=== PATIENT | male | born 1975 | race Caucasian/White ===

== ENCOUNTER 2022-02-12 08:12 | Outpatient (CLI) | payer MEDICARE, SELFPAY ==
--- NOTE | 2022-02-12 08:21 | ECG_ITS ---
Measurements Intervals [place] Rate: 87 P: 67 WI: 130 QRS: 70 QRSD: 88 T: 29 QT: 334 QTc: 402 Interpretive Statements SINUS RHYTHM NORMAL ECG NO PREVIOUS ECG AVAILABLE FOR COMPARISON Electronically Signed On 02-12-2022 10:32:45 CDT by Mac Wilson M.D.
[2022-02-12 08:49] LABS: Anion Gap 9 mmol/L (8-16); Blood Urea Nitrogen 11 mg/dL (9-20); Calcium 9.3 mg/dL (8.4-10.2); Carbon Dioxide 27 mmol/L (22-30); Chloride 106 mmol/L (98-107); Estimated Glomerular Filt Rate > 60; Glucose 136 mg/dL (65-110); Potassium 4.3 mmol/L (3.4-5.0); Sodium 142 mmol/L (137-145)
== END 2022-02-12 08:13 | disposition home or self-care (01) ==
LOC: ANHSURGERY 08:17
PROVIDERS: Anesthesiology; PCP Internal Medicine; Visit Provider Surgery
DX: E11.9 Type 2 diabetes mellitus without complications (principal); Z01.818 Encounter for other preprocedural examination; I10 Essential (primary) hypertension
CPT/HCPCS: 36415; 80048; 86850; 86900; 86901; 93005

== ENCOUNTER 2022-02-18 00:46 | Day surgery (SDC) | payer MEDICARE, SELFPAY ==
[2022-02-07 13:13] VITALS: BMI 32.5
--- NOTE | 2022-02-07 13:14 | PC.NURSE ---
Report to the Outpatient Waiting Room, entrance under the green pavilion located off [facility], at time _1200_ on date _02/18/22_. OR Time: _1400. - You and your visitor will be asked a series of questions to screen for COVID 19 for your protection. - Only one visitor is allowed at this time. - The patient visitor is requested to leave or wait in car when not with patient. - A mask is required within the hospital. Patients may have clear liquids (water, carbonated beverages, clear teas, apple juice) until 3 hours prior to surgery with a maximum of 20 ounces. - No food from midnight until time of surgery - Infants may have breast milk until 4 hours before surgery, infant formula 6 hours prior to surgery. - Children will be allowed to drink immediately following surgery. If applicable, please bring a bottle or sippy cup to assist with drinking. Juice, water, soda, and popsicles are readily available. For infants on formula, please bring formula the day of surgery. Pacifiers are allowed. Take the following medications with a SIP of water the morning of surgery: bupropion, loratadine, montelukast, propranolol__ Medications to discontinue per physician _multi vitamin 3 days prior (02/15/22)____ Date to take last dose Please no make-up, nail citizen of [place], hairspray, perfume, deodorant, or body powder the day of surgery. No jewelry (including any body piercings) or valuables the day of surgery, leave them at home. Please take a shower or bath the night before, or the morning of, surgery with an antibacterial soap. Wear comfortable, loose fitting clothing. Children are encouraged to wear pajamas. - Jewelry must be removed prior to entering the operating room. Rings and piercings that are not removed may be cut off. - The hospital will not accept responsibility for valuables. - Please leave all valuables, including medications, at home the day of surgery. If you are going home after surgery, a licensed medical van driver must drive you home. - NO public transportation without another adult. - We recommend that an adult stay with you for 24 hours following discharge. - We also recommend that you do not drive, make important decision, drink alcoholic beverages, or take any drugs that were not prescribed by your health care provider for at least 24 hours after your discharge time. For Pediatric surgeries, we recommend two adults accompany the child home (only one inside the building at this time). Follow any additional instructions given to you from your surgeon. If you or anyone in your household have experienced Covid symptoms in the past week, please notify your surgeon or the nurse liaison at the phone number below for possible testing. Telephone instructions given to patient_and asked if any additional questions and then verbalized understanding. Patient advised to call surgeon office or pre surgery nurse liaison [phone] if any additional questions.
--- NOTE | 2022-02-17 12:54 | WPDANESEPPF ---
Anes - Initial Pre Proc Eval Procedure: Operation Date: 02/18/22 14:00 Proposed Procedures p Laparoscopic Right Inguinal Hernia Repair with Mesh, Davinci Assisted - Rubio Cortez DO Date/Time: 02/17/22 12:54 Surgeon: Rubio Cortez DO Pre Op Diagnosis: Rt Ing Hernia Patient Data Age: 47 Gender: M Height: 1.63 m Weight: 86.18 kg Allergies Allergy/AdvReac Type Severity Reaction Status Date / Time No Known Allergies Allergy Verified 02/07/22 13:00 Home Medications Medication Instructions Recorded Confirmed Type bupropion HCl 100 mg tablet 100 mg PO BID 01/06/22 02/07/22 History doxepin 25 mg capsule 25 mg PO DAILY 01/06/22 02/07/22 History fenofibrate nanocrystallized 145 145 mg PO DAILY 01/06/22 02/07/22 History mg tablet loratadine 10 mg tablet (Allergy 10 mg PO DAILY 01/06/22 02/07/22 History Relief (loratadine)) metformin 500 mg tablet 500 mg PO DAILY 01/06/22 02/07/22 History montelukast 10 mg tablet 10 mg PO DAILY 01/06/22 02/07/22 History omeprazole 20 mg capsule,delayed 20 mg PO DAILY 01/06/22 02/07/22 History release propranolol 10 mg tablet 10 mg PO Q12H 01/06/22 02/07/22 History quinapril 20 mg tablet 20 mg PO DAILY 01/06/22 02/07/22 History rosuvastatin 40 mg tablet 40 mg PO DAILY 01/06/22 02/07/22 History Patient hx anesthesia problems: none Family hx anesthesia problems: none Results Review: All pre-operative results and documents have been reviewed as part of the pre-operative evaluation. [facility] Past Medical History Medical History (Updated 02/17/22 @ 12:55 by Phil Handy DO) Anxiety Bipolar disorder Depression Diabetes High cholesterol HTN (hypertension) IVORY (obstructive sleep apnea) Surgical History Surgical History History of appendectomy As a child. History of eye surgery Right eye 2013 History of umbilical hernia repair Above umbilical hernia. Unsure about mesh placement. Was done as a child. History of umbilical hernia repair Below umbilical hernia. Unsure about mesh placement. Was done as a child. Family History Family History Other Cerebrovascular accident Diabetes mellitus Heart disease Hypertension Social History Social History Smoking packs per day: 1 Smoking cigarettes per day: 20.0 Years smoked: 30 Smoking pack-years: 30.00 Smoking status: Current every day smoker Tobacco type: cigarettes Alcohol intake: current Alcohol use details: Rarely Substance use: former Substance use type: marijuana Last use: 01/07/22 Living arrangements: with family Additional occupation/education comments: Disabled. Spiritual care concerns: No Anes - Eval Final PreProcedure Day of Procedure 02/17/22 12:54 Patient weight: obese Heart: regular rate and rhythm Lungs: clear to auscultation Airway: Mallampati scale class II Neurological: alert and oriented Last oral intake: >/= 8 hours ASA classification: III Emergent: no Anesthetic plan: proceed Anesthesia type and monitoring: general ETT and standard monitoring Results Review: All pre-operative results and documents have been reviewed as part of the pre-operative evaluation. Informed Consent: The patient's anesthetic plan and its attendant risks and benefits were discussed with the patient/family/POA. Questions were solicited and answers provided to the satisfaction of the patient/family/POA.
[2022-02-18] VITALS (7 sets, daily range): BP systolic 108–130; BP diastolic 59–75; PULSE 87–101; RESP 14–23; TEMP 37.3–37.6; O2SAT 91–99; BMI 31.7
[2022-02-18 12:15] LABS: Glucose Point of Care 81 mg/dl (65-105)
[2022-02-18] MEDS: ACETAMINOPHEN 500 MG TABLET 1000 MG PO (12:30)
[2022-02-18] MEDS: KETOROLAC 15 MG/ML VIAL (*BKC) IV PUSH (12:30)
[2022-02-18] MEDS: LACTATED RINGERS 1,000 ML 30 ML IV CONT ×2 (12:43→16:18)
--- NOTE | 2022-02-18 14:01 | WPDHPUPDATE1 ---
History and Physical Update Update Date/Time: 02/18/22 14:01 History and Physical has been reviewed, including an updated exam of the patient. There are NO changes in the patient's condition. Risks, benefits, and alternatives have been discussed and questions answered. Patient agrees to proceed with procedure.
--- NOTE | 2022-02-18 14:01 | PM.IMHP ---
H&P: HPI History of Present Illness Date/Time: 02/18/22 14:01 Chief Complaint: Right inguinal hernia Narrative: This is a 47-year-old man who presents for right inguinal hernia repair. He denies any changes since last being seen in the office. Review of Systems Review of Systems: All systems reviewed & are unremarkable except as noted in HPI and below Constitutional: Constitutional: Denies chills, Denies fever(s), Denies headache(s) and Denies weight loss Eyes: Eyes: Denies change in vision ENT: Denies dizziness, Denies headache(s), Denies neck mass and Denies throat swelling Cardiovascular: Cardiovascular: Denies chest pain, Denies lightheadedness and Denies dyspnea Respiratory: Respiratory: Denies cough, Denies dyspnea and Denies wheezing Gastrointestinal: Gastrointestinal: Denies abdominal pain, Denies change in bowel habits, Denies nausea and Denies vomiting Genitourinary: Genitourinary: Denies hematuria and Denies dysuria Musculoskeletal: Musculoskeletal: Reports as per HPI Integumentary/Breasts: Skin/Breast: Reports as per HPI Neurologic: Denies dizziness and Denies headache(s) Allergic/Immunologic: Allergic/Immunologic: Denies throat swelling and Denies wheezing COUNT INCLUDES THE [facility] Past Medical History Medical History (Updated 02/17/22 @ 12:55 by Phil Handy DO) Anxiety Bipolar disorder Depression Diabetes High cholesterol HTN (hypertension) IVORY (obstructive sleep apnea) Surgical History Surgical History History of appendectomy As a child. History of eye surgery Right eye 2013 History of umbilical hernia repair Above umbilical hernia. Unsure about mesh placement. Was done as a child. History of umbilical hernia repair Below umbilical hernia. Unsure about mesh placement. Was done as a child. Family History Family History Other Cerebrovascular accident Diabetes mellitus Heart disease Hypertension Social History Social History Smoking packs per day: 1 Smoking cigarettes per day: 20.0 Years smoked: 30 Smoking pack-years: 30.00 Smoking status: Current every day smoker Tobacco type: cigarettes Alcohol intake: current Alcohol use details: Rarely Substance use: former Substance use type: marijuana Last use: 01/07/22 Living arrangements: with family Additional occupation/education comments: Disabled. Spiritual care concerns: No Meds Home Medications and Allergies Home Medications Medication Instructions Recorded Confirmed Type bupropion HCl 100 mg tablet 100 mg PO BID 01/06/22 02/07/22 History doxepin 25 mg capsule 25 mg PO DAILY 01/06/22 02/07/22 History fenofibrate nanocrystallized 145 145 mg PO DAILY 01/06/22 02/07/22 History mg tablet loratadine 10 mg tablet (Allergy 10 mg PO DAILY 01/06/22 02/07/22 History Relief (loratadine)) metformin 500 mg tablet 500 mg PO DAILY 01/06/22 02/07/22 History montelukast 10 mg tablet 10 mg PO DAILY 01/06/22 02/07/22 History omeprazole 20 mg capsule,delayed 20 mg PO DAILY 01/06/22 02/07/22 History release propranolol 10 mg tablet 10 mg PO Q12H 01/06/22 02/07/22 History quinapril 20 mg tablet 20 mg PO DAILY 01/06/22 02/07/22 History rosuvastatin 40 mg tablet 40 mg PO DAILY 01/06/22 02/07/22 History Allergies Allergy/AdvReac Type Severity Reaction Status Date / Time No Known Allergies Allergy Verified 02/07/22 13:00 Vital Signs Vital Signs - 24 hr 02/18/22 12:38 Temperature 37.3 C Pulse Rate 87 Respiratory Rate 14 Blood Pressure 130/75 Pulse Oximetry 99 Oxygen Delivery Room Air Exam Const: General: no acute distress and alert Orientation/consciousness: patient oriented x3 HENMT: Head: normocephalic and atraumatic Ears: hearing grossly normal bilaterally General nose exam: Normal nares present Mouth: Yes
[2022-02-18] MEDS: ceFAZolin 2 GM/D5W 50 ML 2 GM/50 ML BAG IVPB (14:34)
[2022-02-18] MEDS: LIDO 1%/EPINEPHRINE/PF 1:200,000 30 ML VIAL XX (14:57)
--- NOTE | 2022-02-18 15:57 | W.PM.PROC2 ---
Procedure Note - Detailed Date of Procedure 02/18/22 Pre-op Diagnosis Rt Ing Hernia Post-op Diagnosis Same (Direct [facility]) Procedure Performed Laparoscopic [] inguinal hernia repair with mesh, da Ct assisted Surgeon Rubio Cortez DO Anesthesia General and Local (0.5% bupivacaine with epinephrine) Indications This is a 47-year-old who presented with right groin pain for the past couple months. He had gone to the emergency department at [facility] for abdominal pain and blood in his stool. A CT at that time showed evidence of a right inguinal hernia. Discussions were made with the patient about treatment options and decision was made to proceed with robotic assisted laparoscopic right inguinal hernia repair with mesh. Findings Laparoscopic right inguinal hernia repair was performed. The patient had several omental adhesions from his prior surgeries. These adhesions had to be taken down to identify the right groin region where a small direct inguinal hernia was identified. A robotic transabdominal preperitoneal plane was utilized for repair. Once a wide enough preperitoneal pocket was created, I then placed a large right Bard 3DMax mid mesh overlying the entire right myopectineal orifice. No specimens were obtained for pathology. Description of Procedure Procedure as well as risks, benefits, and alternatives were discussed with the patient. Written consent was obtained and placed in chart prior to procedure. Patient was brought back to surgical suite. He was placed supine on operating table. Time-out was done to confirm patient and procedure. He was then intubated by Anesthesia Department. His abdomen was prepped and draped in sterile fashion using chlorhexidine prep. 0.5% bupivacaine with epinephrine was infiltrated at each location for incision. An 8 mm incision was made in the left lateral abdomen, and a 5 mm Optiview trocar was advanced through the abdominal layers under direct visualization. Once inside the abdominal cavity, carbon dioxide insufflation was used to create a pneumoperitoneum. A camera was inserted and the abdominal cavity was inspected. The patient was placed in slight Trendelenburg position. An 8 millimeter incision was made on the right lateral abdomen and an 8 millimeter trocar was inserted under direct visualization. Another 8 millimeter incision was made just superior to the umbilicus and an 8 millimeter trocar was inserted under direct visualization. The 5 mm port was then removed and this was replaced with another 8 mm robotic port. The robotic arms were brought up to the patient's bedside and secured to the ports. The camera and instruments were inserted. I then moved over to the robotic console and took control of the camera and instruments. After careful inspection of the abdominal cavity, I began scoring the peritoneum along the right lower quadrant using scissors with electrocautery. The preperitoneal plane was entered and this was carefully dissected caudally along the inferior epigastric vessels. Careful dissection with scissors with electrocautery and blunt dissection was used to continue this dissection. I dissected far enough laterally to allow for mesh placement, and also dissected medially to identify the pubic arch and Jorge's ligament. The hernia sac was identified and carefully dissected posteriorly. The cord contents were also identified and the peritoneum was carefully dissected far enough posteriorly to allow for mesh placement. Once an adequate pocket was created, I then placed the mesh within the preperitoneal pocket and carefully unfolded it. The mesh was centered on the hernia defect with adequate overlap circumferentially. The inferior edge of the mesh was inspected to ensure that it was far enough away from the peritoneal edge. The mesh appeared in proper position overlying the entire myopectineal orifice. The mesh was secured using 3-0 Vicryl simple interrupted suture
[2022-02-18 16:25] LABS: Glucose Point of Care 112 mg/dl (65-105)
[2022-02-18] MEDS: fentaNYL CITRATE INJ (*CRX) 100 MCG/2 ML VIAL 25 MCG IV PUSH ×2 (16:34→16:39)
[2022-02-18] MEDS: oxyCODONE HCL (*CRX) 5 MG TAB IR PO (17:14)
== END 2022-02-18 18:06 | disposition home or self-care (01) ==
PROVIDERS: PCP Internal Medicine; Visit Provider Surgery
PROC: 8E0Y4CZ Robotic Assisted Procedure of Lower Extremity, Percutaneous Endoscopic Approach (ICD-10-PCS; CPT 49650; principal; 2022-02-18 14:00)
DX: K40.90 Unilateral inguinal hernia, without obstruction or gangrene, not specified as recurrent (principal); I10 Essential (primary) hypertension; E78.00 Pure hypercholesterolemia, unspecified; E11.9 Type 2 diabetes mellitus without complications; G47.33 Obstructive sleep apnea (adult) (pediatric); F31.9 Bipolar disorder, unspecified; F41.9 Anxiety disorder, unspecified; Z79.84 Long term (current) use of oral hypoglycemic drugs; F17.210 Nicotine dependence, cigarettes, uncomplicated; F12.90 Cannabis use, unspecified, uncomplicated; E66.9 Obesity, unspecified; Z68.31 Body mass index [BMI] 31.0-31.9, adult
CPT/HCPCS: 49650; S2900; 36415; 80048; 82948; 86850; 86900; 86901; 93005; A9270; C1781; J0690; J1100; J1885; J2250; J2405; J2704; J2710; J3010; J7120

== ENCOUNTER 2023-08-17 08:33 | Emergency (ER) | payer MEDICARE, MEDICAID, SELFPAY ==
[2023-08-17] VITALS (10 sets, daily range): BP systolic 130–148; BP diastolic 74–96; PULSE 79–104; RESP 14–31; TEMP 37.2; O2SAT 95–100
--- NOTE | ~2023-08-17 | CT_ITS ---
EXAMINATION: CT abdomen pelvis w con INDICATION: Periumbilical pain, nausea and vomiting TECHNIQUE: Computed tomographic images of the abdomen and pelvis were obtained after the administrati on of 100 cc of Omnipaque 350 intravenous contrast. The dose-length product (DLP) was 867.37 mGy-cm. Automated exposure control and iterative reconstruction technique were employed. COMPARISON: None available FINDINGS: Minimal dependent atelectasis is present in the lung bases. The heart size is normal. A mica cified nodule of the right lower lobe is consistent with old granulomatous disease. The liver is diff usely low in attenuation when compared with the spleen, consistent with hepatic steatosis. There are areas of focal fatty sparing near the gallbladder fossa. Calcification in the right hepatic lobe may reflect old granulomatous disease. The spleen, pancreas, gallbladder, and adrenal glands are normal. The kidneys are unremarkable. No pathologically enlarged abdominal or pelvic lymph nodes are identifi ed. No free intraperitoneal gas or evidence of bowel obstruction. There is a left inguinal hernia con taining fat. There is a chronic appearing compression fracture of T12. IMPRESSION: 1. No CT correlate for the patient's symptoms. 2. Diffuse hepatic steatosis. Reviewed, dictated and finalized at location B. [facility] [employer]
[2023-08-17] MEDS: SODIUM CHLORIDE 0.9% IV 1,000 ML 999 ML IV CONT ×2 (09:33→11:31)
[2023-08-17] MEDS: ONDANSETRON INJ 4 MG/2 ML VIAL IV PUSH (09:33)
--- NOTE | 2023-08-17 09:33 | ED.NAVMDI ---
HPI - Nausea/Vomiting/Diarrhea General Chief complaint: Nausea/Vomiting/Diarrhea Stated complaint: abd pain Time Seen by Provider: 08/17/23 08:56 Source: patient Mode of arrival: ambulatory Limitations: no limitations History of Present Illness HPI Narrative: Patient is a 48-year-old male, with PMH of bipolar disorder, several abdominal hernia surgeries, who presents report of abdominal pain. Patient reports having ongoing pain since 08/12. Reports pain to his periumbilical region. Also reports nausea, vomiting, sweats/chills, constipation. Reports his last bowel movement was several days ago and a very small amount. Patient feels very dehydrated. Denies known fever. Denies dysuria or hematuria. Denies cough or cold sx's aside from his chronic smoker's cough. Related Data Home Medications Medication Instructions Recorded Confirmed bupropion HCl 100 mg tablet 100 mg PO BID 01/06/22 03/17/22 doxepin 25 mg capsule 25 mg PO DAILY 01/06/22 03/17/22 fenofibrate nanocrystallized 145 145 mg PO DAILY 01/06/22 03/17/22 mg tablet loratadine 10 mg tablet (Allergy 10 mg PO DAILY 01/06/22 03/17/22 Relief (loratadine)) metformin 500 mg tablet 500 mg PO DAILY 01/06/22 03/17/22 montelukast 10 mg tablet 10 mg PO DAILY 01/06/22 03/17/22 omeprazole 20 mg capsule,delayed 20 mg PO DAILY 01/06/22 03/17/22 release propranolol 10 mg tablet 10 mg PO Q12H 01/06/22 03/17/22 quinapril 20 mg tablet 20 mg PO DAILY 01/06/22 03/17/22 rosuvastatin 40 mg tablet 40 mg PO DAILY 01/06/22 03/17/22 Allergies Allergy/AdvReac Type Severity Reaction Status Date / Time No Known Allergies Allergy Verified 08/17/23 08:42 Review of Systems Review of Systems: CONSTITUTIONAL: See HPI. CARDIOVASCULAR: Denies chest pain, palpitations, or edema. RESPIRATORY: See HPI. GASTROINTESTINAL: See HPI. GENITOURINARY: Denies dysuria or hematuria. NEUROLOGIC: Denies headache, dizziness, numbness, or weakness. All systems reviewed & are unremarkable except as noted in HPI and below PMFSH Past Medical History Medical History Anxiety Bipolar disorder Depression Diabetes High cholesterol HTN (hypertension) IVORY (obstructive sleep apnea) Surgical History Surgical History History of appendectomy As a child. History of eye surgery Right eye 2014 History of inguinal hernia repair 02/18/22 Laparoscopic right inguinal hernia repair with mesh, da Ct assisted History of umbilical hernia repair Above umbilical hernia. Unsure about mesh placement. Was done as a child. History of umbilical hernia repair Below umbilical hernia. Unsure about mesh placement. Was done as a child. Family History Family History Other Cerebrovascular accident Diabetes mellitus Heart disease Hypertension Social History Social History Smoking packs per day: 1 Smoking cigarettes per day: 20.0 Years smoked: 30 Smoking pack-years: 30.00 Smoking status: Current every day smoker Tobacco type: cigarettes Alcohol intake: current Alcohol use details: rarely- one every couple months Substance use: former Substance use type: marijuana Last use: 01/07/22 Living arrangements: with family Additional occupation/education comments: Disabled. Spiritual care concerns: No Exam Narrative: GENERAL: Well appearing, obese with BMI of 33.4, non-toxic, in no acute distress. HEAD: Normocephalic, atraumatic. RESPIRATORY: Airway patent, respirations nonlabored. Clear to auscultation bilaterally, no rales, rhonchi, wheezing. CARDIOVASCULAR: Regular rate and rhythm without murmurs, rubs, or gallops. ABDOMINAL: Abdomen feels slightly firm and distended, tenderness throughout periumbilical region. No significant palpable h
[2023-08-17 09:47] LABS: Basophils Absolute Auto 0.1 K/mm3 (0.0-0.1); Basophils Percent Auto 0.5 % (0.2-1.2); Eosinophils Absolute Auto 0.1 K/mm3 (0-0.3); Eosinophils Percent Auto 0.9 % (0-4.4); Hemoglobin 16.2 g/dL (14.0-18.0); Immature Granulocyte Absolute 0.03 K/mm3 (0.00-0.031); Immature Granulocyte Percent A 0.3 % (0-0.5); Lymphocytes Absolute Auto 3.12 K/mm3 (0.9-3.2); Lymphocytes Percent Auto 33.8 % (18.3-44.2); Mean Corpuscular HGB Conc 33.1 g/dl (32-36); Mean Corpuscular Volume 87.8 fl (80-100); Mean Platelet Volume 10.7 fl (7.4-10.4); Monocytes Absolute Auto 1.3 K/mm3 (0.1-0.6); Monocytes Percent Auto 13.9 % (2.6-8.5); Neutrophils Absolute Auto 4.7 K/mm3 (1.3-6.7); Neutrophils Percent Auto 50.6 % (45.5-73.1); Platelet Count Result 463 k/mm3 (150-375); Red Blood Count 5.58 M/mm3 (4.6-6.20); Red Cell Distribution Width 12.6 % (11.5-14.5); White Blood Count 9.2 K/mm3 (4.5-10.0)
[2023-08-17 09:54] LABS: Appearance Urine Clear (Clear); Bacteria Urine None Seen /hpf; Bilirubin Urine 1+ (Negative); Blood Urine Negative (Negative); Color Urine Dark Yellow (Yellow); Glucose Urine UA Negative (Negative); Ketones Urine Trace mg/dL (Negative); Leukocyte Esterase Ur Negative LEU/UL (Negative); Nitrate Urine Negative (Negative); Protein Urine 1+ mg/dL (Negative); RBC Urine 0-2 /hpf (0-2); Squamous Epithelial Cell Urine None seen /hpf (Few); WBC Urine 0-5 /hpf; pH Urine 5.5 (5.0-9.0)
[2023-08-17 09:57] LABS: Add Urine Microscopic? YES; Specific Grav Ur 1.039 (1.001-1.035)
[2023-08-17 10:04] LABS: Alanine Aminotransferase 33 U/L (6-50); Albumin Level 5.1 g/dL (3.5-5.1); Alkaline Phosphatase 59 U/L (38-126); Anion Gap 14 mmol/L (8-16); Aspartate Amino Transferase 29 U/L (17-59); Blood Urea Nitrogen 20 mg/dL (9-20); Calcium 9.5 mg/dL (8.4-10.2); Carbon Dioxide 27 mmol/L (22-30); Chloride 94 mmol/L (98-107); Estimated CRCL calculation 75 ml/min; Estimated Glomerular Filt Rate > 60; Glucose 131 mg/dL (65-110); Lipase 69 U/L (23-300); Potassium 3.3 mmol/L (3.4-5.0); Sodium 135 mmol/L (137-145)
[2023-08-17 10:30] LABS: Influenza A QL RT-PCR Negative (Negative); Influenza B QL RT-PCR Negative (Negative); RSV RNA, RT-PCR Negative (Negative); SARS-CoV-2 RNA PCR Negative (Negative)
[2023-08-17] MEDS: POTASSIUM CHLORIDE 20 MEQ ER TABLET 40 MEQ PO (11:32)
[2023-08-17] MEDS: DICYCLOMINE HCL 10 MG CAPSULE 20 MG PO (12:07)
== END 2023-08-17 12:34 | disposition home or self-care (01) ==
PROVIDERS: Emergency Provider Physician Assistant; PCP Internal Medicine
DX: R11.2 Nausea with vomiting, unspecified (principal); R10.33 Periumbilical pain; Z20.822 Contact with and (suspected) exposure to COVID-19; F17.210 Nicotine dependence, cigarettes, uncomplicated; F41.9 Anxiety disorder, unspecified; F32.A Depression, unspecified; E11.9 Type 2 diabetes mellitus without complications; I10 Essential (primary) hypertension; G47.30 Sleep apnea, unspecified; Z79.84 Long term (current) use of oral hypoglycemic drugs
CPT/HCPCS: 36415; 74177; 80053; 81001; 83690; 85025; 87637; 96361; 96374; 99284; A9270; J2405; J7030; Q9967

== ENCOUNTER 2023-10-27 12:52 | Outpatient (CLI) | payer MEDICARE, MEDICAID, SELFPAY ==
--- NOTE | 2023-10-27 14:00 | NEURO_ITS ---
Impression: # Complains of left 4th and 5th finger numbness. Mild diabetic on Metformin. # No Carpal Tunnel Syndrome. # Left ulnar neuropathy across the elbow. # Normal needle/EMG exam. Nerve Conduction Studies Anti Sensory Summary Table Stim Site NR Peak (ms) P-T Amp (?V) Site1 Site2 Delta-P (ms) Dist (cm) Ede (m/s) Left Median Anti Sensory (2-3nd Digit) Wrist 2.8 43.4 Wrist 2-3nd Digit 2.8 14.0 50 Wrist 3.0 40.7 Wrist 2-3nd Digit 2.8 14.0 50 Left Radial Anti Sensory (Base 1st Digit) Wrist 1.6 40.4 Wrist Base 1st Digit 1.6 0.0 Left Ulnar Anti Sensory (5th Digit) Wrist 2.4 75.9 Wrist 5th Digit 2.4 14.0 58 Motor Summary Table Stim Site NR Onset (ms) O-P Amp (mV) Site1 Site2 Delta-0 (ms) Dist (cm) Dee (m/s) Left Median Motor (Abd Poll Brev) Wrist 2.9 1.8 Elbow Wrist 5.0 30.0 60 Elbow 7.9 2.1 Left Ulnar Motor (Abd Dig Minimi) Wrist 2.3 7.2 A Elbow Wrist 6.2 31.0 50 A Elbow 8.5 4.4 B Elbow Wrist 2.9 20.0 69 B Elbow 5.2 5.2 F Wave Studies NR F-Lat (ms) L-R F-Lat (ms) Left Median (Mrkrs) (Abd Poll Brev) 26.33 Left Ulnar (Mrkrs) (Abd Dig Min) 27.82 EMG Side Muscle Nerve Root Ins Act Fibs Amp Dur Recrt Comment Left 1stDorInt Ulnar C8-T1 Nml Nml Nml Nml Nml Left Ext Indicis Radial (Post Int) C7-8 Nml Nml Nml Nml Nml Left Ext Digitorum Radial (Post Int) C7-8 Nml Nml Nml Nml Nml Left BrachioRad Radial C5-6 Nml Nml Nml Nml Nml Left PronatorTeres Median C6-7 Nml Nml Nml Nml Nml Left Abd Poll Brev Median C8-T1 Nml Nml Nml Nml Nml Left ABD Dig Min Ulnar C8-T1 Nml Nml Nml Nml Nml MTDD
== END 2023-10-27 12:53 | disposition home or self-care (01) ==
LOC: ANHNEURO 12:53
PROVIDERS: PCP Internal Medicine; Visit Provider Orthopaedic Surgery
DX: M79.642 Pain in left hand (principal); G56.22 Lesion of ulnar nerve, left upper limb
CPT/HCPCS: 95886; 95909

== ENCOUNTER 2024-07-08 11:13 | Emergency (ER) | payer MEDICARE, MEDICAID, SELFPAY ==
--- NOTE | ~2024-07-08 | XR_ITS ---
Clinical Indication: Shortness of breath PA and lateral views of the chest: Comparison: None Findings: The lungs are clear, without evidence of focal consolidation or pleural effusion. Cardiome diastinal silhouette is within normal limits. Bones and soft tissues are unremarkable. Impression: Normal chest. Reviewed, dictated and finalized at [facility]. 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
[2024-07-08 11:19] VITALS: BP 129/83; PULSE 98; RESP 20; TEMP 36.6; O2SAT 96
--- NOTE | 2024-07-08 11:39 | ECG_ITS ---
Test Date: 2024-07-08 11:50:58 Measurements Intervals [place] Rate: 83 P: 40 DC: 130 QRS: 72 QRSD: 90 T: 54 QT: 355 QTc: 418 Interpretive Statements SINUS RHYTHM NORMAL ECG No previous ECG available for comparison Electronically Signed On 07-08-2024 11:55:57 SUPERVISOR DRAWING by Haile Desouza D.O.
[2024-07-08 11:45] VITALS: BP 125/79; PULSE 88; RESP 16; RESP 18; TEMP 36.8; O2SAT 96; O2SAT 97
[2024-07-08 11:47] VITALS: PULSE 90
[2024-07-08 12:00] VITALS: BP 126/79; PULSE 86; RESP 18; O2SAT 97
[2024-07-08 12:05] LABS: Basophils Absolute Auto 0.1 K/mm3 (0.0-0.1); Basophils Percent Auto 0.6 % (0.2-1.2); Eosinophils Absolute Auto 0.3 K/mm3 (0-0.3); Eosinophils Percent Auto 3.8 % (0-4.4); Hematocrit 45.6 % (42.0-52.0); Hemoglobin 15.5 g/dL (14.0-18.0); Immature Granulocyte Absolute 0.02 K/mm3 (0.00-0.031); Immature Granulocyte Percent A 0.3 % (0-0.5); Lymphocytes Percent Auto 35.7 % (18.3-44.2); Mean Corpuscular Hemoglobin 30.4 pg (26-34); Mean Corpuscular Volume 89.4 fl (80-100); Mean Platelet Volume 10.4 fl (7.4-10.4); Monocytes Absolute Auto 0.9 K/mm3 (0.1-0.6); Monocytes Percent Auto 11.4 % (2.6-8.5); Neutrophils Absolute Auto 3.8 K/mm3 (1.3-6.7); Neutrophils Percent Auto 48.2 % (45.5-73.1); Platelet Count Result 287 k/mm3 (150-375); Red Cell Distribution Width 12.5 % (11.5-14.5); White Blood Count 7.8 K/mm3 (4.5-10.0)
[2024-07-08 12:07] VITALS: BP 132/84; PULSE 87; RESP 19; O2SAT 96
[2024-07-08 12:10] LABS: Alanine Aminotransferase 23 U/L (6-50); Albumin Level 4.5 g/dL (3.5-5.1); Alkaline Phosphatase 58 U/L (38-126); Anion Gap 10 mmol/L (4-12); Aspartate Amino Transferase 25 U/L (17-59); Bilirubin,Total 0.4 mg/dL (0.2-1.3); Blood Urea Nitrogen 11 mg/dL (9-20); Carbon Dioxide 27 mmol/L (22-30); Chloride 102 mmol/L (98-107); Estimated CRCL calculation 108 ml/min; Estimated Glomerular Filt Rate > 60; Glucose 109 mg/dL (65-110); Potassium 3.9 mmol/L (3.4-5.0); Sodium 139 mmol/L (137-145)
--- NOTE | 2024-07-08 12:38 | ED.GENADULT ---
HPI - General Adult General Chief complaint: Unspecified Stated complaint: lung problems Time Seen by Provider: 07/08/24 12:10 Source: patient Mode of arrival: ambulatory History of Present Illness HPI narrative: Patient here for ?lung pain?. He has been having this for over week. No injury. History of asbestos exposure in his was pacing by pulmonology next week. 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 No cough. No sputum production. No constitutional symptoms. Related Data Home Medications Medication Instructions Recorded Confirmed bupropion HCl 100 mg tablet 100 mg PO BID 01/06/22 03/17/22 doxepin 25 mg capsule 25 mg PO DAILY 01/06/22 03/17/22 fenofibrate nanocrystallized 145 145 mg PO DAILY 01/06/22 03/17/22 mg tablet loratadine 10 mg tablet (Allergy 10 mg PO DAILY 01/06/22 03/17/22 Relief (loratadine)) metformin 500 mg tablet 500 mg PO DAILY 01/06/22 03/17/22 montelukast 10 mg tablet 10 mg PO DAILY 01/06/22 03/17/22 omeprazole 20 mg capsule,delayed 20 mg PO DAILY 01/06/22 03/17/22 release propranolol 10 mg tablet 10 mg PO Q12H 01/06/22 03/17/22 quinapril 20 mg tablet 20 mg PO DAILY 01/06/22 03/17/22 rosuvastatin 40 mg tablet 40 mg PO DAILY 01/06/22 03/17/22 Allergies Allergy/AdvReac Type Severity Reaction Status Date / Time No Known Allergies Allergy Verified 08/17/23 08:42 Review of Systems Review of Systems: All systems reviewed & are unremarkable except as noted in HPI and below PMFSH Past Medical History Medical History Anxiety Bipolar disorder Depression Diabetes High cholesterol HTN (hypertension) IVORY (obstructive sleep apnea) Surgical History Surgical History History of appendectomy As a child. History of eye surgery Right eye 2013 History of inguinal hernia repair 02/18/22 Laparoscopic right inguinal hernia repair with mesh, da Ct assisted History of umbilical hernia repair Above umbilical hernia. Unsure about mesh placement. Was done as a child. History of umbilical hernia repair Below umbilical hernia. Unsure about mesh placement. Was done as a child. Family History Family History Other Cerebrovascular accident Diabetes mellitus Heart disease Hypertension Social History Social History Smoking packs per day: 1 Smoking cigarettes per day: 20.0 Years smoked: 30 Smoking pack-years: 30.00 Smoking status: Current every day smoker Tobacco type: cigarettes Alcohol intake: current Alcohol use details: rarely- one every couple months Substance use: former Substance use type: marijuana Last use: 01/07/22 Living arrangements: with family Additional occupation/education comments: Disabled. Spiritual care concerns: No Exam Narrative: Constitutional: Generally well appearing, no acute distress Head: Atraumatic, no deformities. Eyes: Pupils equal, round, and reactive to light. Neck: Supple, no tracheal deviation, no JVD. ENMT: Mucous membranes moist Cardiovascular: S1, S2 auscultated. No murmurs, rubs, or gallops. No S3/S4. Normal Distal pulses. No peripheral edema. Respiratory: Lung sounds equal. No wheezes, rales, or rhonchi. Gastrointestinal: Abdomen was soft and non-tender. Non-distended. No rebound or guarding. Genitourinary: Deferred Musculoskeletal: Normal muscle tone and bulk. No obvious deformities or tenderness over extremities. Skin: No rashes. Neurological: Strength 5/5 in extremities. Cranial nerves I-XII grossly intact. Distal sensation intact. Mental Status: Awake, alert and oriented x3. Follows commands Course Vital Signs Vital signs: Vital Signs Temperature 36.6 C 07/08/24 11:19 Pulse Rate 98 07/08/24 11:19 Respiratory Rate 20 07/08/24 11:19 Blood Pressure 129/83 07/08/24 11:19 Pulse Oximetry 96 07/08/24 11:19 Oxygen Delivery Room Air 07/08/24 11:19 Temperature 36.8 C 07/08/24 11:45 Pulse Rate 78 07/08/24 13:16 Respiratory Rate 15 07/08/24 13:16 Blood Pressure 123/72 07/08/24 13:16 Pulse Oximetry 96 07/08/24 13:16 Oxygen Delivery Room Air 07/08/24 11:19 Medical Decision Making MDM Narrative Medical decision making narrative: Well-appearing 49-year-old currently being treated for patient inactive TB, history of asbestos exposure as well right upper ?lung pain? on the right side for 2 weeks. Exam is nonfocal, normal vitals, normal cardiorespiratory exam. Suspect likely pleuritic chest pain. Perc negative to rule out PE. Obtaining cardiac workup. Workup unremarkable showing no obvious source of his symptoms. Heart score is indicating very low risk for any acute coronary pathology. 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 Pt feeling improved and would like to go home at this point. Return precautions were given to the patient include any new or worsening symptoms or development of and not limited to any chest pain, shortness of breath, lightheadedness, abdominal pain, fevers, chills. Patient understands and agrees. They are to follow-up with her PCP. All questions were answered. I reviewed the patient's vital signs, history, allergies, and labs and imaging workup. Vital Signs Vital Signs: Vital Signs Temperature 36.6 C 07/08/24 11:19 Pulse Rate 98 07/08/24 11:19 Respiratory Rate 20 07/08/24 11:19 Blood Pressure 129/83 07/08/24 11:19 Pulse Oximetry 96 07/08/24 11:19 Oxygen Delivery Room Air 07/08/24 11:19 Temperature 36.8 C 07/08/24 11:45 Pulse Rate 78 07/08/24 13:16 Respiratory Rate 15 07/08/24 13:16 Blood Pressure 123/72 07/08/24 13:16 Pulse Oximetry 96 07/08/24 13:16 Oxygen Delivery Room Air 07/08/24 11:19 Lab Data 07/08/24 11:48 07/08/24 11:48 Labs: Lab Results 07/08/24 Range/Units 11:48 WBC 7.8 (4.5-10.0) K/mm3 RBC 5.10 (4.6-6.20) M/mm3 Hgb 15.5 (14.0-18.0) g/dL Hct 45.6 (42.0-52.0) % MCV 89.4 (80-100) fl MCH 30.4 (26-34) pg MCHC 34.0 (32-36) g/dl RDW 12.5 (11.5-14.5) % Plt Count 287 (150-375) k/mm3 MPV 10.4 (7.4-10.4) fl Immature Gran % (Auto) 0.3 (0-0.5) % Neut % (Auto) 48.2 (45.5-73.1) % Lymph % (Auto) 35.7 (18.3-44.2) % [place] % (Auto) 11.4 H (2.6-8.5) % Eos % (Auto) 3.8 (0-4.4) % Baso % (Auto) 0.6 (0.2-1.2) % Lymph # (Auto) 2.80 (0.9-3.2) K/mm3 [place] # (Auto) 0.9 H (0.1-0.6) K/mm3 Eos # (Auto) 0.3 (0-0.3) K/mm3 Baso # (Auto) 0.1 (0.0-0.1) K/mm3 Abs Immat Gran (auto) 0.02 (0.00-0.031) K/mm3 Absolute Neuts (auto) 3.8 (1.3-6.7) K/mm3 Absolute Nucleated RBC 0.000 (0.0-0.012) K/mm3 Nucleated RBC % 0.0 (0.0-0.2) % Sodium 139 (137-145) mmol/L Potassium 3.9 (3.4-5.0) mmol/L Chloride 102 (98-107) mmol/L Carbon Dioxide 27 (22-30) mmol/L Anion Gap 10 (4-12) mmol/L BUN 11 D (9-20) mg/dL Creatinine 0.60 L (0.7-1.3) mg/dL Estim Creat Clear Calc 108 ml/min Estimated GFR > 60 (59 - ) Glucose 109 (65-110) mg/dL Calcium 9.0 (8.4-10.2) mg/dL Total Bilirubin 0.4 (0.2-1.3) mg/dL AST 25 (17-59) U/L ALT 23 (6-50) U/L Alkaline Phosphatase 58 (38-126) U/L Troponin I < 0.012 (0.000-0.034) ng/mL Total Protein 8.0 (6.3-8.2) g/dL Albumin 4.5 (3.5-5.1) g/dL Discharge Plan Discharge Clinical Impression: Chest pain in adult Patient Disposition: Home, Self-Care Condition: Stable Instructions: Antibiotic Form, Chest Pain (ED) Prescriptions: No Action montelukast 10 mg tablet 10 mg PO DAILY metformin 500 mg tablet 500 mg PO DAILY loratadine [Allergy Relief (loratadine)] 10 mg tablet 10 mg PO DAILY fenofibrate nanocrystallized 145 mg tablet 145 mg PO DAILY rosuvastatin 40 mg tablet 40 mg PO DAILY omeprazole 20 mg capsule,delayed release(DR/EC) 20 mg PO DAILY quinapril 20 mg tablet 20 mg PO DAILY propranolol 10 mg tablet 10 mg PO Q12H doxepin 25 mg capsule 25 mg PO DAILY bupropion HCl 100 mg tablet 100 mg PO BID dicyclomine 20 mg tablet 20 mg PO TID Qty: 15 0RF ondansetron 4 mg tablet,disintegrating 4 mg PO Q8H PRN (Reason: nausea and vomiting) Qty: 15 0RF Follow-up/Referrals: Reta,MD Ling [Primary Care Provider] - Time of Disposition: 13:27
[2024-07-08 13:16] VITALS: BP 123/72; PULSE 78; RESP 15; O2SAT 96
[2024-07-08 13:16] LABS: Troponin I < 0.012 ng/mL (0.000-0.034)
== END 2024-07-08 13:44 | disposition home or self-care (01) ==
LOC: ANHED 13:33
PROVIDERS: Emergency Medicine; Emergency Provider Emergency Medicine; PCP Internal Medicine
DX: R07.9 Chest pain, unspecified (principal); F41.8 Other specified anxiety disorders; E11.9 Type 2 diabetes mellitus without complications; I10 Essential (primary) hypertension; G47.33 Obstructive sleep apnea (adult) (pediatric); F17.210 Nicotine dependence, cigarettes, uncomplicated
CPT/HCPCS: 36415; 71046; 80053; 84484; 85025; 93005; 99284

== ENCOUNTER 2024-07-19 10:30 | Outpatient (CLI) | payer MEDICARE, MEDICAID, SELFPAY ==
--- NOTE | ~2024-07-19 | PE_ITS ---
EXAMINATION: PET skull to mid thigh DATE: 07/19/2024 12:50 INDICATION: Solitary pulmonary nodule TECHNIQUE: Blood glucose level was 93 mg/dL. 10.364 mCi of 18-fluorodeoxyglucose (18-FDG) was adminis tered i.v. Low dose computed tomography (CT) images were acquired from the base of the brain to the p roximal thighs for attenuation correction and anatomic localization. Positron emission tomography (PE T) images were acquired in the same distribution beginning 55 minutes after injection. Images includi ng fused PET/CT images were reconstructed in axial, coronal, and sagittal planes. Automated exposure control technique was employed. The dose-length product was 689.32mGy-cm. COMPARISON: None FINDINGS: Head/neck: There is symmetric increased activity in the oral cavity, palatine and lingual tonsils and ocular mus cles without CT correlate, likely physiologic. Additional asymmetric but likely physiologic increased uptake at the right masseter muscles without radiologic correlate. No pathologically enlarged cervic al lymphadenopathy or suspicious foci of increased FDG uptake in the visualized head or neck. Chest: Mild emphysema. Calcified right lower lobe nodule along with calcified mediastinal lymph nodes withou t FDG uptake consistent with old granulomatous disease. Mild dependent atelectasis in both lower lobe s. No other suspicious pulmonary nodules, pneumonia or pleural effusion. Heart size is normal. No per icardial effusion. Thoracic aorta is normal in caliber. No pathologically enlarged or FDG avid thorac ic lymphadenopathy. Likely degenerative mild uptake associated with mild osteoarthritis at the left a cromioclavicular joint. Abdomen/pelvis/proximal thighs: Physiologic renal accumulation and excretion of FDG activity in the kidneys, bladder and along portio ns of ureters. Normal degree and heterogenous pattern of increased uptake throughout the liver withou t radiologic correlate or dominant FDG avid lesion. The gallbladder, pancreas, spleen and bilateral a drenal glands are normal. Mild uptake scattered throughout the bowels without radiologic correlate, a lso likely physiologic. 1.3 cm intramural lipoma in the ascending colon. No other abnormal foci of in creased FDG uptake or pathologically enlarged lymphadenopathy in the abdomen, pelvis or proximal thig hs. Musculoskeletal: Chronic mild T12 compression fracture. No suspicious lytic, blastic or abnormally FDG avid bone lesio ns. IMPRESSION: 1. Calcified right lower lobe nodule and calcified mediastinal lymph nodes consistent with old granul omatous disease. No FDG avid lesions suspicious for malignancy or metastatic disease. Reviewed, dictated and finalized at location [facility]. 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 Calcified right lower lobe nodule and calcified mediastinal lymph nodes cons istent with old granulomatous disease. No FDG avid lesions suspicious for malig varun or metastatic disease.
[2024-07-19 11:03] LABS: Glucose Point of Care 93 mg/dl (65-105)
== END 2024-07-19 10:31 | disposition home or self-care (01) ==
PROVIDERS: PCP Internal Medicine; Visit Provider Internal Medicine Pulmonary Disease
DX: R91.1 Solitary pulmonary nodule (principal)
CPT/HCPCS: 78815; A9552

== ENCOUNTER 2024-07-25 07:35 | Outpatient (CLI) | payer MEDICARE, MEDICAID, SELFPAY ==
--- NOTE | 2024-07-25 12:36 | WPDPFTINT ---
PFT Procedure Performed PFT Procedure Performed Spirometry with Pre/Post Bronchodilator Plethysmography (Lung Vol) Diffusing Cap (DLCO) Flow Vol Loop PFT Interpretation This is a pulmonary function test with pre and post-bronchodilator spirometry, plethysmography and diffusing capacity. The test was performed and results interpreted in accordance with the 2019 and 2005 ATS/ERS Task Force guidelines respectively using the Global Lung Function Initiative-2012 reference equations. Patient demonstrated good effort and cooperation. Reproducibility criteria were met. The quality of the pre bronchodilator spirometry maneuver was Grade A and post bronchodilator spirometry maneuver was Grade A. Findings: Spirometry: The contour the inspiratory and expiratory flow tracing are normal. The pre bronchodilator FVC is 4.15 L, 101% predicted. the pre bronchodilator FEV1 is 2.95 L, 89% predicted. The pre bronchodilator FEV1: FVC ratio is 71%. The post bronchodilator FVC is 4.17 L, representing a 1% increase. The post bronchodilator FEV1 is 3.04 L, representing a 3% increase. The post bronchodilator FEV1: FVC ratio 73%. Plethysmography: The total lung capacity is 5.56 L, 96% predicted. The functional residual capacity is 2.37 L, 84% predicted. The residual volume is 1.41 L, 85% predicted. Diffusing capacity: The diffusing capacity unadjusted for hemoglobin and carboxyhemoglobin is 23.5, 81% predicted. The diffusing capacity adjusted for alveolar volume is 4.48, 90% predicted. Impression: The spirometry is normal without evidence of an obstructive abnormality. There is no significant improvement after inhaling a single dose of albuterol. The lung volumes are normal. The diffusing capacity is normal. There are no prior studies for comparison
== END 2024-07-25 07:36 | disposition home or self-care (01) ==
LOC: ANHPFT 07:35
PROVIDERS: PCP Internal Medicine; Visit Provider Orthopaedic Surgery
DX: R05.3 Chronic cough (principal); R06.00 Dyspnea, unspecified; T78.40XA Allergy, unspecified, initial encounter; D89.9 Disorder involving the immune mechanism, unspecified
CPT/HCPCS: 94060; 94726; 94729

== ENCOUNTER 2024-08-30 12:30 | Outpatient (CLI) | payer MEDICARE, MEDICAID, SELFPAY ==
--- NOTE | 2024-08-30 12:47 | ECG_ITS ---
Test Date: 2024-08-30 13:05:37 Measurements Intervals [place] Rate: 76 P: 57 [place]: 135 QRS: 80 QRSD: 96 T: 67 QT: 371 QTc: 419 Interpretive Statements SINUS RHYTHM INCOMPLETE RIGHT BUNDLE BRANCH BLOCK [90+ ms QRS DURATION, TERMINAL R IN V1/V2, 40+ ms S IN I/aVL/V4/V5/V6] Compared to ECG 07/08/2024 11:50:58 Incomplete right bundle-branch block now present Electronically Signed On 08-30-2024 22:42:13 EXPLOSIVE ORDNANCE HANDLER by Dorita Walters M.D.
== END 2024-08-30 12:31 | disposition home or self-care (01) ==
PROVIDERS: PCP Internal Medicine; Visit Provider Nurse Anesthetist, Certified Registered
DX: Z01.818 Encounter for other preprocedural examination (principal); I45.10 Unspecified right bundle-branch block; E11.9 Type 2 diabetes mellitus without complications; I10 Essential (primary) hypertension
CPT/HCPCS: 93005

== ENCOUNTER 2024-11-20 06:15 | Emergency (ER) | payer MEDICARE, MEDICAID, SELFPAY ==
--- NOTE | ~2024-11-20 | CT_ITS ---
CLINICAL INDICATION: Abdominal pain COMPARISON: 08/17/2023. TECHNIQUE: Multiple contiguous axial images of the abdomen and pelvis were performed following the ad ministration of with 100 mL Omnipaque-350 intravenous contrast The dose-length product (DLP) was 381.74 mGy-cm. Automated exposure control and iterative reconstruction technique were employed. FINDINGS/OBSERVATIONS: Visualized lower thorax: Redemonstration of a calcified nodule within the right lung base, consistent with prior granulomatous disease. The remainder of the bilateral lung bases are clear. The heart is of normal size, without pericardial effusion. Large hiatal hernia (containing both the proximal stomach as well as fat) is present. Liver: Bulky calcification within segment 5 of the liver, a nonspecific finding, unchanged from 2022 and likely benign. Diffuse fatty infiltration of the liver is also noted, also unchanged. The remainder of the liver demonstrates otherwise homogeneous enhancement and is not enlarged measuri ng 16 cm in longitudinal dimension. Gallbladder and biliary system: The gallbladder is only minimally distended, and otherwise unremarkable. Pancreas: The pancreas enhances homogeneously without ductal dilatation. Spleen: The spleen enhances homogeneously and is not enlarged measuring 8 cm in longitudinal dimension. Kidneys: The bilateral kidneys enhance symmetrically without hydronephrosis or renal calculi. Adrenal glands: Unremarkable. Gastrointestinal tract: Fecal stasis within the colon. Appendix: The appendix is not definitively visualized. However, no pericecal inflammatory change is identified suggest the presence of acute appendicitis. Vasculature: Incidental notation is made of a retroaortic left renal vein. Lymph nodes: No pathologically enlarged or morphologically suspicious lymph nodes within the retroperitoneum or at the root of the mesentery. Pelvic structures: The bladder is only minimally distended, and otherwise unremarkable. The prostate gland is not significantly enlarged. Body wall and musculoskeletal: Small fat-containing left inguinal hernia. Degenerative disease is identified at the level of L5/S1 with retrolisthesis (grade 1) of L5 onto S1 with vacuum phenomena. Remainder of the lower thoracic and lumbosacral spines are unremarkable. IMPRESSION: No acute pathology is identified within the lower chest, abdomen or pelvis, as detailed above. Reviewed, dictated and finalized at location A.
[2024-11-20 06:28] VITALS: BP 156/85; PULSE 77; RESP 20; TEMP 36.6; O2SAT 100
[2024-11-20 06:50] LABS: Basophils Absolute Auto 0.1 K/mm3 (0.0-0.1); Basophils Percent Auto 0.6 % (0.2-1.2); Eosinophils Absolute Auto 0.3 K/mm3 (0-0.3); Hematocrit 45.3 % (42.0-52.0); Immature Granulocyte Absolute 0.05 K/mm3 (0.00-0.031); Immature Granulocyte Percent A 0.4 % (0-0.5); Lymphocytes Absolute Auto 1.91 K/mm3 (0.9-3.2); Mean Corpuscular HGB Conc 33.1 g/dl (32-36); Mean Corpuscular Hemoglobin 30.2 pg (26-34); Mean Corpuscular Volume 91.1 fl (80-100); Mean Platelet Volume 10.5 fl (7.4-10.4); Monocytes Absolute Auto 0.8 K/mm3 (0.1-0.6); Monocytes Percent Auto 6.3 % (2.6-8.5); Neutrophils Absolute Auto 9.6 K/mm3 (1.3-6.7); Neutrophils Percent Auto 75.7 % (45.5-73.1); Platelet Count Result 321 k/mm3 (150-375); Red Blood Count 4.97 M/mm3 (4.6-6.20); Red Cell Distribution Width 12.1 % (11.5-14.5); White Blood Count 12.7 K/mm3 (4.5-10.0)
[2024-11-20 07:00] LABS: Alanine Aminotransferase 22 U/L (6-50); Albumin Level 4.8 g/dL (3.5-5.1); Alkaline Phosphatase 88 U/L (38-126); Anion Gap 12 mmol/L (4-12); Aspartate Amino Transferase 22 U/L (17-59); Bilirubin,Total 0.6 mg/dL (0.2-1.3); Blood Urea Nitrogen 10 mg/dL (9-20); Calcium 9.6 mg/dL (8.4-10.2); Carbon Dioxide 26 mmol/L (22-30); Chloride 102 mmol/L (98-107); Estimated CRCL calculation 94 ml/min; Estimated Glomerular Filt Rate > 60; Glucose 152 mg/dL (65-110); Lipase 49 U/L (23-300); Potassium 4.1 mmol/L (3.4-5.0); Sodium 140 mmol/L (137-145)
--- NOTE | 2024-11-20 07:10 | ED_ITS ---
HPI - Abdominal Pain General Chief Complaint: Abdominal Pain Stated Complaint: Abd Pain Time Seen by Provider: 11/20/24 07:09 Source: patient Mode of arrival: ambulatory History of Present Illness HPI narrative: 49 years old white male came to the ED by ambulance from home with worsening abdominal pain which start 2 weeks ago, mid abdomen, aching, denying any fever, chills, nausea, constipation, urinary symptoms, aggravating or relieving factors. History of hypertension, diabetes, hyperlipidemia, abdominal hernia repair, appendectomy, tobacco use, marijuana use, intermittent use of alcohol. Patient reports having GI workup next week for possible spot on the liver patient reports 1 loose stool this morning and couple episode of vomiting prior to arrival Related Data Home Medications ?Medication ?Instructions ?Recorded ?Confirmed ?Last Taken ?Type bupropion HCl 100 mg tablet 100 mg PO BID 01/06/22 11/16/24 02/07/22 History loratadine 10 mg tablet (Allergy 10 mg PO DAILY 01/06/22 11/16/24 02/07/22 History Relief (loratadine)) metformin 500 mg tablet 500 mg PO DAILY 01/06/22 11/16/24 02/07/22 History montelukast 10 mg tablet 10 mg PO DAILY 01/06/22 11/16/24 02/07/22 History omeprazole 20 mg capsule,delayed 20 mg PO DAILY 01/06/22 11/16/24 02/07/22 History release propranolol 10 mg tablet 10 mg PO Q12H 01/06/22 11/16/24 02/07/22 History rosuvastatin 40 mg tablet 40 mg PO DAILY 01/06/22 11/16/24 02/07/22 History losartan 50 mg tablet 50 mg PO DAILY 11/16/24 11/16/24 Unknown History sertraline 100 mg tablet 100 mg PO DAILY 11/16/24 11/16/24 Unknown History trazodone 100 mg tablet 100 mg PO DAILY 11/16/24 11/16/24 Unknown History Allergies Allergy/AdvReac Type Severity Reaction Status Date / Time No Known Allergies Allergy Verified 11/16/24 14:40 Review of Systems 2 Review of Systems: All systems reviewed & are unremarkable except as noted in HPI and below PMFSH Past Medical History Medical History Depression Anxiety Bipolar disorder IVORY (obstructive sleep apnea) High cholesterol HTN (hypertension) Diabetes Surgical History Surgical History History of inguinal hernia repair 02/18/22 Laparoscopic right inguinal hernia repair with mesh, da Ct assisted History of eye surgery Right eye 2014 History of appendectomy As a child. History of umbilical hernia repair Below umbilical hernia. Unsure about mesh placement. Was done as a child. History of umbilical hernia repair Above umbilical hernia. Unsure about mesh placement. Was done as a child. Family History Family History Other Cerebrovascular accident Diabetes mellitus Heart disease Hypertension Social History Social History Smoking packs per day: 1 Smoking cigarettes per day: 20.0 Years smoked: 32 Smoking pack-years: 32.00 Smoking status: Current every day smoker Tobacco type: cigarettes Alcohol intake: current Alcohol use details: once every few months Substance use: current Substance use type: marijuana Other substance usage details: smokes marijuana daily Last use: 01/07/22 Living arrangements: with family Additional occupation/education comments: Disabled. Spiritual care concerns: No Exam 2 Narrative: General appearance: Well-developed, well-nourished, restless, in pain, holding vomiting bag in hands Skin: Normal color Head: Normocephalic, nontraumatic Eyes: Clear conjunctiva ENT: Oropharynx normal, ears normal, nose normal Neck: Supple, nontender Chest and respiratory: Airway patent, no respiratory distress, no accessory muscle use Heart: Regular rate/rhythm Abdomen: Soft, diffuse abdominal tenderness, slight guarding, no rebound, no organomegaly, quiet bowel sounds Vascular: Normal peripheral pulses, normal capillary refill. 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 is normal as tested, no gross motor deficit Course Vital Signs Vital signs: Vital Signs Temperature 36.6 C 11/20/24 06:28 Pulse Rate 77 11/20/24 06:28 Respiratory Rate 20 11/20/24 06:28 Blood Pressure 156/85 H 11/20/24 06:28 Pulse Oximetry 100 11/20/24 06:28 Oxygen Delivery Room Air 11/20/24 06:28 Temperature 36.6 C 11/20/24 06:28 Pulse Rate 77 11/20/24 06:28 Respiratory Rate 20 11/20/24 06:28 Blood Pressure 156/85 H 11/20/24 06:28 Pulse Oximetry 100 11/20/24 06:28 Oxygen Delivery Room Air 11/20/24 06:28 MDM - Abdominal Pain MDM Narrative Medical decision making narrative: Patient came to the ED with abdominal pain for the last 2 weeks worse over the last 24 hours Vital signs stable Physical examination showed patient in pain, diffuse tenderness of the abdomen Differential diagnosis include cholecystitis, diverticulitis, colitis, bowel obstruction, stress related symptoms Blood workup today includes CBC, CMP, lactic acid, lipase showed 12.7, otherwise insignificant Urinalysis showed no acute abnormalities CT abdomen and pelvis with IV contrast showed no acute abnormalities Respiratory panel negative for COVID, flu and RSV. Abdominal pain of unknown etiology The pt was discharged to home.the pt,s condition upon discharge was fair,education was provided to the pt in reference to the final impression,discharge study results,treatment,prognosis and need for follow up . Lab Data 11/20/24 06:36 11/20/24 06:36 Labs: Lab Results 11/20/24 11/20/24 11/20/24 Range/Units 06:36 07:48 07:55 WBC 12.7 H (4.5-10.0) K/mm3 RBC 4.97 (4.6-6.20) M/mm3 Hgb 15.0 (14.0-18.0) g/dL Hct 45.3 (42.0-52.0) % MCV 91.1 (80-100) fl MCH 30.2 (26-34) pg MCHC 33.1 (32-36) g/dl RDW 12.1 (11.5-14.5) % Plt Count 321 (150-375) k/mm3 MPV 10.5 H (7.4-10.4) fl Immature Gran % (Auto) 0.4 (0-0.5) % Neut % (Auto) 75.7 H (45.5-73.1) % Lymph % (Auto) 15.0 L (18.3-44.2) % [place] % (Auto) 6.3 (2.6-8.5) % Eos % (Auto) 2.0 (0-4.4) % Baso % (Auto) 0.6 (0.2-1.2) % Lymph # (Auto) 1.91 (0.9-3.2) K/mm3 [place] # (Auto) 0.8 H (0.1-0.6) K/mm3 Eos # (Auto) 0.3 (0-0.3) K/mm3 Baso # (Auto) 0.1 (0.0-0.1) K/mm3 Abs Immat Gran (auto) 0.05 H (0.00-0.031) K/mm3 Absolute Neuts (auto) 9.6 H (1.3-6.7) K/mm3 Absolute Nucleated RBC 0.000 (0.0-0.012) K/mm3 Nucleated RBC % 0.0 (0.0-0.2) % Sodium 140 (137-145) mmol/L Potassium 4.1 (3.4-5.0) mmol/L Chloride 102 (98-107) mmol/L Carbon Dioxide 26 (22-30) mmol/L Anion Gap 12 (4-12) mmol/L BUN 10 (9-20) mg/dL Creatinine 0.70 (0.7-1.3) mg/dL Estim Creat Clear Calc 94 ml/min Estimated GFR > 60 (59 - ) Glucose 152 H (65-110) mg/dL Calcium 9.6 (8.4-10.2) mg/dL Total Bilirubin 0.6 (0.2-1.3) mg/dL AST 22 (17-59) U/L ALT 22 (6-50) U/L Alkaline Phosphatase 88 (38-126) U/L Total Protein 8.0 (6.3-8.2) g/dL Albumin 4.8 (3.5-5.1) g/dL Lipase 49 (23-300) U/L Urine Color Yellow (Yellow) Urine Appearance Clear (Clear) Urine pH >=9.0 H (5.0-9.0) Ur Specific [place] > 1.045 H (1.001-1.035) Urine Protein Trace (Negative) mg/dL Urine Glucose (UA) Negative (Negative) mg/dL Urine Ketones 1+ H (Negative) mg/dL Ur Blood (Man) Negative (Negative) Urine Nitrate Negative (Negative) Urine Bilirubin Negative (Negative) Urine Urobilinogen 1.0 (<2.0) mg/dL Leukocyte Esterase Rfl Negative (Negative) JAY/UL Urine RBC 0-2 (0-2) /hpf Urine WBC 0-5 (0-3) /hpf Ur Squamous Epith Cells None seen (Few) /hpf Urine Bacteria None seen /hpf Urine Casts 0-2 Influenza A (RT-PCR) Pending Influenza B (RT-PCR) Pending RSV (RT-PCR) Pending SARS-CoV-2 RNA (RT-PCR) Pending Imaging Data Radiologist's impression: ITS Impressions Abdomen/Pelvis CT 11/20/24 07:46 IMPRESSION: No acute pathology is identified within the lower chest, abdomen or pelvis, as detailed above. Discharge Plan Discharge Clinical Impression: Abdominal pain Patient Disposition: Home, Self-Care Condition: Improved Instructions: Antibiotic Form Additional Instructions: Return if symptoms are worsening , call your family physician for appointment, take Tylenol as as needed for aches and pain, continue home medications. Patient Language: Singaporean Prescriptions: New dicyclomine 20 mg tablet 20 mg PO QID PRN (Reason: abdominal pain) Qty: 20 0RF ondansetron 4 mg tablet,disintegrating 4 mg PO Q4H 0 Days Qty: 10 0RF Rx Instructions: 1st dose 1-2 hr before radiation No Action montelukast 10 mg tablet 10 mg PO DAILY metformin 500 mg tablet 500 mg PO DAILY loratadine [Allergy Relief (loratadine)] 10 mg tablet 10 mg PO DAILY rosuvastatin 40 mg tablet 40 mg PO DAILY omeprazole 20 mg capsule,delayed release(DR/EC) 20 mg PO DAILY propranolol 10 mg tablet 10 mg PO Q12H bupropion HCl 100 mg tablet 100 mg PO BID losartan 50 mg tablet 50 mg PO DAILY sertraline 100 mg tablet 100 mg PO DAILY trazodone 100 mg tablet 100 mg PO DAILY Follow-up/Referrals: Reta,MD Ling [Primary Care Provider] -
[2024-11-20] MEDS: MORPHINE SULFATE (*CRX) 4 MG/ML INJ IV PUSH (07:18)
[2024-11-20] MEDS: SODIUM CHLORIDE 0.9% IV 1,000 ML 999 ML IV CONT (07:18)
[2024-11-20] MEDS: ONDANSETRON INJ 4 MG/2 ML VIAL IV PUSH (07:18)
--- OUTSIDE RECORDS SUMMARY | 2024-11-20 07:56 | XMS_ITS | CONTINUITY OF CARE DOCUMENT ---
Author Name alfonso josephangel Address Unknown Organization [facility] Address [address] [place] [address] Phone [phone] Care Team Providers Care Neonatal Specialist Name Role Phone Sean Burris MD Unavailable ANA LAURA MANZANARES MD Unavailable ANA LAURA MANZANARES MD Unavailable [phone] PROBLEMS Condition Status Date Provider Notes Cardiology examination active Sean Burris MD Anxiety active Sean Burris MD (History of) Depression active Sean Burris MD Hyperlipidemia active Sean Burris MD Hypertension active Sean Burris MD Bipolar disorder active Sean Burris MD IVORY - on CPAP active Sean Burris MD Preoperative cardiovascular examination active Sean Burris MD Tobacco abuse active Sean Burris MD ENCOUNTERS Date Type Provider Location Encounter Diag nosis 11/05 - 11/05 In-person encounter Office Visit Sean Burris MD [facility] Cardiology examinationAnxietyDepressionHyperlipidemiaHypertensi onBipolar disorderOSA - on CPAPPreoperative cardiovascular examinationTobacco abuse VITAL SIGNS Date Observation Value Provider Body Mass Index (Ratio) 33.98 kg/m2 Trudy Burris MD blood pressure, diastolic 75 mm[Hg] Li nkLogic blood pressure, systolic 131 mm[Hg] Krista kLogic blood pressure, cuff size regular Ja blood pressure, diastolic 75 mm[Hg] Guillaume flor blood pressure, systolic 131 mm[Hg] Brennon steele pulse rate 69 /min Prateek y height E&M 64 [in_i] Prateek y respiratory rate E&M 16 /min Prateek oxygen saturation, oximetry 94 % Prateek weight E&M 198 [lb_av] Prateek ALLERGIES No Known Drug Allergies HISTORY OF MEDICATION USE Medication Status Instructions Dates Provider Indications Com ments sertraline 50 mg tablet active Sean Burris MD propranolol 10 mg tablet active Sean Burris MD montelukast 10 mg tablet active TAKE 1 TABLET BY MOUTH EVERY DAY Sean Burris MD omeprazole 20 mg capsule,delayed release(DR/EC) active Sean Burris MD quetiapine 100 mg tablet active Sean Burris MD sildenafil 100 mg tablet active TAKE 1 TABLET BY MOUTH 2 TIMES A WEEK NEEDED Sean Burris MD losartan 50 mg tablet active TAKE 1 TABLET BY MOUTH EVERY DAY Sean Burris MD metformin 500 mg tablet active TAKE 1 TABLET BY MOUTH TWICE DAILY Sean Burris MD Vraylar 1.5 mg capsule active Sean Burris MD bupropion HCl 150 mg tablet extended release 24 hr active Sean Burris MD rosuvastatin 40 mg tablet active Sean Burris MD SOCIAL HISTORY Date Observation Value Provider drug use no Sean Burris MD personal history of marijuana use yes Sean Burris MD smoking history, total pack/day 1/2 Prateek cigarette use yes Prateek susan enrique smoking status Current every day smoker J [employer] INSURANCE PROVIDERS Payer name Policy type / Coverage type [place] [employer] libertarian [employer] [facility] Medicaid 1 [id number] [facility] [id number] Other [id number] ADVANCE DIRECTIVES Name Date DISCUSSED - NO DECISION MADE TREATMENT PLAN Date Name Performer Cardiology: H is updated medication list for this problem includes: Propranolol 10 Mg Tablet (Propranolol) Losartan 50 Mg Tablet (Losartan) ..... Take 1 tablet by mouth every day BP today: 131/75 Sean Burris MD Cardiology:The patie nt is using CPAP on a regular basis. The patient has been benefiting from therapy and should continue use. Sean Burris MD Cardiology: H is updated medication list for this problem includes: Rosuvastatin 40 Mg Tablet (Rosuvastatin) Sean Burris MD Cardiology:In the ab sence of Sx and normal ECG he is clear at low risk for ulnar nerve surgery H e should continue statin throughout the perioperative period Sean Burris MD HISTORY OF PROCEDURES Procedure Date Procedure Name Provider Procedure Notes S tatus EKG Sean Burris MD completed
--- OUTSIDE RECORDS SUMMARY | 2024-11-20 07:56 | XMS_ITS | Referral Summary ---
Author Organization [facility] [address] [place] [id number] Care Team Providers Care Armor Reconnaissance Vehicle Crewman Name Role Phone tSephanie Mcduffie MD Primary Care Provide r Allergies No known active allergies Medications quinapril (ACCUPRIL) 20 mg tablet TK 1 T PO QD 2 01/11/20 19 Active fenofibrate nanocrystallized (TRICOR,TRIGLIDE) 48 mg tablet TK 1 T PO QD UTD 2 01/01/20 19 Active omeprazole (PriLOSEC) 20 mg capsule TK 1 C PO QD UTD 3 02/04/20 19 Active buPROPion SR (WELLBUTRIN SR) 150 mg 12 hr tablet bupropion HCl SR 150 mg tablet,12 hr sustained-relea se TK 1 T PO BID Active propranolol (INDERAL) 10 mg tablet propranolol 10 mg tablet TK 1 T PO BID PRN Active montelukast (SINGULAIR) 10 mg tablet TK 1 T PO QD PRN 1 12/24/19 19 Active doxepin (SINEquan) 25 mg capsule TK 1 C PO QHS PRN 2 02/15/20 19 Active ARIPiprazole (ABILIFY) 10 mg tablet TK 1 T PO QD 2 02/11/20 19 Active Active Problems Problem Noted Date Diagnosed Date Numbness and tingling in both hands Social History Tobacco Use Types Packs/Day Years Used Date Smoking Tobacco: Every Day Cigarettes Smokeless Tobacco: Current Alcohol Use Standard Drinks/Week Comments Yes 0 (1 standard drink = 0.6 oz pur e alcohol) AUDIT-C Answer Date Recorded Frequency of Alcohol Consumption Monthly or less 03/09/2019 Average Number of Drinks Not on file 019 Frequency of Binge Drinking Not on file 02/28 Personal Safety Answer Date Recorded Getting School Help Needed Not on file 05/16 Sex and Gender Information Value Date Recorded Sex Assigned at Not on file Legal Sex Male 8:50 AM CDT Gender Identity Not on file Sexual Orientation Not on file Last Filed Vital Signs Vital Sign Reading Time Taken Comments Blood Pressure 132/70 03/09/2019 1:05 PM CDT Pulse 96 03/09/2019 1:05 PM CDT Temperature 36.6 C (97.8 F) 06/02/2024 2:28 PM CDT Respiratory Rate 18 03/09/2019 1:05 PM CDT Oxygen Saturation - - Inhaled Oxygen Concentration - - Weight 74.1 kg (163 lb 6.4 oz) 06/02/2024 2:28 P M CDT Height 162.6 cm (5' 4 ) 06/02/2024 2:28 PM CDT Body Mass Index 28.05 06/02/2024 2:28 PM CDT Plan of Treatment Not on file Insurance [facility] [employer] [facility] MEDICARE ADVANTAGE [facility] Address: [address] [address] [place] [address] IDPA IDPA Care Teams Armor Reconnaissance Vehicle Crewman Relationship Specialty Start Date End Date Stephanie Mcduffie MD PCP - General Internal Medicine 02/14/19
--- OUTSIDE RECORDS SUMMARY | 2024-11-20 07:56 | XMS_ITS | Clinical Summary ---
Author Organization [facility] [address] [place] [id number] Care Team Providers Care Highway Worker Name Role Phone Stephanie Mcduffie MD Primary Care Provide r Allergies [...] Date Numbness and tingling in both hands Medical History Medical History Date Comments Anxiety Depression Hypertension High cholesterol Family History Medical History Relation Name Comments Diabetes Father Hypertension Father Cancer Mother Hypertension Mother Migraines Mother Cancer Sister Diabetes Sister Hypertension Sister Relation Name Status Comments Father Mother Sister Social History Tobacco Use Types Packs/Day Years [...] on file Sexual Orientation Not on file Obstetrics History Last Filed Vital Signs Vital Sign Reading [...] 06/02/2024 2:28 PM CDT Plan of Treatment Health Maintenance Due Date Last Done Comments Colon Cancer Screening-Colonoscopy 1977 Depression Screening 1977 Hepatitis C Screening 1977 Hepatitis B Screening 1995 Regular Well Visit/Exam 18-64 1995 Pneumococcal vaccine <65 (1 of 2 - PCV) 01/16/1996 Covid-19 Vaccine ( - 2023-2 5 season) 2024 05/19/2023, 07/21/2022, 10/29/2021, Additional history exists Influenza Vaccine (#1) 2024 , 07/21/2022, 06/25/2021, Additional history exists DTaP/Tdap/Td Vaccine (2 - Td or Tdap) 06/17/2029 06/17/2019 Insurance [facility] ADVANTAGE [facility] IDPA UHC MEDICARE ADVANTAGE IDPA IDPA Care Teams Highway Worker Relationship Specialty Start Date End Date Stephanie Mcduffie MD PCP - General Internal Medicine 02/14/19
--- OUTSIDE RECORDS SUMMARY | 2024-11-20 07:56 | XMS_ITS | Continuity of Care Document ---
Author Organization [facility] Address [address] [place] [address] [address] [place] [address] Phone Care Team Providers Care Assistant Surveyor Name Role Phone Stefanie Betancur Unavailable Unavailable Procedures Procedure Date Post-op Follow-up Visit Post-op Follow-up Visit Revise Two Eye Muscles Eye Suture During Surgery Office Consultation Advance Directives Directive Yes / No Effective Date File Name No Information Encounters Encounter Description Practice Location Reason(s) For Visit Diagnoses Date Provider Providers Copied on Encounter [facility], [address] [place] [address] [address], [place], [place], [id number], [place] tel:[phone] SEC Formerly named [facility] No Information Dec-3 1-200 9 Gypsy Bendern. [address] , [address], [place], [address], [place]. tel:[phone] [facility], [address] [place] [address] [address], [place], [place], [id number], [place] tel:[phone] SEC [facility] No Information Dec-1 0-200 9 Gypsy Watts. [address] [facility] [address] , [address], [place], [address], [place]. tel:[phone] [facility], [address] [place] [address] [address], [place], [place], [id number], [place] tel:[phone] [facility] No Information Dec-0 7-200 9 Gypsy Bendern. [address] , [address], [place], [address], [place]. tel:[phone] Office Consultation [facility], [address], [place], [place], [id number], [place] tel:[phone] SEC [facility] No Information 5-200 9 Betnacur Stefanie. [address], [place], [address], [place]. tel:[phone] Referring Provider: Juanito Lama OD D, [address] [facility] [address], [place], [address]. tel:[phone] Family History Family Member Type Diagnosis Age At Onset No Information Payers Payer name Insurance type Covered alliance party ID Authoriza tion(s) Medicare [facility] [id number] Medicaid [facility] [id number] Social History Type Description Quantity Date Captured Comments Sex Male Smoking Status No Information Chief Complaint And Reason For Visit No Information Reason For Referral Reason For Referral No Information History Of Present Illness Encounter Date Complaint History Of Prese nt Illness No Information Functional Status Date Functional Assessmen t No Information Instructions Date Instruction Additional Infor mation No Information Assessments Type Assessment Date No Information Patient Care Teams Name Effective Dates (start - stop) Status Members No Information
--- OUTSIDE RECORDS SUMMARY | 2024-11-20 07:56 | XMS_ITS ---
Author Organization [facility] Address [address] [facility] [address] [place] [address] Care Team Providers Care Junior Web Developer Name Role Phone Ling Mcduffie Primary Care Provider Luke Arriaga Unavailable [phone] Keon Rivers Unavailable Unavailable REASON FOR VISIT Lumbar Encounters Encounter Location Date Provider Diagnosis [facility] [address] [facility] [address] [place] [address] 04/08/2024 Luke Lees PLAN OF TREATMENT No Information
--- OUTSIDE RECORDS SUMMARY | 2024-11-20 07:56 | XMS_ITS | Data Portability ---
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 He has a history of cubital tunnel that we have been treating conservatively and he wanted to get surgery for work. However, he recently had some medical issues with his lungs and was being worked up for lung cancer. He states that that has cleared up and he is not getting treatment for that, it is actually not cancer. He wants to proceed with his elbow surgery now. He reports no changes, still taking meloxicam, rated 2/10 pain. Full elbow range of motion. Numbness tingling on the pinky and ring fingers. Positive Tinel's at the elbow, positive elbow compression. Negative ulnar nerve subluxation. We will proceed with surgery as planned. Risks, benefits, and alternatives to surgery were discussed with the patient. Risks include but are not limited to pain, stiffness, infection, bleeding, blood clot, injury to other structures including nerves or blood vessels, need for future surgery, and anesthesia risks. We discussed the goal of surgery is to improve symptoms but there is no guarantee of improvement and it is possible the patient's condition is worse after surgery. Patient agreed and would like to proceed. Not available 08/03/2024 13:55:31 08/18/2024 08/18/2024 05/21/2023: Hepatitis panel Neg GGT: Neg 08/06/2023: A1C 6.3H TG 197 ALT 55H 11/05/2023: A1C 5.8 03/29/2024: A1C 5.6 08/08/2024: A1C 6.0 Not available 08/18/2024 12:23:25 09/16/2024 09/16/2024 49-year-old patient presents today for 1st postop follow-up after left cubital tunnel release on 09/06/[address] Rivers. States he is doing well overall, 2/10 pain. He is not taking any medications for pain. States that his numbness and tingling has significantly improved since the surgery but is still slightly there. slightly there. Physical exam: Incision is clean dry and intact without signs and symptoms of infection. Sutures were trimmed and Steri-Strips were placed. Some tenderness with palpitation around incision site. No issues with elbow range of motion. Sensation intact throughout. We discussed incisional care and when to call the office if there are changes. We discussed that his numbness and tingling should continue to improve over time. We will see him back in 4 weeks for incision recheck. He may call before then if any issues arise. [email or web address] Not available 09/16/2024 15:07:15 10/19/2024 10/19/2024 49-year-old male presents for a new problem with his right elbow. He has a history of left cubital tunnel release done at the end of last year and has been doing well. She now has similar symptoms in his right elbow. Currently rates his pain as 3/10. He has shooting pain all way up and down his arm. He has been taking ibuprofen without improvement. He has positive Tinel's at the elbow. Numbness and tingling in the ulnar nerve distribution. No ulnar nerve subluxation. Full elbow range of motion he has had improvement for his his left cubital tunnel release and now has developed similar symptoms on his contralateral side. We will send him for an EMG to confirm the diagnosis all his right side. We will see him back after the study. We can discuss a cubital tunnel release on that side if it is indicated that time. Not available 10/24/2024 11:27:13 10/25/2024 10/25/2024 Assessment: Nicotine smoke: 2 ppd 1996-present = 54 pack years Rhinitis with postnasal drip TB exposure on Rifampin 05/2024-10/2024 14.9 mm RLL nodule, not FDG avid Cough, improved Very severe OSAHS, AHI = 54 RLS Iron deficiency Plan: The following were reviewed and explained to the patient: [facility] split sleep study on 07/23/16, AHI = 54, ResMed small AirFit F10 full face mask, autoCPAP 10-20 cmH2O PFT 07/13/24 nl FEV1/FVC, FEV1 2.97 L (96%), BD 150 mL = 5%, TLC 6.14 L (108%), DLCO 82% PFT 07/25/24 nl FEV1/FVC, FEV1 4.17 L (101%), BD 20 mL = 1%, TLC 5.56 L (96%), DLCO 81% Chest CT 05/13/23 RLL posterior calcified granuloma, bilateral posterior pleural thickening Chest CT 05/23/24 14.9 mm RLL nodule, no pleural thickening PET/CT scan 07/19/24 calcified RLL nodule and mediastinal LNs, no FDG avid lesions Lab data 05/09/24 (+) Quantiferon TB Gold Dr. Omari Bishop consult 06/02/24 Rifampin from 05/2024-10/2024 Ferritin 11/24/23 50 ng/mL Ferritin 03/11/24 55 ng/mL Ferritin 07/14/24 102 ng/mL Ferritin 10/21/24 92 ng/mL Continue Atrovent nasal spray 0.06% 1 spray to each nostril up to 4 times a day for postnasal drip. Nicotine cessation counseling provided. [place] for quitting nicotine include getting ready, getting support and encouragement, learning new skills and behaviors and being prepared to handle slips. Tips for dealing with cravings provided. Prevention of subsequent illnesses from nicotine addiction discussed. Comorbidities include but are not limited to hypertension, cerebrovascular disease, coronary heart disease, congestive heart failure, hyperlipidemia, COPD/asthma, peptic ulcer disease, esophagitis/gastri tis, and osteoporosis. Therapy options offered include: Quitting by total abstinence Receiving nicotine replacement therapy Undergoing hypnosis Filling a bupropion or varenicline prescription Enrolling in Quit For Life program Registering at [email or web address].Last 2 Left Making a call to 1-608-QHGF-NOW ( ). A strong, clear, personalized message was given to the patient to quit smoking. The patient was urged to set a quit date. We discussed patient's barriers to quitting and I will be of assistance when patient is ready to quit. I encouraged patient to inform friends and family of plans to quit with a request for support. I encouraged the patient to remove all cigarettes from the environment. We reviewed any previous quit attempts and lessons learned from them. I encouraged total abstinence from smoking and advised the patient that drinking alcohol and/or associating with other smokers are associated with failure or relapse. Patient can enroll in [facility]'s smoking cessation class through Kath Mckeon RN at . Enrollment is free and classes are held every thursday of the month from 1:30 pm to 2:30 pm at the conference room next to the cafeteria on the ground floor. Patient's cough could be contributed by losartan, propranolol, nicotine use, rhinitis and NAUN. Different approaches to diagnose and treat cough are explained. We resent methacholine challenge request as [employer] did a repeat PFT study instead. Adherence to therapy is advocated. Nonadherence may lead to treatment failure, further progression of the condition, and other complications. Hospitals admissions are often the result of individuals not taking prescription medications accurately. Alternatively, greater adherence to medication regimens have shown to lower rates of hospitalization and decrease total medical costs in patients with chronic medical conditions. RLS may be contributed by sertraline. Non-pharmacologic therapy options for RLS include avoidance of aggravating drugs and substances, mental alerting activities, short daily hemodialysis for patients in renal failure, exercise, leg massage, stretching calf muscles, use of a weighted blanket and applied heat. Patient will cut down on nicotine use and caffeine intake. BUN, Creatinine, Vitamin E, Vitamin B12, RBC folate, Iron, TIBC, ESR, Magnesium, Hgb and Hct levels are within normal limits. Patient will continue FeSO4 325 mg + Vit C 500 mg every other day to keep the ferritin > 75 ng/ml. Check ferritin one week before return. We will hold off on dopaminergic therapy for now. PAP compliance downloaded and interpreted x 20 minutes. Data reviewed and explained to the patient. Average apnea/hypopnea index (AHI) is 0.9. Patient used PAP > 4 hours 100% of the time. PAP is set at 15-17 cmH2O. PAP will remain at 15-17 cmH2O. Keep EPR +3 real time analyst. Keep ramp off. Keep humidifier off. Keep tube temperature setting off. Oxygen supplementation: none Patient is benefiting from PAP therapy. Encouraged patient to maintain PAP use more than 70% of the time. Statement of PAP use and benefits will be sent to the home care store. Educated the patient on problems and solutions associated with positive airway pressure (PAP) use. Difficulty tolerating pressure, mask leaks, intolerance of interface, nasal congestion, claustrophobic response, dry mouth, and unintentional mask removal during sleep were covered. Patient's mask leaks air. We will ensure the mask is situated properly. Patient can wear protective eye covering during sleep, and the mask can be resized. Patient experiences nasal congestion. Patient will use nasal saline spray before starting PAP, use heated PAP humidifier, clean/air dry humidifier reservoir daily, use nasal steroid spray, use ipratropium bromide nasal spray if rhinitis/rhinorrhe a is present or obtain an oronasal/oral interface. Dry mouth is a normal occurrence for people who just start out on PAP therapy because they are not used to air blowing in to the throat to hold open. Dry mouth is exacerbated for people who wear nasal PAP mask and whose jaw drops open during sleep. Not only does this create a much less efficient therapy because of leakage, it also causes dry mouth. There are a couple solutions to help prevent this type of problem. A simple solution would be to wear a chinstrap which essentially holds the jaw in place. A second solution would be a switch to a full face mask which covers both the nose and mouth. Although this is another easy solution, using a full face mask for some could seem claustrophobic or confining. There is no silver bullet solution as no single mask is right for everybody. Sometimes it takes a bit of experimentation to find a PAP mask which best meets the patient's needs as well as fits comfortably. Another tactic is to use a humidifier on your PAP machine. Most new PAP machines have integrated humidifiers. Humidification is rios when dealing with symptoms of dry mouth because the humidifier can supply both warm and room temperate air. Even a small amount of humidity in the airflow will help nasal passages to stay hydrated. If a person is using both a full face mask and a PAP machine with a heated humidifier and is still experiencing dry mouth, an ill-fitted PAP mask might be causing the problem. Leakage can be caused by a mask that is to large or small, the wrong style mask, the cushion is degraded or simply because the mask's straps aren't adjusted correctly. If leakage occurs, dry air from the room can leak in while humidification escapes. The result is reduced humidification within the circuit and resulting in dry throat and mouth. Finally, beyond factors involving the PAP machine and mask, dry mouth can also be caused or worsened by dehydration. The general recommendation to during eight 8 oz. glasses of water a day might be too little for many people. When people drink large amounts of coffee or other caffeine beverages, or sweat a lot during the day, making sure to rehydrate is an important part of PAP therapy. Provided the patient with a list of local home care stores where positive airway pressure (PAP) units, accoutrement, and services are available. Home care store selection is based on patient's insurance carrier. Patient will setup an appointment with [facility] Patient for supplies and pressure adjustments. A major predictor of success with use of PAP is follow-up with both the respiratory supplier and the treating physician. The respiratory supplier optimally will follow-up within two weeks after starting use while the treating physician optimally will follow-up within 90 days after starting therapy to assess adherence and effectiveness of treatment. The download results can show the treating physician information about adherence to treatment, residual AHI while on treatment and presence of large mask leakage. This information is especially helpful if the patient has residual sleepiness despite treatment. General information on sleep disordered breathing, evaluation of sleep disordered breathing, treatment with PAP therapy, and living with PAP therapy were covered. We discussed with the patient the impact of weight on: Sleep disordered breathing Hypertension Hyperlipidemia DM NAUN Hepatic steatosis Left inguinal hernia Thoracic DDD T12 fracture We discussed with the patient the benefit of PAP therapy on: Sleep disordered breathing Depression Rhinitis Hypertension DM NAUN ED Educated the patient on sleep hygiene measures. Relaxing rituals to rest easy, understanding foods with positive and negative impact on sleep, creating a peaceful sleep environment, timing of exercise, using herbal sleep aids, and practicing sleep-friendly meditation were covered. To determine how much sleep is needed, the patient will assess where he falls on the spectrum, examine what lifestyle factor such as stress is affecting the quality and quantity of sleep. In general, adults need 7-9 hours of sleep. Educated the patient regarding foods that promote sleep. These include but are not limited to cherries, bananas, toast, oatmeal, and warm milk. Educated the patient regarding foods and drinks to avoid before bedtime. These include but are not limited to aged cheese, chocolate, spicy foods, tomato-based sauces, soy, ginseng tea and processed meat. Advocated influenza vaccination annually and pneumonia vaccination JOHN. Advocated weight loss through diet and exercise. Patient's ideal body weight according to height and gender is up to 140 lbs. Encouraged patient to adjust caloric intake to maintain/achieve ideal body weight, emphasizing on fruits, vegetables, whole grains, and fat-free or low-fat products. These include lean meats, poultry, fish, beans, eggs, and nuts and foods that are low in saturated fats, trans-fats, cholesterol, salt (sodium), and glycemic index. Stressed the importance of regular exercise up to the patient's capacity limits. In this case, we recommend 20 min daily walking, 2 days a week of resistance training. Patient to monitor BP daily and bring records to PCP for further management. Follow-up: 3 months, December 2024 or 1 week after methacholine challenge testing [facility] Not available 10/25/2024 08:57:00 Plan of Treatment Reminders Order Date Submit Date Provider Last Modified By Organization Details Last Modified Time Details Appointments Any 15 2024 09:30A Sara sanders MD Not available Not available Not available Follow Up 2024 07:45A Sara Power MD Not available Not available Not available Lab ferritin, serum or plasma [address] - Outpatient Lab, [address] [place], [address], 10/25/2024 08:49:54 CMP, serum or plasma 2023 024 [email or web address] la2 [facility], [address], [place], [address], 08/18/2024 12:52:55 CBC w/ auto diff 2023 024 [email or web address] la2 [facility], [address], [place], [address], 08/18/2024 12:52:55 T4, free, serum 2023 024 [email or web address] la2 [facility], [address], [place], [address], 08/18/2024 12:52:55 TSH, serum or plasma 2023 024 [email or web address] la2 [facility], [address], [place], [address], 08/18/2024 12:52:55 lipid panel, serum 2023 024 [email or web address] la2 [facility], [address], [place], [address], 08/18/2024 12:52:55 HbA1c (hemoglob in A1c), blood 2023 024 [email or web address] [email or web address] [facility], [address], [place], [address], 08/18/2024 12:52:55 microalbu min, urine 2023 024 [email or web address] [email or web address] [facility], [address], [place], [address], 08/18/2024 12:52:55 Referral gastroent erologist referral - Please call patient to schedule. 2023 024 [email or web address] Puneet Jacobson MD, [address] [facility], [address], [place], [address], 10/31/2024 08:46:37 pulmonolo gist referral 2023 024 [email or web address] Kurtis Power MD, [address] [place], [address], 08/29/2024 09:20:08 cardiolog ist referral 2023 024 [place], [address] [facility], [address], [place], [address], 08/29/2024 09:20:08 podiatris t referral - Please call patient to schedule. 2023 024 [email or web address] Blake Suarez DPM, [address] [facility], [address], [place], [address], 10/31/2024 08:46:36 Procedures upper endoscopy procedure (EGD) (PROC) - Please call patient to schedule. 2023 024 [email or web address] [facility], [address], [address], [place], [address], 11/03/2024 09:58:43 Surgeries None recorded. Imaging electromy ogram + nerve conductio n study - Please contact pt to schedule apt. Thank you! 2024 025 [email or web address] [facility], [address], [place], [address], 10/24/2024 10:26:41 XR, shoulder 2024 025 [facility] [place], [facility] [address], [place], [address], 10/24/2024 12:50:16 Medication Orders ferrous sulfate 325 mg (65 mg iron) tablet 2024 025 [id number], [address] [place], [place], [id number], 10/25/2024 08:50:29 Vitamin C 500 mg tablet 2024 025 [id number], [address] [place], [id number], 10/25/2024 08:49:58 ipratropi um bromide 42 mcg (0.06 %) nasal spray 2024 025 [id number], [address] [place], [place], [id number], 10/25/2024 08:49:59 Patient TargetsNo targets recorded. Patient Instructions Encounter Date Encounter Id Patient Instructions Last Modified By Organization Details Last Modified Time 08/18/2024 [id number] diabetic eye exam* [email or web address] Not available 08/18/2024 13:00:55 10/25/2024 [id number] methacholine challenge* [email or web address] Not available 10/25/2024 08:55:06 Reason for Referral Vice President Payment Referral for Type 2 diabetes mellitus without complication Please call patient to schedule. Referring Physician: Ling Mcduffie, Internal Medicine, Encounter Date: 08/18/2024 Hand Cementer Referral for Steatosis of liver Please call patient to schedule. Referring Physician: Ling Mcduffie Internal Medicine, Encounter Date: 08/18/2024 Stroke Program Coordinator Referral for C hronic cough Referring Physician: Ling Mcduffie Internal Medicine, Encounter Date: 08/18/2024 Agricultural Aircraft Pilot Referral for Es sential hypertension Referring Physician: Ling Mcduffie Internal Medicine, Encounter Date: 08/18/2024 Results Created Date Observation Date Name Description Value Unit Range Abnormal Flag Note LastModifiedBy Organization Detail LastModifiedTime 10/21/1910/22/2024 CJ TIN ferritin 92 NG/mL 38-380 normal Not Available [facility] [address] [place], [address], 10/22/2024 07:53:46 07/08/20 24 07/08/2024 imagi ng/di agnos tic resul t No observ ation record ed. [facility] [address] [facility] [address], [place], [address], 07/08/2024 16:55:12 07/13/20 24 07/13/2024 compl ete PFT w/ post [facility] hodil ator earnestine metry * No observ ation record ed. BARCODE Not Available 2023 19:15:10 07/20/20 24 07/19/2024 PET-C T, skull base to mid-t high scan No observ ation record ed. [address], [place], [address], 07/21/2024 10:18:21 07/25/20 24 07/25/2024 compl ete PFT w/ post [facility] hodil ator earnestine metry * No observ ation record ed. [address] [facility] [address], [place], [address], 07/26/2024 14:03:41 08/04/20 24 07/25/2024 compl ete PFT w/ post [facility] hodil ator earnestine metry * No observ ation record ed. BARCODE Not Available 2023 16:50:39 10/19/19 25 XR, shoul efrem No observ ation record ed. [email or web address] [facility] [address] [facility] [address], [place], [address], 10/19/2024 09:01:17 Result Notes None recorded. Problems Name Problem SNOMED Code Status Onset Date Resolution Date Notes Provider Name and Address Organization Details Recorded Time Restless legs 16607480 Active Not Available [facility] 3 18:04:04 Anxiety 44359894 Active 2019 Not Available [facility] 3 18:04:05 Obstructiv e sleep apnea syndrome 96147103 Active Not Available [facility] 3 18:04:05 Gastroesop hageal reflux disease without esophagiti s 198219083 Active 2022 Ling horta MD [address], [address], [place], [address] , [facility] 3 10:33:14 Hyperlipid emia 52295263 Active 2022 Ling horta MD [address], [address], [place], [address] , [facility] 3 10:33:18 Moderate recurrent major depression 28846311 Active 2022 Ling horta MD [address], [address], [place], [address] , [facility] 3 10:33:24 Essential hypertensi on 42924952 Active 2022 Ling horta MD [address], [address], [place], [address] , [facility] 3 10:33:28 Erectile dysfunctio n 412294419 Active 2022 Ling horta MD [address], [address], [place], [address] , [facility] 3 10:33:45 Smoker 13951735 Active 2022 Ling horta MD [address], [address], [place], [address] , [facility] 3 10:37:23 Carpal tunnel syndrome of right wrist 1653694099620 08 Active 2022 NISHA Ingram [address], [address], [place], [address] , [facility] 3 09:44:54 Steatosis of liver 736517894 Active 2022 Ling horta MD [address], [address], [place], [address] , [facility] 3 10:17:13 Ulnar nerve entrapment at elbow 435288291 Active 2023 Keon Rivers MD [address], [address], [place], [address] , [facility] 4 09:26:06 Cervical radiculopa thy 57224792 Active 2023 Ashlie Liao null, [facility] 4 09:35:05 Iron deficiency 30684818 Active 2023 Kurtis Power MD [address], [address], [place], [address] , [facility] 4 09:09:31 Allergic rhinitis 35463607 Active 2023 Ama Cabrera [facility] null, [facility] 4 10:46:51 Type 2 diabetes mellitus without complicati on 926387141 Active 2023 Ling horta MD [address], [address], [place], [address] , [facility] 4 14:25:44 Contact dermatitis caused by urushiol from poison [place] 35822635 Active 2023 Maxine Vanegas MA null, [facility] 4 16:34:26 Posterior rhinorrhea 08002218 Active 2023 Kurtis Power MD [address] [address], [place], [address] , [facility] 4 11:13:22 Multiple nodules of lung [id number] Active 2023 Kurtis Power MD [address], [address], [place], [address] , [facility] 4 11:50:27 Solitary nodule of lung 491293673 Active 2023 Kurtis Power MD [address], [address], [place], [address] , [facility] 4 11:50:41 Dyspnea on exertion 67757605 Active 2024 Kurtis Power MD [address] [facility], [facility] [address], [place], [address] , [employer] [facility] 5 08:42:41 Chronic cough 40392854 Active 2024 Kurtis Power MD [address] 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 R>L tinnitus Rhinitis with postnasal drip Eosinophils 240/uL IgE 28 IU/mL AAT PiMM 160 mg% (+) Quantiferon TB Gold, incarcerated [id number], on Rifampin RLL nodule Granulomatous disease (chest, liver) Obesity with very severe OSAHS, AHI = 54, on autoCPAP c/o [facility] Hypertension Hyperlipidemia T2DM NAUN Hepatic steatosis Left inguinal hernia ED Iron deficiency RLS Cervical radiculopathy T11-T12 DDD T12 fracture Left ulnar neuropathy Right elbow OA Right CTS Procedure History: Appendectomy 1986 Umbilical herniorrhaphy 1988 Right esotropia correction 2013 Right inguinal herniorrhaphy 2019 Left cubital tunnel release 2024 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 Procedures Surgical History Date Name Laterality Status Provider Name and Address Organization Details Recorded Time 5 procedure on elbow completed Verenice Kwan MA [employer] 10/25/2024 08:19:59 4 Medicare Wellness CPT Code, Initial completed Dandy Elizabeth LPN [employer] 03/28/2024 10:34:05 Hernia Surgery completed REGINALD Shaw am [employer] 05/07/2023 10:13:32 Eye Surgery completed REGINALD Kerr [employer] 05/07/2023 10:13:37 Hernia Repair completed Ama herrera Mychal [employer] 05/07/2023 10:13:54 Imaging Results Imaging Date Name Status LastModified by Organization Details LastModified Time 07/08/2024 imaging/diagnostic result active [facility] [address] [place] [address] [address], [place], [address], 07/08/2024 16:55:12 07/13/2024 complete PFT w/ post bronchodilator spirometry* completed [employer] Information not available 07/13/2024 19:15:10 07/19/2024 PET-CT, skull base to mid-thigh scan completed [address] [facility] [address], [place], [address], 07/21/2024 10:18:21 07/25/2024 complete PFT w/ post bronchodilator spirometry* active [address] [facility] [address], [place], [address], 07/26/2024 14:03:41 07/25/2024 complete PFT w/ post bronchodilator spirometry* completed [employer] Information not available 08/04/2024 16:50:39 10/19/2024 XR, shoulder completed [email or web address] [place] [address] [facility] [address], [place], [address], 10/19/2024 09:01:17 Procedure Notes None recorded. Medical Equipment None Reported. Allergies No known drug allergies Medications Name Sig Start Date Stop Date Status Note LastModified by Organization Details LastModified Time losartan 50 mg tablet TAKE 1 TABLET BY MOUTH EVERY DAY 2024 active Not Available Not Available Not Avai lable celecoxib 200 mg capsule TAKE 1 CAPSULE BY MOUTH EVERY DAY 03/14 completed Not Available Not Available Not Available cyclobenzap rine 10 mg tablet TK 1 T PO Q 8 H 01/31 completed Not Available Not Available Not Available metformin 500 mg tablet TAKE 1 TABLET BY MOUTH TWICE DAILY active Not Available Not Available No t Available bupropion HCl SR 150 mg tablet,12 hr sustained-r elease TK 1 T PO BID 05/07 completed Not Available Not Available Not Available BD Alcohol Swabs USE DIRECTED TO CHECK BLOOD SUGAR ONCE DAILY DX E11.9 05/20 completed Not Available Not Available Not Available Vitamin C 500 mg tablet Take 1 tablet every other day by oral route. 2024 active Not Available Not Available Not Avai lable trazodone 50 mg tablet TAKE 1 TABLET BY MOUTH AT BEDTIME NEEDED FOR SLEEP 03/14 completed Not Available Not Available Not Available sildenafil 50 mg tablet TAKE 1 TABLET BY MOUTH 30 MINS BEFORE SEX. USE ONCE WEEKLY. GO TO ER IF ERECTION LASTS LONGER THAN 4 HOURS 05/07 completed Not Available Not Available Not Available azithromyci n 250 mg tablet Take 1 dose pk by oral route as directed. 05/04 completed Not Available Not Available Not Available ibuprofen 800 mg tablet TK 1 T PO Q 8 H PRN P 01/31 completed Not Available Not Available Not Available doxepin 25 mg capsule TAKE 1 CAPSULE BY MOUTH EVERY DAY AT BEDTIME 08/06 completed Not Available Not Available Not Available hydrocodone 5 mg-acetamin ophen 325 mg tablet TAKE 1 TABLET BY MOUTH EVERY 4 TO 6 HOURS NEEDED 10/25 completed Not Available Not Available Not Available meloxicam 15 mg tablet TAKE 1 TABLET BY MOUTH ONCE DAILY NEEDED 10/13 completed Not Available Not Available Not Available FreeStyle Lancets 28 gauge 05/20 completed Not Available Not Available Not Available bupivacaine HCl 0.5 % (5 mg/mL) injection solution Take 20 mg by injection route. 03/06 completed Not Available Not Available Not Available clonazepam 0.5 mg tablet TK 1 T PO QD PRN MAY FILL ON OR AFTER 09-08-15 active Not Available Not Available No t Available sertraline 100 mg tablet TAKE 1 TABLET BY MOUTH TWICE DAILY AFTER MEALS FOR 30 DAYS active Not Available Not Available No t Available Accu-Chek Softclix Lancets 05/20 completed Not Available Not Available Not Available tramadol 50 mg tablet TK 1 T PO Q 12 H PRN 01/31 completed Not Available Not Available Not Available quetiapine 100 mg tablet TAKE 1 TABLET BY MOUTH EVERY DAY AT BEDTIME FOR MOOD OR ANXIETY OR SLEEP 03/29 completed Not Available Not Available Not Available sildenafil 100 mg tablet TAKE 1 TABLET BY MOUTH 2 TIMES A WEEK NEEDED 2024 active Not Available Not Available Not Avai lable bupropion HCl SR 100 mg tablet,12 hr sustained-r elease TAKE 1 TABLET BY MOUTH TWICE DAILY 08/06 completed Not Available Not Available Not Available simvastatin 40 mg tablet TK 1 T PO QD IN THE RAHUL 01/31 completed Not Available Not Available Not Available meloxicam 7.5 mg tablet TK 1 T PO QD active Not Available Not Available No t Available rifampin 300 mg capsule one tablet twice daily 10/25 completed Not Available Not Available Not Available propranolol 10 mg tablet TAKE 1 TABLET BY MOUTH TWICE DAILY FOR ANXIETY active Not Available Not Available No t Available trazodone 100 mg tablet TAKE 1 TABLET BY MOUTH EVERY DAY AT BEDTIME FOR INSOMNIA active Not Available Not Available No t Available ropinirole 0.25 mg tablet Take 1 tablet 2-3 hrs before bedtime x14 days, then take 2 tablets 2-3 hrs before bedtime for x28 days 09/07 completed Not Available Not Available Not Available dicyclomine 20 mg tablet TAKE 1 TABLET BY MOUTH THREE TIMES DAILY 11/04 completed Not Available Not Available Not Available Kenalog 10 mg/mL suspension for injection Take 20 mg by injection route. 03/06 completed [facility] [phone] Not Available Not Available Not Available baclofen 10 mg tablet TK 1 T PO TID PRN 01/31 completed Not Available Not Available Not Available simvastatin 20 mg tablet TK 1 T PO QPM 03/09 completed Not Available Not Available Not Available ferrous sulfate 325 mg (65 mg iron) tablet Take 1 tablet every other day by oral route. 2024 active Not Available Not Available Not Avai lable omeprazole 20 mg capsule,del ayed release TAKE 1 CAPSULE BY MOUTH TWICE DAILY active Not Available Not Available No t Available montelukast 10 mg tablet TAKE 1 TABLET BY MOUTH EVERY DAY active Not Available Not Available No t Available quinapril 20 mg tablet TAKE 1 TABLET BY MOUTH EVERY DAY 05/07 completed Not Available Not Available Not Available methylpredn isolone 4 mg tablets in a dose pack take as instructe d on Dose pack 05/04 completed Not Available Not Available Not Available ipratropium bromide 42 mcg (0.06 %) nasal spray Jenkins 1 spray 4 times a day by intranasa l route as needed. 2024 active Not Available Not Available Not Avai lable ondansetron 4 mg disintegrat ing tablet DISSOLVE 1 TABLET ON THE TONGUE EVERY 8 HOURS NEEDED FOR NAUSEA OR VOMITING 11/04 completed Not Available Not Available Not Available fluticasone propionate 50 mcg/actuati on nasal spray,suspe nsion SHAKE LIQUID AND USE 1 SPRAY IN EACH NOSTRIL TWICE DAILY NEEDED 08/03 completed Not Available Not Available Not Available sertraline 50 mg tablet TAKE 1 TABLET BY MOUTH EVERY DAY IN THE MORNING 03/06 completed Not Available Not Available Not Available loratadine 10 mg tablet TAKE 1 TABLET BY MOUTH EVERY DAY NEEDED 05/20 completed Not Available Not Available Not Available hydroxyzine pamoate 25 mg capsule TK 1 TO 2 CS PO D PRN 09/07 completed Not Available Not Available Not Available Q-Dryl 12.5 mg/5 mL oral liquid TK 5 ML PO Q 6-8 H PRN 03/09 completed Not Available Not Available Not Available aripiprazol e 10 mg tablet TK 1 T PO QD 05/07 completed Not Available Not Available Not Available aripiprazol e 15 mg tablet TK 1 T PO QD 01/31 completed Not Available Not Available Not Available aripiprazol e 5 mg tablet TK 1 T PO QD IN THE MORNING 05/07 completed Not Available Not Available Not Available rosuvastati n 20 mg tablet TK 1 T PO QD active Not Available Not Available No t Available rosuvastati n 40 mg tablet TAKE 1 TABLET BY MOUTH EVERY DAY active Not Available Not Available No t Available bupropion HCl XL 150 mg 24 hr tablet, extended release TAKE 1 TABLET BY MOUTH IN THE MORNING FOR 30 DAYS. DISCONTIN UE ALL OTHER BUPROPION XL SCRIPTS active Not Available Not Available No t Available Boostrix Tdap 2.5 Lf unit-8 mcg-5 Lf/0.5 mL intramuscul ar syringe ADM 0.5ML IM UTD 05/07 completed Not Available Not Available Not Available quetiapine 50 mg tablet TAKE 1 TABLET BY MOUTH EVERY DAY AT BEDTIME 08/06 completed Not Available Not Available Not Available fenofibrate nanocrystal lized 48 mg tablet TAKE 1 TABLET BY MOUTH EVERY DAY DIRECTED 01/31 completed Not Available Not Available Not Available fenofibrate nanocrystal lized 145 mg tablet TAKE 1 TABLET BY MOUTH EVERY DAY AFTER MEALS 11/04 completed Not Available Not Available Not Available FreeStyle Lite Meter kit 05/20 completed Not Available Not Available Not Available Accu-Chek Annette Plus test strips USE DIRECTED TO CHECK BLOOD SUGAR ONCE DAILY DX E11.9 05/20 completed Not Available Not Available Not Available Accu-Chek Annette Plus Meter 05/20 completed Not Available Not Available Not Available EpiPen 2-John 0.3 mg/0.3 mL injection, auto-inject or ONLY TO USE IN EVENT OF SEVERE ALLERGIC REACTION 05/07 completed Not Available Not Available Not Available Vraylar 1.5 mg capsule TAKE 1 CAPSULE BY MOUTH EVERY DAY IN THE MORNING 11/04 completed Not Available Not Available Not Available Fluvirin 4890-8683 45 mcg (15 mcg x 3)/0.5 mL intramuscul ar suspension ADM 0.5ML IM UTD 09/07 completed Not Available Not Available Not Available Fluarix Quad (PF) 60 mcg (15 mcg x 4)/0.5 mL IM syringe ADM 0.5ML IM UTD 05/07 completed Not Available Not Available Not Available Fluzone Quad (PF) 60 mcg (15 mcg x 4)/0.5 mL IM syringe ADM 0.5ML IM UTD 05/07 completed Not Available Not Available Not Available sertraline 200 mg capsule Take 1 capsule every day by oral route. 04/28 completed Not Available Not Available Not Available Vitals Date Recorded Body height Body mass index (BMI) Body weight Pain severity - 0-10 verbal numeric rating [Score] - Reported Provider Name and Address Organization Details Last Updated DateTime 08/03/2024 162.56 cm 27.8 kg/m2 53588.96 g 2 REGINALD Augustine [place] [facility] [place] [employer] [facility] 08/03/2024 10:33:29 Date Recorded Body height Body mass index (BMI) Body weight Body temperature Heart rate Respiratory rate Oxygen saturation Oxygen saturation in Arterial blood by Pulse oximetry Pain severity - 0-10 verbal numeric rating [Score] - Reported Systolic blood pressure Diastolic blood pressure Provider Name and Address Organization Details Last Updated DateTime 162.56 cm 29 kg/m2 27828.1 1 g 98.4 [degF] 84 /min 16 /min 96 % 96 % 0 108 mm[Hg] 62 mm[Hg] Dandy Elizabeth LPN [facility] [employer] [facility] 4 12:08:58 Date Recorded Body height Body mass index (BMI) Body weight Pain severity - 0-10 verbal numeric rating [Score] - Reported Provider Name and Address Organization Details Last Updated DateTime 09/16/2024 162.56 cm 28 kg/m2 22516.56 g 2 Radhamychal Vallecillo [facility] [employer] [facility] 09/16/2024 09:21:14 Date Recorded Body height Body mass index (BMI) Body weight Provider Name and Address Organization Details Last Updated DateTime 10/19/2024 162.56 cm 28 kg/m2 33091.56 g Martina Up CNA [facility] [employer] [facility] 10/19/2024 08:59:23 Date Recorded Body height Body mass index (BMI) Body weight Body temperature Heart rate Oxygen saturation Oxygen saturation in Arterial blood by Pulse oximetry Systolic blood pressure Diastolic blood pressure Provider Name and Address Organization Details Last Updated DateTime 5 162.56 cm 29.6 kg/m2 13749.3 2 g 98.2 [degF] 68 /min 98 % 98 % 100 mm[Hg] 60 mm[Hg] Verenice Kwan MA [facility] [employer] [facility] 5 08:16:27 Date Recorded Heart rate Respiratory rate Provider N rokc and Address Organization Details Last Updated DateTime 10/25/2024 68 /min 15 /min Kurtis Power MD [address], [address], [facility] [employer] [facility] 10/25/2024 08:57:30 Social History Question Answer Notes LastModified by Organization Details LastModified Time Tobacco Smoking Status Current Every Day Smoker REGINALD Kerr null, [facility] [employer] [facility] 05/07/2023 10:11:27 Do You Have An Advance Directive? No Information not available 05/07/2023 What Is Your Level Of Alcohol Consumption? Occasional Information not available 05/07/2023 How Many Years Have You Consumed Alcohol? 30 [email or web address] Information not available 03/29/2024 What Is Your Level Of Caffeine Consumption? Moderate [email or web address] Information not available 05/15/2023 In The 14 Days Before Symptom Onset, Have You Had Close Contact With A Laboratory-confi rmed COVID-19 While That Case Was Ill? No Information not available 05/07/2023 In The 14 Days Before Symptom Onset, Have You Had Close Contact With A Person Who Is Under Investigation For COVID-19 While That Person Was Ill? No Information not available 05/07/2023 Are You Currently Employed? No Information not available 05/07/2023 What Type Of Diet Are You Following? REGULAR Information not available 05/07/2023 Which Illicit Or Recreational Drugs Have You Used? Marijuana Flower Form [email or web address] Information not available 05/15/2023 Do You Or Have You Ever Used E-cigarettes Or Vape? Never Used Electronic Cigarettes Tried It In The Past But Never Really Liked It [email or web address] Information not available 03/29/2024 What Is The Highest Grade Or Level Of School You Have Completed Or The Highest Degree You Have Received? [id number] Information not available 05/07/2023 Do You Have An Electrostatic Air Filter? No Information not available 11/24/2023 Have You Been Exposed To Chemicals Or Toxins? Yes Lived On A Farm Information not available 10/25/2024 Have There Been Any Changes To Your Family Or Social Situation? Yes Last May. He Moved In With His Mom And Brother [email or web address] Information not available 03/29/2024 What Is The Fluoride Status Of Your Home? Unknown Information not available 05/07/2023 Are There Any Guns Present In Your Home? No Information not available 05/07/2023 Do You Have A Humidifier? No Information not available 11/24/2023 How Many Years Have You Used Illicit Or Recreational Drugs? 31 [email or web address] Information not available 03/29/2024 Where Do You Live? SingleLevelHouse Information not available 05/07/2023 Do You Have A Medical Power Of Commercial Plumber? No Information not available 05/07/2023 Do You Have Moisture Problems In Your Home? No Information not available 11/24/2023 What Was The Date Of Your Most Recent Tobacco Screening? 10/25/2024 Information not available 10/25/2024 What Is Your Current Pack Years? [email or web address] Information not available 05/15/2023 Have You Ever Been Counseled For Unhealthy Alcohol Use? No [email or web address] Information not available 03/29/2024 Do You Have Any Pets? Yes 2 Cats [email or web address] Information not available 03/29/2024 What Is Your Relationship Status? Information not available 08/06/2023 Do You Use Your Seat Belt Or Car Seat Routinely? Yes Information not available 05/07/2023 Do You Have Smoke And Carbon Monoxide Detectors In Your Home? Yes Information not available 05/07/2023 At What Age Did You Start Smoking Tobacco? 17 Information not available 05/07/2023 Are You Passively Exposed To Smoke? Yes Information not available 05/07/2023 Do You Or Have You Ever Used Smokeless Tobacco? Former Smokeless Tobacco User Information not available 05/07/2023 Are There Any Smokers In Your House? Yes Information not available 05/07/2023 How Much Tobacco Do You Smoke? 1 PPD [email or web address] Information not available 03/29/2024 Do You Feel Stressed (tense, Restless, Nervous, Or Anxious, Or Unable To Sleep At Night)? [id number] Information not available 03/29/2024 Do You Use Any Illicit Or Recreational Drugs? Yes Information not available 05/07/2023 Do You Use Sunscreen Routinely? No Information not available 11/24/2023 Has Tobacco Cessation Counseling Been Provided? Yes Information not available 03/29/2024 On What Date Was Tobacco Cessation Counseling Provided? 10/25/2024 Information not available 10/25/2024 How Many Years Have You Smoked Tobacco? 30 Information not available 05/15/2023 Have You Recently Traveled Abroad? No Information not available 05/07/2023 Have You Used IV Drugs? No [email or web address] Information not available 05/15/2023 Do You Or Have You Ever Used Any Other Forms Of Tobacco Or Nicotine? Yes Information not available 05/07/2023 How Many Days In The Past Year Have You Consumed 5 Or More Drinks? 0 [email or web address] Information not available 03/29/2024 Sex: Male Functional Status Question Answer Note LastModified by Organizat ion Details LastModified Time What is your exercise level? Occasional Information not available 05/07/2023 Mental Status None recorded. Family History Relationship Description Onset Age of this Age Resolved Age Notes LastModified by Organization Details LastModified Time Paternal Grandfather Cerebrovascu lar accident Not available 02/2023 10:08:50 Father Renal failure syndrome Not available 2022 10:08:25 Father Diabetes mellitus Not available 2022 10:08:31 Father Myocardial infarction Not available 05/07 10:08:58 Father Obstructive sleep apnea syndrome [email or web address] Not available 2023 09:37:01 Paternal Grandmother Malignant tumor of breast Not available 2022 10:09:08 Mother Hypertensive disorder Not available 2022 10:09:26 Mother Degeneration of intervertebr al disc Not available 2022 10:09:36 Mother Disorder of thyroid gland Not available 2022 10:09:45 Maternal Uncle Deep venous thrombosis Not available 05/07 10:10:01 Maternal Uncle Malignant tumor of lung Not available 2022 10:10:08 Sister Chronic kidney disease [email or web address] Not available 2023 09:37:49 Sister Diabetes mellitus [email or web address] Not available 2023 09:37:54 Medical History Condition Response BLINDNESS N NERVE DISEASE N RHEUMATIC FEVER N BLADDER PROBLEMS N KIDNEY STONES N MRSA N OTHER # 1 N POLIO N LUNG DISEASE/DISORDER N HISTORY OF DRUG ABUSE N RADIATION / CHEMOTHERAPY N COPD N Other # 2 N BLOOD DISEASES N EAR OR HEARING PROBLEMS N MUMPS N SHINGLES N DEPRESSION (INCLUDING POST ) Y BOWEL PROBLEMS N FAILED BACK SYNDROME N STROKE/TIA N ULCERS N BENIGN PROSTATIC HYPERPLASIA N MEASLES N HYPOTENSION N MYOCARDIAL INFARCTION N OBESITY N GERD/NAUSEA N ANEURYSM N URINARY/BLADDER/KIDNEY PROBLEMS N CORONARY ARTERY DISEASE (CAD) N Do you have Advance directive? N ADDICTION CONCERNS N Impotence N ENDOMETRIOSIS N USE OF BLOOD THINNERS N SKIN PROBLEMS N GASTROINTESTINAL DISORDER N PERIPHERAL VASCULAR DISEASE N MUSCLE,JOINT OR BONE PROBLEMS N GASTROINTESTINAL BLEEDING N BLOOD CLOTS N ASTHMA N CATARACTS N Abdominal Pain N ERECTILE DYSFUNCTION N ARTERIAL INSUFFICIENCY N VARICOSITIES N GI PROBLEMS N Low Testosterone N INFERTILITY N AIDS/HIV N CHEMOTHERAPY / RADIATION N LIVER DISEASE N MALE HYPOGONADISM N HYPERTENSION Y Deficiency N TOURETTE'S N ANXIETY DISORDER Y BLOOD TRANSFUSION N ANEMIA/BLOOD DISORDER N CHRONIC EAR INFECTIONS N TUBERCULOSIS N GLAUCOMA N FOOT PROBLEM N DIVERTICULITIS N SLEEP APNEA Y CHICKENPOX N BACK INJECTIONS N ALLERGIES/HAYFEVER N INFECTIOUS DISEASE N PROSTATE N HEART ARRHYTHMIA N ESRD N INSOMNIA N HIGH CHOLESTEROL / HYPERLIPIDEMIA Y EYE PROBLEMS N HYPERTHYROIDISM N PVD N EDEMA N CHRONIC PAIN SYNDROME N HYPOTHYROIDISM N CONSTIPATION N CAROTID BLOCKAGE N BACK / NECK PROBLEMS N ATHEROSCLEROSIS N BREAST PROBLEMS N DIALYSIS N POLYCYSTIC OVARIES N ECZEMA N OSTEOPOROSIS N ARTHRITIS N APPENDICITIS N DIABETES, TYPE Y BAD TEETH N VON WILLIBRAND'S DISEASE N ENT N HEARTBURN / REFLUX Y GI N AUTISM SPECTRUM DISORDER (ASD) N POST LAMINECTOMY SYNDROME N HEPATITIS / LIVER DISEASE N GOUT N SLEEP DISORDER N ALZHEIMER'S DISEASE N Brain Problems N DEMENTIA N HERPES N SEIZURES/EPILEPSY N HEADACHES/MIGRAINES N VASCULAR DISEASE N PACEMAKER N DIZZINESS N HEART DISEASE/HEART PROBLEMS N KIDNEY DISEASE N MULTIPLE SCLEROSIS N NEUROPSYCHOLOGICAL N CANCER: SPECIFY N CARDIAC ARRHYTHMIA N ATRIAL FIBRILLATION N Gall Stones N PULMONARY EMBOLISM N AUTOIMMUNE DISEASE N Immunizations Vaccine Type Date Status Note Provider Nam e and Address Organization Details Recorded Time Influenza, split virus, quadrivalent, preservative 9 completed BORA Cabral, [facility] [employer] [facility] 03/24/2024 14:43:42 Tdap 9 completed BORA Cabral, [facility] [employer] [facility] 03/24/2024 14:43:42 influenza, unspecified formulation 6 completed BORA Cabral, [facility] [employer] [facility] 03/24/2024 14:43:42 COVID-19, mRNA, LNP-S, PF, 30 mcg/0.3 mL dose 2 completed BORA Cabral [facility] [employer] [facility] 03/24/2024 14:43:42 COVID-19, mRNA, LNP-S, PF, 30 mcg/0.3 mL dose 1 completed Dandy Elizabeth LPN null, [facility] 03/24/2024 14:43:42 COVID-19, mRNA, LNP-S, PF, 30 mcg/0.3 mL dose 1 completed [facility] 14:43:42 COVID-19, mRNA, LNP-S, bivalent, PF, 30 mcg/0.3 mL dose 2 [facility]24 14:43:42 Influenza, split virus, trivalent, PF 6 completed [facility] 03/24/2024 14:43:42 Influenza, split virus, quadrivalent, PF 0 completed [facility] 03/24/2024 14:43:42 Influenza, split virus, quadrivalent, PF 9 completed [facility] 03/24/2024 14:43:42 Influenza, split virus, quadrivalent, PF 1 completed [facility] 03/24/2024 14:43:42 Influenza, split virus, quadrivalent, PF 2 completed [facility] 03/24/2024 14:43:43 Influenza, MDCK, quadrivalent, PF 3 completed REGINALD Kerr null, [facility] 08/17/2024 14:55:25 COVID-19, mRNA, LNP-S, PF, mali-sucrose, 30 mcg/0.3 mL 3 completed [facility]17[facility]24 14:55:25 Past Encounters Encounter ID Performer Location Encounter Start Date Encounter Closed Date Diagnosis/Indication Diagnosis SNOMED-CT Code Diagnosis ICD10 Code Diagnosis Note [id number] Ling horta MD [facility] Internal Med [facility] [address] [facility] [address] [place] [address] 05/07/2023 09:41:21 05/07/2023 10:55:55 Screening - NAD 699118885 Z13.9 C-scope: Get this Get yearly flu shot, get Tdap if not doneGet COVID 19 vaccine and its boosters [place] AAA at age 67 years RTC in 3 months, do labs, ER if woe Screening for malignant neoplasm of colon 857686836 Z12.11 Gastroesop hageal reflux disease without esophagitis 292184783 K21.9 EGD 12/29/2018 : Dr Larsen PPI PRN Hyperlipidemia 50371195 E78.5 On rosuvastat in 40mg dailyOn fenofibrat e 145mg dailyGet labs Moderate r ecurrent major depression 70609174 F33.1 On bupropion SR 100mg bidOn doxepin 25mg at bedtimeOn propranolo l 10mg bidOn vraylar 1.5mg dailySees Dr Farris suicidal or homicidal Essential hypertension 69579998 I10 On losartan 50mg dailyDoes well Smoker 21636007 F17.200 Advised to quit smoking! 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 540355952 E11.9 On metformin 500mg bidGet labs Obstructiv e sleep apnea syndrome 92238663 G47.33 On CPAPSees Sydnie Yu [facility] 05/15/2023 Chronic cough 78337953 R 05.3 He smokes, has noted a chronic dry cough, mild SOB, does see Sydnie also Pain of ri ght elbow joint 0588194019 1851269 M25.521 Get a referral to ortho [id number] Sydnie Yu, [employer] [place] [address] [place] [address] 05/15/2023 15:15:26 05/15/2023 16:19:14 Obstructive sleep apnea syndrome 89036693 G47.33 No data from machine after 2019He has good use and clinical benefitBas ed on his report of symptoms, will order APAP today - discussed with Mr oJe, he agreesOSA was well correctedE ncouraged 100% compliance with all sleepFollo w with PCM for labsAdvise d good sleep habits and patterns:- Set a goal for at least 7 to 8 hours of sleep time per day.-Use the bed mainly for sleep and to go to bed only when tired. If unable to fall asleep after 30 minutes, patient should get out of bed but should not engage in any activity that requires sustained mental alertness. -Maintain a regular bedtime and wake-up time even on weekends-A void excessive naps during the daytime. If a nap is necessary, limit it to no more than 30 minutes.-M inimize environmen raheem noise, bright lights, and extremes in bedroom temperatur e.-Avoid alcohol, caffeinate d beverages, and nicotine products for at least 6 hours prior to bedtime.-A void strenuous exercise and large meals for at least 4 hours prior to bedtime.Di scussed reportable signs and symptomsFo llow up per compliance guidelines [id number] NISHA Ingram [facility] [place] [address] [facility] [address] [place] [address] 05/20/2023 08:27:53 05/20/2023 09:30:11 Pain of right elbow joint 1630767059 6411963 M25.521 patient has had 3-4 months of right elbow pain localized to the posterior elbow without known injury. He has been taking Tylenol for symptom relief with minimal improvemen t. We discussed possible treatment options including oral anti-infla mmatories such as meloxicam, activity modificati on, and physical therapy. Patient is agreeable to this plan and was provided with a referral to physical therapy. he is also provided with a prescripti on for meloxicam. He will follow up in 6 weeks for re-evaluat ion. 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 we discussed possible treatment options including activity modificati on, bracing, oral and topical anti-infla mmatories, and physical therapy. Patient is agreeable to this plan was provided with and fitted for a right carpal tunnel wrist brace. He was provided with a prescripti on for meloxicam. He will follow up in 6 weeks for re-evaluat ion [id number] Sydnie Yu, [employer] [facility] Pulmonolo [facility] [place] [address] [place] [address] 07/21/2023 15:17:58 07/21/2023 16:10:31 Obstructive sleep apnea syndrome 06846900 G47.33 New machine set upHe has 100% use greater than 4 hours and well controlled AHI.He has good use and clinical benefitOSA is well correctedE ncouraged 100% compliance with all sleepFollo w with PCM for labsAdvise d good sleep habits and patterns:- Set a goal for at least 7 to 8 hours of sleep time per day.-Use the bed mainly for sleep and to go to bed only when tired. If unable to fall asleep after 30 minutes, patient should get out of bed but should not engage in any activity that requires sustained mental alertness. -Maintain a regular bedtime and wake-up time even on weekends-A void excessive naps during the daytime. If a nap is necessary, limit it to no more than 30 minutes.-M inimize environmen raheem noise, bright lights, and extremes in bedroom temperatur e.-Avoid alcohol, caffeinate d beverages, and nicotine products for at least 6 hours prior to bedtime.-A void strenuous exercise and large meals for at least 4 hours prior to bedtime.Di scussed reportable signs and symptomsHe should follow up in 3-6 months [id number] Ling horta MD [facility] Internal Med [place] [address] [facility], [place] [address] [place] [address] 08/06/2023 09:39:45 08/06/2023 10:30:18 Screening - NAD 854245381 Z13.9 C-scope: Get this Get yearly flu shot, get Tdap if not doneGet COVID 19 vaccine and its boosters [place] AAA at age 67 years RTC in 3 months, do labs, ER if worse, he did verbalize his understand ing of the above Screening for malignant neoplasm of colon 761325137 Z12.11 Gastroesop hageal reflux disease without esophagitis 245094435 K21.9 EGD 12/29/2018 : Dr Larsen PPI PRN Hyperlipidemia 42727961 E78.5 On rosuvastat in 40mg dailyOn fenofibrat e 145mg dailyGet labs Moderate r ecurrent major depression 30739406 F33.1 On bupropion SR 100mg bidOn doxepin 25mg at bedtimeOn propranolo l 10mg bidOn vraylar 1.5mg dailySees Dr Farris suicidal or homicidalT violet 08/06/2023 , teary eyed as he has recently lost his Zi Essential hypertension 92118119 I10 On losartan 50mg dailyDoes well Smoker 43818821 F17.200 Advised to quit smoking! 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 [place] [address] 08/12/2023 09:26:50 08/12/2023 10:04:08 Pain of left hand 1571800063 02615 M79.083 [id number] Keon Rivers MD [facility] [place] 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 294632435 G56.22 [id number] Ling horta MD [facility] Internal Med [facility] [address] [place] [address] [place] [address] 11/05/2023 09:17:41 11/05/2023 09:58:01 Screening - NAD 685480870 Z13.9 C-scope: 02/07/2023 : Next in 2 years Get yearly flu shot, get Tdap if not doneGet COVID 19 vaccine and its boosters [place] AAA at age 67 years RTC in 3 months, do labs, ER if worse, he did verbalize his understand ing of the above Gastroesop hageal reflux disease without esophagitis 164103871 K21.9 EGD 12/29/2018 : Dr Larsen PPI PRN Hyperlipidemia 90254007 E78.5 On rosuvastat in 40mg dailyOn fenofibrat e 145mg dailyGet labs Moderate r ecurrent major depression 46702634 F33.1 On bupropion XL 150mg dailyNot on doxepin 25mg at bedtimeOn propranolo l 10mg bidNot on vraylar 1.5mg dailyOn quetiapine 100mg daily Sees Dr Farris suicidal or homicidal Essential hypertension 62354855 I10 On losartan 50mg dailyDoes well Smoker 89702626 F17.200 Advised to quit smoking! 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 [place] [address] 12/01/2023 09:01:50 12/01/2023 09:26:06 Pain of left shoulder joint 2134681011 9207747 M25.334 [id number] [facility] [address] [address] 12/14/2023 08:33:55 12/15/2023 08:35:00 Obstructive sleep apnea syndrome 11333927 G47.33 Iron deficiency 34722705 E61.1 [id number] NISHA Reina [facility] [place] [address] [place] [address] 12/17/2023 08:49:45 12/17/2023 09:16:39 Pain of left shoulder joint 5678367173 0302547 M25.452 [id number] Kurtis Power MD [facility] [place] [address] 03/14/2024 08:11:40 03/15/2024 08:21:43 Obstructive sleep apnea syndrome 96544617 G47.33 Iron deficiency 04047209 E61.1 [id number] eKon Rivers MD [facility] [place] [address] [place] [address] 03/16/2024 08:59:34 03/16/2024 10:19:33 Bilateral elbow joint pain 0929071106 6948393 M25.521 M25.634 [id number] Ling horta MD [facility] Internal Med [facility] [address] [address] 03/29/2024 09:21:55 03/29/2024 10:00:34 Screening - NAD 965084663 Z13.9 C-scope: 02/07/2023 : Next in 2 years Get yearly flu shot, get Tdap if not doneGet COVID 19 vaccine and its boosters [place] AAA at age 67 years RTC in 3 months, do labs, ER if worse, he did verbalize his understand ing of the above Gastroesop hageal reflux disease without esophagitis 445756237 K21.9 EGD 12/29/2018 : Dr Larsen PPI PRN Hyperlipidemia 73053334 E78.5 On rosuvastat in 40mg dailyOn fenofibrat e 145mg dailyGet labs Moderate r ecurrent major depression 96811705 F33.1 Not on doxepin 25mg at bedtimeNot on vraylar 1.5mg dailyNot on quetiapine 100mg daily On bupropion XL 150mg dailyOn propranolo l 10mg bidOn sertraline 200mg dailyOn trazodone 100mg daily Sees Dr Farris suicidal or homicidal Essential hypertension 02274078 I10 On losartan 50mg dailyDoes wellDr [place] last OV 11/06/2023 Smoker 73926068 F17.200 Advised to quit smoking! 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 352327643 E11.9 On metformin 500mg bidGet labs Obstructiv e sleep apnea syndrome 64994426 G47.33 On CPAPSees Sydnie Yu [facility] 05/15/2023 Chronic cough 51796468 R 05.3 He smokes, has noted a chronic dry cough, mild SOB Pain of ri ght elbow joint 8128446946 8855779 M25.521 Dr Rivers 11/03/2023 Steatosis of liver [address] chest 05/13/2023 Hepatitis/ GGT: 05/21/2023 : NegUS liver 06/04/2023 : Liver enlargemen tNeeds to see GI Adult heal th examination 685844319 Z00.00 Screening for disorder 971267597 Z13.9 [id number] Ling horta MD [facility] Internal Med [facility] [address] [facility], [place] [address] [place] [address] 04/28/2024 13:55:05 04/28/2024 14:23:02 Screening - NAD 281070399 Z13.9 C-scope: 02/07/2023 : Next in 2 years Get yearly flu shot, get Tdap if not doneGet COVID 19 vaccine and its boosters [place] AAA at age 67 years RTC in 3 months, do labs, ER if worse, he did verbalize his understand ing of the above Gastroesop hageal reflux disease without esophagitis 306728336 K21.9 EGD 12/29/2018 : Dr Larsen PPI PRN Hyperlipidemia 76107591 E78.5 On rosuvastat in 40mg dailyNot on fenofibrat e 145mg dailyGet labs Moderate r ecurrent major depression 44965400 F33.1 Not on doxepin 25mg at bedtimeNot on vraylar 1.5mg dailyNot on quetiapine 100mg daily On bupropion XL 150mg dailyOn propranolo l 10mg bidOn sertraline 200mg dailyOn trazodone 100mg daily Sees Dr Farris suicidal or homicidal Essential hypertension 70408030 I10 On losartan 50mg dailyDoes wellDr Dayton last OV 11/06/2023 Smoker 32667617 F17.200 Advised to quit smoking! 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 171353088 E11.9 On metformin 500mg bidGet labs Obstructiv e sleep apnea syndrome 70266976 G47.33 On CPAPSees Sydnie Yu [facility] 05/15/2023 Next apt 09/12/2024 Chronic cough 36534598 R 05.3 He smokes, has noted a chronic dry cough, no fevers or chillsDoes not want to get tested for COVID 19 or strep or fluGet on Z-packDoes need to see Dr Power Pain of [facility] elbow joint 1607849392 6304270 M25.521 Dr Rivers 11/03/2023 Dr Rivers 03/16/2024 , referred to [facility] for his c-spine Steatosis of liver [address] chest 05/13/2023 Hepatitis/ GGT: 05/21/2023 : NegUS liver 06/04/2023 : Liver enlargemen tNeeds to see GI [id number] MD REN [facility] [place] [address] 05/05/2024 09:16:10 05/06/2024 10:46:39 Obstructive sleep apnea syndrome 16173825 G47.33 Iron deficiency 64589291 E61.1 Chronic cough 68588001 R 05.3 R06.00 T78.40XA D89.9 Smoker 84311797 F17.218 F17.219 Z87.609 [id number] MD REN [facility] [address] [address] 05/16/2024 10:09:47 05/16/2024 14:13:53 Obstructive sleep apnea syndrome 88696384 G47.33 Iron deficiency 99126223 E61.1 Chronic cough 01332870 R 05.3 R06.00 T78.40XA D89.9 Smoker 18213464 F17.218 F17.219 Z87.891 Thickening of pleura 737 33557 J92.9 Z20.1 Posterior rhinorrhea 758 35866 R09.82 [id number] MD REN [facility] [place] [address] [place] [address] 05/25/2024 08:43:49 05/25/2024 09:26:25 Ulnar nerve entrapment at elbow 708984931 G56.22 [id number] Kurtis Power MD [facility] [address] [place] [address] 07/13/2024 10:36:50 08/29/2024 10:45:42 Obstructive sleep apnea syndrome 79987272 G47.33 Iron deficiency 90465952 E61.1 Chronic cough 10302904 R 05.3 R06.00 T78.40XA D89.9 Smoker 06332427 F17.218 F17.219 Z87.891 Posterior rhinorrhea 758 21799 R09.82 Solitary n odule of lung 314199640 R91.1 [id number] Kurtis Power MD [facility] [address] [place] [address] 07/26/2024 08:33:11 08/29/2024 11:27:56 Obstructive sleep apnea syndrome 78713465 G47.33 Iron deficiency 71513300 E61.1 Smoker 89763811 F17.218 F17.219 Z87.891 Posterior rhinorrhea 758 77769 R09.82 Solitary n odule of lung 012771763 R91.1 Dyspnea on exertion 6084 5006 R06.09 R05.9 [id number] Keon Rivers MD [facility] [place] [address] [place] [address] 08/03/2024 10:19:23 08/03/2024 10:58:25 Ulnar nerve entrapment at elbow 326084973 G56.22 [id number] Ling horta MD [facility] Internal Med [facility] [address] [address] 08/18/2024 11:08:13 08/18/2024 12:54:07 Screening - NAD 920644451 Z13.9 C-scope: 02/07/2023 : Next in 2 years Get yearly flu shot, get Tdap if not doneGet COVID 19 vaccine and its boosters [place] AAA at age 67 years RTC in 3 months, do labs, ER if worse, he did verbalize his understand ing of the above Gastroesop hageal reflux disease without esophagitis 597301965 K21.9 EGD 12/29/2018 : Dr Lindsay 08/18/2024 :On omeprazole 20mg daily, can do bid PRNGet another referral to GI, will need EGD again, impressed upon patient to obtain this JOHN Hyperlipidemia 42253278 E78.5 On rosuvastat in 40mg dailyNot on fenofibrat e 145mg dailyGet labs Moderate r ecurrent major depression 62791378 F33.1 Not on doxepin 25mg at bedtimeNot on vraylar 1.5mg dailyNot on quetiapine 100mg daily On bupropion XL 150mg dailyOn propranolo l 10mg bidOn sertraline 200mg dailyOn trazodone 100mg daily Sees Dr Farris suicidal or homicidal Essential hypertension 02340162 I10 On losartan 50mg dailyDoes wellDr Dayton last OV 11/06/2023 Smoker 73237789 F17.200 Advised to quit smoking! 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 588884204 E11.9 On metformin 500mg bidGet labs Obstructiv e sleep apnea syndrome 95905313 G47.33 On CPAPSees Sydnie Yu [facility] 05/15/2023 Next apt 09/12/2024 Chronic cough 48138452 R 05.3 He smokes, has noted a chronic dry cough, no fevers or chillsDoes not want to get tested for COVID 19 or strep or fluGet on Z-packDoes need to see Dr Jannet Ibarra of [facility] elbow joint 8090433795 7384959 M25.521 Dr Rivers 11/03/2023 Dr Rivers 03/16/2024 , referred to [facility] for his c-spine Dr Gann 06/08/2024 , f/u PRNDr Tita 08/03/2024 , to get elbow surgery Steatosis of liver [address] chest 05/13/2023 Hepatitis/ GGT: 05/21/2023 : NegUS liver 06/04/2023 : Liver enlargemen tNeeds to see GI [id number] Adriana Day NP [facility] [place] [address] [place] [address] 09/16/2024 09:17:46 09/16/2024 09:36:29 Ulnar nerve entrapment at elbow 965902545 G56.22 [id number] Keon Rivers MD [facility] [place] [address] [place] [address] 10/19/2024 08:57:02 10/19/2024 09:35:59 Pain of right shoulder joint 4620882784 3976258 M25.511 Pain of ri ght elbow joint 6771099020 1337578 M25.756 [id number] Kurtis Power MD [facility] Pulmonolo gy [address] [address] 10/25/2024 08:10:01 10/25/2024 09:06:28 Obstructive sleep apnea syndrome 29593247 G47.33 Iron deficiency 99140812 E61.1 Smoker 88702916 F17.218 F17.219 Z87.891 Posterior rhinorrhea 758 02208 R09.82 Solitary n odule of lung 673784798 R91.1 Dyspnea on exertion 6084 5006 R06.09 R05.9 Health Concerns Section Related Observation LastModified by Organization Detai ls LastModified Time None Recorded Concern Status LastModified by Organization Details LastModified Time None Recorded Advance Directives Directive N: Payers Encounter Date Sequence Insurance Name Policy Number Policy Fishman Covered Member ID Fishman Member ID Guarantor Name 08/03/2024 1 [facility] (MEDICARE REPLACEMENT/A DVANTAGE - PPO) [id number] Mj Diaz [id number] Mj Diaz 08/03/2024 2 [place] [facility]ID Mj Diaz [id number] Mj Diaz 08/18/2024 1 [facility] (MEDICARE REPLACEMENT/A DVANTAGE - PPO) [id number] Mj Diaz [id number] Mj Diaz 08/18/2024 2 [place] [facility] [place] Mj Diaz [id number] Mj Diaz 09/16/2024 1 [facility] (MEDICARE REPLACEMENT/A DVANTAGE - PPO) [id number] Mj Barnettalman [id number] Mj Diaz 09/16/2024 2 [place] [facility] [place] AID Mj Diaz [id number] Mj Diaz 10/19/2024 1 [facility] (MEDICARE REPLACEMENT/A DVANTAGE - PPO) [id number] Mj Barnettalsharon [id number] Mj Diaz 10/19/2024 2 [place] [facility] AID Mj Diaz [id number] Mj Diaz 10/25/2024 1 [facility] (MEDICARE REPLACEMENT/A DVANTAGE - PPO) [id number] Mj Barnettalsharon [id number] Mj Diaz 10/25/2024 2 [place] [facility] Mj Diaz [id number] Mj Diaz Notes Date Note Type Note Provider Name and Address Organization Details Recorded Time 08/18/2024 text/html OV 05/07/2023:He re to establish care Past Hx:Anxiety/DepressionH TNDMIIGERDEDHLD Reviewed social family and surgical history Here to discuss above and also get labs, he does c/o R elbow pain, no acute injury, he is RHD, he denies any N/T or weakness of the gripHe is here with his Zi OV 08/05/2023: Here for his f/u apt, he is doing well today, does have some numbness in the L hand particularly the 4th and the 5th fingers, 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, no acute or remote trauma noted OV 11/05/2023: Here for his f/u apt, he feels well today OV 03/29/2024: Here for his routine apt, he is doing well and is here for his MWV also, no new labs, he now lives with his mother , he was recently admitted to the hospital for overdosing on the seroquel, he feels much better now, he is not taking the seroquel and he does see his psychiatry Dr Christina and is on increased doses of sertralineHe also now will see a back specialist in [facility], does not know the name, he was referred by Dr Rivers his elbow orthopedic surgeon OV 04/28/2024: Here for his f/u apt, he states that he is doing well today, he did see Dr Rivers and has an apt with the back surgeon tomorrowHe has a cough, 'tickle in the throat' no fevers or chills, no chest pain or SOB OV 08/18/2024: Here for his f/u apt, he feels well today, has done labs, has noted some 'stomach pain', no N/V or diarrhea, no blood in urine or stool, normal appetite, no change in weight Ling Mcduffie MD [address] [place] [address], [address], [address], [place] [facility] 08/20/2024 12:44:52 10/25/2024 text/html Primary care/Ref erring provider: Ling Mcduffie MD Patient is here to go over his cough evaluation and management. Initial development of cough: uration of cough: 3 yearsNature of cough: non-productiveConditio n of cough: noneTiming of cough: mornings and lying in bedFrequency: every 2 hoursLimits activities: yesAggravating factors: walking briskly, doing yard work, summer heatAlleviating factors: resting Treatment history: Z-John 04/28/24methylpredniso lone 04/27/24 Other symptoms:Drooling: noDysarthria: noNeck pain: noOdynophagia: noDysphagia: noWeak mastication: noFacial weakness: noNasal speech: noProtruding tongue: noWheezing: noChest tightness: yesOrthopnea: noFrequent throat clearing or swallowing: noPalpitations: noHeartburn: noEdema: no Modified [employer] [place] (mMRC) Dyspnea Scale - Grade 2Grade 0 I only get breathless with strenuous exercise .Grade 1 I get short of breath when hurrying on the level or walking up a slight hill .Grade 2 I walk slower than people of the same age on the level because of breathlessness or have to stop for breath when walking at my own pace on the level .Grade 3 I stop for breath after walking about 100 yards or after a few minutes on the level .Grade 4 I am too breathless to leave the house or I am breathless when dressing . Environmental exposures:Nicotine smoke: 2 ppd 1996-present = 54 pack yearsPaint: noDye: noDust mites: yesMold: noDamp basement: noWood burning stove: noAnimal dander: noCockroaches: noPollen: yesArsenic: noAsbestos: noBeryllium: noCadmium: noChromium: noCoal smoke: noDiesel fumes: noNickel: noSilica: noSoot: no During the [facility] split sleep study on 07/23/16, AHI = 54, a ResMed small AirFit F10 full face mask was applied and patient was placed on autoCPAP. At home since 07/26/24, the patient uses a ResMed AirSense 11 unit with heated humidification. The patient does not need the ramp to start low and go up slowly on the pressure anymore. There is some xerostomia in a.m. There is no hose/mask condensation with water.The patient wears a full face mask without chin strap. There is no claustrophobia, no nostril/nose bridge irritation, no facial rash, no facial numbness, no nosebleeding. The patient feels more refreshed upon waking and daytime alertness is improved. Energy levels are sustained until early afternoon, around 1 pm. At home, the patient sleeps from 8:30 pm to 4 am and wakes up without an alarm. Snoring: heavy, since .Snorting: noChoking: yesCoughing: yesGasping: noGagging: yesSighing: noWitnessed apnea: yesTwitching or jerking of leg(s), arm(s), body, head: noTeeth grinding: n/aTeeth clenching: n/aSleeptalking: noSleepwalking: noSleep crying: noBedwetting: noTongue/lip/gum/cheek biting: noSleeping with open mouth: yesSleep paralysis: noHypnagogic hallucinations: noHypnopompic hallucinations: noVivid dreams: noDifficulty with sleep onset: yesDifficulty with sleep maintenance: yesSleep interruptions: for no known reasonsPatient wakes up with: fatigue, xerostomia, disorientation, cognitive impairment, dexterity impairmentDaytime cataplexy: noMorning hypersomnolence: noAfternoon hypersomnolence: yesCaffeine sources in diet: coffee 2 cups per day, tea 3.5 glasses per day, chocolate 1 candy bar per day Associated medical and psychiatric conditions:Congestive heart failure: noCoronary artery disease: noMyocardial infarction: noHypertension: yesStroke: noBronchial asthma: noChronic obstructive pulmonary disease: noDepression: yesBipolar disorder: noAnxiety: noPanic disorder: noPosttraumatic stress disorder: noAttention deficit and hyperactivity disorder: noObsessive Compulsive disorder: noSchizophrenia: noSchizoaffective disorder: noPersonality disorder: noChronic analgesic use: noChronic sedative/hypnotic use: no EPWORTH SLEEPINESS SCALE (ESS) CHANCE OF DOZING SCORE0 = would never doze1 = slight chance of dozing2 = moderate chance of dozing3 = high chance of dozing SITUATION AND CHANCE OF DOZINGSitting and reading - 0Watching television - 1Sitting inactive in a public place (e.g. a theater or meeting) - 0As a passenger in a car for an hour without a break - 1Lying down to rest in the afternoon when circumstances permit - 1Sitting and talking to someone - 0Sitting quietly after lunch without alcohol - 0In a car, while stopped for a few minutes in the traffic - 0TOTAL SCORE 3Subjectively, patient has a slight chance of dozing. Kurtis Power MD [address] [place] [address], [place] [address], [place], [address], [place] - [facility] Programmr 10/25/2024 08:57:33
--- OUTSIDE RECORDS SUMMARY | 2024-11-20 07:57 | XMS_ITS | Patient Health Record ---
Author Organization [facility] , Address [address] [place] [address] Care Team Providers Care Amphibious Operations Officer Name Role Phone JeffcucoBaron hortarosettepavithra Primary Care Provider Luke Arriaga Unavailable [phone] Keon Rivers Unavailable Unavailable ALLERGIES No Known Allergies RESULTS Component Value Reference Range Notes X ray : Cervical Spine 7 vie ws, AP, Lateral, Swimmers, Obliques, Flexion and Extension Reviewed date:04/29/2024 10:37:02 AM Interpretation:1005 Performing Lab: Notes/Report: 1005 X ray : Lumbar spine 5 views , AP, Lateral, Spot, Flexion and Extension Reviewed date:04/29/2024 10:37:08 AM Interpretation:945 Performing Lab: Notes/Report: 945 REASON FOR REFERRAL No Information MEDICATIONS Medication SIG (Take, Route, Fr equency, Duration) Notes Start Date End Date Status Ferrous Sulfate Acti ve Rosuvastatin Calcium Active Propranolol HCl Acti ve Azithromycin Active metFORMIN HCl Active Montelukast Sodium A ctive Omeprazole Active methylPREDNISolone A ctive Sertraline HCl Activ e traZODone HCl Active buPROPion HCl Active Losartan Potassium A ctive PROBLEMS Problem Type ICD Code Onset Dates Problem Status W/U Status Risk SNOMED Code Notes Problem DDD (degenerative disc disease), cervical (M50.30) Active confirmed Cervical disc disorder (507486831) Problem Facet arthritis, degenerative, 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) Active confirmed Cervical spondylosis without myelopathy (715951000) Problem Carpal tunnel syndrome, left (G56.02) Active confirmed Carpal tunnel syndrome (10065219) Problem Cubital tunnel syndrome, left (G56.22) Active confirmed 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) VITAL SIGNS Height 64 in 04/29/2024 Weight 164 lbs 04/29/2024 BMI 28.15 kg/m2 04/29/2024 Encounters Encounter Location Date Provider Diagnosis [facility] [address] [place] [address] 04/08/2024 Luke Lees [facility] [address] [place] [address] 04/29/2024 Luke Lees Cervical pain M54.2 ; Other low back pain M54.59 ; DDD (degenerative disc disease), cervical M50.30 ; Facet arthritis, degenerative, cervical spine M47.812 ; Carpal tunnel syndrome, left G56.02 and Cubital tunnel syndrome, left G56.22 ASSESSMENTS Encounter Date Diagnosis Assessment Notes Treatment Notes Treatment Clinical Notes 04/29/2024 Cervical pain (ICD-10 - M54.2) 04/29/2024 Other low back pain (ICD-10 - M54.59) 04/29/2024 DDD (degenerative disc disease), cervical (ICD-10 - M50.30) 04/29/2024 Facet arthritis, degenerative, cervical spine (ICD-10 - M47.812) 04/29/2024 Carpal tunnel syndrome, left (ICD-10 - G56.02) 04/29/2024 Cubital tunnel syndrome, left (ICD-10 - G56.22) PLAN OF TREATMENT No Information Insurance Providers Payer Name Payer Address Payer Phone Subscriber Number Group Number Insured Name Patient Relationship to Insured Coverage Start Date Coverage End Date [facility] Medicare Advantage PPO [address] [address] [place] [address] [phone] [id number] Mj Diaz Self - patient is the insured MEDICAL (GENERAL) HISTORY Medical History History ICD Code Hypertension Diabetes Neck pain Back pain Numbness in hands Depression Anxiety Bipolar disorder Admits to being hospitalized for psychia tric condition Admits to h/o drug/chemical dependency Surgical History Surgery Date(Month/Year) Appendectomy Hernia Eye
[2024-11-20 08:06] LABS: Add Urine Microscopic? YES; Appearance Urine Clear (Clear); Bacteria Urine None Seen /hpf; Bilirubin Urine Negative (Negative); Blood Urine Negative (Negative); Color Urine Yellow (Yellow); Glucose Urine UA Negative (Negative); Ketones Urine 1+ mg/dL (Negative); Leukocyte Esterase Ur Negative LEU/UL (Negative); Nitrate Urine Negative (Negative); Non Pathogenic Casts 0-2; Protein Urine Trace mg/dL (Negative); RBC Urine 0-2 /hpf (0-2); Specific Grav Ur > 1.045 (1.001-1.035); Squamous Epithelial Cell Urine None Seen /hpf (Few); WBC Urine 0-5 /hpf (0-3); pH Urine >=9.0 (5.0-9.0)
[2024-11-20 08:31] LABS: Influenza A QL RT-PCR Negative (Negative); Influenza B QL RT-PCR Negative (Negative); RSV RNA, RT-PCR Negative (Negative); SARS-CoV-2 RNA PCR Negative (Negative)
[2024-11-20 08:36] VITALS: BP 145/70; PULSE 85; RESP 20; O2SAT 98
== END 2024-11-20 08:38 | disposition home or self-care (01) ==
PROVIDERS: Emergency Medicine; Emergency Provider Emergency Medicine; PCP Internal Medicine
DX: R10.9 Unspecified abdominal pain (principal); I10 Essential (primary) hypertension; E11.9 Type 2 diabetes mellitus without complications; E78.5 Hyperlipidemia, unspecified; F41.8 Other specified anxiety disorders; G47.33 Obstructive sleep apnea (adult) (pediatric); F31.9 Bipolar disorder, unspecified; Z20.822 Contact with and (suspected) exposure to COVID-19; F17.210 Nicotine dependence, cigarettes, uncomplicated
CPT/HCPCS: 36415; 74177; 80053; 81001; 83690; 85025; 87637; 96361; 96374; 96375; 99284; J2270; J2405; J7030; Q9967

== ENCOUNTER 2024-11-28 01:54 | Day surgery (SDC) | payer MEDICARE, MEDICAID, SELFPAY ==
[2024-11-16 14:49] VITALS: BMI 29.7
--- OUTSIDE RECORDS SUMMARY | 2024-11-28 01:58 | XMS_ITS ---
Author Organization [facility], Address [address] [facility] [address] [place] [address] Care Team Providers Care Electrical Appliance Servicer Name Role Phone Ling Mcduffie Primary Care Provider Luke Arriaga Unavailable [phone] Keon Rivers Unavailable Unavailable REASON FOR VISIT Lumbar Encounters Encounter Location Date Provider Diagnosis [facility] [address] [facility] [address] [place] [address] 04/08/2024 Luke Lees PLAN OF TREATMENT No Information
--- OUTSIDE RECORDS SUMMARY | 2024-11-28 01:58 | XMS_ITS | Continuity of Care Document ---
Author Organization [facility] Address [address] [place] [address] [address] [place] [address] Phone Care Team Providers Care Milk Driver Name Role Phone Stefanie Betancur Unavailable Unavailable Procedures Procedure Date Post-op Follow-up Visit Post-op Follow-up Visit Revise Two Eye Muscles Eye Suture During Surgery Office Consultation Advance Directives Directive Yes / No Effective Date File Name No Information Encounters Encounter Description Practice Location Reason(s) For Visit Diagnoses Date Provider Providers Copied on Encounter Formerly [facility], [address] [place] [address] [address], [place], [place], [id number], [place] tel:[phone] [facility] No Information Dec-3 1-200 9 Gypsy Bendern. [address] , [address], [place], [address], [place]. tel:[phone] Formerly [facility], [address] [place] [address] [address], [place], [place], [id number], [place] tel:[phone] [facility] No Information Dec-1 0-200 9 Gypsy Watts. [address] [facility] [address] , [address], [place], [address], [place]. tel:[phone] Formerly [facility], [address] [place] [address] [address], [place], [place], [id number], [place] tel:[phone] [facility] No Information Dec-0 7-200 9 Gypsy Bendern. [address] , [address], [place], [address], [place]. tel:[phone] Office Consultation [facility], [address], [place], [place], [id number], [place] tel:[phone] [facility] No Information 5-200 9 Betancur Stefanie. [address], [place], [address], [place]. tel:[phone] Referring Provider: Juanito Lama OD D, [address] [facility] [address], [place], [address]. tel:[phone] Family History Family Member Type Diagnosis Age At Onset No Information Payers Payer name Insurance type Covered republican ID Authoriza tion(s) Medicare [facility] [id number] Medicaid [facility] [id number] Social History Type Description Quantity Date Captured [...]
--- OUTSIDE RECORDS SUMMARY | 2024-11-28 01:58 | XMS_ITS | Data Portability ---
Author Organization [place] - S [employer], Main Office Address [address] [place] [address] Care Team Providers Care Employment Consultant Name Role Phone LING MCDUFFIE Primary Care Provider [phone] LING MCDUFFIE Referring Provider [phone] AYDEN DAYTON Specimen Processor VALERIANO GANN Orthopedic Surgeon [phone] ADRIANA DAY Orthopedic Surgeon [phone] KURTIS POWER [place] Assessment Encounter Date Assessment Date Assessment LastModified [...] were reviewed and explained to the patient: [facility] split sleep study on 07/23/16, AHI [...] for postnasal drip. Nicotine cessation counseling provided. [place] for quitting nicotine include getting ready, getting [...] in Quit For Life program Registering at [email or web address] Making a call to 9-576-PAVO-NOW ( ). A strong, clear, personalized message [...] failure or relapse. Patient can enroll in [facility]'s smoking cessation class through Kath Mckeon [...] remain at 15-17 cmH2O. Keep EPR +3 multimedia services manager. Keep ramp off. Keep humidifier off. Keep [...] carrier. Patient will setup an appointment with [facility] Patient for supplies and pressure adjustments. [...] or 1 week after methacholine challenge testing [facility] Not available 10/25/2024 08:57:00 Plan of Treatment Reminders Order Date Submit Date Provider Last Modified By Organization Details Last Modified Time Details Appointments Any 15 2024 09:00A Sara sanders MD Not available Not available Not available Follow Up 30 2024 07:45A Sara Power MD Not available Not available Not available Lab ferritin, serum or plasma [address] - Outpatient Lab, [address] [place], [address], 10/25/2024 08:49:54 CMP, serum or plasma 2023 024 S[facility], [address], [place], [address], 11/21/2024 03:49:08 CBC w/ auto diff 2023 024 [facility] [place] [place] [facility], [address], [place], [address], 08/18/2024 12:52:55 T4, free, serum 2023 024 [facility] [place] [employer] [facility], [address], [place], [address], 08/18/2024 12:52:55 TSH, serum or plasma 2023 024 [facility] [facility] [place] [place] [facility], [address], [place], [address], 08/18/2024 12:52:55 lipid panel, serum 2023 024 [facility] [place], [address], [place], [address], 08/18/2024 12:52:55 HbA1c (hemoglob in A1c), blood 2023 024 [facility], [address], [place], [address], 08/18/2024 12:52:55 microalbu min, urine 2023 024 [facility], [address], [place], [address], 08/18/2024 12:52:55 Referral gastroent erologist referral - Please call patient to schedule. 2023 024 alejandro Jacobson MD, [address] [facility], [address], [place], [address], 10/31/2024 08:46:37 pulmonolo gist referral 2023 024 [email or web address] Kurtis Power MD, [address] [place], [address], 08/29/2024 09:20:08 cardiolog ist referral 2023 024 [email or web address] [place], [address] [facility], [address], [place], [address], 08/29/2024 09:20:08 podiatris t referral - Please call patient to schedule. 2023 024 [email or web address] Blake Suarez DPM, [address] [facility], [address], [place], [address], 10/31/2024 08:46:36 Procedures upper endoscopy procedure (EGD) (PROC) - Please call patient to schedule. 2023 [email or web address] [facility], [address], [address], [place], [address], 11/03/2024 09:58:43 Surgeries None recorded. Imaging electromy ogram + nerve conductio n study - Please contact pt to schedule apt. Thank you! 2024 025 [email or web address] [facility], [address], [place], [address], 10/24/2024 10:26:41 XR, shoulder 2024 025 [facility] [place], [facility] [address], [place], [address], 10/24/2024 12:50:16 Medication Orders ferrous sulfate 325 mg (65 mg iron) tablet 2024 025 [id number], [address] [place], [place], [id number], 10/25/2024 08:50:29 Vitamin C 500 mg tablet 2024 025 [id number], [address] [place], [id number], 10/25/2024 08:49:58 ipratropi um bromide 42 mcg (0.06 %) nasal spray 2024 025 [id number], [address] [place], [place], [id number], 10/25/2024 08:49:59 Patient TargetsNo targets recorded. 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 Referring Physician: Ling Mcduffie, Internal Medicine, Encounter Date: 08/18/2024 Senior Research Scientist Referral for Steatosis of liver Please call patient to schedule. Referring Physician: Ling Mcduffie Internal Medicine, Encounter Date: 08/18/2024 [place] Referral for C hronic cough Referring Physician: Ling Mcduffie Internal Medicine, Encounter Date: 08/18/2024 Specimen Processor Referral for Es sential hypertension Referring Physician: Ling Mcduffie Internal Medicine, Encounter Date: 08/18/2024 Results Created Date Observation Date Name Description Value Unit Range Abnormal Flag Note LastModifiedBy Organization Detail LastModifiedTime 10/21/1910/22/2024 CJ TIN ferritin 92 NG/mL 38-380 normal Not Available [employer] [facility] [address], [place], [address], 10/22/2024 07:53:46 07/08/20 24 07/08/2024 imagi ng/di agnos tic resul t No observ ation record ed. [facility] [address] [facility] [address], [place], [address], 07/08/2024 16:55:12 07/13/20 24 07/13/2024 compl ete PFT w/ post [facility] hodil ator earnestine metry * No observ ation record ed. [facility] Not Available 2023 19:15:10 07/20/20 24 07/19/2024 PET-C T, skull base to mid-t high scan No observ ation record ed. [address], [place], [address], 07/21/2024 10:18:21 07/25/20 24 07/25/2024 compl ete PFT w/ post [facility] hodil ator earnestine metry * No observ ation record ed. [address] [facility] [address], [place], [address], 07/26/2024 14:03:41 08/04/20 24 07/25/2024 compl ete PFT w/ post [facility] hodil ator earnestine metry * No observ ation record ed. [facility] Not Available 2023 16:50:39 10/19/19 XR, shoul efrem No observ ation record ed. [email or web address] [facility] [place] [address] [facility] [address], [place], [address], 10/19/2024 09:01:17 11/21/19 25 11/20/2024 imagi ng/di agnos tic resul t No observ ation record ed. [place] [address] [facility] [address], [place], [address], 11/20/2024 09:04:09 Result Notes None recorded. Problems Name Problem SNOMED Code Status Onset Date Resolution Date Notes Provider Name and Address Organization Details Recorded Time Restless legs 62086734 Active Not Available [facility] 3 18:04:04 Anxiety 35190854 Active 2019 Not Available [facility] 3 18:04:05 Obstructiv e sleep apnea syndrome 52772085 Active Not Available [facility] 3 18:04:05 Gastroesop hageal reflux disease without esophagiti s 334419317 Active 2022 Ling horta MD [address], [address], [place], [address] , [employer] [facility] 3 10:33:14 Hyperlipid emia 81239466 Active 2022 Ling horta MD [address], [address], [place], [address] , [employer] [facility] 3 10:33:18 Moderate recurrent major depression 36667230 Active 2022 Ling horta MD [address], [address], [place], [address] , [employer] [facility] 3 10:33:24 Essential hypertensi on 04080103 Active 2022 Ling horta MD [address], [address], [place], [address] , [employer] [facility] 3 10:33:28 Erectile dysfunctio n 809670757 Active 2022 Ling horta MD [address], [address], [place], [address] , [employer] [facility] 3 10:33:45 Smoker 62856094 Active 2022 Ling horta MD [address], [address], [place], [address] , [employer] [facility] 3 10:37:23 Carpal tunnel syndrome of right wrist 6577326418304 08 Active 2022 NISHA Ingram [address], [address], [place], [address] , [employer] [facility] [employer] [facility] 3 09:44:54 Steatosis of liver 346492568 Active 2022 Ling horta MD [address], [address], [place], [address] , [facility] 3 10:17:13 Ulnar nerve entrapment at elbow 075049967 Active 2023 Keon Rivers MD [address], [address], [place], [address] , [facility] 4 09:26:06 Cervical radiculopa thy 09031723 Active 2023 Ashlie Liao null, [facility] 4 09:35:05 Iron deficiency 31204035 Active 2023 Kurtis Power MD [address], [address], [place], [address] , [facility] 4 09:09:31 Allergic rhinitis 88072161 Active 2023 Ama Cabrera [facility] null, [facility] 4 10:46:51 Type 2 diabetes mellitus without complicati on 418591998 Active 2023 Ling horta MD [address], [address], [place], [address] , [facility] 4 14:25:44 Contact dermatitis caused by urushiol from [place] 16493536 Active 2023 Maxine Vanegas MA null, [facility] 4 16:34:26 Posterior rhinorrhea 09243710 Active 2023 Kurtis Power MD [address], [address], [place], [address] , [facility] 4 11:13:22 Multiple nodules of lung 184505266 Active 2023 Kurtis Power MD [address], [address], [place], [address] , [facility] 4 11:50:27 Solitary nodule of lung 761198466 Active 2023 Kurtis Power MD [address] [facility], [address] [address], [place], [address] , [place] 4 11:50:41 Dyspnea on exertion 66309566 Active 2024 Kurtis Power MD [address] [facility], [address], [place], [address] , [employer] 5 08:42:41 Chronic cough 20998346 Active 2024 Kurtis Power MD [address] [facility], [address], [place], [address] , [place] 5 08:48:33 Notes:Medical History: Nicot ine use Depression 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 R>L tinnitus Rhinitis with postnasal drip Eosinophils 240/uL IgE 28 IU/mL AAT PiMM 160 mg% (+) Quantiferon TB Gold, incarcerated 4561-[address]35, on Rifampin RLL nodule Granulomatous disease (chest, liver) Obesity with very severe OSAHS, AHI = 54, on autoCPAP c/o [facility] Patient Hypertension Hyperlipidemia T2DM NAUN Hepatic [...] procedure on elbow completed Verenice Kwan MA [place] 10/25/2024 08:19:59 4 Medicare Wellness CPT Code, Initial completed Dandy Elizabeth LPN [place] 03/28/2024 10:34:05 Hernia Surgery completed REGINALD Shaw am [employer] 05/07/2023 10:13:32 Eye Surgery completed REGINALD Kerr [employer] 05/07/2023 10:13:37 Hernia Repair completed REGINALD Chacon [place] - [facility] 05/07/2023 10:13:54 Imaging Results Imaging Date Name Status LastModified by Organization Details LastModified Time 07/08/2024 imaging/diagnostic result active [place] [address] [facility] [address], [place], [address], 07/08/2024 16:55:12 07/13/2024 complete PFT w/ post bronchodilator spirometry* completed [facility] Information not available 07/13/2024 19:15:10 07/19/2024 PET-CT, skull base to mid-thigh scan completed [address], [place], [address], 07/21/2024 10:18:21 07/25/2024 complete PFT w/ post bronchodilator spirometry* active [address], [place], [address], 07/26/2024 14:03:41 07/25/2024 complete PFT w/ post bronchodilator spirometry* completed [facility] Information not available 08/04/2024 16:50:39 10/19/2024 XR, shoulder completed [email or web address] [place] [address] [facility] [address], [place], [address], 10/19/2024 09:01:17 11/20/2024 imaging/diagnostic result active [address], [address], 11/20/2024 09:04:09 Procedure Notes None recorded. Medical Equipment None [...] bromide 42 mcg (0.06 %) nasal spray [place] 1 spray 4 times a day by intranasa l route as needed. 2024 active Not Available Not Available Not Avai lable ondansetron 4 mg disintegrat ing tablet Place 2 tablets twice a day by transling ual route. 2024 active Not Available Not Available Not Avai lable fluticasone propionate 50 mcg/actuati on nasal spray,suspe [...] Not Available Not Available Not Available Fluvirin 7176-9649 45 mcg (15 mcg x 3)/0.5 mL [...] Updated DateTime 08/03/2024 162.56 cm 27.8 kg/m2 15049.96 g 2 REGINALD Augustine [place] - [facility] [employer] 08/03/2024 10:33:29 Date Recorded Body height Body mass index (BMI) Body weight Body temperature Heart rate Respiratory rate Oxygen saturation Oxygen saturation in Arterial blood by Pulse oximetry Pain severity - 0-10 verbal numeric rating [Score] - Reported Systolic blood pressure Diastolic blood pressure Provider Name and Address Organization Details Last Updated DateTime 4 162.56 cm 29 kg/m2 19699.1 1 g 98.4 [degF] 84 /min 16 /min 96 % 96 % 0 108 mm[Hg] 62 mm[Hg] Dandy Elizabeth LPN [facility] [employer] [facility] 4 12:08:58 Date Recorded Body height Body mass index (BMI) Body weight Pain severity - 0-10 verbal numeric rating [Score] - Reported Provider Name and Address Organization Details Last Updated DateTime 09/16/2024 162.56 cm 28 kg/m2 32635.56 g 2 REGINALD Augustine [facility] [employer] 09/16/2024 09:21:14 Date Recorded Body height Body mass index (BMI) Body weight Provider Name and Address Organization Details Last Updated DateTime 10/19/2024 162.56 cm 28 kg/m2 89477.56 g Martina Up CNA [facility] [employer] [facility] 10/19/2024 08:59:23 Date Recorded Body height Body mass index (BMI) Body weight Body temperature Heart rate Oxygen saturation Oxygen saturation in Arterial blood by Pulse oximetry Systolic blood pressure Diastolic blood pressure Provider Name and Address Organization Details Last Updated DateTime 5 162.56 cm 29.6 kg/m2 38953.3 2 g 98.2 [degF] 68 /min 98 % 98 % 100 mm[Hg] 60 mm[Hg] Verenice Kwan MA [facility] [employer] [facility] 08:16:27 Date Recorded Heart rate Respiratory rate Provider N rock and Address Organization Details Last Updated DateTime 10/25/2024 68 /min 15 /min Kurtis Power MD [address] [place] [address], [place], [address], [facility] [employer] [facility] 10/25/2024 08:57:30 Social History Question Answer Notes LastModified by Organization Details LastModified Time Tobacco Smoking Status Current Every Day Smoker Ama Cabrera, REGINALD lutz, [place] - [facility] 05/07/2023 10:11:27 Do You Have An Advance Directive? No Information not available 05/07/2023 What Is Your Level Of Alcohol Consumption? Occasional Information not available 05/07/2023 How Many Years Have You Consumed Alcohol? 30 [email or web address] Information not available 03/29/2024 What Is Your Level Of Caffeine Consumption? Moderate [email or web address] Information not available 05/15/2023 In The 14 [...] Drugs Have You Used? Marijuana Flower Form [email or web address] Information not available 05/15/2023 Do You Or Have You Ever Used E-cigarettes Or Vape? Never Used Electronic Cigarettes Tried It In The Past But Never Really Liked It [email or web address] Information not available 03/29/2024 What Is The Highest Grade Or Level Of School You Have Completed Or The Highest Degree You Have Received? [id number] Information not available 05/07/2023 Do You Have An Electrostatic Air Filter? No Information not available 11/24/2023 Have You Been Exposed To Chemicals Or Toxins? Yes Lived On A Farm Information not available 10/25/2024 Have There Been Any Changes To Your Family Or Social Situation? Yes Last May. He Moved In With His Mom And Brother [email or web address] Information not available 03/29/2024 What Is The Fluoride Status Of Your Home? Unknown Information not available 05/07/2023 Are There Any Guns Present In Your Home? No Information not available 05/07/2023 Do You Have A Humidifier? No Information not available 11/24/2023 How Many Years Have You Used Illicit Or Recreational Drugs? 31 [email or web address] Information not available 03/29/2024 Where Do You Live? SingleLevelHouse Information not available 05/07/2023 Do You Have A Medical Power Of Die Hardener? No Information not available 05/07/2023 Do You Have Moisture Problems In Your Home? No Information not available 11/24/2023 What Was The Date Of Your Most Recent Tobacco Screening? 10/25/2024 Information not available 10/25/2024 What Is Your Current Pack Years? [email or web address] Information not available 05/15/2023 Have You Ever Been Counseled For Unhealthy Alcohol Use? No [email or web address] Information not available 03/29/2024 Do You Have Any Pets? Yes 2 Cats [email or web address] Information not available 03/29/2024 What Is Your [...] Much Tobacco Do You Smoke? 1 PPD [email or web address] Information not available 03/29/2024 Do You Feel Stressed (tense, Restless, Nervous, Or Anxious, Or Unable To Sleep At Night)? [id number] [email or web address] Information not available 03/29/2024 Do You Use Any Illicit Or Recreational Drugs? Yes Information not available 05/07/2023 Do You Use Sunscreen Routinely? No Information not available 11/24/2023 Has Tobacco Cessation Counseling Been Provided? Yes [email or web address] Information not available 03/29/2024 On What Date Was Tobacco Cessation Counseling Provided? 10/25/2024 Information not available 10/25/2024 How Many Years Have You Smoked Tobacco? 30 [email or web address] Information not available 05/15/2023 Have You Recently Traveled Abroad? No Information not available 05/07/2023 Have You Used IV Drugs? No [email or web address] Information not available 05/15/2023 Do You Or Have You Ever Used Any Other Forms Of Tobacco Or Nicotine? Yes Information not available 05/07/2023 How Many Days In The Past Year Have You Consumed 5 Or More Drinks? 0 Information not available 03/29/2024 Sex: Male Functional [...] available 2023 09:37:54 Medical History Condition Response NERVE DISEASE N BLINDNESS N RHEUMATIC FEVER N KIDNEY STONES N BLADDER PROBLEMS N MRSA N OTHER # 1 N POLIO N LUNG DISEASE/DISORDER N HISTORY OF DRUG ABUSE N COPD N RADIATION / CHEMOTHERAPY N Other # 2 N BLOOD DISEASES [...] DIVERTICULITIS N SLEEP APNEA Y CHICKENPOX N ALLERGIES/HAYFEVER N BACK INJECTIONS N INFECTIOUS DISEASE N PROSTATE N HEART ARRHYTHMIA N ESRD N INSOMNIA N HIGH CHOLESTEROL / HYPERLIPIDEMIA Y EYE PROBLEMS N HYPERTHYROIDISM N PVD N EDEMA N CHRONIC PAIN SYNDROME N HYPOTHYROIDISM N CAROTID BLOCKAGE N CONSTIPATION N BACK / NECK PROBLEMS N ATHEROSCLEROSIS [...] virus, quadrivalent, preservative 9 completed BORA Cabral, [place] - [facility] [employer] 03/24/2024 14:43:42 Tdap 9 completed BORA Cabral, [facility] 03/24/2024 14:43:42 influenza, unspecified formulation 6 completed Dandy Elizabeth LPN null, [facility] 03/24/2024 14:43:42 COVID-19, mRNA, LNP-S, PF, 30 mcg/0.3 mL dose 2 completed [facility] 03/24/2024 14:43:42 COVID-19, mRNA, LNP-S, PF, 30 mcg/0.3 mL dose 1 completed Dandy Elizabeth LPN null, [facility] 03/24/2024 14:43:42 COVID-19, mRNA, LNP-S, PF, 30 mcg/0.3 mL dose 1 completed [facility] 03/24/2024 14:43:42 COVID-19, mRNA, LNP-S, bivalent, PF, 30 mcg/0.3 mL dose 2 completed [facility]andy [facility] 03/24/2024 14:43:42 Influenza, split virus, trivalent, PF 6 completed Dandy Elizabeth LPN null, [facility] 03/24/2024 14:43:42 Influenza, split virus, quadrivalent, PF 0 completed Dandy Elizabeth LPN null, [facility] 03/24/2024 14:43:42 Influenza, split virus, quadrivalent, PF 9 completed Dandy Elizabeth LPN null, [facility] 03/24/2024 14:43:42 Influenza, split virus, quadrivalent, PF 1 completed Dandy Elizabeth LPN null, [facility] 03/24/2024 14:43:42 Influenza, split virus, quadrivalent, PF 2 completed Dandy Elizabeth LPN null, [facility] 03/24/2024 14:43:43 Influenza, MDCK, quadrivalent, PF 3 completed REGINALD Kerr, [facility] [employer] [facility] 08/17/2024 14:55:25 COVID-19, mRNA, LNP-S, PF, mali-sucrose, 30 mcg/0.3 mL 3 completed REGINALD Kerr, [facility] [employer] [facility] 08/17/2024 14:55:25 Past Encounters Encounter ID Performer Location Encounter Start Date Encounter Closed Date Diagnosis/Indication Diagnosis SNOMED-CT Code Diagnosis ICD10 Code Diagnosis Note [id number] Ling horta MD [facility] Internal Med [address] [facility] [place] [address] 05/07/2023 09:41:21 05/07/2023 10:55:55 Screening - NAD 921027506 Z13.9 C-scope: Get this Get yearly flu shot, get Tdap if not doneGet COVID 19 vaccine and its boosters AAA at age 67 years RTC in 3 months, do labs, ER if woe Screening for malignant neoplasm of colon 077251861 Z12.11 Gastroesop hageal reflux disease without esophagitis 803781582 K21.9 EGD 12/29/2018 : Dr Larsen PPI PRN Hyperlipidemia 30917699 E78.5 On rosuvastat in 40mg dailyOn fenofibrat e 145mg dailyGet labs Moderate r ecurrent major depression 06435439 F33.1 On bupropion SR 100mg bidOn doxepin 25mg at bedtimeOn propranolo l 10mg bidOn vraylar 1.5mg dailySees Dr Farris suicidal or homicidal Essential hypertension 12602306 I10 On losartan 50mg dailyDoes well Smoker 64815465 F17.200 Advised to quit smoking! Erectile dysfunction 860 298630 F52.21 On sildenafil , does well Liver enzy mes level above reference range 351523610 R74.01 Noted in the past, get labs Numbness of hand 0148924 04 R20.0 Does well now Type 2 bridgett betes mellitus without complication 467989296 E11.9 On metformin 500mg bidGet labs Obstructiv e sleep apnea syndrome 96648909 G47.33 On CPAPSees Sydnie Saenzrell RN EMERGENCY ROOM 05/15/2023 Chronic cough 54571631 R 05.3 He smokes, has noted a chronic dry cough, mild SOB, does see Sydnie also Pain of ri ght elbow joint 8082324965 1774138 M25.521 Get a referral to ortho [id number] Sydnie Yu, PIANO MECHANIC APPRENTICE-BC S[facility]G [facility] [place] [address] [place] [address] 05/15/2023 15:15:26 05/15/2023 16:19:14 Obstructive sleep apnea syndrome 41266131 G47.33 No data from machine after 2019He has good use and clinical benefitBas ed on his report of symptoms, will order APAP today - discussed with Mr Diaz, he agreesOSA was well correctedE ncouraged 100% [...] and symptomsFo llow up per compliance guidelines [id number] NISHA Ingram [facility] [place] [address] [place] [address] 05/20/2023 08:27:53 05/20/2023 09:30:11 Pain of right elbow joint [id number] 5205254 M25.521 patient has had 3-4 months of [...] 6 weeks for re-evaluat ion. Carpal shine justina syndrome of right wrist [id number] 99099 G56.01 Patient has been experienci ng numbness [...] up in 6 weeks for re-evaluat ion [id number] Sydnie Yu, [facility] Pulmon[place] [address] [place] [address] 07/21/2023 15:17:58 07/21/2023 16:10:31 Obstructive sleep apnea syndrome 34282795 G47.33 New machine set upHe has 100% [...] symptomsHe should follow up in 3-6 months [id number] Ling horta MD [facility] Internal Med [address] [facility], [address] [place] [address] 08/06/2023 09:39:45 08/06/2023 10:30:18 Screening - NAD 840998716 Z13.9 C-scope: Get this Get yearly flu shot, get Tdap if not doneGet COVID 19 vaccine and its boosters [place] [employer] at age 67 years RTC in 3 months, do labs, ER if worse, he did verbalize his understand ing of the above Screening for malignant neoplasm of colon 590281223 Z12.11 Gastroesop hageal reflux disease without esophagitis 985506979 K21.9 EGD 12/29/2018 : Dr Larsen PPI PRN Hyperlipidemia 52481662 E78.5 On rosuvastat in 40mg dailyOn fenofibrat e 145mg dailyGet labs Moderate r ecurrent major depression 08050330 F33.1 On bupropion SR 100mg bidOn doxepin 25mg at bedtimeOn propranolo l 10mg bidOn vraylar 1.5mg dailySees Dr Farris suicidal or homicidalT violet 08/06/2023 , teary eyed as he has recently lost his Zi Essential hypertension 81385408 I10 On losartan 50mg dailyDoes well Smoker 43098119 F17.200 Advised to quit smoking! Erectile dysfunction 860 500067 F52.21 On sildenafil , does well Numbness of hand 9686986 04 R20.0 Does well now Type 2 bridgett betes mellitus without complication 675254064 E11.9 On metformin 500mg bidGet labs Obstructiv e sleep apnea syndrome 68420536 G47.33 On CPAPSees Sydnie Yu RN EMERGENCY ROOM 05/15/2023 Chronic cough 42557733 R 05.3 He smokes, has noted a chronic dry cough, mild SOB, does see Sydnie also Pain of ri ght elbow joint 2008802060 8314428 M25.521 Get a referral to ortho Steatosis of liver [address]76[address] chest 05/13/2023 Hepatitis/ GGT: 05/21/2023 : NegUS liver 06/04/2023 : Liver enlargemen tNeeds to see GI [id number] Keon Rivers MD [facility] [place] [address] [place] [address] 08/12/2023 09:26:50 08/12/2023 10:04:08 Pain of left hand 0447876954 94789 M79.192 [id number] Keon Rivers MD [facility] [place] [address] [place] [address] 09/30/2023 08:46:17 09/30/2023 10:03:19 Pain of left hand 7472225481 83549 M79.642 Ulnar nerv e entrapment at elbow 332072503 G56.22 [id number] Ling horta MD [facility] Internal Med [address] [facility], [address] [place] [address] 11/05/2023 09:17:41 11/05/2023 09:58:01 Screening - NAD 213621075 Z13.9 C-scope: 02/07/2023 : Next in 2 years Get yearly flu shot, get Tdap if not doneGet COVID 19 vaccine and its boosters [place] [employer] at age 67 years RTC in 3 months, do labs, ER if worse, he did verbalize his understand ing of the above Gastroesop hageal reflux disease without esophagitis 889614654 K21.9 EGD 12/29/2018 : Dr Larsen PPI PRN Hyperlipidemia 79569233 E78.5 On rosuvastat in 40mg dailyOn fenofibrat e 145mg dailyGet labs Moderate r ecurrent major depression 77307332 F33.1 On bupropion XL 150mg dailyNot on doxepin 25mg at bedtimeOn propranolo l 10mg bidNot on vraylar 1.5mg dailyOn quetiapine 100mg daily Sees Dr Farris suicidal or homicidal Essential hypertension 96758628 I10 On losartan 50mg dailyDoes well Smoker 74417649 F17.200 Advised to quit smoking! 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 [place] [address] 12/01/2023 09:01:50 12/01/2023 09:26:06 Pain of left shoulder joint 4922064691 9291479 M25.314 [id number] [facility] Pulmonolo [address] [address] 12/14/2023 08:33:55 12/15/2023 08:35:00 Obstructive sleep apnea syndrome 45007987 G47.33 Iron deficiency 53256227 E61.1 [id number] NISHA Reina [facility] [place] [address] [place] [address] 12/17/2023 08:49:45 12/17/2023 09:16:39 Pain of left shoulder joint 2976653135 8053021 M25.723 [id number] Kurtis Power MD [facility] Pulmonolo gy [address] [address] 03/14/2024 08:11:40 03/15/2024 08:21:43 Obstructive sleep apnea syndrome 01439847 G47.33 Iron deficiency 67529202 E61.1 [id number] Keon Rivers MD [facility] [place] [address] [place] [address] 03/16/2024 08:59:34 03/16/2024 10:19:33 Bilateral elbow joint pain 3124693249 5476829 M25.521 M25.840 [id number] Ling horta MD [facility] Internal Med [address] [address] 03/29/2024 09:21:55 03/29/2024 10:00:34 Screening - NAD 168986914 Z13.9 C-scope: 02/07/2023 : Next in 2 years Get yearly flu shot, get Tdap if not doneGet COVID 19 vaccine and its boosters [place] [employer] at age 67 years RTC in 3 months, do labs, ER if worse, he did verbalize his understand ing of the above Gastroesop hageal reflux disease without esophagitis 603803028 K21.9 EGD 12/29/2018 : Dr Larsen PPI PRN Hyperlipidemia 13938607 E78.5 On rosuvastat in 40mg dailyOn fenofibrat e 145mg dailyGet labs Moderate r ecurrent major depression 35780927 F33.1 Not on doxepin 25mg at bedtimeNot on vraylar 1.5mg dailyNot on quetiapine 100mg daily On bupropion XL 150mg dailyOn propranolo l 10mg bidOn sertraline 200mg dailyOn trazodone 100mg daily Sees Dr Farris suicidal or homicidal Essential hypertension 76125090 I10 On losartan 50mg dailyDoes wellDr [place] last OV 11/06/2023 Smoker 80177081 F17.200 Advised to quit smoking! 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 796576817 E11.9 On metformin 500mg bidGet labs Obstructiv e sleep apnea syndrome 38309286 G47.33 On CPAPSees Sydnie Aimee RN EMERGENCY ROOM 05/15/2023 Chronic cough 19178442 R 05.3 He smokes, has noted a chronic dry cough, mild SOB Pain of ri ght elbow joint 9550442901 5935907 M25.521 Dr Rivers 11/03/2023 Steatosis of liver [address] chest 05/13/2023 Hepatitis/ GGT: 05/21/2023 : NegUS liver 06/04/2023 : Liver enlargemen tNeeds to see GI Adult heal th examination 744256551 Z00.00 Screening for disorder 808377032 Z13.9 [id number] Ling horta MD [facility] Internal Med [address] [facility], [address] [place] [address] 04/28/2024 13:55:05 04/28/2024 14:23:02 Screening - NAD 986366408 Z13.9 C-scope: 02/07/2023 : Next in 2 years Get yearly flu shot, get Tdap if not doneGet COVID 19 vaccine and its boosters [place] [employer] at age 67 years RTC in 3 months, do labs, ER if worse, he did verbalize his understand ing of the above Gastroesop hageal reflux disease without esophagitis 519796217 K21.9 EGD 12/29/2018 : Dr Larsen PPI PRN Hyperlipidemia 17569946 E78.5 On rosuvastat in 40mg dailyNot on fenofibrat e 145mg dailyGet labs Moderate r ecurrent major depression 34723067 F33.1 Not on doxepin 25mg at bedtimeNot on vraylar 1.5mg dailyNot on quetiapine 100mg daily On bupropion XL 150mg dailyOn propranolo l 10mg bidOn sertraline 200mg dailyOn trazodone 100mg daily Sees Dr Farris suicidal or homicidal Essential hypertension 14838858 I10 On losartan 50mg dailyDoes wellDr [place] last OV 11/06/2023 Smoker 38103531 F17.200 Advised to quit smoking! 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 045857301 E11.9 On metformin 500mg bidGet labs Obstructiv e sleep apnea syndrome 95839623 G47.33 On CPAPSees Sydnie Yu RN EMERGENCY ROOM 05/15/2023 Next apt 09/12/2024 Chronic cough 39632574 R 05.3 He smokes, has noted a chronic dry cough, no fevers or chillsDoes not want to get tested for COVID 19 or strep or fluGet on Z-packDoes need to see Dr Power [facility] elbow joint 3347526348 2303268 M25.521 Dr Rivers 11/03/2023 Dr Rivers 03/16/2024 , referred to NS for his c-spine Steatosis of liver [address] chest 05/13/2023 Hepatitis/ GGT: 05/21/2023 : NegUS liver 06/04/2023 : Liver enlargemen tNeeds to see GI [id number] Kurtis Power MD [facility] [address] [address] 05/05/2024 09:16:10 05/06/2024 10:46:39 Obstructive sleep apnea syndrome 30133520 G47.33 Iron deficiency 05845589 E61.1 Chronic cough 10217957 R 05.3 R06.00 T78.40XA D89.9 Smoker 60803160 F17.218 F17.219 Z87.611 [id number] MD REN [facility] [address] [address] 05/16/2024 10:09:47 05/16/2024 14:13:53 Obstructive sleep apnea syndrome 45168916 G47.33 Iron deficiency 35078912 E61.1 Chronic cough 50111750 R 05.3 R06.00 T78.40XA D89.9 Smoker 53965661 F17.218 F17.219 Z87.891 Thickening of pleura 737 70973 J92.9 Z20.1 Posterior rhinorrhea 758 61156 R09.82 [id number] Keon Rivers MD [facility] [place] [address] [place] [address] 05/25/2024 08:43:49 05/25/2024 09:26:25 Ulnar nerve entrapment at elbow 383479587 G56.22 [id number] Kurtis Power MD [place] [address] 07/13/2024 10:36:50 08/29/2024 10:45:42 Obstructive sleep apnea syndrome 00442835 G47.33 Iron deficiency 49620843 E61.1 Chronic cough 95456615 R 05.3 R06.00 T78.40XA D89.9 Smoker 64948242 F17.218 F17.219 Z87.891 Posterior rhinorrhea 758 51023 R09.82 Solitary n odule of lung 459408493 R91.1 [id number] Kurtis Power MD [place] [address] 07/26/2024 08:33:11 08/29/2024 11:27:56 Obstructive sleep apnea syndrome 78205000 G47.33 Iron deficiency 74715524 E61.1 Smoker 14238859 F17.218 F17.219 Z87.891 Posterior rhinorrhea 758 81440 R09.82 Solitary n odule of lung 931180250 R91.1 Dyspnea on exertion 6084 5006 R06.09 R05.9 [id number] Keon Rivers MD [facility] Orth[place] [address] [place] [address] 08/03/2024 10:19:23 08/03/2024 10:58:25 Ulnar nerve entrapment at elbow 928371343 G56.22 [id number] Ling horta MD [facility] Internal Med [address] [facility], [address] [place] [address] 08/18/2024 11:08:13 08/18/2024 12:54:07 Screening - NAD 333697403 Z13.9 C-scope: 02/07/2023 : Next in 2 years Get yearly flu shot, get Tdap if not doneGet COVID 19 vaccine and its boosters [place] [employer] at age 67 years RTC in 3 months, do labs, ER if worse, he did verbalize his understand ing of the above Gastroesop hageal reflux disease without esophagitis 580299960 K21.9 EGD 12/29/2018 : Dr Lindsay 08/18/2024 :On omeprazole 20mg daily, can do bid PRNGet another referral to GI, will need EGD again, impressed upon patient to obtain this JOHN Hyperlipidemia 99009277 E78.5 On rosuvastat in 40mg dailyNot on fenofibrat e 145mg dailyGet labs Moderate r ecurrent major depression 57899302 F33.1 Not on doxepin 25mg at bedtimeNot on vraylar 1.5mg dailyNot on quetiapine 100mg daily On bupropion XL 150mg dailyOn propranolo l 10mg bidOn sertraline 200mg dailyOn trazodone 100mg daily Sees Dr Farris suicidal or homicidal Essential hypertension 73702880 I10 On losartan 50mg dailyDoes wellDr [place] last OV 11/06/2023 Smoker 80497765 F17.200 Advised to quit smoking! 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 902157547 E11.9 On metformin 500mg bidGet labs Obstructiv e sleep apnea syndrome 56208957 G47.33 On CPAPSees Sydnie Yu RN EMERGENCY ROOM 05/15/2023 Next apt 09/12/2024 Chronic cough 41548414 R 05.3 He smokes, has noted a chronic dry cough, no fevers or chillsDoes not want to get tested for COVID 19 or strep or fluGet on Z-packDoes need to see Dr Power Pain of ri ght elbow joint 5531251529 3804233 M25.521 Dr Rivers 11/03/2023 Dr Rivers 03/16/2024 , referred to NS for his c-spine Dr Gann 06/08/2024 , f/u PRNDr Tita 08/03/2024 , to get elbow surgery Steatosis of liver [address] chest 05/13/2023 Hepatitis/ GGT: 05/21/2023 : NegUS liver 06/04/2023 : Liver enlargemen tNeeds to see GI [id number] Adriana Day NP [facility] [place] [address] [place] [address] 09/16/2024 09:17:46 09/16/2024 09:36:29 Ulnar nerve entrapment at elbow 325675227 G56.22 [id number] Keon Rivers MD [facility] [place] [address] [place] [address] 10/19/2024 08:57:02 10/19/2024 09:35:59 Pain of right shoulder joint 8189040401 6548079 M25.511 Pain of ri ght elbow joint 3263683397 4896642 M25.089 [id number] Kurtis Power MD [facility] Pulmonolo gy [address] [address] 10/25/2024 08:10:01 10/25/2024 09:06:28 Obstructive sleep apnea syndrome 39786100 G47.33 Iron deficiency 94563520 E61.1 Smoker 16317079 F17.218 F17.219 Z87.891 Posterior rhinorrhea 758 65240 R09.82 Solitary n odule of lung 031964582 R91.1 Dyspnea on exertion 6084 5006 R06.09 R05.9 Health Concerns Section Related Observation LastModified by Organization Detai ls LastModified Time None Recorded Concern Status LastModified by Organization Details LastModified Time None Recorded Advance Directives Directive N: Payers Encounter Date Sequence Insurance Name Policy Number Policy Fishman Covered Member ID Fishman Member ID Guarantor Name 08/03/2024 1 [facility] (MEDICARE REPLACEMENT/A DVANTAGE - PPO) [id number] Mj Barnettalman [id number] Mj Razaman 08/03/2024 2 [place] Mj Diaz [id number] Mj L Ryman 08/18/2024 1 [facility] (MEDICARE REPLACEMENT/A DVANTAGE - PPO) [id number] Mj Barnettalman [id number] Mj Barnettalman 08/18/2024 2 [place] [facility] [place] Mj Diaz [id number] Mj Alethea Barnettalman 09/16/2024 1 [facility] (MEDICARE REPLACEMENT/A DVANTAGE - PPO) [id number] Mj Barnettalman [id number] Mj Barnettalman 09/16/2024 2 [place] [facility] [place] Mj Diaz [id number] Mj Diaz 10/19/2024 1 [facility] (MEDICARE REPLACEMENT/A DVANTAGE - PPO) [id number] Mj Barnettalman [id number] Mj Barnettalman 10/19/2024 2 [place] [facility] [employer] [place] Mj Barnettalsharon [id number] Mj Barnettalman 10/25/2024 1 [facility] (MEDICARE REPLACEMENT/A DVANTAGE - PPO) [id number] Mj Barnettalman [id number] Mj Alethea Spealman 10/25/2024 2 [place] [employer] [place] Mj Diaz [id number] Mj Diaz Notes Date Note Type Note [...] the 4th and the 5th fingers, 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 08/20/2024 12:44:52 10/25/2024 text/html Primary care/Ref erring [...] noPalpitations: noHeartburn: noEdema: no Modified [employer] [place] (mMRC) Dyspnea Scale - Grade 2Grade 0 [...] fumes: noNickel: noSilica: noSoot: no During the [facility] split sleep study on 07/23/16, AHI [...] up without an alarm. Snoring: heavy, since 1980s.Snorting: noChoking: yesCoughing: yesGasping: noGagging: yesSighing: noWitnessed apnea: [...] slight chance of dozing. Kurtis Power MD [address] [facility], [place], [address], [place] [facility] [place] [facility] 10/25/2024 08:57:33
--- OUTSIDE RECORDS SUMMARY | 2024-11-28 01:58 | XMS_ITS | Clinical Summary ---
Author Organization [facility] Physician Office Building [address] [place] [address] Care Team Providers Care Sales Operations Coordinator Name Role Phone Stephanie Mcduffie MD Primary [...] - Td or Tdap) 06/17/2029 06/17/2019 Insurance [facility] ADVANTAGE [facility] IDPA UHC MEDICARE ADVANTAGE IDPA IDPA Care Teams Sales Operations Coordinator Relationship Specialty Start Date End Date Stephanie Mcduffie MD PCP - General Internal Medicine 02/14/19
--- OUTSIDE RECORDS SUMMARY | 2024-11-28 01:58 | XMS_ITS | CONTINUITY OF CARE DOCUMENT ---
Author Name alfonso josephangel Address Unknown Organization [facility] Address [address] [facility] [facility] [address] [place] [address] Phone [phone] Care Team Providers Care Phlebotomy Technologist Name Role Phone Sean Burris MD Unavailable ANA LAURA MANZANARES MD Unavailable ANA LAURA MANZANARES MD Unavailable PROBLEMS Condition Status Date Provider Notes Cardiology [...] In-person encounter Office Visit Sean Burris MD [place] Cardiology examinationAnxietyDepressionHyperlipidemiaHypertensi onBipolar disorderOSA - on [...] smoking status Current every day smoker [facility] INSURANCE PROVIDERS Payer name Policy type / Coverage type [employer] red libertarian [employer] [facility] Medicaid [id number] [facility] [id number] Other [id number] ADVANCE DIRECTIVES Name Date DISCUSSED - NO [...]
--- OUTSIDE RECORDS SUMMARY | 2024-11-28 01:58 | XMS_ITS ---
Author Organization [facility] , Address [address] [facility] [address] [place] [address] Care Team Providers Care Elder Assistant Name Role Phone Ling Mcduffie Primary Care Provider Luke Arriaga Unavailable [phone] Keon Rivers Unavailable Unavailable ALLERGIES No Known Allergies RESULTS Component Value Reference Range Notes X ray : Cervical Spine 7 vie ws, AP, Lateral, Swimmers, Obliques, Flexion and Extension Reviewed date:04/29/2024 10:37:02 AM Interpretation:1005 Performing Lab: Notes/Report: 1005 X ray : Lumbar spine 5 views , AP, Lateral, Spot, Flexion and Extension Reviewed date:04/29/2024 10:37:08 AM Interpretation:945 Performing Lab: Notes/Report: 945 REASON FOR VISIT Lumbar MEDICATIONS Medication SIG (Take, Route, Fr equency, Duration) Notes Start Date End Date Status Azithromycin Active metFORMIN HCl Active Montelukast Sodium A ctive Omeprazole Active methylPREDNISolone A ctive Ferrous Sulfate Acti ve Sertraline HCl Activ e traZODone HCl Active buPROPion HCl Active Losartan Potassium A ctive Rosuvastatin Calcium Active Propranolol HCl Acti ve PROBLEMS Problem Type ICD Code Onset Dates Problem Status W/U Status Risk SNOMED Code Notes Problem DDD (degenerative disc disease), cervical (M50.30) Active confirmed Cervical disc disorder (540663561) Problem Facet arthritis, degenerative, 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) Active confirmed Cervical spondylosis without myelopathy (782337186) Problem Carpal tunnel syndrome, left (G56.02) Active confirmed Carpal tunnel syndrome (21752532) Problem Cubital tunnel syndrome, left (G56.22) Active confirmed Lesion of ulna r nerve (074767503) VITAL SIGNS BMI 28.15 kg/m2 04/29/2024 Height 64 in 04/29/2024 Weight 164 lbs 04/29/2024 Encounters Encounter Location Date Provider Diagnosis [facility] [place] [address] [place] [address] 04/29/2024 Luke Lees Cervical pain M54.2 ; [...] - G56.22) PLAN OF TREATMENT No Information Progress Notes * Examination Category Sub-Category Detail Notes General Examination GENERAL: Patient is a n alert and cooperative male who moves about the room in a slow and cautious fashion. He does not walk with a list or limp NECK: Exam reveals no tend erness to palpation. No spasm. Near full ROM of the cervical spine. Spurling's test negative HEART: Regular rate and rhy thm LUNGS: Clear to auscultatio n in all leyva ABDOMEN: No tenderness to pal pation, bowel sounds present all four quadrants NEUROLOGIC: Upper extremity neur ologic examination reveals symmetric DTR's, intact sensation, 5+/5+ motor strength. Positive Tinel's sign involving the bilateral wrists. Positive Tinel's sign involving the bilateral ulnar nerves at the cubital tunnel. Mary Jane's sign negative. Lower extremity neurologic examination reveals symmetric DTR's, intact sensation, 5+/5+ motor strength. SLR testing negative. No clonus, negative Babinski's sign involving the lower extremities SKIN: No evidence of skin rashes or dermal lesions MUSCULOSKELETAL: Thoracic exam reveal s no tenderness to palpation. No spasm. Lumbar exam reveals tension involving the bilateral paraspinal musculature. ROM of the lumbar spine reveals forward flexion to 100 degrees, extension to 35 degrees, side-bending to 45 degrees. He can heel and toe walk. Lumbosacral exam reveals no tenderness to palpation involving the SI region PSYCHIATRIC: Mood and affect appe ar normal HEENT: No masses, PERRLA, E OM intact, no nasal drainage, no lymphadenopathy JOINTS: Hip log roll testing negative. Hip ROM full. FABERE test negative HEMATOLOGIC: No evidence of exces sive bruising or bleeding Plain X-ray Imaging Studies CERVICAL SPINE X-RAY S: Seven view x-rays through the cervical spine reveal evidence of mild spondylosis, loss of cervical lordosis. Mild facet degeneration. Left C4-5, C5-6 neural foraminal narrowing is noted on oblique images. No fracture LUMBAR SPINE X-RAYS: Five view x-rays th rough the lumbar spine reveal evidence of facet degeneration L3 to S1. Well-preserved disc space height. No fracture. No evidence of spondylolysis or spondylolisthesis. Diminished disc space height at L5-S1 with vacuum disc phenomenon
--- OUTSIDE RECORDS SUMMARY | 2024-11-28 01:59 | XMS_ITS | Referral Summary ---
Author Organization [facility] Physician Office Building [address] [place] [address] Care Team Providers Care Sugar Mixer Name Role Phone Stephanie Mcduffie MD Primary [...] Plan of Treatment Not on file Insurance [facility] MEDICARE ADVANTAGE IDPA IDPA Care Teams Sugar Mixer Relationship Specialty Start Date End Date Stephanie Mcduffie MD PCP - General Internal Medicine 02/14/19
--- OUTSIDE RECORDS SUMMARY | 2024-11-28 01:59 | XMS_ITS | Patient Health Record ---
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) Active confirmed Cervical spondylosis without myelopathy (088410179) Problem Carpal tunnel syndrome, left (G56.02) Active confirmed Carpal tunnel syndrome (71374400) Problem Cubital tunnel syndrome, left (G56.22) Active confirmed Lesion of ulna r nerve (301665032) VITAL SIGNS Height 64 in 04/29/2024 Weight 164 lbs 04/29/2024 BMI 28.15 kg/m2 04/29/2024 Encounters Encounter Location Date Provider Diagnosis [facility] [address] [place] [address] 04/08/2024 Luke Lees [facility] [address] [place] [address] 04/29/2024 Luke Lees Cervical pain M54.2 ; [...] Insured Coverage Start Date Coverage End Date [facility] Medicare Advantage PPO [address] [address] [place] [address] [phone] [id number] Mj Diaz Self - patient is the insured MEDICAL (GENERAL) HISTORY Medical History History ICD Code Hypertension Diabetes Neck pain Back pain Numbness in hands Depression Anxiety Bipolar disorder Admits to being hospitalized for psychia tric condition Admits to h/o drug/chemical dependency Surgical History Surgery Date(Month/Year) Appendectomy Hernia Eye
[2024-11-28 09:30] VITALS: BP 132/85; PULSE 67; RESP 20; TEMP 36.6; O2SAT 97; BMI 29.0
[2024-11-28] MEDS: LACTATED RINGERS 1,000 ML 150 ML IV CONT (09:40)
[2024-11-28 09:42] LABS: Glucose Point of Care 91 mg/dl (65-105)
--- NOTE | 2024-11-28 10:03 | PM.HPGS ---
History of Present Illness History of Present Illness Consent: Risks, benefits, and alternatives have been discussed and questions answered. Patient agrees to proceed with procedure. Chief complaint: GERD Narrative: Mj Diaz is a 49 year old male here for egd, intermittent nausea and abdominal pain, recent ER visit, CT scan no major findings. Review of Systems Review of Systems: All systems reviewed & are unremarkable except as noted in HPI and below PMFSH Past Medical History Medical History (Updated 11/28/24 @ 10:05 by Larry Flores MD) Nausea Depression Anxiety Bipolar disorder IVORY (obstructive sleep apnea) High cholesterol HTN (hypertension) Diabetes Surgical History Surgical History History of inguinal hernia repair 02/18/22 Laparoscopic right inguinal hernia repair with mesh, da Ct assisted History of eye surgery Right eye 2013 History of appendectomy As a child. History of umbilical hernia repair Below umbilical hernia. Unsure about mesh placement. Was done as a child. History of umbilical hernia repair Above umbilical hernia. Unsure about mesh placement. Was done as a child. Family History Family History Other Cerebrovascular accident Diabetes mellitus Heart disease Hypertension Social History Social History Smoking packs per day: 1 Smoking cigarettes per day: 20.0 Years smoked: 30 Smoking pack-years: 30.00 Smoking status: Current every day smoker Tobacco type: cigarettes Alcohol intake: current Alcohol use details: Rarely Substance use: current Substance use type: marijuana Other substance usage details: smokes marijuana daily Last use: 01/07/22 Living arrangements: with family Additional occupation/education comments: Disabled. Spiritual care concerns: No Meds Home Medications and Allergies Home Medications ?Medication ?Instructions ?Recorded ?Confirmed ?Type bupropion HCl 100 mg tablet 100 mg PO BID 01/06/22 11/28/24 History loratadine 10 mg tablet (Allergy 10 mg PO DAILY 01/06/22 11/28/24 History Relief (loratadine)) metformin 500 mg tablet 500 mg PO DAILY 01/06/22 11/28/24 History montelukast 10 mg tablet 10 mg PO DAILY 01/06/22 11/28/24 History omeprazole 20 mg capsule,delayed 20 mg PO DAILY 01/06/22 11/28/24 History release propranolol 10 mg tablet 10 mg PO Q12H 01/06/22 11/28/24 History rosuvastatin 40 mg tablet 40 mg PO DAILY 01/06/22 11/28/24 History losartan 50 mg tablet 50 mg PO DAILY 11/16/24 11/28/24 History sertraline 100 mg tablet 100 mg PO DAILY 11/16/24 11/28/24 History trazodone 100 mg tablet 100 mg PO DAILY 11/16/24 11/28/24 History dicyclomine 20 mg tablet 20 mg PO QID PRN abdominal pain 11/20/24 11/28/24 Rx #20 tabs ondansetron 4 mg disintegrating 4 mg PO Q4H 3 doses #10 tabs 11/20/24 11/28/24 Rx tablet Allergies Allergy/AdvReac Type Severity Reaction Status Date / Time No Known Allergies Allergy Verified 11/28/24 09:25 Vital Signs Vital Signs - 24 hr 11/28/24 09:30 Temperature 98 F Pulse Rate 67 Respiratory Rate 20 Blood Pressure 132/85 Pulse Oximetry 97 Oxygen Delivery Room Air Exam Const: General: comfortable and no acute distress HENMT: Face/Nose/Sinus: Normal nares present Eyes: General: appearance normal, both eyes and all related structures Neck: Neck: no JVD Resp: Auscultation: clear to auscultation bilaterally Cardio: Rate: regular rate Rhythm: regular rhythm GI: Inspection: non-distended GI Palp: Yes Soft to palpation Skin: General skin exam: normal color Neuro: Speech: normal speech Extrem: General: normal to inspection Psych: Mental Status: mental status grossly normal Assessment and Plan Assessment and plan (1) Abdominal pain: Code(s): R10.9 - Unspecified abdominal pain Status: Inactive Assessment and Plan: egd with bx (2) Nausea: Code(s): R11.0 - Nausea Status: Acute
--- NOTE | 2024-11-28 10:09 | P.PNAN_ITS ---
Anes - Initial Pre Proc Eval Procedure: Operation Date: 11/28/24 10:30 Proposed Procedures p Esophagogastroduodenoscopy - Larry Flores MD Date/Time: 11/28/24 10:09 Surgeon: Larry Flores MD Pre Op Diagnosis: GERD Patient Data Age: 49 Gender: M Height: 1.57 m Weight: 72.1 kg Last Vital Signs Temp 98 F 11/28/24 09:30 Pulse 67 11/28/24 09:30 Resp 20 11/28/24 09:30 BP 132/85 11/28/24 09:30 Pulse Ox 97 11/28/24 09:30 O2 Del Method Room Air 11/28/24 09:30 Allergies Allergy/AdvReac Type Severity Reaction Status Date / Time No Known Allergies Allergy Verified 11/28/24 09:25 Home Medications ?Medication ?Instructions ?Recorded ?Confirmed ?Type bupropion HCl 100 mg tablet 100 mg PO BID 01/06/22 11/28/24 History loratadine 10 mg tablet (Allergy 10 mg PO DAILY 01/06/22 11/28/24 History Relief (loratadine)) metformin 500 mg tablet 500 mg PO DAILY 01/06/22 11/28/24 History montelukast 10 mg tablet 10 mg PO DAILY 01/06/22 11/28/24 History omeprazole 20 mg capsule,delayed 20 mg PO DAILY 01/06/22 11/28/24 History release propranolol 10 mg tablet 10 mg PO Q12H 01/06/22 11/28/24 History rosuvastatin 40 mg tablet 40 mg PO DAILY 01/06/22 11/28/24 History losartan 50 mg tablet 50 mg PO DAILY 11/16/24 11/28/24 History sertraline 100 mg tablet 100 mg PO DAILY 11/16/24 11/28/24 History trazodone 100 mg tablet 100 mg PO DAILY 11/16/24 11/28/24 History dicyclomine 20 mg tablet 20 mg PO QID PRN abdominal pain 11/20/24 11/28/24 Rx #20 tabs ondansetron 4 mg disintegrating 4 mg PO Q4H 3 doses #10 tabs 11/20/24 11/28/24 Rx tablet Laboratory Tests 11/28/24 09:39 POC Capillary Glucose 91 mg/dl (65-105) Patient hx anesthesia problems: none Family hx anesthesia problems: none Results Review: All pre-operative results and documents have been reviewed as part of the pre- operative evaluation. [facility] Past Medical History Medical History Nausea Depression Anxiety Bipolar disorder IVORY (obstructive sleep apnea) High cholesterol HTN (hypertension) Diabetes Surgical History Surgical History History of inguinal hernia repair 02/18/22 Laparoscopic right inguinal hernia repair with mesh, da Ct assisted History of eye surgery Right eye 2013 History of appendectomy As a child. History of umbilical hernia repair Below umbilical hernia. Unsure about mesh placement. Was done as a child. History of umbilical hernia repair Above umbilical hernia. Unsure about mesh placement. Was done as a child. Family History Family History Other Cerebrovascular accident Diabetes mellitus Heart disease Hypertension Social History Social History Smoking packs per day: 1 Smoking cigarettes per day: 20.0 Years smoked: 30 Smoking pack-years: 30.00 Smoking status: Current every day smoker Tobacco type: cigarettes Alcohol intake: current Alcohol use details: Rarely Substance use: current Substance use type: marijuana Other substance usage details: smokes marijuana daily Last use: 01/07/22 Living arrangements: with family Additional occupation/education comments: Disabled. Spiritual care concerns: No Anes - Eval Final PreProcedure Day of Procedure 11/28/24 10:09 Patient weight: overweight Lungs: normal air movement Airway: Mallampati scale class II Neurological: alert and oriented Last oral intake: >/= 8 hours ASA classification: III Emergent: no Anesthetic plan: proceed Anesthesia type and monitoring: general GIVS and standard monitoring Results Review: All pre-operative results and documents have been reviewed as part of the pre- operative evaluation. HTN, hyperlipidemia, IVORY on CPAP, smoker 1 ppd smoked at 1 am, bipolar disorder, now w stomach problems . Informed Consent: The patient's anesthetic plan and its attendant risks and benefits were discussed with the patient/family/POA. Questions were solicited and answers provided to the satisfaction of the patient/family/POA.
[2024-11-28 10:22] VITALS: BP 108/70; PULSE 72; RESP 20; O2SAT 98
[2024-11-28 10:32] VITALS: BP 109/70; PULSE 61; RESP 20; O2SAT 98
[2024-11-28 10:42] VITALS: BP 120/79; PULSE 62; RESP 20; O2SAT 98
== END 2024-11-28 10:55 | disposition home or self-care (01) ==
PROVIDERS: PCP Internal Medicine; Referring Provider Internal Medicine; Visit Provider Internal Medicine Gastroenterology
PROC: 0DJ08ZZ Inspection of Upper Intestinal Tract, Via Natural or Artificial Opening Endoscopic (ICD-10-PCS; CPT 43239; principal; 2024-11-28 10:30)
DX: K21.9 Gastro-esophageal reflux disease without esophagitis (principal); I10 Essential (primary) hypertension; E11.9 Type 2 diabetes mellitus without complications; G47.33 Obstructive sleep apnea (adult) (pediatric); E78.00 Pure hypercholesterolemia, unspecified; F41.9 Anxiety disorder, unspecified; F31.9 Bipolar disorder, unspecified; F17.210 Nicotine dependence, cigarettes, uncomplicated; F12.90 Cannabis use, unspecified, uncomplicated; Z79.84 Long term (current) use of oral hypoglycemic drugs; Z98.890 Other specified postprocedural states; Z82.49 Family history of ischemic heart disease and other diseases of the circulatory system
CPT/HCPCS: 43239; 82948; 88305; J2003; J2704; J7120

== ENCOUNTER 2024-12-07 08:54 | Outpatient (CLI) | payer MEDICARE, MEDICAID, SELFPAY ==
--- OUTSIDE RECORDS SUMMARY | 2024-12-07 09:37 | XMS_ITS ---
Author Organization [facility], Address [address] [facility] [address] [place] [address] Care Team Providers Care Paper Mill Manager Name Role Phone Ling Mcduffie Primary Care Provider Luke Arriaga Unavailable [phone] Keon Rivers Unavailable Unavailable REASON FOR VISIT Lumbar Encounters Encounter Location Date Provider Diagnosis [facility] [address] [facility] [address] [place] [address] 04/08/2024 Luke Lees PLAN OF TREATMENT No Information
--- OUTSIDE RECORDS SUMMARY | 2024-12-07 09:37 | XMS_ITS ---
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
--- OUTSIDE RECORDS SUMMARY | 2024-12-07 09:37 | XMS_ITS | Patient Health Record ---
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) Active confirmed Cervical spondylosis without myelopathy (557097659) Problem Carpal tunnel syndrome, left (G56.02) Active confirmed Carpal tunnel syndrome (60621762) Problem Cubital tunnel syndrome, left (G56.22) Active confirmed Lesion of ulna r nerve (807859585) VITAL SIGNS Height 64 in 04/29/2024 Weight 164 lbs 04/29/2024 BMI 28.15 kg/m2 04/29/2024 Encounters Encounter Location Date Provider Diagnosis [facility] [address] [place] [address] 04/08/2024 Luke Lees [facility] [address] [place] [address] 04/29/2024 Luke Lees Cervical pain M54.2 ; [...] Insured Coverage Start Date Coverage End Date [facility] Medicare Advantage PPO [address] [address] [place] [address] [phone] [id number] Mj Diaz Self - patient is the insured MEDICAL (GENERAL) HISTORY Medical History History ICD Code Hypertension Diabetes Neck pain Back pain Numbness in hands Depression Anxiety Bipolar disorder Admits to being hospitalized for psychia tric condition Admits to h/o drug/chemical dependency Surgical History Surgery Date(Month/Year) Appendectomy Hernia Eye
--- OUTSIDE RECORDS SUMMARY | 2024-12-07 09:37 | XMS_ITS | CONTINUITY OF CARE DOCUMENT ---
Author Name alfonso josephangel Address Unknown Organization [facility] Address [address] [facility] [address] [place] [address] Phone [phone] Care Team Providers Care Web Engineer Name Role Phone Sean Burris MD Unavailable ANA LAURA MANZANARES MD Unavailable ANA LAURA MANZANARES MD Unavailable PROBLEMS Condition Status Date Provider Notes Cardiology examination active Sean Burris MD Tobacco abuse active Sean Burris MD Preoperative cardiovascular examination active Sean Burris MD IVORY - on CPAP active Sean Burris MD Bipolar disorder active Sean Burirs MD Hypertension active Sean Burris MD Hyperlipidemia active Sean Burris MD Depression active Sean Burris MD Anxiety active Sean Burris MD (History of) ENCOUNTERS Date Type Provider Location Encounter Diag nosis 11/05 - 11/05 In-person encounter Office Visit Sean Burris MD [facility] Cardiology examinationAnxietyDepressionHyperlipidemiaHypertensi onBipolar disorderOSA - on [...] smoking status Current every day smoker [facility] INSURANCE PROVIDERS Payer name Policy type / Coverage type [place] [employer] party [employer] [facility] Medicaid 1 [id number] [facility] [id number] Other [id number] ADVANCE DIRECTIVES Name Date DISCUSSED - NO [...]
--- OUTSIDE RECORDS SUMMARY | 2024-12-07 09:37 | XMS_ITS | Clinical Summary ---
Author Organization [facility] Address [address] [place] [address] Care Team Providers Care Flight Surgeon Name Role Phone Ling Mcduffie MD Primary Care Provider Source Comments [facility],non-owned Affiliates and Associated Physician Practices is amultiple site organization consisting of ambulatory clinics and hospital sitesin [place], [place], [place] and [place]. This disclosure is being madepursuant to the Care Everywhere program and may not contain all information available regarding this patient. Last updated 18.[facility] Social History Tobacco Use Types Packs/Day Years Used Date Smoking Tobacco: Never Assessed Sex and Gender Information Value Date Recorded Sex Assigned at Not on file Gender Identity Not on file Sexual Orientation Not on file Plan of Treatment Health Maintenance Due Date Last Done Comments COLOGUARD (AGES 45-75) - COLON CA SCREENING 1977 COLON MONITORING 1977 COLONOSCOPY - COLON CA SCREENING 1977 CT COLONOGRAPHY - COLON CA SCREENING 1977 Colorectal Cancer Screening 1977 FIT - COLON CA SCREENING 1977 FLEX SIG - COLON CA SCREENING 1977 LIPID TESTING 1977 HIV SCREENING 01/16/1992 HEPATITIS C SCREENING 01/11/1995 DTAP/TDAP/TD VACCINES (1 - Tdap) 01/16/1996 HEPATITIS B VACCINE (1 of 3 - 19+ 3-dose series) 01/16/1996 COVID-19 VACCINE ( season) 2024 07/21/2022, 10/29/2021, 01/03/2021, Additional history exists DEPRESSION SCREENING 08/31/2024 MEDICARE AWV CALENDAR YEAR 2024 INFLUENZA VACCINE (Season Ended) 2025 07/21/2022, 06/25/2021, 05/20/2020, Additional history exists ZOSTER VACCINE (1 of 2) 2027 HIB VACCINE Aged Out No longer eligi ble based on patient's age to complete this topic HPV VACCINE Aged Out No longer eligi ble based on patient's age to complete this topic MENINGOCOCCAL (Group B) VACCINE SHARED DECISION-MAKING Aged Out No longer eligible based on patient's age to complete this topic MENINGOCOCCAL GROUPS A/C/Y/W VACCINE Aged Out No longer eligible based on patient's age to complete this topic PNEUMOCOCCAL VACCINE Aged Out No long er eligible based on patient's age to complete this topic Care Teams Flight Surgeon Relationship Specialty Start Date End Date Ling Mcduffie MD [address] [facility] [address] [place] [address] PCP - General 04/10/20
--- OUTSIDE RECORDS SUMMARY | 2024-12-07 09:37 | XMS_ITS | Data Portability ---
Author Organization [place] - [place] [email or web address], Main Office Address [address] [place] [address] Care Team Providers Care Senior Oracle Soa Developer Name Role Phone LING MCDUFFIE Primary Care Provider LING MCDUFFIE Referring Provider AYDEN DAYTON Coffee Brewer VALERIANO GANN Orthopedic Surgeon ADRIANA DAY Orthopedic Surgeon KURTIS POWER Head Silverman Assessment Encounter Date Assessment Date Assessment LastModified [...] were reviewed and explained to the patient: [facility] split sleep study on 07/23/16, AHI [...] for postnasal drip. Nicotine cessation counseling provided. [place] for quitting nicotine include getting ready, getting [...] in Quit For Life program Registering at [email or web address] Making a call to 4-303-AJLF-NOW ( ). A strong, clear, personalized message [...] failure or relapse. Patient can enroll in [facility]'s smoking cessation class through Kath Mckeon [...] remain at 15-17 cmH2O. Keep EPR +[address] reporter. Keep ramp off. Keep humidifier off. Keep [...] carrier. Patient will setup an appointment with [facility] Patient for supplies and pressure adjustments. A [...] or 1 week after methacholine challenge testing [facility] Not available 10/25/2024 08:57:00 Plan of Treatment Reminders Order Date Submit Date Provider Last Modified By Organization Details Last Modified Time Details Appointments Any 15 2024 09:00A Javier sanders MD Not available Not available Not available Follow Up 30 2024 07:45A Javier Power MD Not available Not available Not available Lab ferritin, serum or plasma [address] - Outpatient Lab, [address] [place], [address], 10/25/2024 08:49:54 CMP, serum or plasma 2023 024 [employer] [facility], [address], [place], [address], 11/21/2024 03:49:08 CBC w/ auto diff 2023 024 [facility], [address], [place], [address], 08/18/2024 12:52:55 T4, free, serum 2023 024 [facility], [address], [place], [address], 08/18/2024 12:52:55 TSH, serum or plasma 2023 024 [facility], [address], [place], [address], 08/18/2024 12:52:55 lipid panel, serum 2023 024 [facility], [address], [place], [address], 08/18/2024 12:52:55 HbA1c (hemoglob in A1c), blood 2023 024 [facility], [address], [place], [address], 08/18/2024 12:52:55 microalbu min, urine 2023 024 [facility], [address], [place], [address], 08/18/2024 12:52:55 Referral gastroent erologist referral - Please call patient to schedule. 2023 024 alejandro Jacobson MD, [address] [facility], [address], [place], [address], 10/31/2024 08:46:37 pulmonolo gist referral 2023 024 [email or web address] Kurtis Power MD, [address] [place], [address], 08/29/2024 09:20:08 cardiolog ist referral 2023 024 [email or web address] [place], [address] [facility], [address], [place], [address], 08/29/2024 09:20:08 podiatris t referral - Please call patient to schedule. 2023 024 [email or web address] Blake Suarez DPM, [address] [facility], [address], [place], [address], 10/31/2024 08:46:36 Procedures upper endoscopy procedure (EGD) (PROC) - Please call patient to schedule. [email or web address] [place] [address] Gastroenterol ogy, [address], [address], [place], [address], 11/03/2024 09:58:43 Surgeries None recorded. Imaging electromy ogram + nerve conductio n study - Please contact pt to schedule apt. Thank you! 2024 025 [facility], [address], [place], [address], 12/02/2024 14:30:49 XR, shoulder 2024 025 [facility], [facility] [address], [place], [address], 10/24/2024 12:50:16 Medication Orders ferrous sulfate 325 mg (65 mg iron) tablet 2024 025 [place] [id number], [address], [place], [id number], 10/25/2024 08:50:29 Vitamin C 500 mg tablet 2024 025 [facility]709, [address] [place], [id number], 10/25/2024 08:49:58 ipratropi um bromide 42 mcg (0.06 %) nasal spray 2024 [facility]77083, [address] [place], [place], [id number], 10/25/2024 08:49:59 Patient TargetsNo targets recorded. Patient Instructions Encounter Date Encounter Id Patient Instructions Last Modified By Organization Details Last Modified Time 08/18/2024 [id number] diabetic eye exam* ATHENAFAX Not available 08/18/2024 13:00:55 10/25/2024 [id number] methacholine challenge* [email or web address] Not available 11/30/2024 17:10:47 Reason for Referral Loading Unit Operator Seating Referral for Type 2 diabetes mellitus without complication Please call patient to schedule. Referring Physician: Ling Mcduffie, Internal Medicine, Encounter Date: 08/18/2024 Human Resources Operations Coordinator Referral for Steatosis of liver Please call patient to schedule. Referring Physician: Ling Mcduffie Internal Medicine, Encounter Date: 08/18/2024 Head Silverman Referral for C hronic cough Referring Physician: Ling Mcduffie Internal Medicine, Encounter Date: 08/18/2024 Coffee Brewer Referral for Es sential hypertension Referring Physician: Ling Mcduffie Internal Medicine, Encounter Date: 08/18/2024 Results Created Date Observation Date Name Description Value Unit Range Abnormal Flag Note LastModifiedBy Organization Detail LastModifiedTime 10/21/1910/22/2024 CJ TIN ferritin 92 NG/mL 38-380 normal Not Available oneforty [facility] [address], [place], [address], 10/22/2024 07:53:46 07/08/20 24 07/08/2024 imagi ng/di agnos tic resul t No observ ation record ed. [place] [id number] [facility] [address], [place], [address], 07/08/2024 16:55:12 07/13/20 24 07/13/2024 compl ete PFT w/ post cox monett hodil ator earnestine metry * No observ ation record ed. BARCODE Not Available 2023 19:15:10 07/20/20 24 07/19/2024 PET-C T, skull base to mid-t high scan No observ ation record ed. [place] [address], [place], [address], 07/21/2024 10:18:21 07/25/2007/25/2024 compl ete PFT w/ post cox monett hodil ator earnestine metry * No observ ation record ed. [place] [id number] [facility] [address], [place], [address], 07/26/2024 14:03:41 08/04/2007/25/2024 compl ete PFT w/ post cox monett hodil ator earnestine metry * No observ ation record ed. BARCODE Not Available 2023 16:50:39 10/19/19 XR, shoul efrem No observ ation record ed. [email or web address] [facility] [address] [facility] [address], [place], [address], 10/19/2024 09:01:17 11/21/1911/20/2024 CT, abdom en + pelvi s, w/ contr ast No observ ation record ed. [email or web address], [place], [address], 11/30/2024 17:10:04 12/03/1907/25/2024 imagi ng/di agnos tic resul t No observ ation record ed. [place] [id number] [facility] [address], [place], [address], 12/02/2024 18:58:09 Result Notes None recorded. Problems Name Problem SNOMED Code Status Onset Date Resolution Date Notes Provider Name and Address Organization Details Recorded Time Restless legs 24410789 Active Not Available [facility] 3 18:04:04 Anxiety 63457574 Active 2019 Not Available [facility] 3 18:04:05 Obstructiv e sleep apnea syndrome 67615605 Active Not Available [facility] 3 18:04:05 Gastroesop hageal reflux disease without esophagiti s 668423821 Active 2022 Ling horta MD [address], [place], [address] , [facility] 3 10:33:14 Hyperlipid emia 38843645 Active 2022 Ling horta MD [address], [place], [address] , [facility] 3 10:33:18 Moderate recurrent major depression 71839067 Active 2022 Ling horta MD [address], [place], [address] , [facility] 3 10:33:24 Essential hypertensi on 13548945 Active 2022 Ling horta MD [address], [place], [address] , [employer] [facility] 3 10:33:28 Erectile dysfunctio n 480172597 Active 2022 Ling horta MD [address], [place], [address] , [employer] [facility] 3 10:33:45 Smoker 09443764 Active 2022 Ling horta MD [address], [place], [address] , [employer] [facility] 3 10:37:23 Carpal tunnel syndrome of right wrist 7864001714837 08 Active 2022 NISHA Ingram [address], [address], [place], [address] , [facility] 3 09:44:54 Steatosis of liver 434335663 Active 2022 Ling horta MD [address], [address], [place], [address] , [facility] 3 10:17:13 Ulnar nerve entrapment at elbow 681586420 Active 2023 Keon Rivers MD [address], [address], [place], [address] , [facility] 4 09:26:06 Cervical radiculopa thy 43388680 Active 2023 Ashlie Liao null, [facility] 4 09:35:05 Iron deficiency 73855519 Active 2023 Kurtis Power MD [address], [address], [place], [address] , [facility] 4 09:09:31 Allergic rhinitis 07923293 Active 2023 Ama Cabrera [facility] null, [facility] 4 10:46:51 Type 2 diabetes mellitus without complicati on 411300820 Active 2023 Ling horta MD [address], [address], [place], [address] , [facility] 4 14:25:44 Contact dermatitis caused by urushiol from [place] 10769968 Active 2023 Maxine Vanegas MA null, [facility] 4 16:34:26 Posterior rhinorrhea 39169612 Active 2023 Kurtis Power MD [address], [address], [place], [address] , [facility] 4 11:13:22 Multiple nodules of lung 242510551 Active 2023 Kurtis Power MD [address] [facility], [address], [address] , [facility] 4 11:50:27 Solitary nodule of lung 032091460 Active 2023 Kurtis Power MD [address] [facility], [address], [address] , [facility] 4 11:50:41 Dyspnea on exertion 54710766 Active 2024 Kurtis Power MD [address] [facility], [place] [address], [place], [address] , [facility] 5 08:42:41 Chronic cough 66899077 Active 2024 Kurtis Power MD [address] [facility], [address] [address], [place], [address] , [facility] 5 08:48:33 Notes:Medical History: Nicot ine use Depression 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 R>L tinnitus Rhinitis with postnasal drip Eosinophils 240/uL IgE 28 IU/mL AAT PiMM 160 mg% (+) Quantiferon TB Gold, incarcerated 1964-9823, on Rifampin RLL nodule Granulomatous disease (chest, liver) Obesity with very severe OSAHS, AHI = 54, on autoCPAP c/o [facility] Home Patient Hypertension Hyperlipidemia T2DM NAUN Hepatic [...] procedure on elbow completed Verenice Kwan MA [employer] 10/25/2024 08:19:59 4 Medicare Wellness CPT Code, Initial completed Dandy Elizabeth LPN [employer] 03/28/2024 10:34:05 Hernia Surgery completed Ama Lucien lopez, Jamil [place] [facility] 05/07/2023 10:13:32 Eye Surgery completed Ama Deborah [facility] [place] [facility] 05/07/2023 10:13:37 Hernia Repair completed Ama Rosado javier [facility] 05/07/2023 10:13:54 Imaging Results Imaging Date Name Status LastModified by Organization Details LastModified Time 07/08/2024 imaging/diagnostic result active [address] [facility], [place], [address], 07/08/2024 16:55:12 07/13/2024 complete PFT w/ post bronchodilator spirometry* completed [facility] Information not available 07/13/2024 19:15:10 07/19/2024 PET-CT, skull base to mid-thigh scan completed [address] [facility], [place], [address], 07/21/2024 10:18:21 07/25/2024 complete PFT w/ post bronchodilator spirometry* active [address], [place], [address], 07/26/2024 14:03:41 07/25/2024 complete PFT w/ post bronchodilator spirometry* completed [facility] Information not available 08/04/2024 16:50:39 10/19/2024 XR, shoulder completed [email or web address] [place] [address] [facility] [address], [place], [address], 10/19/2024 09:01:17 11/20/2024 CT, abdomen + pelvis, w/ contrast active [address], [place], [address], 11/30/2024 17:10:04 07/25/2024 imaging/diagnostic result active [address], [place], [address], 12/02/2024 18:58:09 Procedure Notes None recorded. Medical Equipment None Reported. Allergies No known drug allergies Medications Name Sig Start Date Stop Date Status Note LastModified by Organization Details LastModified Time losartan 50 mg tablet TAKE 1 TABLET BY MOUTH EVERY DAY active Not Available Not Available No t Available celecoxib 200 mg capsule TAKE 1 CAPSULE [...] BY MOUTH 2 TIMES A WEEK NEEDED active Not Available Not Available No t Available bupropion HCl SR 100 mg tablet,12 hr [...] mg tablet TAKE 1 TABLET BY MOUTH FOUR TIMES DAILY NEEDED FOR ABDOMINAL PAIN active Not Available Not Available No t Available Kenalog 10 mg/mL suspension for injection Take 20 mg by injection route. 03/06 completed [facility]: 0003- 0494- 20 Not Available Not Available [...] bromide 42 mcg (0.06 %) nasal spray [place] 1 spray 4 times a day by intranasa l route as needed. 2024 active Not Available Not Available Not Avai lable ondansetron 4 mg disintegrat ing tablet DISSOLVE 2 TABLETS ON THE TONGUE TWICE DAILY active Not Available Not Available No t Available fluticasone propionate 50 mcg/actuati on nasal [...] Not Available Not Available Not Available Fluvirin 8442-7913 45 mcg (15 mcg x 3)/0.5 mL [...] Updated DateTime 08/03/2024 162.56 cm 27.8 kg/m2 25481.96 g 2 Radha Vallecillo Jamil [employer] [facility] [email or web address] 08/03/2024 10:33:29 Date Recorded Body height Body mass index (BMI) Body weight Body temperature Heart rate Respiratory rate Oxygen saturation Oxygen saturation in Arterial blood by Pulse oximetry Pain severity - 0-10 verbal numeric rating [Score] - Reported Systolic blood pressure Diastolic blood pressure Provider Name and Address Organization Details Last Updated DateTime 162.56 cm 29 kg/m2 48804.1 1 g 98.4 [degF] 84 /min 16 /min 96 % 96 % 0 108 mm[Hg] 62 mm[Hg] Dandy Elizabeth LPN MT [employer] [facility] [email or web address] 12:08:58 Date Recorded Body height Body mass index (BMI) Body weight Pain severity - 0-10 verbal numeric rating [Score] - Reported Provider Name and Address Organization Details Last Updated DateTime 09/16/2024 162.56 cm 28 kg/m2 07910.56 g 2 REGINALD Augustine MT [employer] [facility] [email or web address] 09/16/2024 09:21:14 Date Recorded Body height Body mass index (BMI) Body weight Provider Name and Address Organization Details Last Updated DateTime 10/19/2024 162.56 cm 28 kg/m2 14306.56 g Martina Up CNA [employer] [facility] [email or web address] 10/19/2024 08:59:23 Date Recorded Body height Body mass index (BMI) Body weight Body temperature Heart rate Oxygen saturation Oxygen saturation in Arterial blood by Pulse oximetry Systolic blood pressure Diastolic blood pressure Provider Name and Address Organization Details Last Updated DateTime 162.56 cm 29.6 kg/m2 30722.3 2 g 98.2 [degF] 68 /min 98 % 98 % 100 mm[Hg] 60 mm[Hg] Verenice Kwan MA [employer] [facility] [facility] 08:16:27 Date Recorded Heart rate Respiratory rate Provider Radha wilkerson and Address Organization Details Last Updated DateTime 10/25/2024 68 /min 15 /min Kurtis Power MD [address], [facility] [address], [place], [address], [facility] [employer] [facility] 10/25/2024 08:57:30 Social History Question Answer Notes LastModified by Organization Details LastModified Time Tobacco Smoking Status Current Every Day Smoker Ama Deborah, RMA null, [facility] [employer] [facility] 05/07/2023 10:11:27 Do You Have An Advance Directive? No Information not available 05/07/2023 What Is Your Level Of Alcohol Consumption? Occasional Information not available 05/07/2023 How Many Years Have You Consumed Alcohol? 30 [email or web address] Information not available 03/29/2024 What Is Your Level Of Caffeine Consumption? Moderate [email or web address] Information not available 05/15/2023 In The 14 [...] Drugs Have You Used? Marijuana Flower Form [email or web address] Information not available 05/15/2023 Do You Or Have You Ever Used E-cigarettes Or Vape? Never Used Electronic Cigarettes Tried It In The Past But Never Really Liked It Information not available 03/29/2024 What Is The Highest Grade Or Level Of School You Have Completed Or The Highest Degree You Have Received? [id number] Information not available 05/07/2023 Do You Have An Electrostatic Air Filter? No Information not available 11/24/2023 Have You Been Exposed To Chemicals Or Toxins? Yes Lived On A Farm Information not available 10/25/2024 Have There Been Any Changes To Your Family Or Social Situation? Yes Last May. He Moved In With His Mom And Brother [email or web address] Information not available 03/29/2024 What Is The Fluoride Status Of Your Home? Unknown Information not available 05/07/2023 Are There Any Guns Present In Your Home? No Information not available 05/07/2023 Do You Have A Humidifier? No Information not available 11/24/2023 How Many Years Have You Used Illicit Or Recreational Drugs? 31 [email or web address] Information not available 03/29/2024 Where Do You Live? SingleLevelHouse Information not available 05/07/2023 Do You Have A Medical Power Of Iv Rn? No Information not available 05/07/2023 Do You Have Moisture Problems In Your Home? No Information not available 11/24/2023 What Was The Date Of Your Most Recent Tobacco Screening? 10/25/2024 Information not available 10/25/2024 What Is Your Current Pack Years? 30ormorepackyears [email or web address] Information not available 05/15/2023 Have You Ever Been Counseled For Unhealthy Alcohol Use? No [email or web address] Information not available 03/29/2024 Do You Have Any Pets? Yes 2 Cats [email or web address] Information not available 03/29/2024 What Is Your [...] Much Tobacco Do You Smoke? 1 PPD [email or web address] Information not available 03/29/2024 Do You Feel Stressed (tense, Restless, Nervous, Or Anxious, Or Unable To Sleep At Night)? [id number] [email or web address] Information not available 03/29/2024 Do You Use Any Illicit Or Recreational Drugs? Yes Information not available 05/07/2023 Do You Use Sunscreen Routinely? No Information not available 11/24/2023 Has Tobacco Cessation Counseling Been Provided? Yes Information not available 03/29/2024 On What Date Was Tobacco Cessation Counseling Provided? 10/25/2024 Information not available 10/25/2024 How Many Years Have You Smoked Tobacco? 30 [email or web address] Information not available 05/15/2023 Have You Recently Traveled Abroad? No Information not available 05/07/2023 Have You Used IV Drugs? No [email or web address] Information not available 05/15/2023 Do You Or Have You Ever Used Any Other Forms Of Tobacco Or Nicotine? Yes Information not available 05/07/2023 How Many Days In The Past Year Have You Consumed 5 Or More Drinks? 0 [email or web address] Information not available 03/29/2024 Sex: Male Functional [...] HEARING PROBLEMS N MUMPS N SHINGLES N BOWEL PROBLEMS N DEPRESSION (INCLUDING POST ) Y FAILED BACK SYNDROME N STROKE/TIA N ULCERS [...] Influenza, split virus, quadrivalent, preservative 9 completed Dandy Elizabeth LPN null, [facility] 03/24/2024 14:43:42 Tdap 9 completed Dandy Elizabeth LPN null, [facility] 03/24/2024 14:43:42 influenza, unspecified formulation 6 completed [facility] 03/24/2024 14:43:42 COVID-19, mRNA, LNP-S, PF, 30 mcg/0.3 mL dose 2 completed [facility]andy Elizabeth [facility] 03/24/2024 14:43:42 COVID-19, mRNA, LNP-S, PF, 30 mcg/0.3 mL dose 1 completed Dandy Elizabeth [facility] 03/24/2024 14:43:42 COVID-19, mRNA, LNP-S, PF, 30 mcg/0.3 mL dose 1 completed Dandy Elizabeth LPN null, [facility] 03/24/2024 14:43:42 COVID-19, mRNA, LNP-S, bivalent, PF, 30 mcg/0.3 mL dose 2 completed Dandy Elizabeth [facility] 03/24/2024 14:43:42 Influenza, split virus, trivalent, PF 6 completed Dandy Elizabeth [facility] 03/24/2024 14:43:42 Influenza, split virus, quadrivalent, PF 0 completed Dandy Elizabeth [facility] 03/24/2024 14:43:42 Influenza, split virus, quadrivalent, PF 9 completed Dandy Elizabeth LPN null, [facility] 03/24/2024 14:43:42 Influenza, split virus, quadrivalent, PF 1 completed Dandy Elizabeth LPN null, [facility] 03/24/2024 14:43:42 Influenza, split virus, quadrivalent, PF 2 completed Dandy Elizabeth LPN null, [facility] 03/24/2024 14:43:43 Influenza, MDCK, quadrivalent, PF 3 completed Ama Cabrera RMA null, [facility] 08/17/2024 14:55:25 COVID-19, mRNA, LNP-S, PF, mali-sucrose, 30 mcg/0.3 mL 3 completed Ama Cabrera RMA null, [facility] 08/17/2024 14:55:25 Past Encounters Encounter ID Performer Location Encounter Start Date Encounter Closed Date Diagnosis/Indication Diagnosis SNOMED-CT Code Diagnosis ICD10 Code Diagnosis Note [id number] Ling horta MD [facility] [address] [facility], [facility] [address] [place] [address] 05/07/2023 09:41:21 05/07/2023 10:55:55 Screening - NAD 815757858 Z13.9 C-scope: Get this Get yearly flu shot, get Tdap if not doneGet COVID 19 vaccine and its boosters [place] AAA at age 67 years RTC in 3 months, do labs, ER if woe Screening for malignant neoplasm of colon 945879413 Z12.11 Gastroesop hageal reflux disease without esophagitis 299055888 K21.9 EGD 12/29/2018 : Dr Larsen PPI PRN Hyperlipidemia 98942063 E78.5 On rosuvastat in 40mg dailyOn fenofibrat e 145mg dailyGet labs Moderate r ecurrent major depression 56145547 F33.1 On bupropion SR 100mg bidOn doxepin 25mg at bedtimeOn propranolo l 10mg bidOn vraylar 1.5mg dailySees Dr PatilNot suicidal or homicidal Essential hypertension 83420174 I10 On losartan 50mg dailyDoes well Smoker 90405496 F17.200 Advised to quit smoking! 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 [facility] [address] [place] [address] 05/20/2023 08:27:53 05/20/2023 09:30:11 Pain of right elbow joint 4045734512 2545355 M25.521 patient has had 3-4 months of [...] Carpal shine justina syndrome of right wrist 7691996144 51479 G56.01 Patient has been experienci ng numbness [...] up in 6 weeks for re-evaluat ion [id number] Sydnie Yu, OPERATIONS RESEARCH MANAGER-BC [facility] Pulmonolo gy [place] [address] [place] [address] 07/21/2023 15:17:58 07/21/2023 16:10:31 Obstructive sleep apnea syndrome 19639449 G47.33 New machine set upHe has 100% [...] symptomsHe should follow up in 3-6 months [id number] Ling horta MD [facility] Internal Med [facility] [address] [facility], [place] [address] 08/06/2023 09:39:45 08/06/2023 10:30:18 Screening - NAD 078275468 Z13.9 C-scope: Get this Get yearly flu shot, get Tdap if not doneGet COVID 19 vaccine and its boosters [place] [employer] at age 67 years RTC in 3 months, do labs, ER if worse, he did verbalize his understand ing of the above Screening for malignant neoplasm of colon 995481395 Z12.11 Gastroesop hageal reflux disease without esophagitis 025253144 K21.9 EGD 12/29/2018 : Dr Larsen PPI PRN Hyperlipidemia 92335322 E78.5 On rosuvastat in 40mg dailyOn fenofibrat e 145mg dailyGet labs Moderate r ecurrent major depression 57370217 F33.1 On bupropion SR 100mg bidOn doxepin 25mg at bedtimeOn propranolo l 10mg bidOn vraylar 1.5mg dailySees Dr Farris suicidal or homicidalT violet 08/06/2023 , teary eyed as he has recently lost his Zi Essential hypertension 76380746 I10 On losartan 50mg dailyDoes well Smoker 83455934 F17.200 Advised to quit smoking! 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 [place] [address] 08/12/2023 09:26:50 08/12/2023 10:04:08 Pain of left hand 9756327180 77951 M79.222 [id number] Keon Rivers MD [facility] [place] [address] [place] [address] 09/30/2023 08:46:17 09/30/2023 10:03:19 Pain of left hand 6726428258 38480 M79.642 Ulnar nerv e entrapment at elbow 053841105 G56.22 [id number] Ling horta MD [facility] Internal Med [facility] [address] [facility], [address] [place] [address] 11/05/2023 09:17:41 11/05/2023 09:58:01 Screening - NAD 960965280 Z13.9 C-scope: 02/07/2023 : Next in 2 years Get yearly flu shot, get Tdap if not doneGet COVID 19 vaccine and its boosters [place] [employer] at age 67 years RTC in 3 months, do labs, ER if worse, he did verbalize his understand ing of the above Gastroesop hageal reflux disease without esophagitis 311073483 K21.9 EGD 12/29/2018 : Dr Larsen PPI PRN Hyperlipidemia 08240674 E78.5 On rosuvastat in 40mg dailyOn fenofibrat e 145mg dailyGet labs Moderate r ecurrent major depression 60339929 F33.1 On bupropion XL 150mg dailyNot on doxepin 25mg at bedtimeOn propranolo l 10mg bidNot on vraylar 1.5mg dailyOn quetiapine 100mg daily Sees Dr Farris suicidal or homicidal Essential hypertension 36442213 I10 On losartan 50mg dailyDoes well Smoker 14828149 F17.200 Advised to quit smoking! 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 [place] [address] 12/01/2023 09:01:50 12/01/2023 09:26:06 Pain of left shoulder joint 4210859152 4400796 M25.[id number] [address] 12/14/2023 08:33:55 12/15/2023 08:35:00 Obstructive sleep apnea syndrome 55719870 G47.33 Iron deficiency 74042642 E61.1 [id number] NISHA Reina [facility] [place] [address] [place] [address] 12/17/2023 08:49:45 12/17/2023 09:16:39 Pain of left shoulder joint 5191515712 8018636 M25.537 [id number] Kurtis Power MD [facility]_[address] [address] 03/14/2024 08:11:40 03/15/2024 08:21:43 Obstructive sleep apnea syndrome 90955771 G47.33 Iron deficiency 68380826 E61.1 [id number] Keon Rivers MD [facility] [place] [address] [place] [address] 03/16/2024 08:59:34 03/16/2024 10:19:33 Bilateral elbow joint pain 9590244537 4057527 M25.521 M25.919 [id number] Ling horta MD S_[facility] Internal Med [facility] [address] [address] 03/29/2024 09:21:55 03/29/2024 10:00:34 Screening - NAD 336273070 Z13.9 C-scope: 02/07/2023 : Next in 2 years Get yearly flu shot, get Tdap if not doneGet COVID 19 vaccine and its boosters [place] at age 67 years RTC in 3 months, do labs, ER if worse, he did verbalize his understand ing of the above Gastroesop hageal reflux disease without esophagitis 582975426 K21.9 EGD 12/29/2018 : Dr Larsen PPI PRN Hyperlipidemia 87716417 E78.5 On rosuvastat in 40mg dailyOn fenofibrat e 145mg dailyGet labs Moderate r ecurrent major depression 78384590 F33.1 Not on doxepin 25mg at bedtimeNot on vraylar 1.5mg dailyNot on quetiapine 100mg daily On bupropion XL 150mg dailyOn propranolo l 10mg bidOn sertraline 200mg dailyOn trazodone 100mg daily Sees Dr Farris suicidal or homicidal Essential hypertension 68154174 I10 On losartan 50mg dailyDoes wellDr [place] last OV 11/06/2023 Smoker 76733964 F17.200 Advised to quit smoking! 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 Chronic cough 95866223 R 05.3 He smokes, has noted a chronic dry cough, mild SOB Pain of ri ght elbow joint 7119104727 6907986 M25.521 Dr Rivers 11/03/2023 Steatosis of liver [address] chest 05/13/2023 Hepatitis/ GGT: 05/21/2023 : NegUS liver 06/04/2023 : Liver enlargemen tNeeds to see GI Adult heal th examination 650076560 Z00.00 Screening for disorder 951174817 Z13.9 [id number] Ling horta MD [facility] Internal Med [place] [address] [facility], [address] [place] [address] 04/28/2024 13:55:05 04/28/2024 14:23:02 Screening - NAD 638125269 Z13.9 C-scope: 02/07/2023 : Next in 2 years Get yearly flu shot, get Tdap if not doneGet COVID 19 vaccine and its boosters [place] [employer] at age 67 years RTC in 3 months, do labs, ER if worse, he did verbalize his understand ing of the above Gastroesop hageal reflux disease without esophagitis 369892686 K21.9 EGD 12/29/2018 : Dr Larsen PPI PRN Hyperlipidemia 50392989 E78.5 On rosuvastat in 40mg dailyNot on fenofibrat e 145mg dailyGet labs Moderate r ecurrent major depression 62984513 F33.1 Not on doxepin 25mg at bedtimeNot on vraylar 1.5mg dailyNot on quetiapine 100mg daily On bupropion XL 150mg dailyOn propranolo l 10mg bidOn sertraline 200mg dailyOn trazodone 100mg daily Sees Dr Farris suicidal or homicidal Essential hypertension 99476791 I10 On losartan 50mg dailyDoes wellDr [place] last OV 11/06/2023 Smoker 56811736 F17.200 Advised to quit smoking! 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 Next apt 09/12/2024 Chronic cough 77849943 R 05.3 He smokes, has noted a chronic dry cough, no fevers or chillsDoes not want to get tested for COVID 19 or strep or fluGet on Z-packDoes need to see Dr Power [facility] elbow joint 4150807474 5600794 M25.521 Dr Rivers 11/03/2023 Dr Rivers 03/16/2024 , referred to [facility] for his c-spine Steatosis of liver [address] chest 05/13/2023 Hepatitis/ GGT: 05/21/2023 : NegUS liver 06/04/2023 : Liver enlargemen tNeeds to see GI [id number] Kurtis Power MD S_G Pulmonolo gy [address] [address] 05/05/2024 09:16:10 05/06/2024 10:46:39 Obstructive sleep apnea syndrome 15812710 G47.33 Iron deficiency 12022609 E61.1 Chronic cough 46244885 R 05.3 R06.00 T78.40XA D89.9 Smoker 48150946 F17.218 F17.219 Z87.765 [id number] Kurtis Power MD [facility]_[address] [address] 05/16/2024 10:09:47 05/16/2024 14:13:53 Obstructive sleep apnea syndrome 66793623 G47.33 Iron deficiency 54567483 E61.1 Chronic cough 12311352 R 05.3 R06.00 T78.40XA D89.9 Smoker 87410808 F17.218 F17.219 Z87.891 Thickening of pleura 737 27838 J92.9 Z20.1 Posterior rhinorrhea 758 60747 R09.82 [id number] Keon Rivers MD [facility] Orth[facility] [place] [address] [place] [address] 05/25/2024 08:43:49 05/25/2024 09:26:25 Ulnar nerve entrapment at elbow 284288398 G56.22 [id number] Kurtis Power MD [address] [address] 07/13/2024 10:36:50 08/29/2024 10:45:42 Obstructive sleep apnea syndrome 40953016 G47.33 Iron deficiency 62647842 E61.1 Chronic cough 49142917 R 05.3 R06.00 T78.40XA D89.9 Smoker 47282281 F17.218 F17.219 Z87.891 Posterior rhinorrhea 758 31129 R09.82 Solitary n odule of lung 235513803 R91.1 [id number] Kurtis Power MD [address] [address] 07/26/2024 08:33:11 08/29/2024 11:27:56 Obstructive sleep apnea syndrome 14088341 G47.33 Iron deficiency 86940329 E61.1 Smoker 88489951 F17.218 F17.219 Z87.891 Posterior rhinorrhea 758 18904 R09.82 Solitary n odule of lung 082344124 R91.1 Dyspnea on exertion 6084 5006 R06.09 R05.9 [id number] Keon Rivers MD [facility] [place] [address] [place] [address] 08/03/2024 10:19:23 08/03/2024 10:58:25 Ulnar nerve entrapment at elbow 142328998 G56.22 [id number] Ling horta MD [facility] Internal Med [place] [address] [facility], [address] [place] [address] 08/18/2024 11:08:13 08/18/2024 12:54:07 Screening - NAD 251178489 Z13.9 C-scope: 02/07/2023 : Next in 2 years Get yearly flu shot, get Tdap if not doneGet COVID 19 vaccine and its boosters [place] at age 67 years RTC in 3 months, do labs, ER if worse, he did verbalize his understand ing of the above Gastroesop hageal reflux disease without esophagitis 090408076 K21.9 EGD 12/29/2018 : Dr Lindsay 08/18/2024 :On omeprazole 20mg daily, can do bid PRNGet another referral to GI, will need EGD again, impressed upon patient to obtain this JOHN Hyperlipidemia 79719599 E78.5 On rosuvastat in 40mg dailyNot on fenofibrat e 145mg dailyGet labs Moderate r ecurrent major depression 63020715 F33.1 Not on doxepin 25mg at bedtimeNot on vraylar 1.5mg dailyNot on quetiapine 100mg daily On bupropion XL 150mg dailyOn propranolo l 10mg bidOn sertraline 200mg dailyOn trazodone 100mg daily Sees Dr Farris suicidal or homicidal Essential hypertension 94835753 I10 On losartan 50mg dailyDoes wellDr [place] last OV 11/06/2023 Smoker 42364310 F17.200 Advised to quit smoking! 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 Next apt 09/12/2024 Chronic cough 15115784 R 05.3 He smokes, has noted a chronic dry cough, no fevers or chillsDoes not want to get tested for COVID 19 or strep or fluGet on Z-packDoes need to see Dr Power Pain of ri ght elbow joint 0781092667 7781293 M25.521 Dr Rivers 11/03/2023 Dr Rivers 03/16/2024 , referred to [facility] for his c-spine Dr Gann 06/08/2024 , f/u PRNDr Tita 08/03/2024 , to get elbow surgery Steatosis of liver [address] chest 05/13/2023 Hepatitis/ GGT: 05/21/2023 : NegUS liver 06/04/2023 : Liver enlargemen tNeeds to see GI [id number] Adriana Day NP S_[facility] [place] [address] [place] [address] 09/16/2024 09:17:46 09/16/2024 09:36:29 Ulnar nerve entrapment at elbow 086272949 G56.22 [id number] Keon Rivers MD [facility] [place] 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 848139808 G56.21 [id number] Kurtis Power MD S_[facility] Pulmonolo gy [place] [address] [facility] [address] [place] [address] 10/25/2024 08:10:01 10/25/2024 09:06:28 Obstructive sleep apnea syndrome 79015119 G47.33 Iron deficiency 33148827 E61.1 Smoker 20032316 F17.218 F17.219 Z87.891 Posterior rhinorrhea 758 72621 R09.82 Solitary n odule of lung 512165771 R91.1 Dyspnea on exertion 6084 5006 R06.09 R05.9 Health Concerns Section Related Observation LastModified by Organization Detai ls LastModified Time None Recorded Concern Status LastModified by Organization Details LastModified Time None Recorded Advance Directives Directive N: Payers Encounter Date Sequence Insurance Name Policy Number Policy Fishman Covered Member ID Fishman Member ID Guarantor Name 08/03/2024 1 [facility] (MEDICARE REPLACEMENT/A DVANTAGE - PPO) [id number] Mj Barnettalman [id number] Mj Daiz 08/03/2024 2 [place] [facility] AID Mj Diaz [id number] Mj Diaz 08/18/2024 1 [facility] (MEDICARE REPLACEMENT/A DVANTAGE - PPO) [id number] Mj Barnettalman [id number] Mj Barnettalman 08/18/2024 2 [place] [facility] [place] Mj Diaz [id number] Mj Diaz 09/16/2024 1 [facility] (MEDICARE REPLACEMENT/A DVANTAGE - PPO) [id number] Mj Barnettalman [id number] Mj Claire Spealman 09/16/2024 2 [place] [facility] [place] Mj Diaz [id number] Mj Barnettalsharon 10/19/2024 1 [facility] (MEDICARE REPLACEMENT/A DVANTAGE - PPO) [id number] Mj Barnettalman [id number] Mj L Spealman 10/19/2024 2 [place] [facility] [place] Mj Diaz [id number] Mj Barnettalman 10/25/2024 1 [facility] (MEDICARE REPLACEMENT/A DVANTAGE - PPO) [id number] Mj Barenttalman [id number] Mj L Spealman 10/25/2024 2 [place] [facility] [place] Mj Diaz [id number] Mj Diaz Notes Date Note Type Note [...] the 4th and the 5th fingers, normal reliner, no acute or remote trauma noted OV [...] now will see a back specialist in [facility], does not know the name, he was [...] no change in weight Ling Mcduffie MD [address] [facility], [facility] [address], [place], [address], [facility] [employer] 08/20/2024 12:44:52 10/25/2024 text/html Primary care/Ref erring [...] noPalpitations: noHeartburn: noEdema: no Modified [employer] [place] (mMRC) Dyspnea Scale - Grade 2Grade 0 [...] fumes: noNickel: noSilica: noSoot: no During the [facility] split sleep study on 07/23/16, AHI [...] chance of dozing. Kurtis Power MD [address] [address], [place], [address], [place] [facility] [employer] 10/25/2024 08:57:33
--- OUTSIDE RECORDS SUMMARY | 2024-12-07 09:37 | XMS_ITS | Referral Summary ---
Author Organization [facility] [address] [place] [address] Care Team Providers Care Rn Lpn Cna Name Role Phone Stephanie Mcduffie MD Primary [...] Plan of Treatment Not on file Insurance [facility] IDMD [facility] MEDICARE ADVANTAGE IDPA IDPA Care Teams Rn Lpn Cna Relationship Specialty Start Date End Date Stephanie Mcduffie MD PCP - General Internal Medicine 02/14/19
--- OUTSIDE RECORDS SUMMARY | 2024-12-07 09:37 | XMS_ITS | Clinical Summary ---
Author Organization [facility] Phys[facility] [address] [place] [address] Care Team Providers Care Medication Aide Name Role Phone Stephanie Mcduffie MD Primary [...] - Td or Tdap) 06/17/2029 06/17/2019 Insurance [facility] ADVANTAGE [facility] IDPA UHC MEDICARE ADVANTAGE IDPA IDPA Care Teams Medication Aide Relationship Specialty Start Date End Date Stephanie Mcduffie MD PCP - General Internal Medicine 02/14/19
--- OUTSIDE RECORDS SUMMARY | 2024-12-07 09:37 | XMS_ITS | Continuity of Care Document ---
Author Organization [facility] Address [address] [place] [address] [address] [place] [address] Phone Care Team Providers Care Division Traffic Superintendent Name Role Phone Stefanie Betancur Unavailable Unavailable Procedures Procedure Date Post-op Follow-up Visit Post-op Follow-up Visit Revise Two Eye Muscles Eye Suture During Surgery Office Consultation Advance Directives Directive Yes / No Effective Date File Name No Information Encounters Encounter Description Practice Location Reason(s) For Visit Diagnoses Date Provider Providers Copied on Encounter [facility], [address] [place] [address] [address], [place], [place], [id number], [place] tel:[phone] SEC [facility] No Information Dec-3 1-200 9 Gypsy Watts. [address] [facility] , [address], [place], [address], [place]. tel:[phone] [facility], [address] [place] [address] [address], [place], [place], [address], [place] tel:[phone] [facility] [place] No Information Dec-1 0-200 9 Gypsy Watts. [address] [facility] , [address], [place], [address], [place]. tel:[phone] [facility], [address] [place] [address] [address], [place], [place], [id number], [place] tel:[phone] [facility] No Information Dec-0 7-200 9 Gypsy Bendern. [address] , [address], [place], [address], [place]. tel:[phone] Office Consultation [facility], [address], [place], [place], [id number], [place] tel:[phone] [facility] No Information 5-200 9 Betancur Stefanie. [address] [facility] [address], [place], [address], [place]. tel:[phone] Referring Provider: Juanito Lama OD D, [address] [facility] [address], [place], [address]. tel:[phone] Family History Family Member Type Diagnosis Age At Onset No Information Payers Payer name Insurance type Covered republican ID Authoriza tion(s) Medicare [facility] [id number] Medicaid [facility] [id number] Social History Type Description Quantity Date Captured [...]
--- NOTE | 2024-12-07 11:15 | NEURO_ITS ---
Impression: # Complains of right elbow pain. ? # No Carpal Tunnel Syndrome. ? # Right ulnar neuropathy across the elbow. ? # Needle/EMG exam mildly neurogenic in right ADM and 1st DI. Nerve Conduction Studies Anti Sensory Summary Table ?Stim Site NR Peak (ms) P-T Amp (?V) Site1 Site2 Delta-P (ms) Dist (cm) Ede (m/s) Right Median Anti Sensory (2-3nd Digit) Wrist ? 3.1 23.0 Wrist 2-3nd Digit 3.1 14.0 45 Wrist ? 3.4 30.4 Wrist 2-3nd Digit 3.1 14.0 45 Right Radial Anti Sensory (Base 1st Digit) Wrist ? 2.1 28.9 Wrist Base 1st Digit 2.1 0.0 Right Ulnar Anti Sensory (5th Digit) Wrist ? 3.1 29.6 Wrist 5th Digit 3.1 14.0 45 Motor Summary Table ?Stim Site NR Onset (ms) O-P Amp (mV) Site1 Site2 Delta-0 (ms) Dist (cm) Ede (m/s) Right Median Motor (Abd Poll Brev) Wrist ? 3.5 4.6 Elbow Wrist 4.8 28.0 58 Elbow ? 8.3 6.7 Right Ulnar Motor Run #2 (Abd Dig Minimi) Wrist ? 2.6 4.8 A Elbow Wrist 5.4 28.0 52 A Elbow ? 8.0 4.0 B Elbow Wrist 3.4 17.0 50 B Elbow ? 6.0 5.0 F Wave Studies ?NR F-Lat (ms) L-R F-Lat (ms) Right Median (Mrkrs) (Abd Poll Brev) ? 27.31 Right Ulnar (Mrkrs) (Abd Dig Min) ? 26.92 EMG ?Side Muscle Nerve Root Ins Act Fibs Amp Dur Recrt Comment Right 1stDorInt Ulnar C8-T1 Nml Nml Nml >12ms Nml Right Ext Indicis Radial (Post Int) C7-8 Nml Nml Nml Nml Nml Right Ext Digitorum Radial (Post Int) C7-8 Nml Nml Nml Nml Nml Right BrachioRad Radial C5-6 Nml Nml Nml Nml Nml Right PronatorTeres Median C6-7 Nml Nml Nml Nml Nml Right Abd Poll Brev Median C8-T1 Nml Nml Nml Nml Nml Right ABD Dig Min Ulnar C8-T1 Nml Nml Nml >12ms Nml Right FlexPolLong Median (Ant Int) C7-8 Nml Nml Nml Nml Nml Right Abd Poll Long Radial (Post Int) C7-8 Nml Nml Nml Nml Nml MTDD
== END 2024-12-07 08:55 | disposition home or self-care (01) ==
LOC: ANHNEURO 08:55
PROVIDERS: PCP Internal Medicine; Visit Provider Orthopaedic Surgery
DX: G56.21 Lesion of ulnar nerve, right upper limb (principal)
CPT/HCPCS: 95886; 95909

== ENCOUNTER 2024-12-23 07:03 | Outpatient (CLI) | payer MEDICARE, MEDICAID, SELFPAY ==
--- OUTSIDE RECORDS SUMMARY | 2024-12-23 07:11 | XMS_ITS | Continuity of Care Document ---
Author Organization [place] - [facility], [facility] Internal Med [address] [facility] [address] [place] [address] Care Team Providers Care Resident Care Spec Name Role Phone LING MCDUFFIE Primary Care Provider LING MCDUFFIE Referring Provider [facility] Business Management Specialist VALERIANO GANN Orthopedic Surgeon [phone] ADRIANA DAY Orthopedic Surgeon KURTIS POWER Hardboard Supervisor Assessment Encounter Date Assessment Date Assessment LastModified by Organization Details LastModified Time 12/22/2024 12/22/2024 05/21/2023: Hepatitis panel Neg GGT: Neg 08/06/2023: A1C 6.3H TG 197 ALT 55H 11/05/2023: A1C 5.8 03/29/2024: A1C 5.6 08/08/2024: A1C 6.0 11/20/2024: WBC 12.7 Gluc 152 Not available 12/21/2024 14:11:53 Plan of Treatment Reminders Order Date Submit Date Provider Last Modified By Organization Details Last Modified Time Details Appointments Surgery 2024 08:00A Sara Rivers MD Not available Not available Not available Post-Op 10 2024 02:20P M Becky Garrett PA-C Not available Not available Not available Follow Up 30 2024 07:45A M Kurtis Power MD Not available Not available Not available Any 15 2024 11:00A M Ling sanders MD Not available Not available Not available Lab CMP, serum or plasma 2024 025 NEIL [facility], [address], [place], [address], 12/22/2024 10:05:56 CBC w/ auto diff 2024 025 NEIL [facility], [address], [place], [address], 12/22/2024 10:06:56 T4, free, serum 2024 025 NEIL [facility], [address], [place], [address], 12/22/2024 10:05:56 TSH, serum or plasma 2024 025 NEIL [facility], [address], [place], [address], 12/22/2024 10:05:54 lipid panel, serum 2024 025 NEIL [facility], [address], [place], [address], 12/22/2024 10:05:55 CBC w/ auto diff [email or web address] [place] [address] - Outpatient Lab, [address] [place] [address], [address], 12/22/2024 10:16:44 HbA1c (hemoglob in A1c), blood 2024 025 NEIL [facility], [address], [place], [address], 12/22/2024 10:05:53 microalbu min, urine 2024 025 NEIL [facility], [address], [place], [address], 12/22/2024 10:05:55 Referral gastroent erologist referral - Please call patient to schedule. 2024 025 [email or web address] Puneet Jacobson MD, [address] [facility], [address], [place], [address], 12/22/2024 10:24:48 pulmonolo gist referral 2024 025 [email or web address] Kurtis Power MD, [address] [facility], [place], [address], 12/22/2024 10:24:48 cardiolog ist referral 2024 025 [place], [address], [address], [place], [address], 12/22/2024 10:24:48 podiatris t referral - Please call patient to schedule an appointme nt. Thank you. 2024 025 NEIL Suarez DPM, [address] [facility], [address], [place], [address], 12/22/2024 10:34:38 Procedures colonosco py screening (PROC) 2024 025 [email or web address] Larry faria MD, [address], [address], [place], [address], 12/22/2024 10:23:56 Surgeries None recorded. Imaging None recorded. Medication Orders None recorded. Patient TargetsNo targets recorded. Patient Instructions Encounter Date Encounter Id Patient Instructions Last Modified By Organization Details Last Modified Time 12/22/2024 [id number] diabetic eye exam* [email or web address] Not available 12/22/2024 10:16:45 Reason for Referral Setter Automatic Spinning Lathe Referral for Type 2 diabetes mellitus without complication Please call patient to schedule an appointment. Thank you. Referring Physician: Ling Mcduffie, Internal Medicine, Encounter Date: 12/22/2024 Burling And Joining Supervisor Referral for Steatosis of liver Please call patient to schedule. Referring Physician: Ling Mcduffie, Internal Medicine, Encounter Date: 12/22/2024 Hardboard Supervisor Referral for C hronic cough Referring Physician: Ling Mcduffie, Internal Medicine, Encounter Date: 12/22/2024 Business Management Specialist Referral for Es sential hypertension Referring Physician: Ling Mcduffie, Internal Medicine, Encounter Date: 12/22/2024 Results Created Date Observation Date Name Description Value Unit Range Abnormal Flag Note LastModifiedBy Organization Detail LastModifiedTime 12/03/1907/25/2024 imagi ng/di agnos tic resul t No observ ation record ed. [facility] [address], [place], [address], 12/02/2024 18:58:09 12/08/1912/07/2024 elect romyo gram + nerve condu ction study No observ ation record ed. [address], [place], [address], 12/08/2024 11:14:06 Result Notes None recorded. Problems Name Problem SNOMED Code Status Onset Date Resolution Date Notes Provider Name and Address Organization Details Recorded Time Restless legs 80230960 Active Not Available [facility] 3 18:04:04 Anxiety 78375779 Active 2019 Not Available [facility] 3 18:04:05 Obstructiv e sleep apnea syndrome 69943562 Active Not Available [facility] 3 18:04:05 Gastroesop hageal reflux disease without esophagiti s 552824531 Active 2022 Ling horta MD [address], [address], [place], [address] , [employer] 3 10:33:14 Hyperlipid emia 79730948 Active 2022 Ling horta MD [address], [address], [place], [address] , [place] [employer] [facility] [employer] 3 10:33:18 Moderate recurrent major depression 07205715 Active 2022 Ling horta MD [address], [address], [place], [address] , [facility] [employer] [facility] 3 10:33:24 Essential hypertensi on 61364899 Active 2022 Ling horta MD [address], [address], [place], [address] , [facility] 3 10:33:28 Erectile dysfunctio n 786528240 Active 2022 Ling horta MD [address], [address], [place], [address] , [facility] 3 10:33:45 Smoker 63918747 Active 2022 Ling horta MD [address], [address], [place], [address] , [facility] 3 10:37:23 Carpal tunnel syndrome of right wrist 2294163670937 08 Active 2022 NISHA Ingram [address], [address], [place], [address] , [facility] [employer] [facility] 3 09:44:54 Steatosis of liver 545230592 Active 2022 Ling horta MD [address], [address], [place], [address] , [facility] 3 10:17:13 Ulnar nerve entrapment at elbow 415225462 Active 2023 Keon Rivers MD [address], [address], [place], [address] , [facility] 4 09:26:06 Cervical radiculopa thy 28982112 Active 2023 [facility] 4 09:35:05 Iron deficiency 02507468 Active 2023 Kurtis Power MD [address], [address], [place], [address] , [facility] 4 09:09:31 Allergic rhinitis 92242083 Active 2023 Ama Cabrera [facility] null, [facility] 4 10:46:51 Type 2 diabetes mellitus without complicati on 544696452 Active 2023 Ling horta MD [address], [address], [place], [address] , [facility] 4 14:25:44 Contact dermatitis caused by urushiol from poison sumac 61599419 Active 2023 Maxine Vanegas MA null, [facility] 4 16:34:26 Posterior rhinorrhea 49797444 Active 2023 Kurtis Power MD [address], [address], [place], [address] , [facility] 4 11:13:22 Multiple nodules of lung 354796891 Active 2023 Kurtis Power MD [address], [address], [place], [address] , [facility] 4 11:50:27 Solitary nodule of lung 556904325 Active 2023 Kurtis Power MD [address], [address], [place], [address] , [facility] 4 11:50:41 Dyspnea on exertion 66747568 Active 2024 Kurtis Power MD [address], [address], [place], [address] , [facility] 5 08:42:41 Chronic cough 86300374 Active 2024 Kurtis Power MD [address], [address], [place], [address] , [facility] 5 08:48:33 Ulnar nerve entrapment at elbow 582082383 Active 2024 REGINALD Augustine, [employer] 5 09:03:32 Numbness of hand 046769222 Active 2024 Ling horta MD [address] [facility], [place] [address], [place], [address] , [employer] 5 14:04:14 Pain of right elbow joint 4849571092405 9109 Active 2024 Ling horta MD [address] [facility], [address], [place], [address] , [employer] 5 14:04:14 Leukocytos is 723385916 Active 2024 Ling horta MD [address] [facility], [address] [address], [place], [address] , [employer] 5 14:12:00 Notes:Medical History: Nicot ine use Depression 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 R>L tinnitus Rhinitis with postnasal drip Eosinophils 240/uL IgE 28 IU/mL AAT PiMM 160 mg% (+) Quantiferon TB Gold, incarcerated 4865-2221, on Rifampin RLL nodule Granulomatous disease (chest, liver) Obesity with very severe OSAHS, AHI = 54, on autoCPAP c/o [facility] Hypertension Hyperlipidemia T2DM NAUN Hepatic [...] Recorded Time 5 procedure on elbow completed REGINALD Augustine [employer] 12/08/2024 09:05:30 4 Medicare Wellness CPT Code, Initial completed Dandy Elizabeth LPN [employer] 03/28/2024 10:34:05 Hernia Surgery completed REGINALD Shaw am Brisa [facility] 05/07/2023 10:13:32 Eye Surgery completed REGINALD Kerr [facility] 05/07/2023 10:13:37 Hernia Repair completed REGINALD Chacon [facility] 05/07/2023 10:13:54 Imaging Results None recorded. Procedure Notes None recorded. Medical Equipment None [...] FOUR TIMES DAILY NEEDED FOR ABDOMINAL PAIN 12/22 completed Not Available Not Available Not Available Kenalog 10 mg/mL suspension for injection Take 20 mg by injection route. 03/06 completed [facility]: 0003- 0494- 20 Not Available Not [...] Not Available Not Available Not Avai lable buspirone 10 mg tablet TAKE 1 TABLET BY MOUTH TWICE DAILY active Not Available Not Available No t Available omeprazole 20 mg capsule,del ayed release TAKE 1 CAPSULE BY MOUTH EVERY DAY active Not Available [...] bromide 42 mcg (0.06 %) nasal spray [place] 1 spray 4 times a day by intranasa l route as needed. 2024 active Not Available Not Available Not Avai lable ondansetron 4 mg disintegrat ing tablet DISSOLVE 2 TABLETS ON THE TONGUE TWICE DAILY 12/22 completed Not Available Not Available Not Available [...] Not Available Not Available Not Available Fluvirin 1821-7316 45 mcg (15 mcg x 3)/0.5 mL [...] (BMI) Body weight Body temperature Heart rate Systolic blood pressure Diastolic blood pressure Provider Name and Address Organization Details Last Updated DateTime 162.56 cm 28.5 kg/m2 15430.3 3 g 97.5 [degF] 66 /min 104 mm[Hg] 60 mm[Hg] REGINALD Kerr [employer] 09:53:51 Social History Question Answer Notes LastModified by Organization Details LastModified Time Tobacco Smoking Status Current Every Day Smoker REGINALD Kerr [employer] 05/07/2023 10:11:27 Do You Have An Advance Directive? No Information not available 05/07/2023 What Is Your Level Of Alcohol Consumption? Occasional Information not available 05/07/2023 How Many Years Have You Consumed Alcohol? 30 Information not available 03/29/2024 What Is Your Level Of Caffeine Consumption? Moderate [email or web address] Information not available 05/15/2023 In The 14 [...] Drugs Have You Used? Marijuana Flower Form [email or web address] Information not available 05/15/2023 Do You Or Have You Ever Used E-cigarettes Or Vape? Never Used Electronic Cigarettes Tried It In The Past But Never Really Liked It Information not available 03/29/2024 What Is The Highest Grade Or Level Of School You Have Completed Or The Highest Degree You Have Received? [id number] Information not available 05/07/2023 Do You Have An Electrostatic Air Filter? No Information not available 11/24/2023 Have You Been Exposed To Chemicals Or Toxins? Yes Lived On A Farm Information not available 10/25/2024 Have There Been Any Changes To Your Family Or Social Situation? Yes Last May. He Moved In With His Mom And Brother [email or web address] Information not available 03/29/2024 What Is The Fluoride Status Of Your Home? Unknown Information not available 05/07/2023 Are There Any Guns Present In Your Home? No Information not available 05/07/2023 Do You Have A Humidifier? No Information not available 11/24/2023 How Many Years Have You Used Illicit Or Recreational Drugs? 31 [email or web address] Information not available 03/29/2024 Where Do You Live? SingleLevelHouse Information not available 05/07/2023 Do You Have A Medical Power Of Hairspring Inspector? No Information not available 05/07/2023 Do You Have Moisture Problems In Your Home? No Information not available 11/24/2023 What Was The Date Of Your Most Recent Tobacco Screening? 12/22/2024 Information not available 12/22/2024 What Is Your Current Pack Years? 30ormorepackyears [email or web address] Information not available 05/15/2023 Have You Ever Been Counseled For Unhealthy Alcohol Use? No [email or web address] Information not available 03/29/2024 Do You Have Any Pets? Yes 2 Cats [email or web address] Information not available 03/29/2024 What Is Your [...] Much Tobacco Do You Smoke? 1 PPD Information not available 03/29/2024 Do You Feel Stressed (tense, Restless, Nervous, Or Anxious, Or Unable To Sleep At Night)? [id number] Information not available 03/29/2024 Do You Use Any Illicit Or Recreational Drugs? Yes Information not available 05/07/2023 Do You Use Sunscreen Routinely? No Information not available 11/24/2023 Has Tobacco Cessation Counseling Been Provided? Yes [email or web address] Information not available 03/29/2024 On What Date Was Tobacco Cessation Counseling Provided? 10/25/2024 Information not available 10/25/2024 How Many Years Have You Smoked Tobacco? 30 [email or web address] Information not available 05/15/2023 Have You Recently Traveled Abroad? No Information not available 05/07/2023 Have You Used IV Drugs? No [email or web address] Information not available 05/15/2023 Do You Or [...] preservative 9 completed Dandy Elizabeth LPN null, [facility] 03/24/2024 14:43:42 Tdap 9 completed Dandy Elizabeth LPN null, [facility] 03/24/2024 14:43:42 influenza, unspecified formulation 6 completed Dandy Elizabeth LPN null, [facility] 03/24/2024 14:43:42 COVID-19, mRNA, LNP-S, PF, 30 mcg/0.3 mL dose 2 completed Dandy Elizabeth LPN null, [facility] 03/24/2024 14:43:42 COVID-19, mRNA, LNP-S, PF, 30 mcg/0.3 mL dose 1 completed Dandy Elizabeth LPN null, [facility] 03/24/2024 14:43:42 COVID-19, mRNA, LNP-S, PF, 30 mcg/0.3 mL dose 1 completed Dandy Elizabeth LPN null, [facility] 03/24/2024 14:43:42 COVID-19, mRNA, LNP-S, bivalent, PF, 30 mcg/0.3 mL dose 2 completed Dandy Elizabeth LPN null, [facility] 03/24/2024 14:43:42 Influenza, split virus, trivalent, PF 6 completed Dandy Elizabeth LPN null, [facility] 03/24/2024 14:43:42 Influenza, split virus, quadrivalent, PF 0 completed Dandy Elizabeth LPN null, [facility] 03/24/2024 14:43:42 Influenza, split virus, quadrivalent, PF 9 completed Dandy Elizabeth LPN null, [facility] 03/24/2024 14:43:42 Influenza, split virus, quadrivalent, PF 1 completed Dandy Elizabeth LPN null, [facility] 03/24/2024 14:43:42 Influenza, split virus, quadrivalent, PF 2 completed Dandy Elizabeth LPN boliv[place], [facility] 03/24/2024 14:43:43 Influenza, MDCK, quadrivalent, PF 3 completed Ama Cabrera RMA [place], [facility] 08/17/2024 14:55:25 COVID-19, mRNA, LNP-S, PF, mali-sucrose, 30 mcg/0.3 mL 3 completed Ama Cabrera RMA null, [facility] 08/17/2024 14:55:25 Past Encounters Encounter ID Performer Location Encounter Start Date Encounter Closed Date Diagnosis/Indication Diagnosis SNOMED-CT Code Diagnosis ICD10 Code Diagnosis Note [id number] Keon Rivers MD [facility] [address] [place] [address] 12/14/2024 09:00:15 12/14/2024 09:26:47 Ulnar nerve entrapment at elbow 743850456 G56.22 [id number] Ling horta MD [facility] [address] [facility], [facility] [address] [place] [address] 12/22/2024 09:46:01 12/22/2024 10:24:47 Screening - NAD 452055890 Z13.9 C-scope: 02/07/2023 : Next in 2 yearsEGD: 11/28/2024 : Dr Guadarrama Get yearly flu shot, get Tdap if not doneGet COVID 19 vaccine and its boosters US AAA at age 67 years RTC in 3 months, do labs, ER if worse, he did verbalize his understand ing of the above Gastroesop hageal reflux disease without esophagitis 415919635 K21.9 EGD 12/29/2018 : Dr Lindsay 08/18/2024 :On omeprazole 20mg daily, can do bid PRNGet another referral to GI, will need EGD again, impressed upon patient to obtain this JOHN OV 12/22/2024 :EGD 11/28/2024 : Dr Alan Hyperlipidemia 56861567 E78.5 On rosuvastat in 40mg dailyNot on fenofibrat e 145mg dailyGet labs Moderate r ecurrent major depression 03931356 F33.1 Not on doxepin 25mg at bedtimeNot on vraylar 1.5mg dailyNot on quetiapine 100mg daily On bupropion XL 150mg dailyOn propranolo l 10mg bidOn sertraline 200mg dailyOn trazodone 100mg daily Sees Dr Farris suicidal or homicidal Essential hypertension 67675351 I10 On losartan 50mg dailyDoes wellDr Dayton last OV 11/06/2023 Smoker 36756107 F17.200 Advised to quit smoking! Erectile dysfunction 860 931300 F52.21 On sildenafil , does well Numbness of hand 3558884 04 R20.0 Does well now Type 2 bridgett betes mellitus without complication 950906855 E11.9 On metformin 500mg bidGet labs Obstructiv e sleep apnea syndrome 14676231 G47.33 On CPAPSees Sydnie Yu INFRASTRUCTURE ANALYST 05/15/2023 Next apt 09/12/2024 Chronic cough 97683727 R 05.3 He smokes, has noted a chronic dry cough, no fevers or chillsDoes not want to get tested for COVID 19 or strep or fluGet on Z-packDoes need to see Dr Power [facility] 0954836225 4382627 M25.521 Dr Rivers 11/03/2023 Dr Rivers 03/16/2024 , referred to [facility] for his c-spine Dr Gann 06/08/2024 , f/u PRNDr Tita 08/03/2024 , to get elbow surgery Dr Rivers 12/14/2024 , to get surgery on 01/03/2025 Steatosis of liver [address] chest 05/13/2023 Hepatitis/ GGT: 05/21/2023 : NegUS liver 06/04/2023 : Liver enlargemen tNeeds to see GI Leukocytosis 156303589 D 72.829 Repeat the CBC Screening for malignant neoplasm of colon 584379589 Z12.11 Health Concerns Section Related Observation LastModified by Organization Detai ls LastModified Time None Recorded Concern Status LastModified by Organization Details LastModified Time None Recorded Payers Encounter Date Sequence Insurance Name Policy Number Policy Fishman Covered Member ID Fishman Member ID Guarantor Name 12/22/2024 1 [employer] (MEDICARE REPLACEMENT/A DVANTAGE - PPO) [id number] Mj Diaz [id number] Mj Diaz 12/22/2024 2 [place] DEPARTMENT OF PUBLIC AID Mj Diaz [id number] Mj Diaz Notes Date Note Type Note Provider Name and Address Organization Details Recorded Time 12/22/2024 text/html OV 05/07/2023:He re to establish care Past Hx:Anxiety/Depress ionHTNDMIIGERDEDHL D Reviewed social family and surgical history Here [...] the 4th and the 5th fingers, normal accelerator operator, no acute or remote trauma noted [...] now will see a back specialist in [facility], does not know the name, he [...] change in weight Ling Mcduffie MD [address] [facility], [facility] [address], [place], [address], [place] [facility] 12/22/2024 10:18:45
--- OUTSIDE RECORDS SUMMARY | 2024-12-23 07:11 | XMS_ITS | Clinical Summary ---
Author Organization [facility] [address] [place] [address] Care Team Providers Care Veterinary Poultry Inspector Name Role Phone Stephanie Mcduffie MD Primary [...] - Td or Tdap) 06/17/2029 06/17/2019 Insurance [facility] IDPA UHC MEDICARE ADVANTAGE IDPA IDPA Care Teams Veterinary Poultry Inspector Relationship Specialty Start Date End Date Stephanie Mcduffie MD PCP - General Internal Medicine 02/14/19
--- OUTSIDE RECORDS SUMMARY | 2024-12-23 07:11 | XMS_ITS | Clinical Summary ---
Author Organization [facility] Address [address] [facility] [place] [address] Care Team Providers Care Wheelman Name Role Phone Ling Mcduffie MD Primary Care Provider Source Comments [facility],non-owned Affiliates and Associated Physician Practices is amultiple site organization consisting of ambulatory clinics and hospital sitesin [place], [place], [place] and [place]. This disclosure is being madepursuant to the Care Everywhere program and may not contain all information available regarding this patient. 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 MANAGED MEDICARE [place]V [place] [facility] [place] [address] SELF PAY NO INSURANCE Member Subscriber Plan / Payer (Ef fective for All Dates) Name:Monalisa Pavon Member ID:Not on file Relation to Subscriber:Not on file Name:MONALISA PAVON Subscriber ID:Not on file (Home) Address: [address] [place] [id number] Payer ID:Not on file Group ID:Not on file Type:Self Pay Address: [place], [place] Care Teams Wheelman Relationship Specialty Start Date End Date Ling Mcduffie MD [address] [address] PCP - General 04/10/20
--- OUTSIDE RECORDS SUMMARY | 2024-12-23 07:11 | XMS_ITS | Continuity of Care Document ---
Author Organization [facility] Address [address] [place] [address] [address] [place] [address] Phone Care Team Providers Care Hearing Aid Fitter Name Role Phone Stefanie Betancur Unavailable Unavailable Procedures Procedure Date Post-op Follow-up Visit Post-op Follow-up Visit Revise Two Eye Muscles Eye Suture During Surgery Office Consultation Advance Directives Directive Yes / No Effective Date File Name No Information Encounters Encounter Description Practice Location Reason(s) For Visit Diagnoses Date Provider Providers Copied on Encounter [facility], [address] [place] [address] [address], [place], [place], [id number], [place] tel:[phone] [facility] [place] No Information Dec-3 1-200 9 Gypsy Bendern. [address] [facility] [facility] [facility] , [address], [place], [address], [place]. tel:[phone] [facility], [address] [place] [address] [address], [place], [place], [id number], [place] tel:[phone] [facility] No Information Dec-1 0-200 9 Gypsy Watts. [address] [facility] , [address], [place], [address], [place]. tel:[phone] [facility], [address] [place] [address] [address], [place], [place], [id number], [place] tel:[phone] [facility] No Information Dec-0 7-200 9 Gypsy Bendern. [address] , [address], [place], [address], [place]. tel:[phone] Office Consultation [facility], [address], [place], [place], [id number], [place] tel:[phone] [facility] No Information 5-200 9 Betancur Stefanie. [address], [place], [address], [place]. tel:[phone] Referring Provider: Juanito Lama OD D, [address] [facility] [address], [place], [address]. tel:[phone] Family History Family Member Type Diagnosis Age At Onset No Information Payers Payer name Insurance type Covered green party ID Authoriza tion(s) Medicare [facility] [id number] Medicaid [facility] [id number] Social History Type Description Quantity Date Captured [...]
--- OUTSIDE RECORDS SUMMARY | 2024-12-23 07:11 | XMS_ITS | Data Portability ---
Author Organization [facility], Main Office Address [address] [place] [address] Care Team Providers Care Lease Broker Name Role Phone LING MCDUFFIE Primary Care Provider LING MCDUFFIE Referring Provider AYDEN BURRIS Telecommunications Support VALERIANO GANN Orthopedic Surgeon ADRAINA DAY Orthopedic Surgeon [phone] KURTIS POWER Development Eng Assessment Encounter Date Assessment Date Assessment LastModified by Organization Details LastModified Time 09/16/2024 09/16/2024 49-year-old patient presents today for [...] were reviewed and explained to the patient: [facility] split sleep study on 07/23/16, AHI = [...] for postnasal drip. Nicotine cessation counseling provided. [place] for quitting nicotine include getting ready, getting [...] in Quit For Life program Registering at [email or web address] Making a call to 5-695-BXUL-NOW ( ). A strong, clear, personalized message [...] failure or relapse. Patient can enroll in [facility]'s smoking cessation class through Kath Mckeon RN [...] remain at 15-17 cmH2O. Keep EPR +3 timekeeper. Keep ramp off. Keep humidifier off. Keep [...] carrier. Patient will setup an appointment with [facility] Patient for supplies and pressure [...] or 1 week after methacholine challenge testing [email or web address] Not available 10/25/2024 08:57:00 12/14/2024 12/14/2024 49-year-old male presents for follow-up of his right elbow. He has a history of bilateral cubital tunnel and had a left cubital tunnel release back in August which he is doing well from. His right side cubital tunnel symptoms still bother him. He got an EMG. He reports he is feeling worse, currently rates his pain as 3/10. He still smokes 1 pack a day, he is getting new blood work for his diabetes this Thursday He has positive Tinel's at the elbow. There is a proximally 3 mm diameter bump over his medial elbow distally, which he reports maybe a pebble that is imbedded in his skin. EMG demonstrates cubital tunnel We will proceed with surgery for his right elbow. This would be the same procedure as he had previously on his left side. We discussed the risks and benefits specifically his increased risk of smoking causing complications such as wound problems and infection, and that he reduced nicotine as much as possible. We also discussed the risk of diabetes. Risks, benefits, and alternatives to surgery were [...] and would like to proceed. Not available 12/14/2024 09:51:52 12/22/2024 12/22/2024 05/21/2023: Hepatitis panel Neg GGT: [...] available Not available Post-Op 10 2024 02:20P Sara Garrett PA-C Not available Not available Not available Follow Up 2024 07:45A Sara Power MD Not available Not available Not available Any 15 2024 11:00A Sara sanders MD Not available Not available Not available Lab CMP, serum or plasma 2024 025 [facility]IL [facility], [address], [place], [address], 12/22/2024 10:05:56 CBC w/ auto diff 2024 025 NEIL [facility], [address], [place], [address], 12/22/2024 10:06:56 T4, free, serum 2024 025 NEIL [facility], [address], [place], [address], 12/22/2024 10:05:56 TSH, serum or plasma 2024 025 NEIL [facility], [address], [place], [address], 12/22/2024 10:05:54 lipid panel, serum 2024 025 NEIL [facility], [address], [place], [address], 12/22/2024 10:05:55 CBC w/ auto diff [email or web address] [place] [address] - Outpatient Lab, [address] [place] [address], [address], 12/22/2024 10:16:44 HbA1c (hemoglob in A1c), blood 2024 025 NEIL [facility], [address], [place], [address], 12/22/2024 10:05:53 microalbu min, urine 2024 025 NEIL [facility], [address], [place], [address], 12/22/2024 10:05:55 ferritin, serum or plasma 2024 025 [facility] - Outpatient Lab, [address] [place], [address], 12/23/2024 03:06:52 Referral gastroent erologist referral - Please call patient to schedule. 2024 025 [email or web address] Puneet Jacobson MD, [address] [facility], [address], [place], [address], 12/22/2024 10:24:48 pulmonolo gist referral 2024 025 [email or web address] Kurtis Power MD, [address] [place], [address], 12/22/2024 10:24:48 cardiolog ist referral 2024 025 [email or web address] [place], [address] , [address], [place], [address], 12/22/2024 10:24:48 podiatris t referral - Please call patient to schedule an appointme nt. Thank you. 2024 025 [place] Blake Suarez DPSara, [address] [facility], [address], [place], [address], 12/22/2024 10:34:38 Procedures colonosco py screening (PROC) 2024 025 [email or web address] Larry faria MD, [address], [address], [place], [address], 12/22/2024 10:23:56 Surgeries None recorded. Imaging electromy ogram + nerve conductio n study - Please contact pt to schedule apt. Thank you! 2024 025 [facility], [address], [place], [address], 12/08/2024 08:23:27 XR, shoulder 2024 [place] [facility] Riya Murry, [facility] [facility] [address], [place], [address], 10/24/2024 12:50:16 Medication Orders ferrous sulfate 325 mg (65 mg iron) tablet 2024 [id number], [address], [place], [id number], 10/25/2024 08:50:29 Vitamin C 500 mg tablet 2024 025 [id number], [address], [place], [id number], 10/25/2024 08:49:58 ipratropi um bromide 42 mcg (0.06 %) nasal spray 2024 025 [id number], [address] [place], [place], [id number], 10/25/2024 08:49:59 Patient TargetsNo targets recorded. 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 Thank you. Referring Physician: Ling Mcduffie Internal Medicine, Encounter Date: 12/22/2024 Registration Officer Referral for Steatosis of liver Please call patient to schedule. Referring Physician: Ling Mcduffie Internal Medicine, Encounter Date: 12/22/2024 Development Eng Referral for C hronic cough Referring Physician: Ling Mcduffie Internal Medicine, Encounter Date: 12/22/2024 Telecommunications Support Referral for Es sential hypertension Referring Physician: Ling Mcduffie, Internal Medicine, Encounter Date: 12/22/2024 Results Created Date Observation Date Name Description Value Unit Range Abnormal Flag Note LastModifiedBy Organization Detail LastModifiedTime 10/21/1910/22/2024 CJ TIN ferritin 92 NG/mL 38-380 normal Not Available [email or web address] [facility] [address] [place], [address], 10/22/2024 07:53:46 10/19/19 XR, shoul efrem No observ ation record ed. [email or web address] [facility] [place] [address] [facility] [address], [place], [address], 10/19/2024 09:01:17 11/21/19 25 11/20/2024 CT, abdom en + pelvi s, w/ contr ast No observ ation record ed. [address], [place], [address], 12/08/2024 11:14:06 12/03/1907/25/2024 imagi ng/di agnos tic resul t No observ ation record ed. [address], [place], [address], 12/02/2024 18:58:09 12/08/19 25 12/07/2024 elect romyo gram + nerve condu ction study No observ ation record ed. [place] [address], [place], [address], 12/08/2024 11:14:06 Result Notes None recorded. Problems Name Problem SNOMED Code Status Onset Date Resolution Date Notes Provider Name and Address Organization Details Recorded Time Restless legs 82147896 Active Not Available [facility] 3 18:04:04 Anxiety 35973260 Active 2019 Not Available [facility] 3 18:04:05 Obstructiv e sleep apnea syndrome 78891334 Active Not Available [facility] 3 18:04:05 Gastroesop hageal reflux disease without esophagiti s 789449817 Active 2022 Ling horta MD [address], [address], [place], [address] , [facility] 3 10:33:14 Hyperlipid emia 58812003 Active 2022 Ling horta MD [address], [address], [place], [address] , [facility] 3 10:33:18 Moderate recurrent major depression 43822183 Active 2022 Ling horta MD [address], [address], [place], [address] , [facility] 3 10:33:24 Essential hypertensi on 83607483 Active 2022 Ling horta MD [address], [address], [place], [address] , [employer] [facility] 3 10:33:28 Erectile dysfunctio n 036972610 Active 2022 Ling horta MD [address], [address], [place], [address] , [employer] [facility] 3 10:33:45 Smoker 33220817 Active 2022 Ling horta MD [address], [address], [place], [address] , [employer] 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 Active 2023 Keon Rivers MD [address], [address], [place], [address] , [facility] 4 09:26:06 Cervical radiculopa thy 91002704 Active 2023 Ashliearam Liao null, [facility] 4 09:35:05 Iron deficiency 88565755 Active 2023 Kurtis Power MD [address], [address], [place], [address] , [facility] 4 09:09:31 Allergic rhinitis 03515136 Active 2023 Ama Cabrera [facility] null, [facility] 4 10:46:51 Type 2 diabetes mellitus without complicati on 983858689 Active 2023 Ling horta MD [address], [address], [place], [address] , [facility] 4 14:25:44 Contact dermatitis caused by urushiol from poison [place] 97980810 Active 2023 Maxine Vanegas MA null, [facility] 4 16:34:26 Posterior rhinorrhea 82069634 Active 2023 Kurtis Poewr MD [address], [address], [place], [address] , [facility] 4 11:13:22 Multiple nodules of lung 642037291 Active 2023 Kurtis Power MD [address], [address], [place], [address] , [facility] 4 11:50:27 Solitary nodule of lung 729062929 Active 2023 Kurtis Power MD [address], [address], [place], [address] , [facility] 4 11:50:41 Dyspnea on exertion 02201323 Active 2024 Kurtis Power MD [address], [address], [place], [address] , [facility] 5 08:42:41 Chronic cough 55235130 Active 2024 Kurtis Power MD [address], [address], [place], [address] , [facility] 5 08:48:33 Ulnar nerve entrapment at elbow 241182224 Active 2024 Radha Vallecillo Jamil [facility], [facility] 5 09:03:32 Numbness of hand 717844037 Active 2024 Ling horta MD [address], [address], [place], [address] , [facility] 5 14:04:14 Pain of right elbow joint 9090475160749 9109 Active 2024 Ling horta MD [address], [address], [place], [address] , [facility] 5 14:04:14 Leukocytos is 736995862 Active 2024 Ling horta MD [address], [address], [place], [address] , [facility] 5 14:12:00 Notes:Medical History: Nicot ine use Depression 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 R>L tinnitus Rhinitis with postnasal drip Eosinophils 240/uL IgE 28 IU/mL AAT PiMM 160 mg% (+) Quantiferon TB Gold, incarcerated 8072-2859, on Rifampin RLL nodule Granulomatous disease (chest, liver) Obesity with very severe OSAHS, AHI = 54, on autoCPAP c/o [place] Home Patient Hypertension Hyperlipidemia T2DM NAUN Hepatic [...] Recorded Time 5 procedure on elbow completed Radha Vallecillo, [facility] 12/08/2024 09:05:30 4 Medicare Wellness CPT Code, Initial completed Dandy Elizabeth [facility] 03/28/2024 10:34:05 Hernia Surgery completed Ama Mcgraw am [facility] [place] [facility] 05/07/2023 10:13:32 Eye Surgery completed Ama Cabrera [facility] [place] [facility] 05/07/2023 10:13:37 Hernia Repair completed Ama herrera [facility] 05/07/2023 10:13:54 Imaging Results Imaging Date Name Status LastModified by Organization Details LastModified Time 10/19/2024 XR, shoulder completed [email or web address] [facility] [place] [address] [facility] [address], [place], [address], 10/19/2024 09:01:17 11/20/2024 CT, abdomen + pelvis, w/ contrast completed [address], [place], [address], 12/08/2024 11:14:06 07/25/2024 imaging/diagnostic result active [address], [place], [address], 12/02/2024 18:58:09 12/07/2024 electromyogram + nerve conduction study completed [address] [place] [address], [address], 12/08/2024 11:14:06 Procedure Notes None recorded. Medical Equipment None [...] 20 mg by injection route. 03/06 completed ND: [id number] [id number] 20 Not Available Not Available [...] bromide 42 mcg (0.06 %) nasal spray [place] 1 spray 4 times a day by [...] Not Available Not Available Not Available Fluvirin 0561-7673 45 mcg (15 mcg x 3)/0.5 mL [...] Updated DateTime 09/16/2024 162.56 cm 28 kg/m2 48543.56 g 2 REGINALD Augustine [facility] [employer] [facility] 09/16/2024 09:21:14 Date Recorded Body height Body mass index (BMI) Body weight Provider Name and Address Organization Details Last Updated DateTime 10/19/2024 162.56 cm 28 kg/m2 75957.56 g Martina Up CNA [facility] [employer] 10/19/2024 08:59:23 Date Recorded Body height Body mass index (BMI) Body weight Body temperature Heart rate Oxygen saturation Oxygen saturation in Arterial blood by Pulse oximetry Systolic blood pressure Diastolic blood pressure Provider Name and Address Organization Details Last Updated DateTime 162.56 cm 29.6 kg/m2 88601.3 2 g 98.2 [degF] 68 /min 98 % 98 % 100 mm[Hg] 60 mm[Hg] Verenice Kwan MA [facility] 08:16:27 Date Recorded Heart rate Respiratory rate Provider N rock and Address Organization Details Last Updated DateTime 10/25/2024 68 /min 15 /min Kurtis Power MD [address] [place] [address], [address], [facility] [employer] [facility] 10/25/2024 08:57:30 Date Recorded Body height Body mass index (BMI) Body weight Pain severity - 0-10 verbal numeric rating [Score] - Reported Provider Name and Address Organization Details Last Updated DateTime 12/14/2024 162.56 cm 29.6 kg/m2 34320.32 g 3 REGINALD Augustine [facility] [employer] [facility] 12/14/2024 09:02:57 Date Recorded Body height Body mass index (BMI) Body weight Body temperature Heart rate Systolic blood pressure Diastolic blood pressure Provider Name and Address Organization Details Last Updated DateTime 162.56 cm 28.5 kg/m2 68828.3 3 g 97.5 [degF] 66 /min 104 mm[Hg] 60 mm[Hg] REGINALD Kerr [facility] [employer] [facility] 09:53:51 Social History Question Answer Notes LastModified by Organization Details LastModified Time Tobacco Smoking Status Current Every Day Smoker REGINALD Kerr [place] [facility] [employer] [facility] 05/07/2023 10:11:27 Do You Have An Advance Directive? No Information not available 05/07/2023 What Is Your Level Of Alcohol Consumption? Occasional Information not available 05/07/2023 How Many Years Have You Consumed Alcohol? 30 [email or web address] Information not available 03/29/2024 What Is Your Level Of Caffeine Consumption? Moderate [email or web address] Information not available 05/15/2023 In The 14 [...] Drugs Have You Used? Marijuana Flower Form [email or web address] Information not available 05/15/2023 Do You Or Have You Ever Used E-cigarettes Or Vape? Never Used Electronic Cigarettes Tried It In The Past But Never Really Liked It Information not available 03/29/2024 What Is The Highest Grade Or Level Of School You Have Completed Or The Highest Degree You Have Received? [id number] Information not available 05/07/2023 Do You Have An Electrostatic Air Filter? No Information not available 11/24/2023 Have You Been Exposed To Chemicals Or Toxins? Yes Lived On A Farm Information not available 10/25/2024 Have There Been Any Changes To Your Family Or Social Situation? Yes Last May. He Moved In With His Mom And Brother [email or web address] Information not available 03/29/2024 What Is The Fluoride Status Of Your Home? Unknown Information not available 05/07/2023 Are There Any Guns Present In Your Home? No Information not available 05/07/2023 Do You Have A Humidifier? No Information not available 11/24/2023 How Many Years Have You Used Illicit Or Recreational Drugs? 31 [email or web address] Information not available 03/29/2024 Where Do You Live? SingleLevelHouse Information not available 05/07/2023 Do You Have A Medical Power Of Arts And Crafts Teacher? No Information not available 05/07/2023 Do You Have Moisture Problems In Your Home? No Information not available 11/24/2023 What Was The Date Of Your Most Recent Tobacco Screening? 12/22/2024 Information not available 12/22/2024 What Is Your Current Pack Years? 30ormorepackyears [email or web address] Information not available 05/15/2023 Have You Ever Been Counseled For Unhealthy Alcohol Use? No [email or web address] Information not available 03/29/2024 Do You Have Any Pets? Yes 2 Cats [email or web address] Information not available 03/29/2024 What Is Your [...] Anxious, Or Unable To Sleep At Night)? [id number] [email or web address] Information not available 03/29/2024 Do You Use Any Illicit Or Recreational Drugs? Yes Information not available 05/07/2023 Do You Use Sunscreen Routinely? No Information not available 11/24/2023 Has Tobacco Cessation Counseling Been Provided? Yes [email or web address] Information not available 03/29/2024 On What Date Was Tobacco Cessation Counseling Provided? 10/25/2024 Information not available 10/25/2024 How Many Years Have You Smoked Tobacco? 30 [email or web address] Information not available 05/15/2023 Have You Recently Traveled Abroad? No Information not available 05/07/2023 Have You Used IV Drugs? No [email or web address] Information not available 05/15/2023 Do You Or [...] GLAUCOMA N FOOT PROBLEM N DIVERTICULITIS N CHICKENPOX N SLEEP APNEA Y ALLERGIES/HAYFEVER N BACK INJECTIONS N INFECTIOUS DISEASE N HEART ARRHYTHMIA N PROSTATE N ESRD N INSOMNIA N HIGH CHOLESTEROL [...] N ALZHEIMER'S DISEASE N Brain Problems N HERPES N DEMENTIA N SEIZURES/EPILEPSY N HEADACHES/MIGRAINES N VASCULAR DISEASE N PACEMAKER N DIZZINESS N KIDNEY DISEASE N HEART DISEASE/HEART PROBLEMS N MULTIPLE SCLEROSIS N NEUROPSYCHOLOGICAL N CARDIAC ARRHYTHMIA N CANCER: SPECIFY N Gall Stones N ATRIAL FIBRILLATION N PULMONARY EMBOLISM N AUTOIMMUNE DISEASE N Immunizations Vaccine Type Date Status Note Provider Nam e and Address Organization Details Recorded Time Influenza, split virus, quadrivalent, preservative 9 completed [facility] 03/24/2024 14:43:42 Tdap 9 completed [facility]andy [facility] 03/24/2024 14:43:42 influenza, unspecified formulation 6 completed [facility] 03/24/2024 14:43:42 COVID-19, mRNA, LNP-S, PF, 30 mcg/0.3 mL dose 2 completed D[facility] 03/24/2024 14:43:42 COVID-19, mRNA, LNP-S, PF, 30 mcg/0.3 mL dose 1 completed Dandy Elizabeth [facility] 03/24/2024 14:43:42 COVID-19, mRNA, LNP-S, PF, 30 mcg/0.3 mL dose 1 completed Dandy [facility] 03/24/2024 14:43:42 COVID-19, mRNA, LNP-S, bivalent, PF, 30 mcg/0.3 mL dose 2 completed Dandy [facility] 03/24/2024 14:43:42 Influenza, split virus, trivalent, PF 6 completed Dandy [facility] 03/24/2024 14:43:42 Influenza, split virus, quadrivalent, PF 0 completed [facility] 03/24/2024 14:43:42 Influenza, split virus, quadrivalent, PF 9 completed [facility] 03/24/2024 14:43:42 Influenza, split virus, quadrivalent, PF 1 completed Dandy Elizabeth LPN null, [facility] 03/24/2024 14:43:42 Influenza, split virus, quadrivalent, PF 2 completed Dandy Elizabeth LPN null, [facility] 03/24/2024 14:43:43 Influenza, MDCK, quadrivalent, PF 3 completed Ama Cabrera RMA null, [facility] 08/17/2024 14:55:25 COVID-19, mRNA, LNP-S, PF, mali-sucrose, 30 mcg/0.3 mL 3 completed REGINALD Kerr, [facility] 08/17/2024 14:55:25 Past Encounters Encounter ID Performer Location Encounter Start Date Encounter Closed Date Diagnosis/Indication Diagnosis SNOMED-CT Code Diagnosis ICD10 Code Diagnosis Note [id number] Ling horta MD [facility] [address] [facility], [address] [place] [address] 05/07/2023 09:41:21 05/07/2023 10:55:55 Screening - NAD 821092837 Z13.9 C-scope: Get this Get yearly flu shot, get Tdap if not doneGet COVID 19 vaccine and its boosters US AAA at age 67 years RTC in 3 months, do labs, ER if woe Screening for malignant neoplasm of colon 785065700 Z12.11 Gastroesop hageal reflux disease without esophagitis 837419291 K21.9 EGD 12/29/2018 : Dr Larsen PPI PRN Hyperlipidemia 95330194 E78.5 On rosuvastat in 40mg dailyOn fenofibrat e 145mg dailyGet labs Moderate r ecurrent major depression 44802206 F33.1 On bupropion SR 100mg bidOn doxepin 25mg at bedtimeOn propranolo l 10mg bidOn vraylar 1.5mg dailySees Dr Farris suicidal or homicidal Essential hypertension 88085455 I10 On losartan 50mg dailyDoes well Smoker 89654358 F17.200 Advised to quit smoking! Erectile dysfunction 860 458713 F52.21 On sildenafil , does well Liver enzy mes level above reference range 943053227 R74.01 Noted in the past, get labs Numbness of hand 6251855 04 R20.0 Does well now Type 2 bridgett betes mellitus without complication 087566837 E11.9 On metformin 500mg bidGet labs Obstructiv e sleep apnea syndrome 11062787 G47.33 On CPAPSees Sydnie Aimee [employer] 05/15/2023 Chronic cough 01339261 R 05.3 He smokes, has noted a chronic dry cough, mild SOB, does see Sydnie also Pain of ri ght elbow joint [id number] M25.521 Get a referral to ortho [id number] Sydnie Yu, ARTIST AGENT- [facility] [place] [address] [place] [address] 05/15/2023 15:15:26 05/15/2023 16:19:14 Obstructive sleep apnea syndrome 42533270 G47.33 No data from machine after 2019He has good use and clinical benefitBas ed on his report of symptoms, will order APAP today - discussed with Mr Joe, he agreesOSA was well correctedE ncouraged 100% [...] and symptomsFo llow up per compliance guidelines [id number] NISHA Ingram [facility] [place] [address] [place] [address] 05/20/2023 08:27:53 05/20/2023 09:30:11 Pain of right elbow joint 2433339459 4126916 M25.521 patient has had 3-4 months of [...] Carpal shine justina syndrome of right wrist [id number] 79083 G56.01 Patient has been experienci ng numbness [...] up in 6 weeks for re-evaluat ion [id number] Sydnie Yu, ARTIST AGENT-BC [facility] [place] [address] [place] [address] 07/21/2023 15:17:58 07/21/2023 16:10:31 Obstructive sleep apnea syndrome 42718718 G47.33 New machine set upHe has 100% [...] symptomsHe should follow up in 3-6 months [id number] Ling horta MD [facility] Internal Med [facility] [address] [facility], [address] [place] [address] 08/06/2023 09:39:45 08/06/2023 10:30:18 Screening - NAD 258199007 Z13.9 C-scope: Get this Get yearly flu shot, get Tdap if not doneGet COVID 19 vaccine and its boosters [place] [employer] at age 67 years RTC in 3 months, do labs, ER if worse, he did verbalize his understand ing of the above Screening for malignant neoplasm of colon 601795513 Z12.11 Gastroesop hageal reflux disease without esophagitis 534868333 K21.9 EGD 12/29/2018 : Dr Larsen PPI PRN Hyperlipidemia 83383861 E78.5 On rosuvastat in 40mg dailyOn fenofibrat e 145mg dailyGet labs Moderate r ecurrent major depression 78594451 F33.1 On bupropion SR 100mg bidOn doxepin 25mg at bedtimeOn propranolo l 10mg bidOn vraylar 1.5mg dailySees Dr Farris suicidal or homicidalT violet 08/06/2023 , teary eyed as he has recently lost his Zi Essential hypertension 83326917 I10 On losartan 50mg dailyDoes well Smoker 97201587 F17.200 Advised to quit smoking! Erectile dysfunction 860 546130 F52.21 On sildenafil , does well Numbness of hand 4467649 04 R20.0 Does well now Type 2 bridgett betes mellitus without complication 236053846 E11.9 On metformin 500mg bidGet labs Obstructiv e sleep apnea syndrome 52420761 G47.33 On CPAPSees Sydnie Yu COW WASHER 05/15/2023 Chronic cough 15292272 R 05.3 He smokes, has noted a chronic dry cough, mild SOB, does see Sydnie also Pain of ri ght elbow joint 0026439890 1707905 M25.521 Get a referral to ortho Steatosis of liver [address] chest 05/13/2023 Hepatitis/ GGT: 05/21/2023 : NegUS liver 06/04/2023 : Liver enlargemen tNeeds to see GI [id number] Keon Rivers MD [facility] [place] [address] [place] [address] 08/12/2023 09:26:50 08/12/2023 10:04:08 Pain of left hand 7133261995 29993 M79.148 [id number] Keon Rivers MD [facility] [place] [address] [place] [address] 09/30/2023 08:46:17 09/30/2023 10:03:19 Pain of left hand 7651193017 34225 M79.642 Ulnar nerv e entrapment at elbow 244279634 G56.22 [id number] Ling horta MD [facility] Internal Med [place] [address] [facility], [address] [place] [address] 11/05/2023 09:17:41 11/05/2023 09:58:01 Screening - NAD 631811994 Z13.9 C-scope: 02/07/2023 : Next in 2 years Get yearly flu shot, get Tdap if not doneGet COVID 19 vaccine and its boosters [place] [employer] at age 67 years RTC in 3 months, do labs, ER if worse, he did verbalize his understand ing of the above Gastroesop hageal reflux disease without esophagitis 025086033 K21.9 EGD 12/29/2018 : Dr Larsen PPI PRN Hyperlipidemia 88866342 E78.5 On rosuvastat in 40mg dailyOn fenofibrat e 145mg dailyGet labs Moderate r ecurrent major depression 50415492 F33.1 On bupropion XL 150mg dailyNot on doxepin 25mg at bedtimeOn propranolo l 10mg bidNot on vraylar 1.5mg dailyOn quetiapine 100mg daily Sees Dr Farris suicidal or homicidal Essential hypertension 52796818 I10 On losartan 50mg dailyDoes well Smoker 93979985 F17.200 Advised to quit smoking! 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 [place] [address] 12/01/2023 09:01:50 12/01/2023 09:26:06 Pain of left shoulder joint 4973978391 7228792 M25.953 [id number] [facility] [address] [place] [address] 12/14/2023 08:33:55 12/15/2023 08:35:00 Obstructive sleep apnea syndrome 75028242 G47.33 Iron deficiency 05685056 E61.1 [id number] NISHA Reina [facility] [place] [address] [place] [address] 12/17/2023 08:49:45 12/17/2023 09:16:39 Pain of left shoulder joint 0925598675 6740775 M25.947 [id number] Kurtis Power MD S_[facility] [address] [place] [address] 03/14/2024 08:11:40 03/15/2024 08:21:43 Obstructive sleep apnea syndrome 75122574 G47.33 Iron deficiency 37740224 E61.1 [id number] Keon Rivers MD S_[facility] [place] [address] [place] [address] 03/16/2024 08:59:34 03/16/2024 10:19:33 Bilateral elbow joint pain 7602010847 4806394 M25.521 M25.638 [id number] Ling horta MD S_[facility] Internal Med [facility] [address] [address] 03/29/2024 09:21:55 03/29/2024 10:00:34 Screening - NAD 675106963 Z13.9 C-scope: 02/07/2023 : Next in 2 years Get yearly flu shot, get Tdap if not doneGet COVID 19 vaccine and its boosters [place] at age 67 years RTC in 3 months, do labs, ER if worse, he did verbalize his understand ing of the above Gastroesop hageal reflux disease without esophagitis 401497641 K21.9 EGD 12/29/2018 : Dr Larsen PPI PRN Hyperlipidemia 07370671 E78.5 On rosuvastat in 40mg dailyOn fenofibrat e 145mg dailyGet labs Moderate r ecurrent major depression 55456522 F33.1 Not on doxepin 25mg at bedtimeNot on vraylar 1.5mg dailyNot on quetiapine 100mg daily On bupropion XL 150mg dailyOn propranolo l 10mg bidOn sertraline 200mg dailyOn trazodone 100mg daily Sees Dr Farris suicidal or homicidal Essential hypertension 08897791 I10 On losartan 50mg dailyDoes wellDr Dayton last OV 11/06/2023 Smoker 06454829 F17.200 Advised to quit smoking! 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 984465880 E11.9 On metformin 500mg bidGet labs Obstructiv e sleep apnea syndrome 17473017 G47.33 On CPAPSees Sydnie Yu COW WASHER 05/15/2023 Chronic cough 93232888 R 05.3 He smokes, has noted a chronic dry cough, mild SOB Pain of ri ght elbow joint 6212502543 4075572 M25.521 Dr Rivers 11/03/2023 Steatosis of liver [address] chest 05/13/2023 Hepatitis/ GGT: 05/21/2023 : NegUS liver 06/04/2023 : Liver enlargemen tNeeds to see GI Adult heal th examination 841258235 Z00.00 Screening for disorder 324093764 Z13.9 [id number] Ling horta MD [facility] [place] [address] [facility], [address] [place] [address] 04/28/2024 13:55:05 04/28/2024 14:23:02 Screening - NAD 645378834 Z13.9 C-scope: 02/07/2023 : Next in 2 years Get yearly flu shot, get Tdap if not doneGet COVID 19 vaccine and its boosters [place] at age 67 years RTC in 3 months, do labs, ER if worse, he did verbalize his understand ing of the above Gastroesop hageal reflux disease without esophagitis 628067968 K21.9 EGD 12/29/2018 : Dr Larsen PPI PRN Hyperlipidemia 79499430 E78.5 On rosuvastat in 40mg dailyNot on fenofibrat e 145mg dailyGet labs Moderate r ecurrent major depression 91926258 F33.1 Not on doxepin 25mg at bedtimeNot on vraylar 1.5mg dailyNot on quetiapine 100mg daily On bupropion XL 150mg dailyOn propranolo l 10mg bidOn sertraline 200mg dailyOn trazodone 100mg daily Sees Dr Farris suicidal or homicidal Essential hypertension 40025827 I10 On losartan 50mg dailyDoes wellDr Dayton last OV 11/06/2023 Smoker 42614408 F17.200 Advised to quit smoking! 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 690759811 E11.9 On metformin 500mg bidGet labs Obstructiv e sleep apnea syndrome 36926519 G47.33 On CPAPSees Sydnie Yu COW WASHER 05/15/2023 Next apt 09/12/2024 Chronic cough 35109749 R 05.3 He smokes, has noted a chronic dry cough, no fevers or chillsDoes not want to get tested for COVID 19 or strep or fluGet on Z-packDoes need to see Dr Power [facility] 5310686230 9620692 M25.521 Dr Rivers 11/03/2023 Dr Rivers 03/16/2024 , referred to NS for his c-spine Steatosis of liver [address] chest 05/13/2023 Hepatitis/ GGT: 05/21/2023 : NegUS liver 06/04/2023 : Liver enlargemen tNeeds to see GI [id number] Kurtis Power MD [facility] [address] [address] 05/05/2024 09:16:10 05/06/2024 10:46:39 Obstructive sleep apnea syndrome 54940159 G47.33 Iron deficiency 19769227 E61.1 Chronic cough 64836311 R 05.3 R06.00 T78.40XA D89.9 Smoker 35990906 F17.218 F17.219 Z87.410 [id number] Kurtis Power MD [facility]_[address] [address] 05/16/2024 10:09:47 05/16/2024 14:13:53 Obstructive sleep apnea syndrome 80667512 G47.33 Iron deficiency 79440059 E61.1 Chronic cough 92709707 R 05.3 R06.00 T78.40XA D89.9 Smoker 61885041 F17.218 F17.219 Z87.891 Thickening of pleura 737 01018 J92.9 Z20.1 Posterior rhinorrhea 758 74602 R09.82 [id number] Keon Rivers MD [facility] [place] [address] [place] [address] 05/25/2024 08:43:49 05/25/2024 09:26:25 Ulnar nerve entrapment at elbow 504532381 G56.22 [id number] MD REN [facility]_[address] [address] 07/13/2024 10:36:50 08/29/2024 10:45:42 Obstructive sleep apnea syndrome 31229390 G47.33 Iron deficiency 88687249 E61.1 Chronic cough 48011199 R 05.3 R06.00 T78.40XA D89.9 Smoker 88625500 F17.218 F17.219 Z87.891 Posterior rhinorrhea 758 07195 R09.82 Solitary n odule of lung 115319890 R91.1 [id number] Kurtis Power MD [facility]_[address] [address] 07/26/2024 08:33:11 08/29/2024 11:27:56 Obstructive sleep apnea syndrome 01880789 G47.33 Iron deficiency 90456221 E61.1 Smoker 48621362 F17.218 F17.219 Z87.891 Posterior rhinorrhea 758 39771 R09.82 Solitary n odule of lung 412765066 R91.1 Dyspnea on exertion 6084 5006 R06.09 R05.9 [id number] Keon Rivers MD [facility] [place] [address] [place] [address] 08/03/2024 10:19:23 08/03/2024 10:58:25 Ulnar nerve entrapment at elbow 550409949 G56.22 [id number] Ling horta MD [facility] Internal Med [facility] [address] [facility] [address] [place] [address] 08/18/2024 11:08:13 08/18/2024 12:54:07 Screening - NAD 042784280 Z13.9 C-scope: 02/07/2023 : Next in 2 years Get yearly flu shot, get Tdap if not doneGet COVID 19 vaccine and its boosters [place] AAA at age 67 years RTC in 3 months, do labs, ER if worse, he did verbalize his understand ing of the above Gastroesop hageal reflux disease without esophagitis 745116753 K21.9 EGD 12/29/2018 : Dr Lindsay 08/18/2024 :On omeprazole 20mg daily, can do bid PRNGet another referral to GI, will need EGD again, impressed upon patient to obtain this JOHN Hyperlipidemia 90399170 E78.5 On rosuvastat in 40mg dailyNot on fenofibrat e 145mg dailyGet labs Moderate r ecurrent major depression 77267706 F33.1 Not on doxepin 25mg at bedtimeNot on vraylar 1.5mg dailyNot on quetiapine 100mg daily On bupropion XL 150mg dailyOn propranolo l 10mg bidOn sertraline 200mg dailyOn trazodone 100mg daily Sees Dr Farris suicidal or homicidal Essential hypertension 56775847 I10 On losartan 50mg dailyDoes wellDr Dayton last OV 11/06/2023 Smoker 06082607 F17.200 Advised to quit smoking! 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 371625284 E11.9 On metformin 500mg bidGet labs Obstructiv e sleep apnea syndrome 01178940 G47.33 On CPAPSees Sydnie Aimee COW WASHER 05/15/2023 Next apt 09/12/2024 Chronic cough 50493108 R 05.3 He smokes, has noted a chronic dry cough, no fevers or chillsDoes not want to get tested for COVID 19 or strep or fluGet on Z-packDoes need to see Dr Power Pain of ri ght elbow joint 9397832089 5875638 M25.521 Dr Rivers 11/03/2023 Dr Rivers 03/16/2024 , referred to NS for his c-spine Dr Gann 06/08/2024 , f/u PRNDr Tita 08/03/2024 , to get elbow surgery Steatosis of liver [address] chest 05/13/2023 Hepatitis/ GGT: 05/21/2023 : NegUS liver 06/04/2023 : Liver enlargemen tNeeds to see GI [id number] Adriana Day NP S_[facility] [place] [address] [place] [address] 09/16/2024 09:17:46 09/16/2024 09:36:29 Ulnar nerve entrapment at elbow 605704111 G56.22 [id number] Keon Rivers MD [facility] [place] 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 [place] [address] 12/14/2024 09:00:15 12/14/2024 09:26:47 Ulnar nerve entrapment at elbow 835160469 G56.22 [id number] Ling horta MD [facility] Internal Med [place] [address] [facility], [address] [place] [address] 12/22/2024 09:46:01 12/22/2024 10:24:47 Screening - NAD 855203764 Z13.9 C-scope: 02/07/2023 : Next in 2 yearsEGD: 11/28/2024 : Dr Guadarrama Get yearly flu shot, get Tdap if not doneGet COVID 19 vaccine and its boosters [place] AAA at age 67 years RTC in 3 months, do labs, ER if worse, he did verbalize his understand ing of the above Gastroesop hageal reflux disease without esophagitis 163289926 K21.9 EGD 12/29/2018 : Dr Lindsay 08/18/2024 :On omeprazole 20mg daily, can do bid PRNGet another referral to GI, will need EGD again, impressed upon patient to obtain this JOHN OV 12/22/2024 :EGD 11/28/2024 : Dr Alan Hyperlipidemia 33397415 E78.5 On rosuvastat in 40mg dailyNot on fenofibrat e 145mg dailyGet labs Moderate r ecurrent major depression 05679487 F33.1 Not on doxepin 25mg at bedtimeNot on vraylar 1.5mg dailyNot on quetiapine 100mg daily On bupropion XL 150mg dailyOn propranolo l 10mg bidOn sertraline 200mg dailyOn trazodone 100mg daily Sees Dr Farris suicidal or homicidal Essential hypertension 17952876 I10 On losartan 50mg dailyDoes wellDr Dayton last OV 11/06/2023 Smoker 66032328 F17.200 Advised to quit smoking! 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 995484652 E11.9 On metformin 500mg bidGet labs Obstructiv e sleep apnea syndrome 67502049 G47.33 On CPAPSees Sydnie Yu COW WASHER 05/15/2023 Next apt 09/12/2024 Chronic cough 77450417 R 05.3 He smokes, has noted a chronic dry cough, no fevers or chillsDoes not want to get tested for COVID 19 or strep or fluGet on Z-packDoes need to see Dr Jannet Ibarra of [facility] elbow joint 8517510789 8436245 M25.521 Dr Rivers 11/03/2023 Dr Rivers 03/16/2024 , referred to NS for his c-spine Dr Gann 06/08/2024 , f/u PRNDr Tita 08/03/2024 , to get elbow surgery Dr Rivers 12/14/2024 , to get surgery on 01/03/2025 Steatosis of liver [address] chest 05/13/2023 Hepatitis/ GGT: 05/21/2023 : NegUS liver 06/04/2023 : Liver enlargemen tNeeds to see GI Leukocytosis 443962199 D 72.829 Repeat the CBC Screening for malignant neoplasm of colon 801426841 Z12.11 Health Concerns Section Related Observation LastModified by Organization Detai ls LastModified Time None Recorded Concern Status LastModified by Organization Details LastModified Time None Recorded Advance Directives Directive N: Payers Encounter Date Sequence Insurance Name Policy Number Policy Fishman Covered Member ID Fishman Member ID Guarantor Name 09/16/2024 1 [facility] (MEDICARE REPLACEMENT/A DVANTAGE - PPO) [id number] Mj Diaz [id number] Mj Diaz 09/16/2024 2 [place] [facility] Mj Diaz [id number] Mj Diaz 10/19/2024 1 [facility] (MEDICARE REPLACEMENT/A DVANTAGE - PPO) [id number] Mj Diaz [id number] Mj Diaz 10/19/2024 2 [place] [facility] [place] Mj Diaz [id number] Mj Diaz 10/25/2024 1 [facility] (MEDICARE REPLACEMENT/A DVANTAGE - PPO) [id number] Mj Barnettalman [id number] Mj Barenttalman 10/25/2024 2 [place] [facility] [place] [facility] Mj Diaz [id number] Mj Barnettalman 12/14/2024 1 [facility] (MEDICARE REPLACEMENT/A DVANTAGE - PPO) [id number] Mj Barnettalman [id number] Mj Claire Spealman 12/14/2024 2 [place] [facility] Mj Barnettalsharon [id number] Mj Claire Spealman 12/22/2024 1 [facility] (MEDICARE REPLACEMENT/A DVANTAGE - PPO) [id number] Mj Barnettalman [id number] Mj Barnettalman 12/22/2024 2 [place] [facility] Mj Diaz [id number] Mj Diaz Notes Date Note Type Note Provider Name and Address Organization Details Recorded Time 10/25/2024 text/html Primary care/Ref erring provider: Ling [...] noPalpitations: noHeartburn: noEdema: no Modified [employer] [place] (mMRC) Dyspnea Scale - Grade 2Grade 0 [...] fumes: noNickel: noSilica: noSoot: no During the [facility] split sleep study on 07/23/16, AHI = [...] slight chance of dozing. 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
--- OUTSIDE RECORDS SUMMARY | 2024-12-23 07:11 | XMS_ITS | Referral Summary ---
Author Organization [facility] Phys[facility] [address] [place] [address] Care Team Providers Care Supersonic Engineer Name Role Phone Stephanie Mcduffie MD Primary [...] Plan of Treatment Not on file Insurance [facility] MEDICARE ADVANTAGE IDPA IDPA Care Teams Supersonic Engineer Relationship Specialty Start Date End Date Stephanie Mcduffie MD PCP - General Internal Medicine 02/14/19
--- OUTSIDE RECORDS SUMMARY | 2024-12-23 07:11 | XMS_ITS | Patient Health Record ---
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) Active confirmed Cervical spondylosis without myelopathy (513023827) Problem Carpal tunnel syndrome, left (G56.02) Active confirmed Carpal tunnel syndrome (20753243) Problem Cubital tunnel syndrome, left (G56.22) Active confirmed Lesion of ulna r nerve (621355487) VITAL SIGNS Height 64 in 04/29/2024 Weight 164 lbs 04/29/2024 BMI 28.15 kg/m2 04/29/2024 Encounters Encounter Location Date Provider Diagnosis [facility] [address] [place] [address] 04/08/2024 Luke Lees [facility] [address] [place] [address] 04/29/2024 Luke Lees Cervical pain M54.2 ; [...] Insured Coverage Start Date Coverage End Date [facility] Medicare Advantage PPO [address] [address] [place] [address] [phone] [id number] Mj Diaz Self - patient is the insured MEDICAL (GENERAL) HISTORY Medical History History ICD Code Hypertension Diabetes Neck pain Back pain Numbness in hands Depression Anxiety Bipolar disorder Admits to being hospitalized for psychia tric condition Admits to h/o drug/chemical dependency Surgical History Surgery Date(Month/Year) Appendectomy Hernia Eye
--- OUTSIDE RECORDS SUMMARY | 2024-12-23 07:11 | XMS_ITS ---
Author Organization [facility], Address [address] [facility] [address] [place] [address] Care Team Providers Care Manager Retail Name Role Phone Ling Mcduffie Primary Care Provider Luke Arriaga Unavailable [phone] Keon Rivers Unavailable Unavailable REASON FOR VISIT Lumbar Encounters Encounter Location Date Provider Diagnosis [facility] [address] [facility] [address] [place] [address] 04/08/2024 Luke Lees PLAN OF TREATMENT No Information
--- OUTSIDE RECORDS SUMMARY | 2024-12-23 07:12 | XMS_ITS | CONTINUITY OF CARE DOCUMENT ---
Author Name alfonso josephangel Address Unknown Organization [facility] Address [address] [place] [address] Phone [phone] Care Team Providers Care Inspector Watch [employer] Name Role Phone Sean Burris MD Unavailable [phone] ANA LAURA MANZANARES MD Unavailable [phone] ANA LAURA MANZANARES MD Unavailable PROBLEMS Condition Status Date Provider Notes Tobacco abuse active Sean Burris MD Preoperative cardiovascular examination active Sean Burris MD IVORY - on CPAP active Sean Burris MD Bipolar disorder active Sean Burris MD Hypertension active Sean Burris MD Hyperlipidemia active Sean Burris MD Depression active Sean Burris MD Anxiety active Sean Burris MD (History of) Cardiology examination active Sean Burris MD ENCOUNTERS Date Type Provider Location Encounter Diag nosis 11/05 - 11/05 In-person encounter Office Visit Sean uBrris MD [facility] Card[facility] examinationAnxietyDepressionHyperlipidemiaHypertensi onBipolar disorderOSA - on [...] tablet extended release 24 hr active Sean Bruris MD rosuvastatin 40 mg tablet active Sean Burris MD SOCIAL HISTORY Date Observation Value Provider drug use no Sean Burris MD personal history of marijuana use yes Sean Burris MD smoking history, total pack/day 1/2 Prateek cigarette use yes Prateek susan enrique smoking status Current every day smoker [facility] INSURANCE PROVIDERS Payer name Policy type / Coverage type [place] [employer] party ID [employer] Medicaid 1 [id number] [facility] [id number] Other [id number] ADVANCE DIRECTIVES Name Date DISCUSSED - NO [...] from therapy and should continue use. Sean uBrris MD Cardiology: H is updated medication list [...]
--- OUTSIDE RECORDS SUMMARY | 2024-12-23 07:12 | XMS_ITS ---
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
[2024-12-23 07:52] LABS: Basophils Absolute Auto 0.1 K/mm3 (0.0-0.1); Basophils Percent Auto 0.7 % (0.2-1.2); Eosinophils Absolute Auto 0.3 K/mm3 (0-0.3); Eosinophils Percent Auto 3.5 % (0-4.4); Hematocrit 45.8 % (42.0-52.0); Hemoglobin 14.6 g/dL (14.0-18.0); Immature Granulocyte Absolute 0.02 K/mm3 (0.00-0.031); Immature Granulocyte Percent A 0.3 % (0-0.5); Lymphocytes Absolute Auto 2.42 K/mm3 (0.9-3.2); Lymphocytes Percent Auto 32.6 % (18.3-44.2); Mean Corpuscular HGB Conc 31.9 g/dl (32-36); Mean Corpuscular Hemoglobin 29.6 pg (26-34); Mean Corpuscular Volume 92.9 fl (80-100); Mean Platelet Volume 10.7 fl (7.4-10.4); Monocytes Absolute Auto 0.8 K/mm3 (0.1-0.6); Monocytes Percent Auto 10.8 % (2.6-8.5); Neutrophils Absolute Auto 3.9 K/mm3 (1.3-6.7); Neutrophils Percent Auto 52.1 % (45.5-73.1); Platelet Count Result 264 k/mm3 (150-375); Red Blood Count 4.93 M/mm3 (4.6-6.20); Red Cell Distribution Width 12.4 % (11.5-14.5); White Blood Count 7.4 K/mm3 (4.5-10.0)
[2024-12-23 08:02] LABS: Alanine Aminotransferase 18 U/L (6-50); Albumin Level 4.5 g/dL (3.5-5.1); Alkaline Phosphatase 69 U/L (38-126); Anion Gap 6 mmol/L (4-12); Aspartate Amino Transferase 20 U/L (17-59); Bilirubin,Total 0.6 mg/dL (0.2-1.3); Blood Urea Nitrogen 11 mg/dL (9-20); Calcium 9.1 mg/dL (8.4-10.2); Carbon Dioxide 29 mmol/L (22-30); Chloride 104 mmol/L (98-107); Cholesterol 156 mg/dL (0-200); Estimated Glomerular Filt Rate > 60; Glucose 107 mg/dL (65-110); HDL Direct 54 mg/dL; Potassium 4.4 mmol/L (3.4-5.0); Sodium 139 mmol/L (137-145); Triglycerides 106 mg/dL (<150)
[2024-12-23 08:10] LABS: Hemoglobin A1C 5.9 % (<5.7)
[2024-12-23 08:13] LABS: LDL Cholesterol Direct 73 mg/dL
[2024-12-23 08:31] LABS: Thyroid Stimulating Hormone 0.896 uIU/mL (0.465-4.680)
[2024-12-23 08:58] LABS: Creatinine Urine 114.8 mg/dL
[2024-12-23 09:04] LABS: MALB Creatinine Ratio < 5.2 mg/g (0-30); Microalbumin Urine Random < 6.0 mg/L (0-16.7)
== END 2024-12-23 07:04 | disposition home or self-care (01) ==
PROVIDERS: PCP Internal Medicine; Visit Provider Internal Medicine
DX: E78.5 Hyperlipidemia, unspecified (principal); E11.9 Type 2 diabetes mellitus without complications
CPT/HCPCS: 36415; 80053; 80061; 82043; 83036; 84439; 84443; 85025

== ENCOUNTER 2025-03-24 06:48 | Outpatient (CLI) | payer MEDICARE, MEDICAID, SELFPAY ==
--- OUTSIDE RECORDS SUMMARY | 2025-03-24 06:55 | XMS_ITS | Continuity of Care Document ---
Author Organization [facility] Address [address] [place] [address] [address] [place] [address] Phone Care Team Providers Care Didactic Program In Dietetics Director Name Role Phone Stefanie Betancur Unavailable Unavailable Procedures Procedure Date Post-op Follow-up Visit Post-op Follow-up Visit Revise Two Eye Muscles Eye Suture During Surgery Office Consultation Advance Directives Directive Yes / No Effective Date File Name No Information Encounters Encounter Description Practice Location Reason(s) For Visit Diagnoses Date Provider Providers Copied on Encounter [facility], [address] [place] [address] [address], [place], [place], [id number], [place] tel:[phone] [facility] No Information Dec-3 1-200 9 Gypsy Bendern. [address] , [address], [place], [address], [place]. tel:[phone] [facility], [address] [place] [address] [address], [place], [place], [id number], [place] tel:[phone] [facility] No Information Dec-1 0-200 9 Gypsy Watts. [address] , [address], [place], [address], [place]. tel:[phone] [facility], [address] [place] [address] [address], [place], [place], [address], [place] tel:[phone] [facility] No Information Dec-0 7-200 9 Gypsy Bendern. [address] , [address], [place], [address], [place]. tel:[phone] Office Consultation [facility], [address], [place], [place], [address], [place] tel:[phone] [facility] No Information 5-200 9 Betancur Stefanie. [address], [place], [address], [place]. tel:[phone] Referring Provider: Juanito Lama OD D, [address], [place], [address]. tel:[phone] Family History Family Member Type Diagnosis Age At Onset No Information Payers Payer name Insurance type Covered green party ID Authoriza tion(s) Medicare [facility] [id number] Medicaid [facility] [id number] Social History Type Description Quantity Date Captured [...]
--- OUTSIDE RECORDS SUMMARY | 2025-03-24 06:55 | XMS_ITS ---
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
--- OUTSIDE RECORDS SUMMARY | 2025-03-24 06:55 | XMS_ITS ---
Author Organization [facility], Address [address] [facility] [address] [place] [address] Care Team Providers Care Pyrotechnist Name Role Phone Ling Mcduffie Primary Care Provider Luke Arriaga Unavailable [phone] Keon Rivers Unavailable Unavailable REASON FOR VISIT Lumbar Encounters Encounter Location Date Provider Diagnosis [facility] [address] [facility] [address] [place] [address] 04/08/2024 Luke Lees PLAN OF TREATMENT No Information
--- OUTSIDE RECORDS SUMMARY | 2025-03-24 06:55 | XMS_ITS | Clinical Summary ---
Author Organization [facility] [address] [place] [address] Care Team Providers Care Director Of Advertising Sales Name Role Phone Stephanie Mcduffie MD Primary [...] P M CDT Height 162.6 cm (5' 4) 06/02/2024 2:28 PM CDT Body Mass Index [...] 10/29/2021, Additional history exists Influenza Vaccine (#1) 2025 , 07/21/2022, 06/25/2021, Additional history exists DTaP/Tdap/Td Vaccine (2 - Td or Tdap) 06/17/2029 06/17/2019 Insurance [facility] AD[facility]AGE [facility] IDPA UHC MEDICARE ADVANTAGE IDPA IDPA Care Teams Director Of Advertising Sales Relationship Specialty Start Date End Date Stephanie Mcduffie MD PCP - General Internal Medicine 02/14/19
--- OUTSIDE RECORDS SUMMARY | 2025-03-24 06:55 | XMS_ITS | Data Portability ---
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 Name Role Phone LING MCDUFFIE Primary Care Provider LING MCDUFFIE Referring Provider AYDEN BURRIS Business Proposal Rep VALERIANO GANN Orthopedic Surgeon [phone] ADRIANA DAY Orthopedic Surgeon KURTIS POWER Armored Car Messenger Assessment Encounter Date Assessment Date Assessment LastModified by Organization Details LastModified Time 12/22/2024 12/22/2024 05/21/2023: Hepatitis panel Neg GGT: Neg 08/06/2023: A1C 6.3H TG 197 ALT 55H 11/05/2023: A1C 5.8 03/29/2024: A1C 5.6 08/08/2024: A1C 6.0 11/20/2024: WBC 12.7 Gluc 152 Not available 12/21/2024 14:11:53 01/20/2025 01/20/2025 50 year old patient presents today for 1st postop follow-up after right cubital tunnel release on 01/03/25. He states he is doing well overall, 6/10 pain. He states it was more painful on this side than it was the contralateral arm and he feels very sore. He states it hurts to lift a large soda and he has stiffness in the elbow. He denies any numbness and tingling in the hand since the surgery. Physical exam: Dressing was removed. Incision is clean dry and intact without signs and symptoms of infection. Steri-Strips were placed. Range of motion slightly limited in flexion due to stiffness, 0-120. Tenderness with palpitation around incision. Sensation intact. He states he has tried taking Tylenol for the pain but is not as helpful. We will provide him with 10 more pain pills and then he should alternate Tylenol and ibuprofen. We discussed working on gentle range of motion exercises now that he is out of the dressing and incisional care and when to call the office if there are changes. We discussed limiting lifting with the right arm until the incision is fully healed. We will see him back in 4 weeks for recheck. He is in agreement with this plan. Not available 01/20/2025 09:12:02 02/17/2025 02/17/2025 50-year-old patient presents today for postop appointment after right elbow cubital tunnel release on 01/03/2025. He states he is doing well after our last appointment but a week later he injured the arm while cutting the grass. Since then he has has pain and numbness around the elbow. He denies any numbness or tingling that shoots down the arm into the fingers. He states he has pain with lifting and sometimes drops things due to the pain. He has tried tylenol and ibuprofen which has not helped. Physical exam: Incision is clean dry and intact at elbow. Range of motion without restrictions. Reports numbness to the touch around incision and elbow. No numbness in forearm or fingers. Good gym manager strength. We discussed he may be having inflammation in the elbow after his injury that is causing his symptoms. We will try a course of PT and steroids. He has diabetes so we discussed extensively the effects of steroids on BS. He states he has taken them in the past and did not have issues but will monitor his BS. We will give him restrictions of no use of right arm for work until we see him back in 4-6 weeks. He is in agreement with this plan. Not available 02/17/2025 10:51:58 03/22/2025 03/22/2025 Assessment: Nicotine smoke: 2 ppd 1996-present = 56 pack years Rhinitis with postnasal drip TB [...] 07/14/24 102 ng/mL Ferritin 10/21/24 92 ng/mL Ferritin 03/22/25 111 ng/mL Continue Atrovent nasal spray 0.06% 1 spray to each nostril up to 4 times a day for postnasal drip. Nicotine cessation counseling provided. [place] for quitting nicotine include getting ready, getting [...] in Quit For Life program Registering at [email or web address].[email or web address] Making a call to 6-998-FPDF-NOW ( ). A strong, clear, personalized message [...] failure or relapse. Patient can enroll in [facility]'s smoking cessation class through Kath Mckeon [...] the patient. Average apnea/hypopnea index (AHI) is 1.1. Patient used PAP > 4 hours 100% of the time. PAP is set at 15-17 cmH2O. PAP will remain at 15-17 cmH2O. Keep EPR +3 tank maker wood. Keep ramp off. Keep humidifier off. Keep [...] carrier. Patient will setup an appointment with [employer] Lissie Patient for supplies and pressure adjustments. A [...] records to PCP for further management. Follow-up: [address] and methacholine challenge testing Not available 03/22/2025 15:22:03 03/23/2025 03/23/2025 05/21/2023: Hepatitis panel Neg GGT: Neg 08/06/2023: A1C 6.3H TG 197 ALT 55H 11/05/2023: A1C 5.8 03/29/2024: A1C 5.6 08/08/2024: A1C 6.0 11/20/2024: WBC 12.7 Gluc 152 Not available 03/23/2025 18:30:29 Plan of Treatment Reminders Order Date Submit Date Provider Last Modified By Organization Details Last Modified Time Details Appointments Any 15 2024 09:15A Sara sanders MD Not available Not available Not available Lab CMP, serum or plasma 2024 025 [employer] [facility], [address], [place], [address], 03/23/2025 18:18:04 CBC w/ auto diff 2024 025 [employer] [facility], [address], [place], [address], 03/23/2025 18:18:06 T4, free, serum [facility] [address], [place], [address], 03/23/2025 18:18:08 TSH, serum or plasma 2024 [facility], [address], [place], [address], 03/23/2025 18:18:03 lipid panel, serum 2024 025 [facility], [address], [place], [address], 03/23/2025 18:18:04 CBC w/ auto diff [address] - Outpatient Lab, [address] [place], [address], 03/23/2025 18:17:58 HbA1c (hemoglob in A1c), blood 2024 025 [facility], [address], [place], [address], 03/23/2025 18:18:05 microalbu min, urine 2024 025 [facility], [address], [place], [address], 03/23/2025 18:18:07 ferritin, serum or plasma [address] Outpatient Lab, [address] [place], [address], 03/22/2025 10:33:08 CMP, serum or plasma 2024 025 [facility], [address], [place], [address], 12/23/2024 11:02:06 CBC w/ auto diff 2024 025 [employer] [facility], [address], [place], [address], 12/22/2024 10:06:56 T4, free, serum 2024 025 [facility], [address], [place], [address], 12/22/2024 10:05:56 TSH, serum or plasma 2024 025 [employer] [facility], [address], [place], [address], 12/23/2024 11:09:58 lipid panel, serum 2024 025 [employer] [facility], [address], [place], [address], 12/23/2024 11:03:08 CBC w/ auto diff 2024 025 [facility] - Outpatient Lab, [address] [place] [address], [address], 12/23/2024 11:09:58 HbA1c (hemoglob in A1c), blood 2024 025 [employer] [facility], [address], [place], [address], 12/22/2024 10:05:53 microalbu min, urine 2024 025 [employer] [place] [facility], [address], [place], [address], 12/23/2024 12:41:44 Referral dermatolo gist referral [address]24 [address] [facility], [address] [place] [address], [address], 03/23/2025 18:25:44 gastroent erologist referral - Please call patient to schedule an appointme nt. Thank you. 2024 025 [email or web address] Larry faria MD, [address], [address], [place], [address], 03/23/2025 18:25:44 pulmonolo gist referral - Please call patient to schedule an appointme nt. Thank you. 2024 025 [email or web address] Kurtis Power MD, [address] [facility], [place], [address], 03/23/2025 18:25:44 cardiolog ist referral - Please call patient to schedule an appointme nt. Thank you. 2024 025 [email or web address] [place], [address] [facility], [address], [place], [address], 03/23/2025 18:25:44 podiatris t referral - Please call patient to schedule an appointme nt. Thank you. 2024 025 [email or web address] Blake Suarez DPM, [address] [facility], [address], [place], [address], 03/23/2025 18:25:43 physical therapist referral - please contact patient to schedule 2024 025 [facility] (Outpatient Physical Therapy), [address], [place], [address], 02/17/2025 12:00:55 gastroent erologist referral - Please call patient to schedule an appointme nt. Thank you. 2024 025 NEIL Jacobson MD, [address] [facility], [address], [place], [address], 12/30/2024 10:26:17 pulmonolo gist referral - Please call patient to schedule an appointme nt. Thank you. 2024 025 [email or web address] Kurtis Power MD, [address] [facility], [place], [address], 12/29/2024 11:07:37 cardiolog ist referral - Please call patient to schedule an appointme nt. Thank you. 2024 025 [place], [address] [address] , [facility] [address], [place], [address], 12/29/2024 12:08:00 podiatris t referral - Please call patient to schedule an appointme nt. Thank you. 2024 025 alejandro Suarez DPM, [address] [facility], [address], [place], [address], 03/22/2025 09:23:33 Procedures colonosco py screening (PROC) - Please call patient to schedule an appointme nt. Thank you. 2024 025 rose [email or web address] Larry faria MD, [address] [facility] [address], [facility] [address], [place], [address], 03/23/2025 18:18:03 colonosco py screening (PROC) - Please call patient to schedule an appointme nt. Thank you. 2024 025 ROGELIO faria MD, [address] [facility] [address], [facility] [address], [place], [address], 12/29/2024 12:11:31 Surgeries None recorded. Imaging LDCT, chest, for lung cancer screening [address] [facility], [address] [facility] [address], [place], [address], 03/22/2025 10:33:07 Medication Orders ferrous sulfate 325 mg (65 mg iron) tablet 2024 025 [id number], [address] [place], [place], [id number], 03/22/2025 10:33:15 Vitamin C 500 mg tablet 2024 025 [id number], [address] [place], [place], [id number], 03/22/2025 10:33:12 ipratropi um bromide 42 mcg (0.06 %) nasal spray 2024 025 NIEL [id number], [address] [facility], [place], [place], [id number], 03/22/2025 10:33:24 prednison e 10 mg tablets in a dose pack 2024 025 [email or web address] [facility] #72171, [address] [facility], [place], [place], [id number], 02/17/2025 10:25:37 hydrocodo ne 5 mg-acetam inophen 325 mg tablet 2024 025 [email or web address] [facility]80009, [address] [facility], [place], [place], [id number], 03/23/2025 17:00:18 Patient TargetsNo targets recorded. Patient Instructions Encounter Date Encounter Id Patient Instructions Last Modified By Organization Details Last Modified Time 12/22/2024 [id number] diabetic eye exam* [email or web address] Not available 12/22/2024 10:16:45 03/22/2025 [id number] methacholine challenge* Not available 03/22/2025 10:39:12 03/23/2025 [id number] diabetic eye exam* Not available 03/23/2025 18:18:02 Reason for Referral Physician Industrial Referral for Type 2 diabetes mellitus without complication Please call patient to schedule an appointment. Thank you. Referring Physician: Ling Mcduffie, Internal Medicine, Encounter Date: 12/22/2024 Service Line Coordinator Referral for Steatotic liver disease Please call patient to schedule an appointment. Thank you. Referring Physician: Ling Mcduffie, Internal Medicine, Encounter Date: 12/22/2024 Armored Car Messenger Referral for C hronic cough Please call patient to schedule an appointment. Thank you. Referring Physician: Ling Mcduffie Internal Medicine, Encounter Date: 12/22/2024 Business Proposal Rep Referral for Es sential hypertension Please call patient to schedule an appointment. Thank you. Referring Physician: Ling Mcduffie Internal Medicine, Encounter Date: 12/22/2024 Physical Therapist Referral for Entrapment of right ulnar nerve please contact patient to schedule Referring Physician: Adriana aDy, Orthopedic Surgery, Encounter Date: 02/17/2025 Physician Industrial Referral for Type 2 diabetes mellitus without complication Please call patient to schedule an appointment. Thank you. Referring Physician: Ling Mcduffie Internal Medicine, Encounter Date: 03/23/2025 Service Line Coordinator Referral for Steatotic liver disease Please call patient to schedule an appointment. Thank you. Referring Physician: Ling Mcduffie Internal Medicine, Encounter Date: 03/23/2025 Armored Car Messenger Referral for C hronic cough Please call patient to schedule an appointment. Thank you. Referring Physician: Ling Mcduffie Internal Medicine, Encounter Date: 03/23/2025 Business Proposal Rep Referral for Es sential hypertension Please call patient to schedule an appointment. Thank you. 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 [facility] [address], [place], [address], 12/02/2024 18:58:09 12/08/19 25 12/07/2024 elect romyo gram + nerve condu ction study No observ ation record ed. [email or web address] [facility] [address], [place], [address], 12/08/2024 11:14:06 Result Notes None recorded. Problems Name Problem SNOMED Code Status Onset Date Resolution Date Notes Provider Name and Address Organization Details Recorded Time Restless legs 01811364 Active Kurtis Power MD [address], [address], [place], [address], [employer] 14:42:07 Obstructive sleep apnea syndrome 71193119 Active Kurtis Power MD [address], [address], [place], [address], [employer] 14:41:57 Anxiety 26835802 Active 2019 Kurtis Power MD [address], [address], [place], [address], [employer] 14:40:20 Gastroesoph ageal reflux disease without esophagitis 087865507 Active 2022 Kurtis Power MD [address], [address], [place], [address], [employer] 14:40:51 Hyperlipide ximena 48483373 Active 2022 Kurtis Power MD [address], [address], [place], [address], [employer] 14:40:58 Moderate recurrent major depression 56643984 Active 2022 Kurtis Power MD [address], [address], [place], [address], [employer] 14:41:46 Essential hypertensio n 53772582 Active 2022 Kurtis Power MD [address], [address], [place], [address], [employer] 14:40:47 Erectile dysfunction 562407034 Active 2022 Kurtis Power MD [address], [address], [place], [address], [employer] [place] [employer] [facility] 14:40:43 Smoker 16437650 Active 2022 Kurtis Power MD [address], [address], [place], [address], [facility] [employer] [facility] 14:42:11 Carpal tunnel syndrome of right wrist 9279025171095 08 Active 2022 Kurtis Power MD [address], [address], [place], [address], [facility] [employer] [facility] [employer] [facility] 14:40:23 Steatotic liver disease 125497260 Active 2022 Kurtis Power MD [address], [address], [place], [address], [facility] [employer] [facility] 14:42:17 Ulnar nerve entrapment at elbow 093242071 Active 2023 Kurtis Power MD [address], [address], [place], [address], [facility] [employer] [facility] [employer] [facility] 14:42:26 Cervical radiculopat hy 65315596 Active 2023 Kurtis Power MD [address], [address], [place], [address], [facility] [employer] [facility] 14:40:36 Iron deficiency 94560255 Active 2023 Kurtis Power MD [address], [address], [place], [address], [facility] [employer] [facility] [employer] [facility] 14:41:01 Allergic rhinitis 01296978 Active 2023 Kurtis Power MD [address], [address], [place], [address], [facility] [employer] [facility] 14:40:18 Type 2 diabetes mellitus without complicatio n 366369369 Active 2023 Kurtis Power MD [address], [address], [place], [address], [facility] [employer] [facility] 14:42:20 Posterior rhinorrhea 49035384 Active 2023 Kurtis Power MD [address], [address], [place], [address], [employer] [place] [employer] [facility] 14:42:44 Solitary nodule of lung 811265893 Active 2023 Kurtis Power MD [address], [address], [place], [address], [employer] [place] [employer] [facility] 5 14:42:14 Entrapment of right ulnar nerve 6378705246902 05 Active 2024 Kurtis Power MD [address], [address], [place], [address], [facility] [place] [employer] [facility] 5 10:28:52 Numbness of hand 134589163 Active 2024 Ling sanders MD [address], [address], [place], [address], [employer] [place] [employer] [facility] 5 17:31:20 Pain of right elbow joint 4580253903367 9109 Active 2024 Ling sanders MD [address], [address], [place], [address], [employer] [place] [employer] [facility] 5 17:31:20 Chronic cough 59125959 Active 2024 Ling sanders MD [address], [address], [place], [address], [employer] [place] [facility] 5 17:31:20 Leukocytosi s 239715022 Active 2024 Ling sanders MD [address], [address], [place], [address], [employer] [facility] [employer] [facility] 5 17:31:20 Lesion of skin of face 644439459024 Active 2024 Ling sanders MD [address], [address], [place], [address], [employer] [place] [employer] [facility] 18:19:26 Notes:Medical History: Nicot ine use Depression 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 R>L tinnitus Rhinitis with postnasal drip Eosinophils 240/uL IgE 28 IU/mL AAT PiMM 160 mg% (+) Quantiferon TB Gold, incarcerated 2212-5864, on Rifampin RLL nodule Granulomatous disease (chest, liver) Obesity with very severe OSAHS, AHI = 54, on autoCPAP c/o [facility] Patient Hypertension Hyperlipidemia T2DM NAUN Hepatic steatosis Left inguinal hernia ED Iron deficiency RLS Cervical radiculopathy T11-T12 DDD T12 fracture Left ulnar neuropathy Right elbow OA Right CTS Procedure History: Appendectomy 1986 Umbilical herniorrhaphy 1988 Right esotropia correction 2013 Right inguinal herniorrhaphy 2019 EGD 2024 Bilateral cubital tunnel release 2024 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 Procedures Surgical History Date Name Laterality Status Provider Name and Address Organization Details Recorded Time 01/04/20 25 decompression of ulnar nerve at elbow completed Radha Vallecillo Jamil [facility] 01/19/2025 08:57:03 09/06/19 25 procedure on elbow completed Radha Vallecillo [facility] 12/08/2024 09:05:30 03/29/20 24 Medicare Wellness CPT Code, Initial completed Dandy Elizabeth LPN [facility] 03/28/2024 10:34:05 Hernia Surgery completed Ama Cabrera Jamil [facility] 05/07/2023 10:13:32 Eye Surgery completed Ama Cabrera Jamil [facility] 05/07/2023 10:13:37 Hernia Repair completed Ama Cabrera Jamil [facility] 05/07/2023 10:13:54 Imaging Results None recorded. Procedure [...] MOUTH EVERY 4 TO 6 HOURS NEEDED 03/23 completed Not Available Not Available Not Available [...] t Available sertraline 100 mg tablet TAKE 2 TABLETS BY MOUTH EVERY DAY IN THE MORNING FOR DEPRESSIO N OR ANXIETY OR SYMPTOMS active Not Available Not Available No t [...] completed Not Available Not Available Not Available prednisone 10 mg tablets in a dose pack Take 1 tab by mouth, 3 times a day for 3 daysTake 1 tab by mouth 2 times a day for 2 daysTake 1 tab by mouth once a day for 1 day 2024 active Not Available Not Available Not Avai lable meloxicam 7.5 mg tablet TK 1 T [...] TABLET BY MOUTH EVERY DAY AT BEDTIME active Not Available Not Available No t [...] 20 mg by injection route. 03/06 completed [facility]: [phone] [id number] [phone] Not Available Not Available [...] TAKE 1 CAPSULE BY MOUTH EVERY DAY DIRECTED active Not Available Not Available No t [...] bromide 42 mcg (0.06 %) nasal spray Adams 1 spray 4 times a day by [...] mg 24 hr tablet, extended release TAKE ONE TABLET BY MOUTH EVERY MORNING active Not Available Not Available No t [...] Not Available Not Available Not Available Fluvirin 9799-9781 45 mcg (15 mcg x 3)/0.5 mL [...] Body weight Body temperature Heart rate Systolic And Diastolic Provider Name and Address Organization Details Last Updated DateTime 5 162.56 cm 28.5 kg/m2 95565.3 3 g 97.5 [degF] 66 /min 104/60 mm[Hg] Ama Charlesleila [facility] [employer] [facility] 09:53:51 Date Recorded Body height Provider Name an d Address Organization Details Last Updated DateTime 01/20/2025 162.56 cm Radha Vallecillo [facility] I L [employer] [facility] 01/20/2025 08:51:56 Date Recorded Body height Body mass index (BMI) Body weight Pain severity - 0-10 verbal numeric rating [Score] - Reported Provider Name and Address Organization Details Last Updated DateTime 02/17/2025 162.56 cm 29.6 kg/m2 55490.32 g 2 Radha Sargentestela [facility] [employer] [facility] [employer] [facility] 02/17/2025 09:08:44 Date Recorded Heart rate Heart rate Respiratory rate Provider Name and Address Organization Details Last Updated DateTime 03/22/2025 67 /min 67 /min 14 /min Kurtis Power MD [address] [place] [address], [address], [facility] [employer] 03/22/2025 15:23:13 Date Recorded Body height Body mass index (BMI) Body weight Body temperature Oxygen saturation Oxygen saturation in Arterial blood by Pulse oximetry Systolic And Diastolic Provider Name and Address Organization Details Last Updated DateTime 5 162.56 cm 28 kg/m2 94572.5 6 g 98.8 [degF] 98 % 98 % 120/74 mm[Hg] Lina Laguna MA [facility] [employer] [facility] 10:18:59 Date Recorded Body height Body mass index (BMI) Body weight Body temperature Heart rate Oxygen saturation Oxygen saturation in Arterial blood by Pulse oximetry Pain severity - 0-10 verbal numeric rating [Score] - Reported Systolic And Diastolic Provider Name and Address Organization Details Last Updated DateTime 162.56 cm 27.8 kg/m2 44219.9 6 g 98.4 [degF] 85 /min 95 % 95 % 3 120/62 mm[Hg] Verenice Kwan MA [employer] 16:59:25 Social History Question Answer Notes LastModified by Organization Details LastModified Time Tobacco Smoking Status Current Every Day Smoker REGINALD Kerr, [employer] 05/07/2023 10:11:27 Do You Have An Advance Directive? No Information not available 05/07/2023 How Many Years Have You Consumed Alcohol? 30 Information not available 03/29/2024 What Is Your Level Of Caffeine Consumption? Moderate [id number] Information not available 05/15/2023 In The 14 Days Before Symptom Onset, Have You Had Close Contact With A Laboratory-confi rmed COVID-19 While That Case Was Ill? No Information not available 05/07/2023 In The 14 Days Before Symptom Onset, Have You Had Close Contact With A Person Who Is Under Investigation For COVID-19 While That Person Was Ill? No Information not available 05/07/2023 What Type Of Diet Are You Following? REGULAR Information not available 05/07/2023 Which Illicit Or Recreational Drugs Have You Used? Marijuana Flower Form [email or web address] Information not available 05/15/2023 What Is The Highest Grade Or Level Of School You Have Completed Or The Highest Degree You Have Received? [id number] Information not available 05/07/2023 Do You Have An Electrostatic Air Filter? No Information not available 11/24/2023 Have There Been Any Changes To Your Family Or Social Situation? Yes Last May. He Moved In With His Mom And Brother [email or web address] Information not available 03/29/2024 What Is The Fluoride Status Of Your Home? Unknown Information not available 05/07/2023 Are There Any Guns Present In Your Home? No Information not available 05/07/2023 Do You Have A Humidifier? No Information not available 11/24/2023 How Many Years Have You Used Illicit Or Recreational Drugs? 31 [email or web address] Information not available 03/29/2024 [facility] 05/07/2023 Do You Have A Medical Power Of Osteologist? No Information not available 05/07/2023 Do You Have Moisture Problems In Your Home? No Information not available 11/24/2023 What Was The Date Of Your Most Recent Tobacco Screening? 03/22/2025 [email or web address] Information not available 03/22/2025 What Is Your Current Pack Years? [email or web address] Information not available 05/15/2023 Have You Ever Been Counseled For Unhealthy Alcohol Use? No [email or web address] Information not available 03/29/2024 Do You Have Any Pets? Yes 2 Cats [email or web address] Information not available 03/29/2024 What Is Your [...] To Smoke? Yes Information not available 05/07/2023 Are There Any Smokers In Your House? Yes Information not available 05/07/2023 How Much Tobacco Do You Smoke? 1 PPD [email or web address] Information not available 03/29/2024 Do You Use Sunscreen Routinely? No Information not available 11/24/2023 Has Tobacco Cessation Counseling Been Provided? Yes [email or web address] Information not available 03/29/2024 On What Date Was Tobacco Cessation Counseling Provided? 03/23/2025 Information not available 03/23/2025 How Many Years Have You Smoked Tobacco? 30 [email or web address] Information not available 05/15/2023 Have You Recently Traveled Abroad? No Information not available 05/07/2023 Have You Used IV Drugs? No [email or web address] Information not available 05/15/2023 How Many Days In The Past Year Have You Consumed 5 Or More Drinks? 0 [email or web address] Information not available 03/29/2024 Sex: Male Functional Status Question Answer Note LastModified by Organizat ion Details LastModified Time Do you use any illicit or recreational drugs? Yes Information not available 05/07/2023 Do you or have you ever used any other forms of tobacco or nicotine? Yes Information not available 05/07/2023 What is your level of alcohol consumption? Occasional Information not available 05/07/2023 Do you or have you ever used smokeless tobacco? Former smokeless tobacco user Information not available 05/07/2023 Are you currently employed? No Information not available 05/07/2023 Have you been exposed to chemicals or toxins? Yes Lived on a farm Information not available 10/25/2024 Do you or have you ever used e-cigarettes or vape? Never used electronic cigarettes tried it in the past but never really liked it [email or web address] Information not available 03/29/2024 What is your exercise level? Occasional Information not available 05/07/2023 Mental Status Question Answer Note LastModified by Organization D etails LastModified Time Do you feel stressed (tense, restless, nervous, or anxious, or unable to sleep at night)? [id number] [email or web address] Information not available 03/29/2024 Family History Relationship Description Onset Age of [...] Not available 05/07 10:10:01 Maternal Uncle Malignant neoplasm of lung Not available 2022 10:10:08 Sister [...] preservative 9 completed Dandy Elizabeth LPN null, [facility] 03/24/2024 14:43:42 Tdap 9 completed Dandy Elizabeth LPN null, [facility] 03/24/2024 14:43:42 influenza, unspecified formulation 6 completed Dandy Elizabeth LPN null, [facility] 03/24/2024 14:43:42 COVID-19, mRNA, LNP-S, PF, 30 mcg/0.3 mL dose 2 completed [facility]/2024 14:43:42 COVID-19, mRNA, LNP-S, PF, 30 mcg/0.3 mL dose 1 completed [facility] 03/24/2024 14:43:42 COVID-19, mRNA, LNP-S, PF, 30 mcg/0.3 mL dose 1 completed [facility] 03/24/2024 14:43:42 COVID-19, mRNA, LNP-S, bivalent, PF, 30 mcg/0.3 mL dose 2 completed BORA Cabral, [facility] 03/24/2024 14:43:42 Influenza, split virus, trivalent, PF 6 completed Dandy Elizabeth LPN null, [facility] 03/24/2024 14:43:42 Influenza, split virus, quadrivalent, PF 0 completed Dandy Elizabeth LPN null, [facility] 03/24/2024 14:43:42 Influenza, split virus, quadrivalent, PF 9 completed Dandy Elizabeth LPN null, [facility] 03/24/2024 14:43:42 Influenza, split virus, quadrivalent, PF 1 completed Dandy Elizabeth LPN null, [facility] 03/24/2024 14:43:42 Influenza, split virus, quadrivalent, PF 2 completed Dandy Elizabeth LPN null, [facility] 03/24/2024 14:43:43 Influenza, MDCK, quadrivalent, PF 3 completed Ama Cabrera RMA null, [facility] 08/17/2024 14:55:25 COVID-19, mRNA, LNP-S, PF, mali-sucrose, 30 mcg/0.3 mL 3 completed Ama Cabrera RMJamil null, [facility] 08/17/2024 14:55:25 Past Encounters Encounter ID Performer Location Encounter Start Date Encounter Closed Date Diagnosis/Indication Diagnosis SNOMED-CT Code Diagnosis ICD10 Code Diagnosis Note [id number] Ling horta MD [facility] 15 [address] [facility], [address] [place] [address] 05/07/2023 09:41:21 05/07/2023 10:55:55 Screening - NAD 596764131 Z13.9 C-scope: Get this Get yearly flu shot, get Tdap if not doneGet COVID 19 vaccine and its boosters [place] [employer] at age 67 years RTC in 3 months, do labs, ER if woe Screening for malignant neoplasm of colon 941650746 Z12.11 Gastroesop hageal reflux disease without esophagitis 159571284 K21.9 EGD 12/29/2018 : Dr Larsen PPI PRN Hyperlipidemia 07501762 E78.5 On rosuvastat in 40mg dailyOn fenofibrat e 145mg dailyGet labs Moderate r ecurrent major depression 01584652 F33.1 On bupropion SR 100mg bidOn doxepin 25mg at bedtimeOn propranolo l 10mg bidOn vraylar 1.5mg dailySees Dr Farris suicidal or homicidal Essential hypertension 62667065 I10 On losartan 50mg dailyDoes well Smoker 60461691 F17.200 Advised to quit smoking! 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 260255203 E11.9 On metformin 500mg bidGet labs Obstructiv e sleep apnea syndrome 41566939 G47.33 On CPAPSees Sydnie Aimee VETERINARY VIRUS SERUM INSPECTOR 05/15/2023 Chronic cough 57814642 R 05.3 He smokes, has noted a chronic dry cough, mild SOB, does see Sydnie also Pain of ri ght elbow joint 0835166017 7728536 M25.521 Get a referral to ortho [id number] Sydnie Yu, [employer] [facility] Pulmonolo [facility] [place] [address] [place] [address] 05/15/2023 15:15:26 05/15/2023 16:19:14 Obstructive sleep apnea syndrome 74271897 G47.33 No data from machine after 2019He [...] and symptomsFo llow up per compliance guidelines [id number] Keon Rivers MD [facility] [place] 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 4233453084 03838 G56.01 Patient has been experienci ng numbness [...] up in 6 weeks for re-evaluat ion [id number] Sydnie Yu, [facility] [place] [address] [place] [address] 07/21/2023 15:17:58 07/21/2023 16:10:31 Obstructive sleep apnea syndrome 26927998 G47.33 New machine set upHe has 100% [...] symptomsHe should follow up in 3-6 months [id number] Ling horta MD [facility] Internal [facility] [place] [address] [facility], [address] [place] [address] 08/06/2023 09:39:45 08/06/2023 10:30:18 Screening - NAD 526953560 Z13.9 C-scope: Get this Get yearly flu shot, get Tdap if not doneGet COVID 19 vaccine and its boosters [place] at age 67 years RTC in 3 months, do labs, ER if worse, he did verbalize his understand ing of the above Screening for malignant neoplasm of colon 043749695 Z12.11 Gastroesop hageal reflux disease without esophagitis 824528007 K21.9 EGD 12/29/2018 : Dr Larsen PPI PRN Hyperlipidemia 70622385 E78.5 On rosuvastat in 40mg dailyOn fenofibrat e 145mg dailyGet labs Moderate r ecurrent major depression 50448347 F33.1 On bupropion SR 100mg bidOn doxepin 25mg at bedtimeOn propranolo l 10mg bidOn vraylar 1.5mg dailySees Dr Farris suicidal or homicidalT violet 08/06/2023 , teary eyed as he has recently lost his Zi Essential hypertension 74377211 I10 On losartan 50mg dailyDoes well Smoker 69953198 F17.200 Advised to quit smoking! 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 999159084 E11.9 On metformin 500mg bidGet labs Obstructiv e sleep apnea syndrome 44083796 G47.33 On CPAPSees Sydnie Yu VETERINARY VIRUS SERUM INSPECTOR 05/15/2023 Chronic cough 99501050 R 05.3 He smokes, has noted a chronic dry cough, mild SOB, does see Sydnie also Pain of ri ght elbow joint 7945687093 2501933 M25.521 Get a referral to ortho Steatotic liver disease 676519709 K76.0 CT chest 05/13/2023 Hepatitis/ GGT: 05/21/2023 : NegUS liver 06/04/2023 : Liver enlargemen tNeeds to see GI [id number] Keon Rivers MD [facility] [place] [address] [place] [address] 08/12/2023 09:26:50 08/12/2023 10:04:08 Pain of left hand 9930333189 34613 M79.780 [id number] Keon Rivers MD [facility] [place] 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 366880309 G56.22 [id number] Ling horta MD [facility] Internal [facility] [place] [address] [facility], [address] [place] [address] 11/05/2023 09:17:41 11/05/2023 09:58:01 Screening - NAD 246772047 Z13.9 C-scope: 02/07/2023 : Next in 2 years Get yearly flu shot, get Tdap if not doneGet COVID 19 vaccine and its boosters [place] at age 67 years RTC in 3 months, do labs, ER if worse, he did verbalize his understand ing of the above Gastroesop hageal reflux disease without esophagitis 514410022 K21.9 EGD 12/29/2018 : Dr Larsen PPI PRN Hyperlipidemia 40618991 E78.5 On rosuvastat in 40mg dailyOn fenofibrat e 145mg dailyGet labs Moderate r ecurrent major depression 84547223 F33.1 On bupropion XL 150mg dailyNot on doxepin 25mg at bedtimeOn propranolo l 10mg bidNot on vraylar 1.5mg dailyOn quetiapine 100mg daily Sees Dr Farris suicidal or homicidal Essential hypertension 92055336 I10 On losartan 50mg dailyDoes well Smoker 75904600 F17.200 Advised to quit smoking! 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 [place] [address] 12/01/2023 09:01:50 12/01/2023 09:26:06 Pain of left shoulder joint 7252129389 3360063 M25.155 [id number] Kurtis Power MD [facility]_[address] [address] 12/14/2023 08:33:55 12/15/2023 08:35:00 Obstructive sleep apnea syndrome 41024993 G47.33 Iron deficiency 91904388 E61.1 [id number] Keon Rivers MD [facility] [place] [address] [place] [address] 12/17/2023 08:49:45 12/17/2023 09:16:39 Pain of left shoulder joint 4699077186 0345009 M25.992 [id number] Kurtis Power MD [facility] [address] [place] [address] 03/14/2024 08:11:40 03/15/2024 08:21:43 Obstructive sleep apnea syndrome 71320714 G47.33 Iron deficiency 11462574 E61.1 [id number] Keon Rivers MD [facility] Orth[facility] [place] [address] [place] [address] 03/16/2024 08:59:34 03/16/2024 10:19:33 Bilateral elbow joint pain 1826034919 4665294 M25.521 M25.570 [id number] Ling horta MD [facility] Internal Med [facility] [address] [address] 03/29/2024 09:21:55 03/29/2024 10:00:34 Screening - NAD 342966381 Z13.9 C-scope: 02/07/2023 : Next in 2 years Get yearly flu shot, get Tdap if not doneGet COVID 19 vaccine and its boosters [place] AAA at age 67 years RTC in 3 months, do labs, ER if worse, he did verbalize his understand ing of the above Gastroesop hageal reflux disease without esophagitis 484760163 K21.9 EGD 12/29/2018 : Dr Larsen PPI PRN Hyperlipidemia 62386003 E78.5 On rosuvastat in 40mg dailyOn fenofibrat e 145mg dailyGet labs Moderate r ecurrent major depression 78069413 F33.1 Not on doxepin 25mg at bedtimeNot on vraylar 1.5mg dailyNot on quetiapine 100mg daily On bupropion XL 150mg dailyOn propranolo l 10mg bidOn sertraline 200mg dailyOn trazodone 100mg daily Sees Dr Farris suicidal or homicidal Essential hypertension 69758531 I10 On losartan 50mg dailyDoes wellDr [place] last OV 11/06/2023 Smoker 62032163 F17.200 Advised to quit smoking! 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 865027813 E11.9 On metformin 500mg bidGet labs Obstructiv e sleep apnea syndrome 35524295 G47.33 On CPAPSees Sydnie Aimee VETERINARY VIRUS SERUM INSPECTOR 05/15/2023 Chronic cough 11884164 R 05.3 He smokes, has noted a chronic dry cough, mild SOB Pain of ri ght elbow joint 3929390385 69801[address] M25.521 Dr Rivers 11/03/2023 Steatotic liver disease 306772974 K76.0 CT chest 05/13/2023 Hepatitis/ GGT: 05/21/2023 : NegUS liver 06/04/2023 : Liver enlargemen tNeeds to see GI Adult heal th examination 286869013 Z00.00 Screening for disorder 633538430 Z13.9 [id number] Ling horta MD [facility] [place] [address] [facility], [address] [place] [address] 04/28/2024 13:55:05 04/28/2024 14:23:02 Screening - NAD 395706080 Z13.9 C-scope: 02/07/2023 : Next in 2 years Get yearly flu shot, get Tdap if not doneGet COVID 19 vaccine and its boosters [place] at age 67 years RTC in 3 months, do labs, ER if worse, he did verbalize his understand ing of the above Gastroesop hageal reflux disease without esophagitis 119186229 K21.9 EGD 12/29/2018 : Dr Larsen PPI PRN Hyperlipidemia 76213200 E78.5 On rosuvastat in 40mg dailyNot on fenofibrat e 145mg dailyGet labs Moderate r ecurrent major depression 62353049 F33.1 Not on doxepin 25mg at bedtimeNot on vraylar 1.5mg dailyNot on quetiapine 100mg daily On bupropion XL 150mg dailyOn propranolo l 10mg bidOn sertraline 200mg dailyOn trazodone 100mg daily Sees Dr Farris suicidal or homicidal Essential hypertension 92419501 I10 On losartan 50mg dailyDoes wellDr Dayton last OV 11/06/2023 Smoker 93478612 F17.200 Advised to quit smoking! 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 866572900 E11.9 On metformin 500mg bidGet labs Obstructiv e sleep apnea syndrome 52124103 G47.33 On CPAPSees Sydnie Yu VETERINARY VIRUS SERUM INSPECTOR 05/15/2023 Next apt 09/12/2024 Chronic cough 32139560 R 05.3 He smokes, has noted a chronic dry cough, no fevers or chillsDoes not want to get tested for COVID 19 or strep or fluGet on Z-packDoes need to see Dr Power Pain of [facility] elbow joint 2063645466 0253530 M25.521 Dr Rivers 11/03/2023 Dr Rivers 03/16/2024 , referred to for his c-spine Steatotic liver disease 280380287 K76.0 CT chest 05/13/2023 Hepatitis/ GGT: 05/21/2023 : NegUS liver 06/04/2023 : Liver enlargemen tNeeds to see GI [id number] Kurtis Power MD [facility] Pul[facility] [address] [address] 05/05/2024 09:16:10 05/06/2024 10:46:39 Obstructive sleep apnea syndrome 11040061 G47.33 Iron deficiency 28889808 E61.1 Chronic cough 85614450 R 05.3 R06.00 T78.40XA D89.9 Smoker 76704268 F17.218 F17.219 Z87.606 [id number] Kurtis Power MD [facility]_[address] [address] 05/16/2024 10:09:47 05/16/2024 14:13:53 Obstructive sleep apnea syndrome 33207157 G47.33 Iron deficiency 06764397 E61.1 Chronic cough 77123383 R 05.3 R06.00 T78.40XA D89.9 Smoker 72674414 F17.218 F17.219 Z87.891 Thickening of pleura 737 06087 J92.9 Z20.1 Posterior rhinorrhea 758 19691 R09.82 [id number] Keon Rivers MD [facility] Ortho [place] [address] [facility] [address] [place] [address] 05/25/2024 08:43:49 05/25/2024 09:26:25 Ulnar nerve entrapment at elbow 188059943 G56.22 [id number] Kurtis Power MD [facility]_[address] [address] 07/13/2024 10:36:50 08/29/2024 10:45:42 Obstructive sleep apnea syndrome 06366324 G47.33 Iron deficiency 97788471 E61.1 Chronic cough 93746034 R 05.3 R06.00 T78.40XA D89.9 Smoker 43579585 F17.218 F17.219 Z87.891 Posterior rhinorrhea 758 91023 R09.82 Solitary n odule of lung 189310808 R91.1 [id number] Kurtis Power MD [facility]_[address] [address] 07/26/2024 08:33:11 08/29/2024 11:27:56 Obstructive sleep apnea syndrome 72162364 G47.33 Iron deficiency 79964613 E61.1 Smoker 75884736 F17.218 F17.219 Z87.891 Posterior rhinorrhea 758 53281 R09.82 Solitary n odule of lung 263265614 R91.1 Dyspnea on exertion 6084 5006 R06.09 R05.9 [id number] Keon Rivers MD [facility] [place] [address] [place] [address] 08/03/2024 10:19:23 08/03/2024 10:58:25 Ulnar nerve entrapment at elbow 625631580 G56.22 [id number] Ling horta MD [facility] Internal [facility] 15 2043 [facility] [address] [place] [address] 08/18/2024 11:08:13 08/18/2024 12:54:07 Screening - NAD 745327895 Z13.9 C-scope: 02/07/2023 : Next in 2 years Get yearly flu shot, get Tdap if not doneGet COVID 19 vaccine and its boosters [place] AAA at age 67 years RTC in 3 months, do labs, ER if worse, he did verbalize his understand ing of the above Gastroesop hageal reflux disease without esophagitis 263656978 K21.9 EGD 12/29/2018 : Dr Lindsay 08/18/2024 :On omeprazole 20mg daily, can do bid PRNGet another referral to GI, will need EGD again, impressed upon patient to obtain this JOHN Hyperlipidemia 98481854 E78.5 On rosuvastat in 40mg dailyNot on fenofibrat e 145mg dailyGet labs Moderate r ecurrent major depression 75390820 F33.1 Not on doxepin 25mg at bedtimeNot on vraylar 1.5mg dailyNot on quetiapine 100mg daily On bupropion XL 150mg dailyOn propranolo l 10mg bidOn sertraline 200mg dailyOn trazodone 100mg daily Sees Dr Farris suicidal or homicidal Essential hypertension 22370404 I10 On losartan 50mg dailyDoes wellDr Dayton last OV 11/06/2023 Smoker 43733603 F17.200 Advised to quit smoking! 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 023040360 E11.9 On metformin 500mg bidGet labs Obstructiv e sleep apnea syndrome 48844704 G47.33 On CPAPSees Sydnie Yu VETERINARY VIRUS SERUM INSPECTOR 05/15/2023 Next apt 09/12/2024 Chronic cough 68546717 R 05.3 He smokes, has noted a chronic dry cough, no fevers or chillsDoes not want to get tested for COVID 19 or strep or fluGet on Z-packDoes need to see Dr Power Pain of ri ght elbow joint 5333444248 0043851 M25.521 Dr Rivers 11/03/2023 Dr Rivers 03/16/2024 , referred to [facility] for his c-spine Dr Gann 06/08/2024 , f/u PRNDr Tita 08/03/2024 , to get elbow surgery Steatotic liver disease 822281942 K76.0 CT chest 05/13/2023 Hepatitis/ GGT: 05/21/2023 : NegUS liver 06/04/2023 : Liver enlargemen tNeeds to see GI [id number] Keon Rivers MD [facility] [place] [address] [place] [address] 09/16/2024 09:17:46 09/16/2024 09:36:29 Ulnar nerve entrapment at elbow 058978819 G56.22 [id number] Keon Rivers MD [facility] Orth[facility] [place] 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 [place] [address] 12/14/2024 09:00:15 12/14/2024 09:26:47 Ulnar nerve entrapment at elbow 339340325 G56.22 [id number] Ling horta MD [facility] Internal [facility] 15 [address] [facility], [address] [address] [place] [address] 12/22/2024 09:46:01 12/22/2024 10:24:47 Screening - NAD 927768592 Z13.9 C-scope: 02/07/2023 : Next in 2 yearsEGD: 11/28/2024 : Dr Guadarrama Get yearly flu shot, get Tdap if not doneGet COVID 19 vaccine and its boosters [place] AAA at age 67 years RTC in 3 months, do labs, ER if worse, he did verbalize his understand ing of the above Gastroesop hageal reflux disease without esophagitis 819230387 K21.9 EGD 12/29/2018 : Dr Lindsay 08/18/2024 :On omeprazole 20mg daily, can do bid PRNGet another referral to GI, will need EGD again, impressed upon patient to obtain this JOHN OV 12/22/2024 :EGD 11/28/2024 : Dr Alan Hyperlipidemia 26037594 E78.5 On rosuvastat in 40mg dailyNot on fenofibrat e 145mg dailyGet labs Moderate r ecurrent major depression 58822135 F33.1 Not on doxepin 25mg at bedtimeNot on vraylar 1.5mg dailyNot on quetiapine 100mg daily On bupropion XL 150mg dailyOn propranolo l 10mg bidOn sertraline 200mg dailyOn trazodone 100mg daily Sees Dr Farris suicidal or homicidal Essential hypertension 55467725 I10 On losartan 50mg dailyDoes wellDr Dayton last OV 11/06/2023 Smoker 94711243 F17.200 Advised to quit smoking! 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 716399504 E11.9 On metformin 500mg bidGet labs Obstructiv e sleep apnea syndrome 62866905 G47.33 On CPAPSees Sydnie Yu VETERIN[employer]UM INSPECTOR 05/15/2023 Next apt 09/12/2024 Chronic cough 47310028 R 05.3 He smokes, has noted a chronic dry cough, no fevers or chillsDoes not want to get tested for COVID 19 or strep or fluGet on Z-packDoes need to see Dr Power Pain of ri ght elbow joint [id number] 7840155 M25.521 Dr Rivers 11/03/2023 Dr Rivers 03/16/2024 , referred to [facility] for his c-spine Dr Gann 06/08/2024 , f/u PRNDr Tita 08/03/2024 , to get elbow surgery Dr Rivers 12/14/2024 , to get surgery on 01/03/2025 Steatotic liver disease 922814651 K76.0 CT chest 05/13/2023 Hepatitis/ GGT: 05/21/2023 : NegUS liver 06/04/2023 : Liver enlargemen tNeeds to see GI Leukocytosis 660715780 D 72.829 Repeat the CBC Screening for malignant neoplasm of colon 815689272 Z12.11 [id number] Keon Rivers MD [facility] [place] [address] [place] [address] 01/20/2025 08:44:58 01/20/2025 09:07:49 Pain of right elbow joint [id number] 7343157 M25.431 [id number] Keno Rivers MD [facility] [place] [address] [place] [address] 02/17/2025 09:06:29 02/17/2025 09:32:58 Ulnar nerve entrapment at elbow 475189600 G56.22 Entrapment of right ulnar nerve 9064435108 27752 G56.21 [id number] Kurtis Power MD [facility] [place] Pulmonolo gy [address], [facility] [address] [place] [address] 03/22/2025 09:53:32 03/22/2025 15:23:31 Obstructive sleep apnea syndrome 84152748 G47.33 Iron deficiency 06837958 E61.1 Smoker 54451510 F17.218 F17.219 Z87.891 Posterior rhinorrhea 758 33008 R09.82 Solitary n odule of lung 430971063 R91.1 Dyspnea on exertion 6084 5006 R06.09 R05.9 [id number] Ling horta MD [facility] [place] [address] [facility], [address] [place] [address] 03/23/2025 16:43:19 03/23/2025 18:25:43 Screening - NAD 106161600 Z13.9 C-scope: 02/07/2023 : Next in 2 yearsEGD: 11/28/2024 : Dr Guadarrama Get yearly flu shot, get Tdap if not doneGet COVID 19 vaccine and its boosters US AAA at age 67 years RTC in 3 months, do labs, ER if worse, he did verbalize his understand ing of the above Gastroesop hageal reflux disease without esophagitis 967317851 K21.9 EGD 12/29/2018 : Dr Lindsay 08/18/2024 :On omeprazole 20mg daily, can do bid PRNGet another referral to GI, will need EGD again, impressed upon patient to obtain this JOHN OV 12/22/2024 :EGD 11/28/2024 : Dr Alan Hyperlipidemia 59999257 E78.5 On rosuvastat in 40mg dailyNot on fenofibrat e 145mg dailyGet labs Moderate r ecurrent major depression 27369541 F33.1 Not on doxepin 25mg at bedtimeNot on vraylar 1.5mg dailyNot on quetiapine 100mg daily On bupropion XL 150mg dailyOn buspirone 10mg bidOn propranolo l 10mg bidOn sertraline 200mg dailyOn trazodone 100mg daily Sees Dr Farris suicidal or homicidal Essential hypertension 15813813 I10 On losartan 50mg dailyDoes wellDr Dayton last OV 11/06/2023 Smoker 40177088 F17.200 Advised to quit smoking! 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 403190833 E11.9 On metformin 500mg bidGet labs Obstructiv e sleep apnea syndrome 68867626 G47.33 On CPAPSees Sydnie Yu VETERIN[employer] V[employer]US [employer]UM INSPECTOR 05/15/2023 Next apt 09/12/2024 Chronic cough 00674880 R 05.3 He smokes, has noted a chronic dry cough, no fevers or chillsDoes not want to get tested for COVID 19 or strep or fluGet on Z-packDoes need to see Dr Jannet Ibarra of [facility] elbow joint [id number] 9669991 M25.521 Dr Rivers 11/03/2023 Dr Rivers 03/16/2024 , referred to NS for his c-spine Dr Gann 06/08/2024 , f/u PRNDr Tita 08/03/2024 , to get elbow surgery Dr Rivers 12/14/2024 , to get surgery on 01/03/2025 Steatotic liver disease 979674739 K76.0 CT chest 05/13/2023 Hepatitis/ GGT: 05/21/2023 : NegUS liver 06/04/2023 : Liver enlargemen tNeeds to see GI Leukocytosis 351451009 D 72.829 Repeat the CBC Screening for malignant neoplasm of colon 657193873 Z12.11 Lesion of skin of face 6732396543 06 L98.9 States that he has 'coil hair' and has wrinkles in the back of his ears and his feetRefer to dermatolog y Health Concerns Section Related Observation LastModified by Organization Detai ls LastModified Time None Recorded Concern Status LastModified by Organization Details LastModified Time None Recorded Advance Directives Directive N: Payers Insurance Date Sequence Insurance Name Policy Number Policy Fishman Covered Member ID Fishman Member ID Guarantor Name 03/22/2025 1 [facility] (MEDICARE REPLACEMENT/A DVANTAGE - PPO) [id number] Mj Diaz [id number] Mj Diaz 01/18/2025 1 [employer] (MEDICARE REPLACEMENT/A DVANTAGE - PPO) Mj Diaz [id number] Mj Diaz 02/28/2025 2 [facility] [place] [facility]PARTMENT OF PUBLIC AID Mj Diaz [id number] Mj Diaz Notes Date Note Type Note Provider Name and Address Organization Details Recorded Time 12/22/2024 text/html OV 05/07/2023:Here to establish care Past Hx:Anxiety/DepressionH TNDMIIGERDEDHLD Reviewed [...] the 4th and the 5th fingers, 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, no acute or remote trauma noted OV [...] now will see a back specialist in [facility], does not know the name, he [...] no change in weight Ling Mcduffie MD [address] [place] [address], [facility] [address], [place], [address], [facility] [employer] 12/22/2024 10:18:45 03/22/2025 text/html Primary care/Referring provider: Ling Mcduffie MD Patient is here [...] noPalpitations: noHeartburn: noEdema: no Modified [employer] [place] (mMRC) Dyspnea Scale - Grade 2Grade 0 [...] Environmental exposures:Nicotine smoke: 2 ppd 1996-present = 56 pack yearsPaint: noDye: noDust mites: yesMold: noDamp [...] was placed on autoCPAP. At home since 10/25/24, the patient uses a ResMed AirSense 11 [...] chance of dozing. Kurtis Power MD [address] [facility], [facility] [address], [place], [address], [facility] 03/22/2025 15:23:29 03/23/2025 text/html OV 05/07/2023:Here to establish carePast Hx:Anxiety/DepressionH TNDMIIGERDEDHLDRevgrantwe d social family and surgical historyHere to discuss above and also get labs, he does c/o R elbow pain, no acute injury, he is RHD, he denies any N/T or weakness of the gripHe is here with his Zi OV 08/05/2023: Here for his f/u apt, he is doing well today, does have some numbness in the L hand particularly the 4th and the 5th fingers, 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, [address], [place], [address], [facility] 03/23/2025 18:31:11
--- OUTSIDE RECORDS SUMMARY | 2025-03-24 06:55 | XMS_ITS | Clinical Summary ---
Author Organization [facility] [employer] Address [address] [place] [address] Care Team Providers Care Hockey Player Name Role Phone Ling Mcduffie MD Primary Care Provider Source Comments [facility],non-owned Affiliates and Associated Physician Practices is amultiple site organization consisting of ambulatory clinics and hospital sitesin [place], [place], [place] and [place]. This disclosure is being madepursuant to the Care Everywhere program and may not contain all information available regarding this patient. 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[employer] Gender Identity Not on file Sexual Orientation [...] MEDICARE AWV CALENDAR YEAR 2024 INFLUENZA VACCINE (#1) 2025 2, 06/25/2021, 05/20/2020, Additional history exists ZOSTER VACCINE [...] patient's age to complete this topic Insurance [facility] MANAGED MEDICARE [place] MEDICA[place] - [place] [facility] MANAGED MEDICARE ADV SELF PAY NO INSURANCE Member Subscriber Plan / Payer (Ef fective for All Dates) Name:Monalisa Paovn Member ID:Not on file Relation to Subscriber:Not on file Name:MONALISA PAVON Subscriber ID:Not on file (Home) Address: [address] [place] [id number] Payer ID:Not on file Group ID:Not on file Type:Self Pay Address: [place], [place] Care Teams Hockey Player Relationship Specialty Start Date End Date Ling Mcduffie MD [address] [address] PCP - General 04/10/20
--- OUTSIDE RECORDS SUMMARY | 2025-03-24 06:55 | XMS_ITS | Continuity of Care Document ---
Author Organization [place] [facility] [place], [facility] Internal Med [address] [facility] [address] [place] [address] Care Team Providers Care Safety Engineer Pressure Vessels Name Role Phone LING MCDUFFIE Primary Care Provider LING MCDUFFIE Referring Provider AYDEN BURRIS Telecommunications Technician VALERIANO GANN Orthopedic Surgeon [phone] ADRIANA DAY Orthopedic Surgeon KURTIS POWER Auto Air Conditioning Installer Assessment Encounter Date Assessment Date Assessment LastModified by Organization Details LastModified Time 03/23/2025 03/23/2025 05/21/2023: Hepatitis panel Neg GGT: [...] available Lab CMP, serum or plasma 2024 07 025 [facility], [address], [place], [address], 03/23/2025 18:18:04 CBC w/ auto diff 2024 025 [facility], [address], [place], [address], 03/23/2025 18:18:06 T4, free, serum 2024 025 [facility], [address], [place], [address], 03/23/2025 18:18:08 TSH, serum or plasma 2024 025 [facility], [address], [place], [address], 03/23/2025 18:18:03 lipid panel, serum 2024 025 [facility], [address], [place], [address], 03/23/2025 18:18:04 CBC w/ auto diff [address] - Outpatient Lab, [address] [place] [address], [address], 03/23/2025 18:17:58 HbA1c (hemoglob in A1c), blood 2024 025 [facility], [address], [place], [address], 03/23/2025 18:18:05 microalbu min, urine 2024 025 [facility], [address], [place], [address], 03/23/2025 18:18:07 Referral dermatolo gist referral 2024 025 [facility], [address] [place] [address], [address], 03/23/2025 18:25:44 gastroent erologist referral - Please call patient to schedule an appointme nt. Thank you. 2024 025 [email or web address] Larry faria MD, [address] [facility] [address], [facility] [address], [place], [address], 03/23/2025 18:25:44 pulmonolo gist referral - Please call patient to schedule an appointme nt. Thank you. 2024 025 [email or web address] Kurtis Power MD, [address] [place], [address], 03/23/2025 18:25:44 cardiolog ist referral - Please call patient to schedule an appointme nt. Thank you. 2024 025 [email or web address] [place], [address] [facility], [facility] [address], [place], [address], 03/23/2025 18:25:44 podiatris t referral - Please call patient to schedule an appointme nt. Thank you. 2024 025 [email or web address] Blake Suarez DPM, [address] [facility], [facility] [address], [place], [address], 03/23/2025 18:25:43 Procedures colonosco py screening (PROC) - Please call patient to schedule an appointme nt. Thank you. 2024 025 [email or web address] Larry faria MD, [address] [place] [address], [facility] [address], [place], [address], 03/23/2025 18:18:03 Surgeries None recorded. Imaging None recorded. Medication Orders None recorded. Patient TargetsNo targets recorded. Patient Instructions Encounter Date Encounter Id Patient Instructions Last Modified By Organization Details Last Modified Time 03/23/2025 [id number] diabetic eye exam* Not available 03/23/2025 18:18:02 Reason for Referral Flow Match Sofa Cutter Referral for Type 2 diabetes mellitus without complication Please call patient to schedule an appointment. Thank you. Referring Physician: Ling Mcduffie, Internal Medicine, Encounter Date: 03/23/2025 Fixed Income Trading Vice President Referral for Steatotic liver disease Please call patient to schedule an appointment. Thank you. Referring Physician: Ling Mcduffie Internal Medicine, Encounter Date: 03/23/2025 Auto Air Conditioning Installer Referral for C hronic cough Please call patient to schedule an appointment. Thank you. Referring Physician: Ling Mcduffie Internal Medicine, Encounter Date: 03/23/2025 Telecommunications Technician Referral for Es sential hypertension Please call patient to schedule an appointment. Thank you. Referring Physician: Ling Mcduffie Internal Medicine, Encounter Date: 03/23/2025 Lining Cementer Referral for L esion of skin of face Referring Physician: Ling Mcduffie Internal Medicine, Encounter Date: 03/23/2025 Results Created Date Observation Date Name Description Value Unit Range Abnormal Flag Note LastModifiedBy Organization Detail LastModifiedTime Result Notes None recorded. Problems Name Problem SNOMED Code Status Onset Date Resolution Date Notes Provider Name and Address Organization Details Recorded Time Restless legs 27319498 Active Kurtis Power MD [address], [place], [place], [address], [employer] 14:42:07 Obstructive sleep apnea syndrome 41635340 Active Kurtis Power MD [address], [address], [place], [address], [employer] 14:41:57 Anxiety 37153440 Active 2019 Kurtis Power MD [address], [address], [place], [address], [employer] 14:40:20 Gastroesoph ageal reflux disease without esophagitis 413387985 Active 2022 Kurtis Power MD [address], [address], [place], [address], [employer] 14:40:51 Hyperlipide ximena 88332369 Active 2022 Kurtis Power MD [address], [address], [place], [address], [facility] [place] [facility] [employer] [facility] [place] 14:40:58 Moderate recurrent major depression 16515966 Active 2022 Kurtis Power MD [address], [address], [place], [address], [facility] [place] [facility] [employer] [facility] [place] 14:41:46 Essential hypertensio n 95704678 Active 2022 Kurtis Power MD [address], [address], [place], [address], [facility] [place] [facility] [employer] [facility] [place] 14:40:47 Erectile dysfunction 695697400 Active 2022 Kurtis Power MD [address], [address], [place], [address], [facility] [place] [facility] [employer] [facility] [place] 14:40:43 Smoker 93717141 Active 2022 Kurtis Power MD [address], [address], [place], [address], [facility] [place] [facility] [employer] [facility] [place] 14:42:11 Carpal tunnel syndrome of right wrist 6843041577219 08 Active 2022 Kurtis Power MD [address], [address], [place], [address], [facility] [place] [facility] [employer] [facility] [place] 14:40:23 Steatotic liver disease 649604153 Active 2022 Kurtis Power MD [address], [address], [place], [address], [facility] [place] [facility] [place] 14:42:17 Ulnar nerve entrapment at elbow 209436962 Active 2023 Kurtis Power MD [address], [address], [place], [address], [facility] [place] [facility] [employer] [facility] [place] 14:42:26 Cervical radiculopat hy 66928678 Active 2023 Kurtis Power MD [address], [address], [place], [address], [facility] [place] [facility] 14:40:36 Iron deficiency 12016376 Active 2023 Kurtis Power MD [address], [address], [place], [address], [facility] 5 14:41:01 Allergic rhinitis 13411303 Active 2023 Kurtis Power MD [address], [address], [place], [address], [place] [facility] 5 14:40:18 Type 2 diabetes mellitus without complicatio n 335522420 Active 2023 Kurtis Power MD [address], [address], [place], [address], [facility] 14:42:20 Posterior rhinorrhea 78283689 Active 2023 Kurtis Power MD [address], [address], [place], [address], [place] [facility] 5 14:42:44 Solitary nodule of lung 163465050 Active 2023 Kurtis Power MD [address], [address], [place], [address], [facility] 14:42:14 Entrapment of right ulnar nerve 6731293534900 05 Active 2024 Kurtis Power MD [address], [address], [place], [address], [facility] 5 10:28:52 Numbness of hand 447920682 Active 2024 Ling sanders MD [address], [address], [place], [address], [facility] 5 17:31:20 Pain of right elbow joint 2265670497701 9109 Active 2024 Ling sanders MD [address], [address], [place], [address], [place] [facility] 17:31:20 Chronic cough 98650495 Active 2024 Ling sanders MD [address] [facility], [place] [address], [place], [address], [facility] [employer] [facility] 17:31:20 Leukocytosi s 451501889 Active 2024 Ling sanders MD [address], [place] [address], [place], [address], [facility] [employer] [facility] 17:31:20 Lesion of skin of face 824492144670 Active 2024 Ling sanders MD [address] [facility], [place] [address], [place], [address], [facility] [employer] [facility] 18:19:26 Notes:Medical History: Nicot ine use Depression 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 R>L tinnitus Rhinitis with postnasal drip Eosinophils 240/uL IgE 28 IU/mL AAT PiMM 160 mg% (+) Quantiferon TB Gold, incarcerated 2402-1249, on Rifampin RLL nodule Granulomatous disease (chest, liver) Obesity with very severe OSAHS, AHI = 54, on autoCPAP c/o [facility] Home Patient Hypertension Hyperlipidemia T2DM NAUN Hepatic [...] decompression of ulnar nerve at elbow completed REGINALD Augustine [facility] [employer] [facility] 01/19/2025 08:57:03 09/06/19 25 procedure on elbow completed REGINALD Augustine [place] [facility] [employer] [facility] 12/08/2024 09:05:30 03/29/20 24 Medicare Wellness CPT Code, Initial completed Dandy Elizabeth LPN [facility] [employer] [facility] 03/28/2024 10:34:05 Hernia Surgery completed REGINALD Kerr [facility] 05/07/2023 10:13:32 Eye Surgery completed REGINALD Kerr Brisa [facility] 05/07/2023 10:13:37 Hernia Repair completed REGINALD Kerr Brisa [facility] 05/07/2023 10:13:54 Imaging Results None recorded. [...] 20 mg by injection route. 03/06 completed [facility]: 0003- 0494- 20 Not Available Not Available [...] bromide 42 mcg (0.06 %) nasal spray [place] 1 spray 4 times a day by [...] Not Available Not Available Not Available Fluvirin 8059-4468 45 mcg (15 mcg x 3)/0.5 mL [...] Details Last Updated DateTime 5 162.56 cm 27.8 kg/m2 08690.9 6 g 98.4 [degF] 85 /min 95 % 95 % 3 120/62 mm[Hg] Verenice Kwan MA [facility] 5 16:59:25 Social History Question Answer Notes LastModified by Organization Details LastModified Time Tobacco Smoking Status Current Every Day Smoker REGINALD Kerr, [facility] 05/07/2023 10:11:27 Do You Have An Advance Directive? No Information not available 05/07/2023 How Many Years Have You Consumed Alcohol? 30 [email or web address] Information not available 03/29/2024 What Is Your Level Of Caffeine Consumption? Moderate [email or web address] Information not available 05/15/2023 In The 14 Days Before Symptom Onset, Have You Had Close Contact With A Laboratory-ngai rmed COVID-19 While That Case Was Ill? [...] Drugs Have You Used? Marijuana Flower Form [email or web address] Information not available 05/15/2023 What Is The Highest Grade Or Level Of School You Have Completed Or The Highest Degree You Have Received? [id number] Information not available 05/07/2023 Do You Have An Electrostatic Air Filter? No Information not available 11/24/2023 Have There Been Any Changes To Your Family Or Social Situation? Yes Last May. He Moved In With His Mom And Brother [email or web address] Information not available 03/29/2024 What Is The Fluoride Status Of Your Home? Unknown Information not available 05/07/2023 Are There Any Guns Present In Your Home? No Information not available 05/07/2023 Do You Have A Humidifier? No Information not available 11/24/2023 How Many Years Have You Used Illicit Or Recreational Drugs? 31 [email or web address] Information not available 03/29/2024 Where Do You Live? SingleLevelHouse Information not available 05/07/2023 Do You Have A Medical Power Of Dorr Operator? No Information not available 05/07/2023 Do You Have Moisture Problems In Your Home? No Information not available 11/24/2023 What Was The Date Of Your Most Recent Tobacco Screening? 03/22/2025 [email or web address] Information not available 03/22/2025 What Is Your Current Pack Years? 30ormorepackyears [email or web address] Information not available 05/15/2023 Have You Ever Been Counseled For Unhealthy Alcohol Use? No [email or web address] Information not available 03/29/2024 Do You Have Any Pets? Yes 2 Cats [email or web address] Information not available 03/29/2024 What Is Your [...] Much Tobacco Do You Smoke? 1 PPD [email or web address] Information not available 03/29/2024 Do You Use Sunscreen Routinely? No Information not available 11/24/2023 Has Tobacco Cessation Counseling Been Provided? Yes Information not available 03/29/2024 On What Date Was Tobacco Cessation Counseling Provided? 03/23/2025 Information not available 03/23/2025 How Many Years Have You Smoked Tobacco? 30 [email or web address] Information not available 05/15/2023 Have You Recently Traveled Abroad? No Information not available 05/07/2023 Have You Used IV Drugs? No [email or web address] Information not available 05/15/2023 How Many Days In The Past Year Have You Consumed 5 Or More Drinks? 0 [email or web address] Information not available 03/29/2024 Sex: Male Functional [...] the past but never really liked it [email or web address] Information not available 03/29/2024 What is your exercise level? Occasional Information not available 05/07/2023 Mental Status Question Answer Note LastModified by Organization D etails LastModified Time Do you feel stressed (tense, restless, nervous, or anxious, or unable to sleep at night)? [id number] [email or web address] Information not available 03/29/2024 Family History Relationship [...] virus, quadrivalent, preservative 9 completed BORA Cabral, [facility] 03/24/2024 14:43:42 Tdap 9 completed BORA Cabral, [facility] 03/24/2024 14:43:42 influenza, unspecified formulation 6 completed Dandy Elizabeth LPN null, [facility] 03/24/2024 14:43:42 COVID-19, mRNA, LNP-S, PF, 30 mcg/0.3 mL dose 2 completed Dandy Elizabeth LPN null, [facility] 03/24/2024 14:43:42 COVID-19, mRNA, LNP-S, PF, 30 mcg/0.3 mL dose 1 completed Dandy Elizabeth LPN null, [facility] 03/24/2024 14:43:42 COVID-19, mRNA, LNP-S, PF, 30 mcg/0.3 mL dose 1 completed Dandy Elizabeth DENTAL HYGIENE TEACHER null, [facility] 03/24/2024 14:43:42 COVID-19, mRNA, LNP-S, bivalent, PF, 30 mcg/0.3 mL dose 2 completed Dandy Elizabeth DENTAL HYGIENE TEACHER null, [facility] 03/24/2024 14:43:42 Influenza, split virus, trivalent, PF 6 completed Dandy Elizabeth LPN null, [facility] 03/24/2024 14:43:42 Influenza, split virus, quadrivalent, PF 0 completed Dandy Elizabeth LPN null, [facility] 03/24/2024 14:43:42 Influenza, split virus, quadrivalent, PF 9 completed Dandy Elizabeth DENTAL HYGIENE TEACHER null, [facility] 03/24/2024 14:43:42 Influenza, split virus, quadrivalent, PF 1 completed Dandy Elizabeth DENTAL HYGIENE TEACHER null, [facility] 03/24/2024 14:43:42 Influenza, split virus, quadrivalent, PF 2 completed Dandy Elizabeth LPN null, [facility] 03/24/2024 14:43:43 Influenza, MDCK, quadrivalent, PF 3 completed Ama Cabrera RMA null, [facility] 08/17/2024 14:55:25 COVID-19, mRNA, LNP-S, PF, mali-sucrose, 30 mcg/0.3 mL 3 completed Ama Cabrera RMA null, [facility] 08/17/2024 14:55:25 Past Encounters Encounter ID Performer Location Encounter Start Date Encounter Closed Date Diagnosis/Indication Diagnosis SNOMED-CT Code Diagnosis ICD10 Code Diagnosis Note [id number] Kurtis Power MD [facility] [address] [address] 03/22/2025 09:53:32 03/22/2025 15:23:31 Obstructive sleep apnea syndrome 34782319 G47.33 Iron deficiency 86451161 E61.1 Smoker 32936495 F17.218 F17.219 Z87.891 Posterior rhinorrhea 758 [address]162 R09.82 Solitary n odule of lung 764635833 R91.1 Dyspnea on exertion 6084 5006 R06.09 R05.9 [id number] Ling horta MD [facility] Internal Med [facility] [address] [place] [address] 03/23/2025 16:43:19 03/23/2025 18:25:43 Screening - NAD 358221364 Z13.9 C-scope: 02/07/2023 : Next in 2 yearsEGD: 11/28/2024 : Dr Guadarrama Get yearly flu shot, get Tdap if not doneGet COVID 19 vaccine and its boosters US AAA at age 67 years RTC in 3 months, do labs, ER if worse, he did verbalize his understand ing of the above Gastroesop hageal reflux disease without esophagitis 286407395 K21.9 EGD 12/29/2018 : Dr Lindsay 08/18/2024 :On omeprazole 20mg daily, can do bid PRNGet another referral to GI, will need EGD again, impressed upon patient to obtain this JOHN OV 12/22/2024 :EGD 11/28/2024 : Dr Alan Hyperlipidemia 51750559 E78.5 On rosuvastat in 40mg dailyNot on fenofibrat e 145mg dailyGet labs Moderate r ecurrent major depression 47373739 F33.1 Not on doxepin 25mg at bedtimeNot on vraylar 1.5mg dailyNot on quetiapine 100mg daily On bupropion XL 150mg dailyOn buspirone 10mg bidOn propranolo l 10mg bidOn sertraline 200mg dailyOn trazodone 100mg daily Sees Dr Farris suicidal or homicidal Essential hypertension 09383507 I10 On losartan 50mg dailyDoes wellDr [place] last OV 11/06/2023 Smoker 76920331 F17.200 Advised to quit smoking! Erectile dysfunction 860 912544 F52.21 On sildenafil , does well Numbness of hand 2831560 04 R20.0 Does well now Type 2 bridgett betes mellitus without complication 421225878 E11.9 On metformin 500mg bidGet labs Obstructiv e sleep apnea syndrome 21017267 G47.33 On CPAPSees Sydnie Yu LODGING HOUSE KEEPER 05/15/2023 Next apt 09/12/2024 Chronic cough 41086773 R 05.3 He smokes, has noted a chronic dry cough, no fevers or chillsDoes not want to get tested for COVID 19 or strep or fluGet on Z-packDoes need to see Dr Jannet Ibarra of [facility] [id number] 7932712 M25.521 Dr Rivers 11/03/2023 Dr Rivers 03/16/2024 , referred to [facility] for his c-spine Dr Gann 06/08/2024 , f/u PRNDr Tita 08/03/2024 , to get elbow surgery Dr Rivers 12/14/2024 , to get surgery on 01/03/2025 Steatotic liver disease 454248503 K76.0 CT chest 05/13/2023 Hepatitis/ GGT: 05/21/2023 : NegUS liver 06/04/2023 : Liver enlargemen tNeeds to see GI Leukocytosis 134598223 D 72.829 Repeat the CBC Screening for malignant neoplasm of colon 433594103 Z12.11 Lesion of skin of face 5105672804 06 L98.9 States that he has 'coil [...] Member ID Fishman Member ID Guarantor Name 03/23/2025 1 [facility] (MEDICARE REPLACEMENT/A DVANTAGE - PPO) [id number] Mj Diaz [id number] Mj Diaz 03/23/2025 2 [place] Mj Diaz [id number] Mj Diaz Notes Date Note Type Note Provider Name and Address Organization Details Recorded Time 03/23/2025 text/html OV 05/07/2023:Here to establish carePast Hx:Anxiety/Depress ionHTNDMIIGERDEDHL DReviewed social family and surgical historyHere to discuss [...] the 4th and the 5th fingers, normal scheduler maintenance, no acute or remote trauma noted OV [...] now will see a back specialist in [facility], does not know the name, [...] like to see dermatology Ling Mcduffie MD [address] [place] [address], [facility] [address], [place], [address], [facility] 03/23/2025 18:31:11
--- OUTSIDE RECORDS SUMMARY | 2025-03-24 06:55 | XMS_ITS | Referral Summary ---
Author Organization [facility] Phys[facility] Building [address] [place] [address] Care Team Providers Care Veterinary Medical Officer Name Role Phone Stephanie Mcduffie MD Primary [...] Plan of Treatment Not on file Insurance [facility] MEDICARE ADVANTAGE IDPA IDPA Care Teams Veterinary Medical Officer Relationship Specialty Start Date End Date Stephanie Mcduffie MD PCP - General Internal Medicine 02/14/19
[2025-03-24 07:37] LABS: Hematocrit 45.5 % (42.0-52.0); Hemoglobin 14.8 g/dL (14.0-18.0); Immature Granulocyte Percent A 0.3 % (0-0.5); Lymphocytes Absolute Auto 2.55 K/mm3 (0.9-3.2); Mean Corpuscular HGB Conc 32.5 g/dl (32-36); Mean Corpuscular Hemoglobin 29.0 pg (26-34); Mean Corpuscular Volume 89.2 fl (80-100); Nucleated Red Blood Cells Absolute Auto 0.000 K/mm3 (0.0-0.012); Nucleated Red Blood Cells Perc 0.0 % (0.0-0.2); Platelet Count Result 327 k/mm3 (150-375); Red Blood Count 5.10 M/mm3 (4.6-6.20); White Blood Count 7.2 K/mm3 (4.5-10.0)
[2025-03-24 07:59] LABS: Alanine Aminotransferase 16 U/L (6-50); Albumin Level 4.5 g/dL (3.5-5.1); Alkaline Phosphatase 73 U/L (38-126); Anion Gap 8 mmol/L (4-12); Aspartate Amino Transferase 23 U/L (17-59); Bilirubin,Total 0.5 mg/dL (0.2-1.3); Blood Urea Nitrogen 12 mg/dL (9-20); Calcium 9.6 mg/dL (8.4-10.2); Carbon Dioxide 26 mmol/L (22-30); Chloride 106 mmol/L (98-107); Cholesterol 150 mg/dL (0-200); Estimated Glomerular Filt Rate > 60; Glucose 112 mg/dL (65-110); HDL Direct 49 mg/dL; Potassium 4.2 mmol/L (3.4-5.0); Sodium 140 mmol/L (137-145); Total Protein 7.6 g/dL (6.3-8.2); Triglycerides 84 mg/dL (<150)
[2025-03-24 08:16] LABS: Free T4 Free Thyroxine 1.29 ng/dL (0.78-2.19)
[2025-03-24 08:38] LABS: Thyroid Stimulating Hormone 0.790 uIU/mL (0.465-4.680)
[2025-03-24 09:12] LABS: Hemoglobin A1C 6.1 % (<5.7)
[2025-03-24 14:44] LABS: MALB Creatinine Ratio 6.4 mg/g (0-30)
== END 2025-03-24 06:49 | disposition home or self-care (01) ==
LOC: ANHLAB 06:52
PROVIDERS: PCP Internal Medicine; Visit Provider Internal Medicine
DX: E78.5 Hyperlipidemia, unspecified (principal); E11.9 Type 2 diabetes mellitus without complications
CPT/HCPCS: 36415; 80053; 80061; 82043; 83036; 84439; 84443; 85025